=== PATIENT | male | born 1965 | race Caucasian/White ===

== ENCOUNTER 2018-04-28 15:38 | Inpatient (IN) | payer MEDICARE ==
[2018-04-28 16:06] LABS: Basophils % (A) 0 %; Eosinophils # (A) 0.4 k/uL (0-0.7); Eosinophils % (A) 3 %; HCT 43.2 % (39.0-53.0); HGB 13.9 gm/dL (13.0-17.5); Hypochromasia Slight; Lymphocytes # (A) 1.1 k/uL (1.0-4.8); Lymphocytes % (A) 10 %; MCH 25.7 pg (25.0-35.0); MCHC 32.2 g/dL (31.0-37.0); MCV 79.8 fL (80.0-100.0); Monocytes # (A) 0.6 k/uL (0-1.0); Monocytes % (A) 5 %; Neutrophils # (A) 8.8 k/uL (1.3-7.7); Neutrophils % (A) 79 %; Platelet Count 329 k/uL (150-450); RBC 5.42 m/uL (4.30-5.90); RDW 15.4 % (11.5-15.5); WBC 11.1 k/uL (3.8-10.6)
[2018-04-28 16:13] LABS: INR 3.5 (<1.2); Partial Thromboplastin Time 29.3 sec (22.0-30.0); Prothrombin Time 33.7 sec (9.0-12.0)
[2018-04-28 16:17] LABS: Albumin 4.6 g/dL (3.5-5.0); Calcium 9.8 mg/dL (8.4-10.2); Magnesium 2.2 mg/dL (1.6-2.3); Potassium 4.4 mmol/L (3.5-5.1); Total Bilirubin 0.6 mg/dL (0.2-1.3); Total Protein 7.5 g/dL (6.3-8.2)
--- NOTE | 2018-04-28 16:17 | ED ---
Dizziness HPI - General Chief Complaint: Syncope Stated Complaint: Cardiac Issues Time Seen by Provider: 04/28/18 15:43 Source: patient, EMS, RN notes reviewed, old records reviewed Mode of arrival: EMS Limitations: no limitations - History of Present Illness Initial Comments: This is a 52-year-old male the ER for evaluation he presents today for evaluation regarding syncopal event and stooling himself. Patient has history of cardiac arrest and this is how he felt during those times. Patient doesn't patient to family states the pacemaker defibrillator did not fire off at this time. Patient denies current chest pain, does feel mildly weak lightheaded and dizzy MD Complaint: dizziness, lightheadedness -: days(s) Timing: waxing/waning Description: sense of movement History of Same: Yes History of Trauma: No Severity: mild Improves With: nothing Worsens With: nothing Associated Symptoms: denies other symptoms - Related Data Allergies Allergy/AdvReac Type Severity Reaction Status Date / Time acetaminophen [From Percocet] Allergy Rash/Hives Verified 04/28/18 18:04 fexofenadine [From Zara-D] Allergy Swelling Verified 04/28/18 18:04 Iodinated Contrast- Oral and Allergy Rash/Hives Verified 04/28/18 18:04 IV Dye oxycodone [From Percocet] Allergy Rash/Hives Verified 04/28/18 18:04 pseudoephedrine Allergy Swelling Verified 04/28/18 18:04 [From Zara-D] quetiapine [From Seroquel] Allergy Unknown Verified 04/28/18 18:04 Review of Systems ROS Statement: Those systems with pertinent positive or pertinent negative responses have been documented in the HPI. ROS Other: All systems not noted in ROS Statement are negative. Past Medical History Past Medical History: Diabetes Mellitus, Hyperlipidemia, Hypertension, Myocardial Infarction ([place]) Additional Past Medical History / Comment(s): cardiac arrest x5 History of Any Multi-Drug Resistant Organisms: None Reported Past Surgical History: AICD, Heart Catheterization, Orthopedic Surgery Additional Past Surgical History / Comment(s): aortic valve replcement, mitral valve ring. right leg with hardware Past Psychological History: No Psychological Hx Reported Smoking Status: Never smoker Past Alcohol Use History: None Reported Past Drug Use History: None Reported General Exam Limitations: no limitations General appearance: alert, in no apparent distress Head exam: Present: atraumatic, normocephalic, normal inspection Eye exam: Present: normal appearance, PERRL, EOMI. Absent: scleral icterus, conjunctival injection, periorbital swelling ENT exam: Present: normal exam, mucous membranes moist Neck exam: Present: normal inspection. Absent: tenderness, meningismus, lymphadenopathy Respiratory exam: Present: normal lung sounds bilaterally. Absent: respiratory distress, wheezes, rales, rhonchi, stridor Cardiovascular Exam: Present: regular rate, normal rhythm, normal heart sounds. Absent: systolic murmur, diastolic murmur, rubs, gallop, clicks GI/Abdominal exam: Present: soft, normal bowel sounds. Absent: distended, tenderness, guarding, rebound, rigid Extremities exam: Present: normal inspection, full ROM, normal capillary refill. Absent: tenderness, pedal edema, joint swelling, calf tenderness Back exam: Present: normal inspection Neurological exam: Present: alert, oriented X3, CN II-XII intact Psychiatric exam: Present: normal affect, normal mood Skin exam: Present: warm, dry, intact, normal color. Absent: rash Course Vital Signs 04/28/18 15:42 Temperature 98.4 F Pulse Rate 70 Respiratory 20 Rate Blood Pressure 89/54 O2 Sat by Pulse 100 Oximetry - Reevaluation(s) Reevaluation #1: 04/28/18 18:07 Records reviewed Reevaluation #2: 04/28/18 18:07 patient is without recurrent syncope of the patient did stool himself twice here in the emergency room EKG Findings - EKG Comments: EKG Findings:: EKG shows paced rhythm rate of 72, ND 150, QRS 122, QTc 510 Medical Decision Making - Medical Decision Making 50 female the ER for evaluation of syncopal event with history of cardiac arrest. Cardiac arrest rest 4. We didn't. Patient's pacemaker today with no significant findings. Patient be admitted for cardiac evaluation - Lab Data Result diagrams: 04/28/18 15:50 04/28/18 15:50 Lab Results 04/28/18 04/28/18 04/28/18 Range/Units 15:50 15:50 15:50 WBC 11.1 H (3.8-10.6) k/uL RBC 5.42 (4.30-5.90) m/uL Hgb 13.9 (13.0-17.5) gm/dL Hct 43.2 (39.0-53.0) % MCV 79.8 L (80.0-100.0) fL MCH 25.7 (25.0-35.0) pg MCHC 32.2 (31.0-37.0) g/dL RDW 15.4 (11.5-15.5) % Plt Count 329 (150-450) k/uL Neutrophils % 79 % Lymphocytes % 10 % Monocytes % 5 % Eosinophils % 3 % Basophils % 0 % Neutrophils # 8.8 H (1.3-7.7) k/uL Lymphocytes # 1.1 (1.0-4.8) k/uL Monocytes # 0.6 (0-1.0) k/uL Eosinophils # 0.4 (0-0.7) k/uL Basophils # 0.0 (0-0.2) k/uL Hypochromasia Slight PT (9.0-12.0) sec INR (<1.2) APTT (22.0-30.0) sec Sodium 140 (137-145) mmol/L Potassium 4.4 (3.5-5.1) mmol/L Chloride 104 (98-107) mmol/L Carbon Dioxide 24 (22-30) mmol/L Anion Gap 12 mmol/L BUN 24 H (9-20) mg/dL Creatinine 1.41 H (0.66-1.25) mg/dL Est GFR (CKD-EPI)AfAm 66 (>60 ml/min/1.73 sqM) Est GFR (CKD-EPI)NonAf 57 (>60 ml/min/1.73 sqM) Glucose 119 H (74-99) mg/dL Calcium 9.8 (8.4-10.2) mg/dL Magnesium 2.2 (1.6-2.3) mg/dL Total Bilirubin 0.6 (0.2-1.3) mg/dL AST 23 (17-59) U/L ALT 26 (21-72) U/L Alkaline Phosphatase 86 (38-126) U/L Total Creatine Kinase 79 (55-170) U/L CK-MB (CK-2) 0.4 (0.0-2.4) ng/mL CK-MB (CK-2) Rel Index 0.5 Troponin I <0.012 (0.000-0.034) ng/mL NT-Pro-B Natriuret Pep pg/mL Total Protein 7.5 (6.3-8.2) g/dL Albumin 4.6 (3.5-5.0) g/dL Lipase 189 (23-300) U/L 04/28/18 04/28/18 Range/Units 15:50 15:50 WBC (3.8-10.6) k/uL RBC (4.30-5.90) m/uL Hgb (13.0-17.5) gm/dL Hct (39.0-53.0) % MCV (80.0-100.0) fL MCH (25.0-35.0) pg MCHC (31.0-37.0) g/dL RDW (11.5-15.5) % Plt Count (150-450) k/uL Neutrophils % % Lymphocytes % % Monocytes % % Eosinophils % % Basophils % % Neutrophils # (1.3-7.7) k/uL Lymphocytes # (1.0-4.8) k/uL Monocytes # (0-1.0) k/uL Eosinophils # (0-0.7) k/uL Basophils # (0-0.2) k/uL Hypochromasia PT 33.7 H (9.0-12.0) sec INR 3.5 H (<1.2) APTT 29.3 (22.0-30.0) sec Sodium (137-145) mmol/L Potassium (3.5-5.1) mmol/L Chloride (98-107) mmol/L Carbon Dioxide (22-30) mmol/L Anion Gap mmol/L BUN (9-20) mg/dL Creatinine (0.66-1.25) mg/dL Est GFR (CKD-EPI)AfAm (>60 ml/min/1.73 sqM) Est GFR (CKD-EPI)NonAf (>60 ml/min/1.73 sqM) Glucose (74-99) mg/dL Calcium (8.4-10.2) mg/dL Magnesium (1.6-2.3) mg/dL Total Bilirubin (0.2-1.3) mg/dL AST (17-59) U/L ALT (21-72) U/L Alkaline Phosphatase (38-126) U/L Total Creatine Kinase (55-170) U/L CK-MB (CK-2) (0.0-2.4) ng/mL CK-MB (CK-2) Rel Index Troponin I (0.000-0.034) ng/mL NT-Pro-B Natriuret Pep 138 pg/mL Total Protein (6.3-8.2) g/dL Albumin (3.5-5.0) g/dL Lipase (23-300) U/L - Radiology Data Radiology results: report reviewed (Chest x-rays negative for acute disease), image reviewed Disposition Clinical Impression: Carotid sinus syncope, Syncope Disposition: HOME SELF-CARE Condition: Good Is patient prescribed a controlled substance at d/c from ED?: No Referrals: None,Stated [Primary Care Provider] - 1-2 days
[2018-04-28 16:21] LABS: Creatine Kinase 79 U/L (55-170)
[2018-04-28 16:33] LABS: Creatine Kinase MB 0.4 ng/mL (0.0-2.4); Troponin I <0.012 ng/mL (0.000-0.034)
[2018-04-28] MEDS ORDERED: NITROGLYCERIN SL TABS 0.4 MG TAB SUBLINGUAL PRN (18:04)
[2018-04-28] MEDS ORDERED: HEPARIN SODIUM,PORCINE 5,000 UNIT/ML 1 ML VIAL IV ONE (18:04)
[2018-04-28] MEDS ORDERED: HEPARIN SODIUM,PORCINE 5,000 UNIT/ML 1 ML VIAL IV PRN (18:04)
--- NOTE | 2018-04-28 18:13 | XR ---
EXAMINATION TYPE: XR chest 2V DATE OF EXAM: 04/28/2018 COMPARISON: NONE HISTORY: Chest pain TECHNIQUE: Frontal and lateral views of the chest are obtained. FINDINGS: There is no heart failure nor confluent pneumonic infiltrate. There is left axillary pacem jes with the lead tip in the right ventricle. There are sternal wires. There is no pleural effusion. Bony thorax is intact. There is cardiac surgery. IMPRESSION: No active cardiopulmonary disease.
[2018-04-28] MEDS ORDERED: HEPARIN SOD,PORK IN 0.45% NACL 25,000 UNIT in 0.45% NACL 1 250ML.BAG IV SCH (18:15)
[2018-04-28] MEDS ORDERED: SODIUM CHLORIDE 0.9% 1,000 ML IV STA (18:30)
[2018-04-28] MEDS: SODIUM CHLORIDE 0.9% 1,000 ML IV SCH (20:26)
[2018-04-28] MEDS ORDERED: METOPROLOL TARTRATE 25 MG TAB PO SCH (21:00)
[2018-04-28 21:29] LABS: Glucose,Whole Blood 144 mg/dL (75-99)
[2018-04-28] MEDS ORDERED: ARTIFICIAL TEARS-HYPROMELLOSE DROPS 15 ML BTL BOTH EYES PRN (21:58)
[2018-04-28 22:14] LABS: HCT 38.9 % (39.0-53.0); HGB 12.6 gm/dL (13.0-17.5); Hypochromasia Moderate; MCH 26.2 pg (25.0-35.0); MCHC 32.5 g/dL (31.0-37.0); MCV 80.6 fL (80.0-100.0); Mean Platelet Volume 7.1; Platelet Count 274 k/uL (150-450); RBC 4.82 m/uL (4.30-5.90); RDW 15.3 % (11.5-15.5); WBC 13.1 k/uL (3.8-10.6)
[2018-04-28 22:29] LABS: Creatine Kinase 63 U/L (55-170)
[2018-04-28] MEDS ORDERED: WARFARIN 3 MG TAB PO ONE (22:30)
[2018-04-28 22:40] VITALS: BMI 29.9
[2018-04-28 22:43] LABS: Creatine Kinase MB 0.4 ng/mL (0.0-2.4); Troponin I <0.012 ng/mL (0.000-0.034)
[2018-04-28] MEDS: DOFETILIDE 250 MCG CAP PO SCH (23:23)
[2018-04-28] MEDS: CARVEDILOL 12.5 MG TAB PO SCH (23:24)
--- NOTE | 2018-04-28 23:24 | P.HPIM ---
History of Present Illness H&P Date: 04/28/18 Chief Complaint: near syncope 52-year-old male with history of systolic CHF status post ICD, mechanical aortic valve on Coumadin,hhistory of cardiac arrest, and hypertension. Patient was at his baseline status of health, driving back home when he started to feel tired, lightheaded, queasy in the stomach. He was feeling an urge to go to the bathroom for bowel movement and he was holding it on his way home he was few miles away from home however he noticed that he started sweating and vision getting blurry but otherwise denies any headache chest pain or trouble breathing or any palpitations he denies noticing that his ICD is firing. 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 Then he rested his head in the car and dialed 911for help as the symptoms felt like what he experienced in the past when he had his cardiac arrest. Patient reported that the cardiac arrest was associated with his aortic valve replacement surgery back around 2009. Upon arrival of 911 and patient was found clammy sweaty with change in his color he looked chew he was given some aspirin and oxygen and then was given a bedpan as he couldn't hold his bowel movement anymore. Patient denies any loss of consciousness so far. Upon arrival to the ED in the ER his EKG showed paced rhythm. ICD device interrogated no abnormal rhythms or firing was detected. However patient later started having bowel movements that was reported to be bloody. Patient admitted to the ICU for further care. Patient denies any history of GI bleeding he reports that he has been on Coumadin for many years with no complications so far. He takes the Coumadin for his mechanical aortic valve. Patient denies any changes in his medications. Denies taking any NSAIDs. Denies any abdominal pain. His most recent colonoscopy was back in 7 years ago and patient reports that that was normal. Review of Systems Pertinent positives as noted in HPI. All other systems were reviewed and are negative Past Medical History Past Medical History: Diabetes Mellitus, Hyperlipidemia, Hypertension, Myocardial Infarction ([place]) Additional Past Medical History / Comment(s): cardiac arrest x5 History of Any Multi-Drug Resistant Organisms: None Reported Past Surgical History: AICD, Heart Catheterization, Orthopedic Surgery Additional Past Surgical History / Comment(s): aortic valve replcement, mitral valve ring. right leg with hardware Past Psychological History: No Psychological Hx Reported Smoking Status: Never smoker Past Alcohol Use History: None Reported Past Drug Use History: None Reported - Past Family History Mother Family Medical History: Cancer Additional Family Medical History / Comment(s): Colon and breast CA Father Family Medical History: Cancer Additional Family Medical History / Comment(s): CLL Medications and Allergies Home Medications Medication Instructions Recorded Confirmed Type Carvedilol [Coreg] 37.5 mg PO BID 04/28/18 04/28/18 History Dofetilide [Tikosyn] 250 mcg PO BID 04/28/18 04/28/18 History Eplerenone 100 mg PO DAILY 04/28/18 04/28/18 History Warfarin Sodium [Coumadin] 7.5 mg PO HS 04/28/18 04/28/18 History Allergies Allergy/AdvReac Type Severity Reaction Status Date / Time acetaminophen [From Percocet] Allergy Rash/Hives Verified 04/28/18 18:04 fexofenadine [From Zara-D] Allergy Swelling Verified 04/28/18 18:04 Iodinated Contrast- Oral and Allergy Rash/Hives Verified 04/28/18 18:04 IV Dye oxycodone [From Percocet] Allergy Rash/Hives Verified 04/28/18 18:04 pseudoephedrine Allergy Swelling Verified 04/28/18 18:04 [From Zara-D] quetiapine [From Seroquel] Allergy Unknown Verified 04/28/18 18:04 Physical Exam Vitals: Vital Signs Temp Pulse Resp BP Pulse Ox 04/28/18 20:30 73 22 116/71 04/28/18 20:00 77 26 H 125/69 04/28/18 19:30 70 12 112/69 04/28/18 19:00 71 21 111/67 04/28/18 18:37 77 18 111/63 97 04/28/18 18:30 74 22 118/68 04/28/18 18:00 66 9 L 100/63 04/28/18 17:30 66 9 L 82/58 99 04/28/18 17:00 66 15 83/52 98 04/28/18 16:53 76 23 83/52 98 04/28/18 15:42 98.4 F 70 20 89/54 100 Intake and Output 04/28/18 04/28/18 04/28/18 06:59 14:59 22:59 Other: Weight 100.924 kg Constitutional: No acute distress, conversant, pleasant Eyes: Anicteric sclerae, moist conjunctiva, no lid-lag Pupils equal round reactive to light ENMT: NC/AT Oropharynx clear, no erythema, exudates Neck: Supple, FROM, no masses, or JVD No carotid bruits No thyromegaly Lungs: Clear to auscultation Clear to percussion Normal respiratory effort, no accessory muscle use Cardiovascular: Heart regular in rate and rhythm, mechanical click No murmurs, gallops, or rubs No peripheral edema Abdominal: Soft Nontender, no guarding, rebound or rigidity Abdomen moving with respiration Normoactive bowel sounds No hepatomegaly, No splenomegaly No palpable mass No abdominal wall hernia noted Skin: Normal temperature, tone, texture, turgor No induration No subcutaneous nodules No rash, lesions No ulcers Extremities: No digital cyanosis No clubbing Pedal pulses intact and symmetrical Radial pulses intact and symmetrical No calf tenderness Psychiatric: Alert and oriented to person, place and time Appropriate affect fair judgment Neuro Muscles Strength 5/5 in all 4 extremities Sensation to light touch grossly present throughout Cranial nerves II-XII grossly intact No focal sensory deficits Lymphatics: no palpable cervical or supraclavicular , or inguinal lymph nodes Results CBC & Chem 7: 04/28/18 21:42 04/28/18 15:50 Labs: Abnormal Lab Results - Last 24 Hours (Table) 04/28/18 04/28/18 04/28/18 Range/Units 15:50 15:50 15:50 WBC 11.1 H (3.8-10.6) k/uL MCV 79.8 L (80.0-100.0) fL Neutrophils # 8.8 H (1.3-7.7) k/uL PT 33.7 H (9.0-12.0) sec INR 3.5 H (<1.2) BUN 24 H (9-20) mg/dL Creatinine 1.41 H (0.66-1.25) mg/dL Glucose 119 H (74-99) mg/dL Assessment and Plan Assessment: 52-year-old male with history of systolic CHF, mechanical aortic valve, cardiac arrest. Admitted as an inpatient with anticipated length of stay more than 48 hours due to presyncope with GI bleeding, initial workup showed normal hemoglobin which later dropped by 1 g. Patient on Coumadin for mechanical aortic valve INR is within therapeutic range. Patient admitted to the ICU for closee monitoring GI consult Plan: near syncope GI bleeding Asymptomatic anemia 2/2 GI bleed NPO admit to ICU for close monitor H and H q 6 hours PPI IV BID GI consult most recent C scope 7 years ago , reported to be wnl per patient no History of GI bleeding denies any NSAIDs IVF hydration Iron studies patient agreeable to blood transfusion if needed (hgb<7, or symptomatic with significant drop in hgb) Chronic systolic CHF , s/p ICD device currently compensated continue home meds hold ACEI due to JACKIE JACKIE , unknown cr baseline hold ACEI avoid nephrotoxic meds IVF gentle monitor urine output history of mechanical aortic valve, on coumadin INR within theraputic range will not reverse coumadin at this time, due to mechanical aortic valve, and initial hemoglobin was normal will continue to monitor and consider reversal if patient continues to have significant GI bleeding and / or significant drop in his hemoglobin Hypertension continue home meds Prediabetes mellitus insulin sliding scale DVT PPx, currently patient INR is >2, coumadin on hold due to GI bleeding Surrogate decision-maker: patient's Sister. CODE STATUS:full code Discussed with: Patient, ER, RN Anticipated discharge: 48-[address]: home A total of 60 minutes was spent on the care of this complex patient more than 50 % of the time was spent in counseling and care coordination.
[2018-04-29] MEDS: PANTOPRAZOLE 40 MG/10 ML VIAL IV SCH ×3 (01:51→20:58)
[2018-04-29] MEDS: SODIUM CHLORIDE 0.9% 1,000 ML IV SCH ×2 (01:55→17:48)
[2018-04-29 05:38] LABS: Calcium 8.7 mg/dL (8.4-10.2); Magnesium 1.9 mg/dL (1.6-2.3); Phosphorus 3.7 mg/dL (2.5-4.5); Potassium 4.3 mmol/L (3.5-5.1)
[2018-04-29 05:44] LABS: HGB 11.7 gm/dL (13.0-17.5); Hypochromasia Marked; MCH 24.3 pg (25.0-35.0); MCV 81.2 fL (80.0-100.0); Mean Platelet Volume 6.5; Platelet Count 281 k/uL (150-450); RBC 4.81 m/uL (4.30-5.90); RDW 15.3 % (11.5-15.5); WBC 10.8 k/uL (3.8-10.6)
[2018-04-29 05:46] LABS: Creatine Kinase 64 U/L (55-170)
[2018-04-29 05:59] LABS: Creatine Kinase MB 0.4 ng/mL (0.0-2.4); Troponin I <0.012 ng/mL (0.000-0.034)
[2018-04-29] MEDS: MAGNESIUM SULFATE-D5W PMX 1 GM in DEXTROSE/WATER 1 100ML.BAG IVPB SCH ×2 (06:35→08:13)
[2018-04-29] MEDS ORDERED: HEPARIN SODIUM,PORCINE 5,000 UNIT/ML 1 ML VIAL IV ONE (07:29)
[2018-04-29] MEDS ORDERED: HEPARIN SODIUM,PORCINE 5,000 UNIT/ML 1 ML VIAL IV PRN (07:29)
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
[2018-04-29 07:48] LABS: INR 3.3 (<1.2); Partial Thromboplastin Time 39.2 sec (22.0-30.0); Prothrombin Time 31.9 sec (9.0-12.0)
--- NOTE | 2018-04-29 07:51 | XR ---
EXAMINATION TYPE: XR chest 1V portable DATE OF EXAM: 04/29/2018 CLINICAL HISTORY: Difficulty breathing progress study. TECHNIQUE: Single AP portable upright view of the chest is obtained. COMPARISON: Chest x-ray from one day earlier. FINDINGS: Overlying sternal wires and mediastinal clips are redemonstrated. There is persistent card iomegaly with dual lead pacemaker/AICD. Cardiac surgical hardware including suspected closure device upper heart is redemonstrated. Left circumflex coronary stent is noted. Lungs remain clear without pl eural effusion or pneumothorax. Osseous structures are intact. IMPRESSION: Overall stable findings, postsurgical changes and cardiomegaly without acute pulmonary process.
[2018-04-29] MEDS ORDERED: HEPARIN SOD,PORK IN 0.45% NACL 25,000 UNIT in 0.45% NACL 1 250ML.BAG IV SCH (08:00)
[2018-04-29 08:12] LABS: Glucose,Whole Blood 106 mg/dL (75-99)
[2018-04-29] MEDS: ASPIRIN 325 MG TAB PO SCH (08:14)
[2018-04-29] MEDS: INSULIN ASPART 100 UNIT/ML 1 ML 10 ML VIAL SQ SCH ×4 (08:14→20:34)
[2018-04-29] MEDS: ATORVASTATIN 80 MG TAB PO SCH (08:14)
[2018-04-29] MEDS: CARVEDILOL 12.5 MG TAB PO SCH ×2 (08:15→20:59)
[2018-04-29] MEDS: DOFETILIDE 250 MCG CAP PO SCH ×2 (08:16→20:59)
[2018-04-29] MEDS ORDERED: PANTOPRAZOLE 40 MG/10 ML VIAL IV SCH (09:00)
[2018-04-29] MEDS ORDERED: ENOXAPARIN 40 MG/0.4 ML SYRINGE SQ SCH (09:00)
[2018-04-29] MEDS ORDERED: SPIRONOLACTONE 25 MG TAB PO SCH (09:00)
--- NOTE | 2018-04-29 09:57 | CONS ---
CONSULTATION PULMONARY/CRITICAL CARE CONSULTATION: DATE OF SERVICE: 04/29/2018 REASON FOR CONSULTATION: Syncope/near syncope. This is a very pleasant 52-year-old male who really does not have a primary doctor. 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 The patient was admitted to the hospital on 04/28. He came into the emergency room after not really feeling well. He felt like he was going to pass out. He apparently had a number of episodes of diarrhea, even bloody diarrhea and for that reason he was seen and admitted to the hospital. The patient just did not feel quite right, like he was going to pass out and has a previous history of cardiac arrest. That is why he has a previous insertion of a pacemaker/defibrillator. The patient does have a history of myocardial infarction, CABG x4, CHF, hypertension, peripheral artery disease and aortic valve replacement x2, the last one at [facility]. Anyway, the patient was evaluated in the emergency room and admitted to the ICU for further monitoring. He is going to be seen by Gastroenterology today. Currently, he is on room air. He is getting an IV of saline at 100 mL an hour. His hemoglobin today is 11.7. As I mentioned, he has no family doctor. His chest x-ray x2 was normal. His allergy profile includes TYLENOL, CHRISTINA, IVP DYE, OXYCODONE, SUDAFED, and SEROQUEL. HOME MEDICATIONS: Include ramipril, Lasix, warfarin, Eplerenone, Tikosyn, Coreg, and Flovent HFA. SURGICAL HISTORY: Includes bypass x4 and aortic valve replacement x2. SOCIAL HISTORY: Significant that he is a lifelong nonsmoker. He denies any alcohol or illicit drug use. PAST MEDICAL HISTORY: Diabetes mellitus, hyperlipidemia, hypertension, myocardial infarction, CHF, peripheral artery disease, bypass grafting x4, an aortic valve replacement x2. REVIEW OF SYSTEMS: CONSTITUTIONAL: Weakness. NEUROLOGIC: Syncope/presyncope. HEENT: Negative. CARDIOVASCULAR: Negative. PULMONARY: Negative. GI: GI bleed. : Negative. RHEUMATOLOGIC/IMMUNOLOGIC: Negative. ENDOCRINOLOGIC; Negative. DERMATOLOGIC: Negative. Current vital signs is temperature 98.7, heart rate 83, respiratory rate 20, blood pressure 107/68, mean 81, room air saturation 95%. Appears in no acute distress. HEENT: Examination is grossly unremarkable. Mucous membranes are moist. No oral lesions. NECK: Supple. Full range of motion. No adenopathy, thyromegaly or neck vein distention. CARDIOVASCULAR: Examination reveals regular rhythm and rate. S1, S2 normal. No S3, S4, or murmur. LUNGS: Reveal clear breath sounds. No wheezes or rhonchi. ABDOMEN: Soft. Bowel sounds are heard. No masses or tenderness. Extremities are intact. No cyanosis, clubbing, or edema. Skin without rash. Neurologic examination is brief but nonfocal. Again, he is receiving an IV of saline at 100 mL an hour. Chest x-ray is negative x2. White count 10.8, hemoglobin 11.7, hematocrit 39.0, platelet count 381,000. PT 31.9. INR 3.3, PTT is 39.2. Sodium 139, potassium 4.3, chloride is 106, CO2 is 25, anion gap is normal at 8, BUN and creatinine were 22 and 1.12. Troponins were negative x3. Lipase was normal. Medications are reviewed. I decided to hold the heparin. I did discuss with Dr. Griffin. ASSESSMENT: 1. Gastrointestinal bleed, likely lower in nature. 2. Mild anemia. 3. Coronary artery disease with previous myocardial infarction. 4. Status post bypass grafting x4. 5. History of heart failure. 6. Hypertension. 7. Peripheral artery disease. 8. Aortic valve replacement x2. 9. Cardiopulmonary arrest x5. 10.Status post mitral valve ring. PLAN: The patient will be seen by Gastroenterology. Will hold the IV heparin for now. The patient is anticoagulated based on his PT, INR. The patient does not have a family doctor. Additional recommendations and suggestions are forthcoming. The patient should stay in the ICU for at least the day. Continue to monitor very closely. Respiratory status is stable. Hemodynamically stable. Will continue to watch the hemoglobin which has been trending downward. MMODL / IJN: [id number] / [email or web address]
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
[2018-04-29 12:59] LABS: Iron Saturation 6.41 (15.00-50.00)
[2018-04-29 13:36] LABS: Glucose,Whole Blood 100 mg/dL (75-99)
[2018-04-29 14:18] LABS: HGB 11.6 gm/dL (13.0-17.5); Hypochromasia Marked; MCH 24.9 pg (25.0-35.0); MCHC 30.5 g/dL (31.0-37.0); MCV 81.7 fL (80.0-100.0); Mean Platelet Volume 6.6; Platelet Count 258 k/uL (150-450); RBC 4.65 m/uL (4.30-5.90); RDW 15.5 % (11.5-15.5); WBC 9.8 k/uL (3.8-10.6)
[2018-04-29 17:21] LABS: Glucose,Whole Blood 98 mg/dL (75-99)
[2018-04-29 20:09] LABS: Basophils % (A) 0 %; Eosinophils # (A) 0.2 k/uL (0-0.7); Eosinophils % (A) 2 %; HCT 39.6 % (39.0-53.0); HGB 12.2 gm/dL (13.0-17.5); Hypochromasia Marked; Lymphocytes # (A) 1.1 k/uL (1.0-4.8); Lymphocytes % (A) 10 %; MCH 25.3 pg (25.0-35.0); MCHC 30.9 g/dL (31.0-37.0); MCV 81.8 fL (80.0-100.0); Mean Platelet Volume 7.4; Monocytes # (A) 0.8 k/uL (0-1.0); Monocytes % (A) 8 %; Neutrophils # (A) 8.3 k/uL (1.3-7.7); Neutrophils % (A) 77 %; Platelet Count 266 k/uL (150-450); RBC 4.84 m/uL (4.30-5.90); RDW 15.5 % (11.5-15.5); WBC 10.8 k/uL (3.8-10.6)
[2018-04-29 20:33] LABS: Glucose,Whole Blood 71 mg/dL (75-99)
[2018-04-30] MEDS: SODIUM CHLORIDE 0.9% 1,000 ML IV SCH (01:01)
[2018-04-30 04:52] LABS: Basophils % (A) 0 %; Eosinophils # (A) 0.2 k/uL (0-0.7); Eosinophils % (A) 2 %; HCT 35.8 % (39.0-53.0); HGB 11.3 gm/dL (13.0-17.5); Hypochromasia Moderate; Lymphocytes % (A) 10 %; MCH 25.6 pg (25.0-35.0); MCHC 31.7 g/dL (31.0-37.0); Mean Platelet Volume 6.9; Monocytes # (A) 0.7 k/uL (0-1.0); Monocytes % (A) 7 %; Neutrophils # (A) 7.7 k/uL (1.3-7.7); Neutrophils % (A) 78 %; Platelet Count 243 k/uL (150-450); RBC 4.42 m/uL (4.30-5.90); RDW 15.5 % (11.5-15.5); WBC 9.9 k/uL (3.8-10.6)
[2018-04-30 04:57] LABS: INR 2.2 (<1.2); Prothrombin Time 21.7 sec (9.0-12.0)
[2018-04-30 05:00] LABS: Anion Gap 4 mmol/L; Blood Urea Nitrogen 13 mg/dL (9-20); Calcium 8.5 mg/dL (8.4-10.2); Carbon Dioxide 25 mmol/L (22-30); Chloride 108 mmol/L (98-107); Glucose 87 mg/dL (74-99); Magnesium 1.9 mg/dL (1.6-2.3); Phosphorus 2.8 mg/dL (2.5-4.5); Potassium 4.3 mmol/L (3.5-5.1); Sodium 137 mmol/L (137-145)
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
--- NOTE | 2018-04-30 08:10 | P.PN ---
Subjective Progress Note Date: 04/30/18 Principal diagnosis: GI bleeding Past several bloody bowel movement yesterday none since midnight. Abdominal pain improves minimal. Afebrile. INR 2.2. Hemoglobin 11.3. Tolerating clear liquids. Objective - Vital Signs Vital signs: Vital Signs Temp 98.4 F 04/30/18 04:00 Pulse 72 04/30/18 07:00 Resp 20 04/30/18 07:00 BP 106/61 04/30/18 07:00 Pulse Ox 92 L 04/30/18 07:00 Intake & Output 04/29/18 04/30/18 04/30/18 18:59 06:59 18:59 Intake Total 1200 1400 Output Total 800 807 Balance 400 593 Weight 105.8 kg Intake: IV 1200 1300 Sodium Chloride 0.9% 1, 1200 1300 000 ml @ 100 mls/hr IV . Q10H CARMEN Rx#:[id number] Oral 100 Output: Urine 800 800 Stool 7 Other: # Voids 0 # Bowel Movements 1 1 - Exam General appearance: The patient is alert, oriented, in no acute distress. HET: Head is normocephalic and atraumatic. Pupils are equal and reactive. Oropharynx is clear without lesions. Neck: Supple without lymphadenopathy. Trachea midline. Heart: S1 S2. Regular rate and rhythm. Lungs: No crackles or wheezes are heard. Abdomen: Soft, nontender, nondistended with bowel sounds. No peritoneal signs. No palpable organomegaly or masses. Extremities: Normal skin color and turgor. No cyanosis, rash, ulceration, clubbing, or edema. Radial and pedal pulses are 2/4 bilaterally. Neurological: No focal deficits. Strength and sensation are grossly intact. - Labs CBC & Chem 7: 04/30/18 04:27 04/30/18 04:27 Labs: Abnormal Lab Results - Last 24 Hours (Table) 04/29/18 04/29/18 04/29/18 Range/Units 04:14 08:10 13:34 WBC (3.8-10.6) k/uL Hgb (13.0-17.5) gm/dL Hct (39.0-53.0) % MCH (25.0-35.0) pg MCHC (31.0-37.0) g/dL Neutrophils # (1.3-7.7) k/uL PT (9.0-12.0) sec INR (<1.2) Chloride (98-107) mmol/L POC Glucose (mg/dL) 106 H 100 H (75-99) mg/dL Iron 25 L (65-175) ug/dL Iron Saturation 6.41 L (15.00-50.00) Ferritin 12.1 L (22.0-322.0) ng/mL 04/29/18 04/29/18 04/29/18 Range/Units 13:48 19:37 20:32 WBC 10.8 H (3.8-10.6) k/uL Hgb 11.6 L 12.2 L (13.0-17.5) gm/dL Hct 38.0 L (39.0-53.0) % MCH 24.9 L (25.0-35.0) pg MCHC 30.5 L 30.9 L (31.0-37.0) g/dL Neutrophils # 8.3 H (1.3-7.7) k/uL PT (9.0-12.0) sec INR (<1.2) Chloride (98-107) mmol/L POC Glucose (mg/dL) 71 L (75-99) mg/dL Iron (65-175) ug/dL Iron Saturation (15.00-50.00) Ferritin (22.0-322.0) ng/mL 04/30/18 04/30/18 04/30/18 Range/Units 04:27 04:27 04:27 WBC (3.8-10.6) k/uL Hgb 11.3 L (13.0-17.5) gm/dL Hct 35.8 L (39.0-53.0) % MCH (25.0-35.0) pg MCHC (31.0-37.0) g/dL Neutrophils # (1.3-7.7) k/uL PT 21.7 H (9.0-12.0) sec INR 2.2 H (<1.2) Chloride 108 H (98-107) mmol/L POC Glucose (mg/dL) (75-99) mg/dL Iron (65-175) ug/dL Iron Saturation (15.00-50.00) Ferritin (22.0-322.0) ng/mL Assessment and Plan (1) Blood per rectum Current Visit: Yes Status: Acute Code(s): K62.5 - HEMORRHAGE OF ANUS AND RECTUM SNOMED Code(s): 63273230 (2) Anemia due to blood loss Current Visit: Yes Status: Acute Code(s): D50.0 - IRON DEFICIENCY ANEMIA SECONDARY TO BLOOD LOSS (CHRONIC) SNOMED Code(s): 669526085 (3) Coagulopathy Narrative/Plan: Warfarin induced improved presently on hold Current Visit: Yes Status: Acute Code(s): D68.9 - COAGULATION DEFECT, UNSPECIFIED SNOMED Code(s): 65167654 Plan: 1. CBC monitoring. Continue clear liquids if bloody bowel movements improved today may advance to full liquids. We'll continue to follow with you. Assessment and plan a care discussed with Dr. Batres
[2018-04-30] MEDS: ASPIRIN 325 MG TAB PO SCH (08:27)
[2018-04-30] MEDS: CARVEDILOL 12.5 MG TAB PO SCH ×2 (08:27→20:29)
[2018-04-30] MEDS: ATORVASTATIN 80 MG TAB PO SCH (08:27)
[2018-04-30] MEDS: SPIRONOLACTONE 25 MG TAB PO SCH (08:27)
[2018-04-30] MEDS: PANTOPRAZOLE 40 MG/10 ML VIAL IV SCH (08:27)
[2018-04-30] MEDS: DOFETILIDE 250 MCG CAP PO SCH ×2 (08:28→20:29)
--- NOTE | 2018-04-30 10:40 | PN ---
PROGRESS NOTE DATE OF SERVICE: 04/30/2018 This is a 52-year-old male who I saw yesterday in consultation. He apparently does not have a primary doctor. Most of his care is done at the [facility]. His most recent aortic valve replacement was done there he sees a child and family services specialist there. He was admitted to the hospital on April 28. He came into the emergency room after not feeling well. He thought he was going to pass out. He has had multiple episodes of cardiopulmonary arrest. He thought he was going to have another one, but instead started having bloody diarrhea. The patient was admitted to the ICU for the suspected lower GI bleed. The patient does have a history of multiple medical problems including myocardial infarction, bypass grafting x4, CHF, hypertension, peripheral artery disease and aortic valve replacement x2. Again the last aortic valve was done a number of years back at [facility]. This morning he is resting comfortably. He is not. He is receiving an IV of saline at 100 mL an hour that can be turned down or discontinued altogether. He is not receiving any supplemental oxygen. His hemoglobin this morning is stable 1.3. The patient's INR is back in the therapeutic range. He has a mechanical valve for which she is on Coumadin. Apparently, GI does not want to do anything diagnostically at this time. The patient did have a colonoscopy 7 years ago, which was normal. Current vital signs, good temperature 98.4, heart rate 78, respiratory 22, blood pressure 114/60, mean 78, room-air saturation 95-97%. Appears no acute distress. HEENT examination is grossly unremarkable. Mucous membranes are moist. Neck is supple. Full range of motion. No adenopathy or thyromegaly. Neck veins are flat. Cardiovascular examination reveals regular rhythm and rate. No distinct murmurs noted. S1, S2 normal. Heart rate 78. Lungs reveal clear breath sounds. No wheezes or rhonchi. No crackles. Breath sounds are equal bilaterally. Abdomen is soft, bowel sounds are heard. There is no masses or tenderness. Yesterday, he did have some lower abdominal pain. Lower abdominal tenderness. Extremities are intact. No cyanosis, clubbing, or edema. Skin without rash. Neurologic examination is nonfocal. LABORATORY DATA: Includes a white count 9.9, hemoglobin 11.3, hematocrit 35.8, platelet count 343,000. PT 21.7. INR 2.2. Sodium, potassium normal. Chloride is 108, CO2 is 25, anion gap is 4. BUN and creatinine were 13 and 0.88. Microbiologic studies are negative. MEDICATIONS ARE: Reviewed. He is just on a few medications including aspirin, Lipitor, Coreg, Tikosyn, sublingual nitroglycerin, Protonix, Aldactone, and warfarin. ASSESSMENT: 1. Presumed lower gastrointestinal bleed, which apparently has ceased, statistically likely secondary to diverticular disease and/or angiodysplasia. 2. Mild anemia, stable. 3. Coronary artery disease with previous myocardial infarction. 4. Status post bypass grafting x4 vessel. 5. History of heart failure. 6. Hypertension. 7. Valvular heart disease with aortic valve replacement x2. 8. Peripheral artery disease. 9. History of cardiopulmonary arrest x5. 10.Status post mitral valve ring placement. PLAN: I will await and see what Cardiology and Gastroenterology want to do. Apparently according to the nurse, Gastroenterology is not planning to do any procedure at this time. If he does not bleed anymore, the Coumadin can be restarted. That will need to be monitored very carefully. Apparently according to the child and family services specialist, the patient could be possibly discharged today, although that is not being confirmed. Hemodynamically stable. Hemoglobin is stable. I did urge the patient to find a primary care physician. He should have a doctor in this area. He will follow up at the [facility] as well. No additional recommendations are made. Prognosis is guarded. MMODL / IJN: [id number] /
--- NOTE | 2018-04-30 13:48 | US ---
EXAMINATION TYPE: US carotid duplex BILAT DATE OF EXAM: 04/30/2018 COMPARISON: NONE CLINICAL HISTORY: 52-year-old male dizzy. Syncope TECHNIQUE: Carotid duplex ultrasound examination. In direct upper criteria is utilized. FINDINGS: EXAM MEASUREMENTS: RIGHT: Peak Systolic Velocity (PSV) cm/sec ----- Right CCA: 100.7 ----- Right ICA: 77.1 ----- Right ECA: 104.1 ICA/CCA ratio: 0.8 RIGHT: End Diastole cm/sec ----- Right CCA: 33.6 ----- Right ICA: 14.7 ----- Right ECA: 11.4 LEFT: Peak Systolic Velocity (PSV) cm/sec ----- Left CCA: 118.9 ----- Left ICA: 65.6 ----- Left ECA: 79.6 ICA/CCA ratio: 0.6 LEFT: End Diastole cm/sec ----- Left CCA: 30.0 ----- Left ICA: 19.1 ----- Left ECA: 8.6 VERTEBRALS (direction of flow): Right Vertebral: Antegrade Left Vertebral: Antegrade Rhythm: Normal Sonography notes: Mild bilateral intimal thickening, no elevated velocities, no significant stenosis. IMPRESSION: No hemodynamically significant stenosis appreciated in either internal carotid artery. Criteria for Assigning % of Stenosis / Diameter reduction (Estimation based on the indirect measurements of the internal carotid artery velocities (ICA PSV). 1. Normal (no stenosis)=ICA PSV < 125 cm/s: ratio < 2.0: ICA EDV<40 cm/s. 2. Less than 50% stenosis=ICA PSV < 125 cm/s: ratio < 2.0: ICA EDV<40 cm/s. 3. 50 to 69% stenosis=ICA PSV of 125 to 230 cm/s: ration 2.0 ? 4.0: ICA EDV 40-100 cm/s. 4. Greater than 70% stenosis to near occlusion= ICA PSV > 230 cm/s: ratio > 4.0: ICA EDV > 100 cm/s. 5. Near occlusion= ICA PSV velocities may be low or undetectable: variable ratio and ICA EDV. 6. Total occlusion=unable to detect flow.
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
[2018-04-30] MEDS ORDERED: WARFARIN 7.5 MG TAB PO ONE (18:00)
[2018-04-30] MEDS: ACETAMINOPHEN TAB 325 MG TAB PO PRN (20:29)
[2018-04-30] MEDS: PANTOPRAZOLE 40 MG TABLET PO SCH (20:29)
[2018-05-01 04:53] LABS: Basophils % (A) 0 %; Eosinophils # (A) 0.3 k/uL (0-0.7); Eosinophils % (A) 5 %; HCT 36.9 % (39.0-53.0); HGB 11.1 gm/dL (13.0-17.5); Hypochromasia Moderate; Lymphocytes % (A) 16 %; MCH 24.5 pg (25.0-35.0); MCV 81.7 fL (80.0-100.0); Mean Platelet Volume 7.1; Monocytes # (A) 0.6 k/uL (0-1.0); Monocytes % (A) 9 %; Neutrophils # (A) 4.3 k/uL (1.3-7.7); Neutrophils % (A) 67 %; Platelet Count 228 k/uL (150-450); RBC 4.52 m/uL (4.30-5.90); RDW 15.5 % (11.5-15.5); WBC 6.4 k/uL (3.8-10.6)
[2018-05-01 04:57] LABS: INR 1.9 (<1.2); Prothrombin Time 18.6 sec (9.0-12.0)
[2018-05-01 05:21] LABS: Anion Gap 6 mmol/L; Blood Urea Nitrogen 14 mg/dL (9-20); Calcium 8.8 mg/dL (8.4-10.2); Carbon Dioxide 27 mmol/L (22-30); Chloride 106 mmol/L (98-107); Glucose 108 mg/dL (74-99); Magnesium 2.1 mg/dL (1.6-2.3); Phosphorus 3.7 mg/dL (2.5-4.5); Potassium 4.2 mmol/L (3.5-5.1); Sodium 139 mmol/L (137-145)
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
--- NOTE | 2018-05-01 08:26 | PN ---
PROGRESS NOTE DATE OF SERVICE: May 01, 2018 This is a 52-year-old male who was seen in consultation 2 days ago. The patient came in basically with a GI bleed. He has a significant history of aortic valve replacement x2. He was admitted to the hospital on April 28. He was admitted to the ICU because of the GI bleed. He is not having any additional GI bleeding and the patient could probably be discharged sometime today. The patient does have a history of multiple medical problems including myocardial infarction, a 4-vessel bypass, CHF, hypertension, peripheral artery disease, aortic valve replacement x2. The patient gets most of his care at the [facility]. He does not really have a family doctor here in town. The patient is not receiving any supplemental oxygen. The patient is not receiving any IV fluids. The patient states that he is feeling rather well. No major complaints or issues. Gastroenterology saw the patient. Decided not to do anything at this time. He did have colonoscopy some 7 years ago, which was normal. Vital signs are reviewed. Temperature 97.9 heart rate 62, respiratory rate 14, blood pressure 117/74, mean 88 and room air saturation 97%. Appears in no acute distress. HEENT examination is grossly unremarkable. Mucous membranes are moist. NECK: Supple. Full range of motion. No adenopathy, thyromegaly or neck vein distention. Cardiovascular examination reveals regular rhythm and rate. Heart rate 62. S1, S2 normal. No murmur. Lungs reveal clear breath sounds. No wheezes or rhonchi. Abdomen is soft. Bowel sounds are heard. No masses or tenderness. Extremities are intact. No cyanosis, clubbing, or edema. Skin without rash. Neurologic examination is brief but nonfocal. White count 6.4, hemoglobin remained stable 11.1, hematocrit 36.9, platelet count 228,000. PT 18.6, INR 1.9. Sodium, potassium, chloride, CO2, anion gap, BUN, creatinine all normal. Microbiologic data is negative. No recent chest x-ray to review. The carotid Doppler suggests no hemodynamically significant stenosis being appreciated. Medications are reviewed. ASSESSMENT: 1. Lower gastrointestinal bleed, likely secondary to either diverticula and/or angiodysplasia. 2. Normal colonoscopy 7 years ago. 3. Mild anemia, stable. 4. Coronary artery disease with previous myocardial infarction. 5. Status post 4-vessel bypass grafting. 6. History of heart failure. 7. History of hypertension. 8. Valvular heart disease with aortic valve replacement x2. 9. Peripheral artery disease. 10.History of cardiopulmonary arrest x5. 11.Status post mitral valve ring placement. PLAN: The patient may be discharged to the medical floor or step-down unit and/or discharged home. Not sure at this point. Not having any additional GI bleeding. Apparently, Gastroenterology will follow up with him as an outpatient. Apparently, he has been seen by Cardiology as well. No additional recommendations are made. We do encourage him to find a primary care physician. He will also follow up with his [facility] transfer car operator and cardiovascular team. MMSARAHL / EVERN: [id number] /
[2018-05-01] MEDS ORDERED: MENTHOL (NICE) LOZENGE MUCOUS MEM PRN (08:49)
[2018-05-01] MEDS: PANTOPRAZOLE 40 MG TABLET PO SCH ×2 (08:51→21:19)
[2018-05-01] MEDS: DOFETILIDE 250 MCG CAP PO SCH ×2 (08:52→21:20)
[2018-05-01] MEDS: SPIRONOLACTONE 25 MG TAB PO SCH (08:52)
[2018-05-01] MEDS: ASPIRIN 325 MG TAB PO SCH (08:52)
[2018-05-01] MEDS: ATORVASTATIN 80 MG TAB PO SCH (08:52)
[2018-05-01] MEDS: CARVEDILOL 12.5 MG TAB PO SCH ×2 (08:52→21:20)
--- NOTE | 2018-05-01 09:05 | P.PN ---
Subjective Progress Note Date: 05/01/18 Principal diagnosis: GI bleeding No complaints. No bloody BMs. Received. Mild abdominal pain bilateral lower abdomen. Afebrile. INR 1.9. Hemoglobin 11.1. Tolerating cardiac diet. Objective - Vital Signs Vital signs: Vital Signs Temp 98.2 F 05/01/18 08:00 Pulse 67 05/01/18 08:00 Resp 16 05/01/18 08:00 BP 100/65 05/01/18 08:00 Pulse Ox 95 05/01/18 08:00 Intake & Output 04/30/18 05/01/18 05/01/18 18:59 06:59 18:59 Intake Total 2007 200 Output Total 550 Balance 1458 200 Weight 105.9 kg Intake: IV 100 Sodium Chloride 0.9% 1, 100 000 ml @ 100 mls/hr IV . Q10H [facility] Rx#:[id number] Oral 1908 200 Output: Urine 550 Other: # Voids 1 2 - Exam General appearance: The patient is alert, oriented, in no acute distress. HET: Head is normocephalic and atraumatic. Pupils are equal and reactive. Oropharynx is clear without lesions. Neck: Supple without lymphadenopathy. Trachea midline. Heart: S1 S2. Regular rate and rhythm. Lungs: No crackles or wheezes are heard. Abdomen: Soft, mild tender bilateral lower abdomne, nondistended with bowel sounds. No peritoneal signs. No palpable organomegaly or masses. Extremities: Normal skin color and turgor. No cyanosis, rash, ulceration, clubbing, or edema. Radial and pedal pulses are 2/4 bilaterally. Neurological: No focal deficits. Strength and sensation are grossly intact. - Labs CBC & Chem 7: 05/01/18 04:35 05/01/18 04:35 Labs: Abnormal Lab Results - Last 24 Hours (Table) 05/01/18 05/01/18 05/01/18 Range/Units 04:35 04:35 04:35 Hgb 11.1 L (13.0-17.5) gm/dL Hct 36.9 L (39.0-53.0) % MCH 24.5 L (25.0-35.0) pg MCHC 30.0 L (31.0-37.0) g/dL PT 18.6 H (9.0-12.0) sec INR 1.9 H (<1.2) Glucose 108 H (74-99) mg/dL Assessment and Plan (1) Blood per rectum Current Visit: Yes Status: Acute Code(s): K62.5 - HEMORRHAGE OF ANUS AND RECTUM SNOMED Code(s): 00899357 (2) Anemia due to blood loss Current Visit: Yes Status: Acute Code(s): D50.0 - IRON DEFICIENCY ANEMIA SECONDARY TO BLOOD LOSS (CHRONIC) SNOMED Code(s): 922320033 (3) Coagulopathy Current Visit: Yes Status: Acute Code(s): D68.9 - COAGULATION DEFECT, UNSPECIFIED SNOMED Code(s): 22265827 Plan: 1. CBC monitoring. Continue cardiac diet. Continue anticoagulation. We'll continue to follow with you. Assessment and plan a care discussed with Dr. Batres
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
[2018-05-01] MEDS: ENOXAPARIN 100 MG/ML SYRINGE SQ SCH ×2 (12:25→21:19)
[2018-05-01] MEDS: ACETAMINOPHEN TAB 325 MG TAB PO PRN (12:25)
[2018-05-01] MEDS ORDERED: ALBUTEROL NEBULIZED 2.5 MG/3 ML INHALATION PRN (15:20)
[2018-05-01 23:45] VITALS: RESP 16
[2018-05-02] MEDS: ACETAMINOPHEN TAB 325 MG TAB PO PRN (03:47)
[2018-05-02 05:49] LABS: Basophils % (A) 1 %; Eosinophils # (A) 0.4 k/uL (0-0.7); Eosinophils % (A) 8 %; HCT 36.3 % (39.0-53.0); HGB 11.5 gm/dL (13.0-17.5); Hypochromasia Marked; Lymphocytes # (A) 0.9 k/uL (1.0-4.8); Lymphocytes % (A) 17 %; MCH 25.6 pg (25.0-35.0); MCHC 31.6 g/dL (31.0-37.0); MCV 81.1 fL (80.0-100.0); Mean Platelet Volume 6.4; Monocytes # (A) 0.6 k/uL (0-1.0); Monocytes % (A) 11 %; Neutrophils # (A) 3.2 k/uL (1.3-7.7); Neutrophils % (A) 61 %; Platelet Count 241 k/uL (150-450); RBC 4.48 m/uL (4.30-5.90); RDW 15.1 % (11.5-15.5); WBC 5.3 k/uL (3.8-10.6)
[2018-05-02 05:54] LABS: INR 1.6 (<1.2); Prothrombin Time 15.6 sec (9.0-12.0)
[2018-05-02 06:02] LABS: Anion Gap 6 mmol/L; Blood Urea Nitrogen 13 mg/dL (9-20); Calcium 8.9 mg/dL (8.4-10.2); Carbon Dioxide 27 mmol/L (22-30); Chloride 107 mmol/L (98-107); Glucose 104 mg/dL (74-99); Magnesium 1.9 mg/dL (1.6-2.3); Potassium 4.3 mmol/L (3.5-5.1); Sodium 140 mmol/L (137-145)
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
[2018-05-02 08:19] VITALS: BP 106/69; PULSE 84; TEMP 97.8
[2018-05-02] MEDS: ATORVASTATIN 80 MG TAB PO SCH (08:22)
[2018-05-02] MEDS: PANTOPRAZOLE 40 MG TABLET PO SCH (08:22)
[2018-05-02] MEDS: CARVEDILOL 12.5 MG TAB PO SCH (08:22)
[2018-05-02] MEDS: ENOXAPARIN 100 MG/ML SYRINGE SQ SCH (08:22)
[2018-05-02] MEDS: ASPIRIN 325 MG TAB PO SCH (08:22)
[2018-05-02] MEDS: SPIRONOLACTONE 25 MG TAB PO SCH (08:22)
[2018-05-02] MEDS: DOFETILIDE 250 MCG CAP PO SCH (08:22)
--- NOTE | 2018-05-02 09:33 | PN ---
PROGRESS NOTE DATE OF SERVICE: 05/02/2018 A 52-year-old male seen in consultation 3 days ago. Patient came into the hospital basically with a GI bleed. He has a significant history of aortic valve replacement x2. The patient had a normal colonoscopy 7 years ago. He is not having any additional GI bleeding. The patient is not receiving any supplemental oxygen or IVs. The patient's hemoglobin is stable at 11.5. The patient does have a history of multiple medical problems including myocardial infarction, 4-vessel bypass grafting, CHF, hypertension, peripheral artery disease, and aortic valve replacement as mentioned. The patient does not have a primary care physician. He gets most of his care at the [facility] where he sees a metal tank erector and cardiothoracic surgeon. The patient was on Coumadin for his mechanical aortic valve. Currently, the patient did not receive a dose of Coumadin last night. He is on Lovenox as a bridge. He was seen by Gastroenterology, which chose not to do anything in the way of diagnostic evaluations at this time. Hemodynamically, the patient is stable. His respiratory status is also stable. Current vital signs include temperature 97.8, heart rate 68, respiratory rate 16, blood pressure 106/69, mean 81, room air saturation between 96%-99%. Appears in no acute distress. HEENT examination is grossly unremarkable. No supplemental oxygen. Mucous membranes are moist. Neck is supple. Full range of motion. No adenopathy or thyromegaly. Neck veins are flat. Cardiovascular examination reveals regular rhythm rate. S1, S2 normal. Heart rate 84. No murmur. Lungs are clear. Breath sounds are equal. No wheezes, rhonchi, or crackles. Abdomen is soft. Bowel sounds are heard. No masses or tenderness. The lower abdominal tenderness that was present a couple days ago has dissipated. Extremities are intact. No cyanosis, clubbing, or edema. Skin is without rash. Neurologic examination is brief but nonfocal. Hemoglobin 11.5, hematocrit 36.3, white count 5.3, and platelet count 341,000. PT, INR was 15.6 and 1.6. He did not get any Coumadin last night. Sodium 140, potassium 4.3, chloride 107, CO2 is 27. anion gap is 6, BUN and creatinine were 13 and 0.89. Microbiology is negative. His medications are reviewed. No recent x-rays reviewed. His carotid Doppler was evaluated on the . Medications are reviewed. ASSESSMENT: 1. Lower gastrointestinal bleed, resolved, likely secondary to either diverticular disease and/or angiodysplasia. 2. Normal colonoscopy, 7 years ago. 3. Mild anemia, stable. 4. Coronary artery disease with previous myocardial infarction. 5. Status post 4-vessel bypass grafting. 6. History of heart failure. 7. History of benign essential hypertension. 8. Valvular heart disease, status post aortic valve replacement x2. 9. Peripheral artery disease. 10.History of cardiopulmonary arrest x5. 11.Status post mitral valve ring placement. PLAN: The patient is currently not receiving any supplemental oxygen or IV fluids. His hemoglobin is stable. The patient has no complaints. The patient was counseled about the importance of finding a primary care physician. He will also follow up with his metal tank erector from the [facility] and cardiothoracic surgeon from the [facility]. Finally, the patient should be on some sort of blood thinners. He does have a mechanical aortic valve. Lovenox could be used as a bridge at 1 mg/kg twice a day subcu. His normal Coumadin dose of 7.5 mg a day. For some reason, he did not get any Coumadin last night. He will get some tonight. Additional recommendations and suggestions are forthcoming. MMODL / IJN: [id number] /
--- NOTE | 2018-05-02 12:11 | P.PN ---
Subjective Progress Note Date: 05/02/18 Principal diagnosis: GI bleeding No bloody BM. Abdominal pain improves minimal. Afebrile. INR 1.6. Hemoglobin 11.5. Objective - Vital Signs Vital signs: Vital Signs Temp 97.8 F 05/02/18 08:00 Pulse 84 05/02/18 08:00 Resp 16 05/02/18 08:00 BP 106/69 05/02/18 08:00 Pulse Ox 96 05/02/18 08:00 Intake & Output 05/01/18 05/02/18 05/02/18 18:59 06:59 18:59 Weight 105.5 kg Other: Voiding Method Toilet Toilet Toilet # Voids 1 2 - Exam General appearance: The patient is alert, oriented, in no acute distress. HET: Head is normocephalic and atraumatic. Pupils are equal and reactive. Oropharynx is clear without lesions. Neck: Supple without lymphadenopathy. Trachea midline. Heart: S1 S2. Regular rate and rhythm. Lungs: No crackles or wheezes are heard. Abdomen: Soft, nontender, nondistended with bowel sounds. No peritoneal signs. No palpable organomegaly or masses. Extremities: Normal skin color and turgor. No cyanosis, rash, ulceration, clubbing, or edema. Radial and pedal pulses are 2/4 bilaterally. Neurological: No focal deficits. Strength and sensation are grossly intact. - Labs CBC & Chem 7: 05/02/18 05:14 05/02/18 05:14 Labs: Abnormal Lab Results - Last 24 Hours (Table) 05/02/18 05/02/18 05/02/18 Range/Units 05:14 05:14 05:14 Hgb 11.5 L (13.0-17.5) gm/dL Hct 36.3 L (39.0-53.0) % Lymphocytes # 0.9 L (1.0-4.8) k/uL PT 15.6 H (9.0-12.0) sec INR 1.6 H (<1.2) Glucose 104 H (74-99) mg/dL Assessment and Plan (1) Blood per rectum Current Visit: Yes Status: Acute Code(s): K62.5 - HEMORRHAGE OF ANUS AND RECTUM SNOMED Code(s): 30778167 (2) Anemia due to blood loss Current Visit: Yes Status: Acute Code(s): D50.0 - IRON DEFICIENCY ANEMIA SECONDARY TO BLOOD LOSS (CHRONIC) SNOMED Code(s): 422536254 (3) Coagulopathy Current Visit: Yes Status: Acute Code(s): D68.9 - COAGULATION DEFECT, UNSPECIFIED SNOMED Code(s): 47258031 Plan: 1. Patient is discharged rectal bleeding has resolved. Continue anticoagulation. We'll sign off. Follow up in GI office in 2-3 weeks for discussion of outpatient endoscopy. Assessment and plan a care discussed with Dr. Batres
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
== END 2018-05-02 13:00 | disposition home or self-care (01) | DRG 378 ==
LOC: EC 15:38 → 2SICU 18:04
PROVIDERS: ADMIT Family Medicine; ATTEND Family Medicine
DX: K92.2 Gastrointestinal hemorrhage, unspecified (principal); D68.9 Coagulation defect, unspecified; I50.22 Chronic systolic (congestive) heart failure; N17.9 Acute kidney failure, unspecified; D50.0 Iron deficiency anemia secondary to blood loss (chronic); E11.51 Type 2 diabetes mellitus with diabetic peripheral angiopathy without gangrene; E78.5 Hyperlipidemia, unspecified; G90.01 Carotid sinus syncope; I11.0 Hypertensive heart disease with heart failure; I25.10 Atherosclerotic heart disease of native coronary artery without angina pectoris; I25.2 Old myocardial infarction; I25.5 Ischemic cardiomyopathy; Z79.01 Long term (current) use of anticoagulants; Z79.02 Long term (current) use of antithrombotics/antiplatelets; Z80.3 Family history of malignant neoplasm of breast; Z80.6 Family history of leukemia; Z95.1 Presence of aortocoronary bypass graft; Z95.3 Presence of xenogenic heart valve; Z95.810 Presence of automatic (implantable) cardiac defibrillator; Z86.74 Personal history of sudden cardiac arrest; Z88.5 Allergy status to narcotic agent; Z88.8 Allergy status to other drugs, medicaments and biological substances; Z91.041 Radiographic dye allergy status
CPT/HCPCS: 36415; 71045; 71046; 80048; 80053; 80061; 82550; 82553; 82728; 83540; 83550; 83690; 83735; 83880; 84100; 84484; 85025; 85027; 85610; 85730; 93005; 93880; 96360; 99285

== ENCOUNTER 2018-10-31 18:21 | Inpatient (IN) | payer MEDICARE ==
[2018-10-31 19:20] LABS: Anisocytosis Slight; Basophils % (A) 0 %; Eosinophils # (A) 0.2 k/uL (0-0.7); Eosinophils % (A) 3 %; HCT 43.5 % (39.0-53.0); HGB 13.7 gm/dL (13.0-17.5); Hypochromasia Moderate; Lymphocytes # (A) 1.1 k/uL (1.0-4.8); Lymphocytes % (A) 14 %; MCH 24.5 pg (25.0-35.0); MCHC 31.4 g/dL (31.0-37.0); Mean Platelet Volume 7.1; Microcytosis Slight; Monocytes # (A) 0.6 k/uL (0-1.0); Monocytes % (A) 8 %; Neutrophils # (A) 5.4 k/uL (1.3-7.7); Neutrophils % (A) 71 %; Platelet Count 300 k/uL (150-450); RBC 5.58 m/uL (4.30-5.90); RDW 16.7 % (11.5-15.5); WBC 7.5 k/uL (3.8-10.6)
[2018-10-31] MEDS ORDERED: DILTIAZEM 5 MG/ML 5 ML VIAL IVP STA ×2 (19:20→19:48)
[2018-10-31 19:22] LABS: INR 3.3 (<1.2); Partial Thromboplastin Time 42.6 sec (22.0-30.0); Prothrombin Time 31.6 sec (9.0-12.0)
[2018-10-31 19:26] LABS: ALT 13 U/L (21-72); AST 17 U/L (17-59); African American GFR (CKD) >90 (>60 ml/min/1.73 sqM); Albumin 4.1 g/dL (3.5-5.0); Alkaline Phosphatase 63 U/L (38-126); Anion Gap 11 mmol/L; Blood Urea Nitrogen 16 mg/dL (9-20); Carbon Dioxide 24 mmol/L (22-30); Chloride 106 mmol/L (98-107); Glucose 114 mg/dL (74-99); Potassium 3.8 mmol/L (3.5-5.1); Sodium 141 mmol/L (137-145); Total Bilirubin 0.5 mg/dL (0.2-1.3)
--- NOTE | 2018-10-31 19:39 | XR ---
EXAMINATION TYPE: XR chest 2V DATE OF EXAM: 10/31/2018 COMPARISON: 04/29/2018 HISTORY: Lightheadedness and dysrhythmia TECHNIQUE: Frontal and lateral views of the chest are obtained. FINDINGS: The remains enlarged cardiomediastinal silhouette with post CABG changes and multilead lef t-sided cardiac device. No focal consolidation, pleural effusion or pneumothorax is seen. Minimal deg enerative changes of the spine. Slight pulmonary hyperinflation may relate to underlying COPD or degr ee of inspiration. Correlation with pulmonary function test could be considered. IMPRESSION: No acute cardiopulmonary process.
[2018-10-31] MEDS ORDERED: ONDANSETRON 4 MG/2 ML VIAL IVP PRN (20:54)
[2018-10-31] MEDS ORDERED: NALOXONE 0.4 MG/ML 1 ML VIAL IV PRN (20:54)
--- NOTE | 2018-10-31 20:54 | ED ---
Arrhythmia/Palpitations HPI - General Chief Complaint: Arrhythmia/Palpitations Stated Complaint: heart concerns Time Seen by Provider: 10/31/18 18:41 Source: patient Mode of arrival: ambulatory Limitations: no limitations - History of Present Illness Initial Comments: Patient complains of palpitations. He has shortness of breath. Nothing makes his symptoms better or worse. He has taken no medicines for this. He has a history of intermittent ventricular tachycardia. He has an implanted defibrillator. He states that his heart rate is not high enough at this time for the defibrillator to cardiovert. Patient has no back pain. He has no head pain. He has no lightheadedness or dizziness. Nothing makes the palpitations better or worse. - Related Data Home Medications Medication Instructions Recorded Confirmed Atorvastatin [Lipitor] 80 mg PO HS 10/31/18 10/31/18 Cyanocobalamin (Vitamin B-12) 1,000 mcg PO DAILY 10/31/18 10/31/18 [Vitamin B-12] Folic Acid 0.8 mg PO DAILY 10/31/18 10/31/18 Furosemide [Lasix] 40 mg PO DAILY PRN 10/31/18 10/31/18 Omeprazole 20 mg PO DAILY 10/31/18 10/31/18 Pyridoxine HCl (Vitamin B6) 100 mg PO DAILY 10/31/18 10/31/18 [Vitamin B-6] Warfarin [Coumadin] 7.5 mg PO MOTUTH 10/31/18 10/31/18 Warfarin [Coumadin] 10 mg PO SUWEFRSA 10/31/18 10/31/18 Previous Rx's Medication Instructions Recorded Aspirin 325 mg PO DAILY #30 tab 05/02/18 Carvedilol [Coreg] 25 mg PO BID #60 tablet 05/02/18 Dofetilide [Tikosyn] 250 mcg PO BID #60 cap 05/02/18 Eplerenone 100 mg PO DAILY #30 tablet 05/02/18 Ramipril 10 mg PO DAILY #30 capsule 05/02/18 Allergies Allergy/AdvReac Type Severity Reaction Status Date / Time acetaminophen [From Percocet] Allergy Rash/Hives Verified 10/31/18 18:59 fexofenadine [From Zara-D] Allergy Swelling Verified 10/31/18 18:59 Iodinated Contrast- Oral and Allergy Rash/Hives Verified 10/31/18 18:59 IV Dye niacin Allergy Anaphylaxis Verified 10/31/18 18:59 oxycodone [From Percocet] Allergy Rash/Hives Verified 10/31/18 18:59 pseudoephedrine Allergy Swelling Verified 10/31/18 18:59 [From Zara-D] quetiapine [From Seroquel] Allergy Unknown Verified 10/31/18 18:59 Review of Systems ROS Statement: Those systems with pertinent positive or pertinent negative responses have been documented in the HPI. ROS Other: All systems not noted in ROS Statement are negative. Past Medical History Past Medical History: Hyperlipidemia, Hypertension, Myocardial Infarction ([place]) Additional Past Medical History / Comment(s): cardiac arrest x5 Last Myocardial Infarction Date:: 2008 History of Any Multi-Drug Resistant Organisms: None Reported Past Surgical History: AICD, Cardiac Ablation, Heart Catheterization, Orthopedic Surgery Additional Past Surgical History / Comment(s): aortic valve replcement, mitral valve ring. right leg with hardware Type of Cardiac Device: AICD Device Placement Date:: 2018 Past Psychological History: No Psychological Hx Reported Smoking Status: Never smoker Past Alcohol Use History: None Reported Past Drug Use History: None Reported - Past Family History Mother Family Medical History: Cancer Additional Family Medical History / Comment(s): Colon and breast CA Father Family Medical History: Cancer Additional Family Medical History / Comment(s): CLL General Exam Limitations: no limitations General appearance: alert, in no apparent distress Head exam: Present: atraumatic, normocephalic, normal inspection Eye exam: Present: normal appearance, PERRL, EOMI. Absent: scleral icterus, conjunctival injection, periorbital swelling ENT exam: Present: normal exam, mucous membranes moist Neck exam: Present: normal inspection. Absent: tenderness, meningismus, lymphadenopathy Respiratory exam: Present: normal lung sounds bilaterally. Absent: respiratory distress, wheezes, rales, rhonchi, stridor Cardiovascular Exam: Present: tachycardia, irregular rhythm. Absent: systolic murmur, diastolic murmur, rubs, gallop, clicks GI/Abdominal exam: Present: soft, normal bowel sounds. Absent: distended, tenderness, guarding, rebound, rigid Extremities exam: Present: normal inspection, full ROM, normal capillary refill. Absent: tenderness, pedal edema, joint swelling, calf tenderness Back exam: Present: normal inspection Neurological exam: Present: alert, oriented X3, CN II-XII intact Psychiatric exam: Present: normal affect, normal mood Skin exam: Present: warm, dry, intact, normal color. Absent: rash Course Vital Signs 10/31/18 10/31/18 10/31/18 18:23 19:36 20:36 Temperature 98.1 F Pulse Rate 130 H 122 H 75 Respiratory 18 16 16 Rate Blood Pressure 112/74 113/81 108/69 O2 Sat by Pulse 98 98 96 Oximetry EKG Findings - EKG Comments: EKG Findings:: Twelve-lead EKG shows ventricular rate 124 bpm, there are no P waves present, the QRS complexes are slightly wide, there is no ST elevation or depression, interpreted by me as accelerated idioventricular rhythm. Medical Decision Making - Medical Decision Making Patient presents with elevated heart rate. He is given 2 doses of IV Cardizem. His heart rate is controlled, however now he is in atrial flutter. This is a new dysrhythmia for him. He will require cardiology evaluation. I have placed him on a Cardizem drip. He will be admitted to the hospital. - Lab Data Result diagrams: 10/31/18 18:55 10/31/18 18:55 Lab Results 10/31/18 10/31/18 10/31/18 Range/Units 18:55 18:55 18:55 WBC 7.5 (3.8-10.6) k/uL RBC 5.58 (4.30-5.90) m/uL Hgb 13.7 (13.0-17.5) gm/dL Hct 43.5 (39.0-53.0) % MCV 78.0 L (80.0-100.0) fL MCH 24.5 L (25.0-35.0) pg MCHC 31.4 (31.0-37.0) g/dL RDW 16.7 H (11.5-15.5) % Plt Count 300 (150-450) k/uL Neutrophils % 71 % Lymphocytes % 14 % Monocytes % 8 % Eosinophils % 3 % Basophils % 0 % Neutrophils # 5.4 (1.3-7.7) k/uL Lymphocytes # 1.1 (1.0-4.8) k/uL Monocytes # 0.6 (0-1.0) k/uL Eosinophils # 0.2 (0-0.7) k/uL Basophils # 0.0 (0-0.2) k/uL Hypochromasia Moderate Anisocytosis Slight Microcytosis Slight PT 31.6 H (9.0-12.0) sec INR 3.3 H (<1.2) APTT 42.6 H (22.0-30.0) sec Sodium 141 (137-145) mmol/L Potassium 3.8 (3.5-5.1) mmol/L Chloride 106 (98-107) mmol/L Carbon Dioxide 24 (22-30) mmol/L Anion Gap 11 mmol/L BUN 16 (9-20) mg/dL Creatinine 0.80 (0.66-1.25) mg/dL Est GFR (CKD-EPI)AfAm >90 (>60 ml/min/1.73 sqM) Est GFR (CKD-EPI)NonAf >90 (>60 ml/min/1.73 sqM) Glucose 114 H (74-99) mg/dL Calcium 9.0 (8.4-10.2) mg/dL Magnesium 2.0 (1.6-2.3) mg/dL Total Bilirubin 0.5 (0.2-1.3) mg/dL AST 17 (17-59) U/L ALT 13 L (21-72) U/L Alkaline Phosphatase 63 (38-126) U/L Troponin I (0.000-0.034) ng/mL Total Protein 7.0 (6.3-8.2) g/dL Albumin 4.1 (3.5-5.0) g/dL 10/31/18 Range/Units 18:55 WBC (3.8-10.6) k/uL RBC (4.30-5.90) m/uL Hgb (13.0-17.5) gm/dL Hct (39.0-53.0) % MCV (80.0-100.0) fL MCH (25.0-35.0) pg MCHC (31.0-37.0) g/dL RDW (11.5-15.5) % Plt Count (150-450) k/uL Neutrophils % % Lymphocytes % % Monocytes % % Eosinophils % % Basophils % % Neutrophils # (1.3-7.7) k/uL Lymphocytes # (1.0-4.8) k/uL Monocytes # (0-1.0) k/uL Eosinophils # (0-0.7) k/uL Basophils # (0-0.2) k/uL Hypochromasia Anisocytosis Microcytosis PT (9.0-12.0) sec INR (<1.2) APTT (22.0-30.0) sec Sodium (137-145) mmol/L Potassium (3.5-5.1) mmol/L Chloride (98-107) mmol/L Carbon Dioxide (22-30) mmol/L Anion Gap mmol/L BUN (9-20) mg/dL Creatinine (0.66-1.25) mg/dL Est GFR (CKD-EPI)AfAm (>60 ml/min/1.73 sqM) Est GFR (CKD-EPI)NonAf (>60 ml/min/1.73 sqM) Glucose (74-99) mg/dL Calcium (8.4-10.2) mg/dL Magnesium (1.6-2.3) mg/dL Total Bilirubin (0.2-1.3) mg/dL AST (17-59) U/L ALT (21-72) U/L Alkaline Phosphatase (38-126) U/L Troponin I <0.012 (0.000-0.034) ng/mL Total Protein (6.3-8.2) g/dL Albumin (3.5-5.0) g/dL Critical Care Time Critical Care Time: Yes Total Critical Care Time: 35 Disposition Clinical Impression: Atrial flutter Disposition: ADMITTED IP TO THIS HOSP Condition: Fair Referrals: Marce Xiao MD [Primary Care Provider] - 1-2 days
[2018-10-31] MEDS ORDERED: FUROSEMIDE 40 MG TAB PO PRN (20:57)
[2018-10-31] MEDS ORDERED: DILTIAZEM CD 120 MG CAP.ER.24H PO STA (20:59)
[2018-10-31] MEDS ORDERED: DILTIAZEM 125 MG in SODIUM CHLORIDE 0.9% 100 ML IV SCH (21:00)
--- NOTE | 2018-10-31 21:57 | P.HPIM ---
History of Present Illness The patient is a 53 y/o male with a extensive past medical history of aortic valve replacement first time with bioprosthetic valve was performed in 1995 and subsequently another redo valve with mechanical valve in aortic p osition in 2010 and at that point the surgery was performed with Joey artery bypass grafting 4, cardiomyopathy, status post AICD, atrial fibrillation and atrial flutter post recent ablation in June 2018 performed at [facility] was brought to the emergency room because of feelings of palpitations, lighhtehadedness and SOA. Apparently the patient has been having episodes of feeling like his heart was racing over the last week, he reported that his AICD fired at that time. Since then the patient has persistent feeling of palpitations and lightheadedness. He reported that he communicated with [facility] and sent them results from his AICD electronically and they stated that his heart rate was in the 150s or approximately 19 hours yesterday and then urged him to present to the ER here. The patient denies any chest pain or lower extremity swelling or cough he reports his last known ejection fraction is 20% approximately 4 months ago. Patient continues compliance with his regimen including antiarrhythmic Tecasin. On arrival in the ER the patient was noted to be in wide complex tachycardia with a rate of 124 is given doses of Cardizem and subsequently went into a flutter with controlled ventricular rate, chest x-ray showed no acute process. WBC count 7.5 hemoglobin 13.7, PT/INR 31.6 and 3.3 respectively. Sodium 141 potassium 3.8, magnesium 2.0, troponin less than 0.012 Review of Systems Pertinent positives per HPI all other systems was negative Past Medical History Past Medical History: Hyperlipidemia, Hypertension, Myocardial Infarction ([place]) Additional Past Medical History / Comment(s): cardiac arrest x5 Last Myocardial Infarction Date:: 2008 History of Any Multi-Drug Resistant Organisms: None Reported Past Surgical History: AICD, Cardiac Ablation, Heart Catheterization, Orthopedic Surgery Additional Past Surgical History / Comment(s): aortic valve replcement, mitral valve ring. right leg with hardware Type of Cardiac Device: AICD Device Placement Date:: 2018 Past Psychological History: No Psychological Hx Reported Smoking Status: Never smoker Past Alcohol Use History: None Reported Past Drug Use History: None Reported - Past Family History Mother Family Medical History: Cancer Additional Family Medical History / Comment(s): Colon and breast CA Father Family Medical History: Cancer Additional Family Medical History / Comment(s): CLL Medications and Allergies Home Medications Medication Instructions Recorded Confirmed Type Aspirin 325 mg PO DAILY #30 tab 05/02/18 10/31/18 Rx Carvedilol [Coreg] 25 mg PO BID #60 tablet 05/02/18 10/31/18 Rx Dofetilide [Tikosyn] 250 mcg PO BID #60 cap 05/02/18 10/31/18 Rx Eplerenone 100 mg PO DAILY #30 tablet 05/02/18 10/31/18 Rx Ramipril 10 mg PO DAILY #30 capsule 05/02/18 10/31/18 Rx Atorvastatin [Lipitor] 80 mg PO HS 10/31/18 10/31/18 History Cyanocobalamin (Vitamin B-12) 1,000 mcg PO DAILY 10/31/18 10/31/18 History [Vitamin B-12] Folic Acid 0.8 mg PO DAILY 10/31/18 10/31/18 History Furosemide [Lasix] 40 mg PO DAILY PRN 10/31/18 10/31/18 History Omeprazole 20 mg PO DAILY 10/31/18 10/31/18 History Pyridoxine HCl (Vitamin B6) 100 mg PO DAILY 10/31/18 10/31/18 History [Vitamin B-6] Warfarin [Coumadin] 7.5 mg PO MOTUTH 10/31/18 10/31/18 History Warfarin [Coumadin] 10 mg PO SUWEFRSA 10/31/18 10/31/18 History Allergies Allergy/AdvReac Type Severity Reaction Status Date / Time acetaminophen [From Percocet] Allergy Rash/Hives Verified 10/31/18 18:59 fexofenadine [From Zara-D] Allergy Swelling Verified 10/31/18 18:59 Iodinated Contrast- Oral and Allergy Rash/Hives Verified 10/31/18 18:59 IV Dye niacin Allergy Anaphylaxis Verified 10/31/18 18:59 oxycodone [From Percocet] Allergy Rash/Hives Verified 10/31/18 18:59 pseudoephedrine Allergy Swelling Verified 10/31/18 18:59 [From Zara-D] quetiapine [From Seroquel] Allergy Unknown Verified 10/31/18 18:59 Physical Exam Vitals: Vital Signs Temp Pulse Resp BP Pulse Ox 10/31/18 20:36 75 16 108/69 96 10/31/18 19:36 122 H 16 113/81 98 10/31/18 18:23 98.1 F 130 H 18 112/74 98 Intake and Output 10/31/18 10/31/18 10/31/18 06:59 14:59 22:59 Other: Weight 96.615 kg Constitutional: No acute distress, conversant, pleasant Eyes: Anicteric sclerae, moist conjunctiva, no lid-lag, PERRLA ENMT: NC/AT,Oropharynx clear, no erythema, exudates Neck:Supple, FROM, no masses, or JVD, No carotid bruits; No thyromegaly Lungs: Clear to auscultation, Clear to percussion, Normal respiratory effort, no accessory muscle use Cardiovascular: Irregularly irregular with systolic ejection murmur , or rubs no peripheral edema Abdominal: Soft Nontender, nom distended, no guarding, no rebound or rigidity, Normoactive bowel sounds No hepatomegaly, No splenomegaly, No palpable mass No abdominal wall hernia noted Skin: Normal temperature, tone, texture, turgor, No induration No subcutaneous nodules, No rash, lesions, No ulcers Extremities:No digital cyanosis No clubbing, Pedal pulses intact and s ymmetrical Radial pulses intact and symmetrical Normal gait and station, No calf tenderness Psychiatric: Alert and oriented to person, place and time, Appropriate affect Intact judgement Neuro: Muscles Strength 5/5 in all 4 extremities, Sensation to light touch grossly present throughout, Cranial nerves II-XII grossly intact. No focal sensory deficits Results CBC & Chem 7: 10/31/18 18:55 10/31/18 18:55 Labs: Abnormal Lab Results - Last 24 Hours (Table) 10/31/18 10/31/18 10/31/18 Range/Units 18:55 18:55 18:55 MCV 78.0 L (80.0-100.0) fL MCH 24.5 L (25.0-35.0) pg RDW 16.7 H (11.5-15.5) % PT 31.6 H (9.0-12.0) sec INR 3.3 H (<1.2) APTT 42.6 H (22.0-30.0) sec Glucose 114 H (74-99) mg/dL ALT 13 L (21-72) U/L Assessment and Plan (1) Atrial flutter Current Visit: Yes Status: Acute Code(s): I48.92 - UNSPECIFIED ATRIAL FLUTTER SNOMED Code(s): 2021125 (2) H/O mechanical aortic valve replacement Current Visit: Yes Status: Acute Code(s): Z95.2 - PRESENCE OF PROSTHETIC HEART VALVE SNOMED Code(s): 353010174565382 (3) Ischemic cardiomyopathy Current Visit: Yes Status: Acute Code(s): I25.5 - ISCHEMIC CARDIOMYOPATHY SNOMED Code(s): 903062019 (4) Chronic systolic CHF (congestive heart failure) Current Visit: Yes Status: Acute Code(s): I50.22 - CHRONIC SYSTOLIC (CONGESTIVE) HEART FAILURE SNOMED Code(s): 222389927 (5) Coagulopathy Current Visit: No Status: Acute Code(s): D68.9 - COAGULATION DEFECT, UNSPECIFIED SNOMED Code(s): 95519286 Plan: the patient is admitted anticipated greater than 2 midnight stay with a flutter with controlled ventricular rate after presenting with palpitations and lightheadedness and was found to have a wide complex tachycardia which converted to A. a flutter after receiving Cardizem. The patient is currently normotensive, We'll plan to order echocardiogram and consult cardiology with plans for interrogation of his AICD. The patient has known history of cardiomyopathy likely ischemic with last known ejection fraction of 20%, patient also has a history of mechanical aortic valve replacement and is currently on anticoagulation with Coumadin and INRs currently therapeutic at 3.3. CODE STATUS: Full code Discussed plan of care with: Patient and his mom Anticipated discharge: 1-[address]: Home Prophylaxis: Coumadin
[2018-10-31 22:03] VITALS: RESP 18; BMI 27.3
[2018-10-31] MEDS: ATORVASTATIN 80 MG TAB PO SCH (22:09)
[2018-10-31] MEDS: CARVEDILOL 12.5 MG TAB PO SCH (22:09)
[2018-10-31] MEDS: DOFETILIDE 250 MCG CAP PO SCH (22:09)
[2018-10-31] MEDS ORDERED: WARFARIN 10 MG TAB PO STA (22:58)
[2018-11-01] MEDS: CARVEDILOL 12.5 MG TAB PO SCH (06:36)
[2018-11-01] MEDS: PANTOPRAZOLE 40 MG TABLET PO SCH (06:36)
[2018-11-01 07:13] LABS: INR 3.3 (<1.2)
[2018-11-01 07:29] LABS: African American GFR (CKD) >90 (>60 ml/min/1.73 sqM); Anion Gap 5 mmol/L; Blood Urea Nitrogen 14 mg/dL (9-20); Carbon Dioxide 28 mmol/L (22-30); Chloride 106 mmol/L (98-107); Glucose 105 mg/dL (74-99); Magnesium 2.1 mg/dL (1.6-2.3); Potassium 4.2 mmol/L (3.5-5.1); Sodium 139 mmol/L (137-145)
[2018-11-01] MEDS: CYANOCOBALAMIN 500 MCG TAB PO SCH (09:35)
[2018-11-01] MEDS: METOPROLOL SUCCINATE (ER) 100 MG TAB.ER.24H PO SCH (09:35)
[2018-11-01] MEDS: LISINOPRIL 20 MG TAB PO SCH (09:35)
[2018-11-01] MEDS: SPIRONOLACTONE 25 MG TAB PO SCH ×2 (09:35→20:03)
[2018-11-01] MEDS: ASPIRIN 325 MG TAB PO SCH (09:35)
[2018-11-01] MEDS: FOLIC ACID 1 MG TAB PO SCH (09:35)
[2018-11-01] MEDS: PYRIDOXINE 50 MG TAB PO SCH (09:35)
[2018-11-01] MEDS: DOFETILIDE 250 MCG CAP PO SCH ×2 (09:36→20:03)
--- NOTE | 2018-11-01 09:57 | P.CRDCN ---
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 He has a past medical history of aortic valve replacement first time with bioprosthetic valve was performed in 1995 and subsequently another redo valve with mechanical valve in aortic position in 2010 and at that point the surgery was performed with Joey artery bypass grafting 4, the details on that are unavailable and the patient continues to follow with [facility], cardiomyopathy, status post AICD, as well as multiple comorbid conditions. Patient states he was in his normal state of health until 2 days ago when he was walking into [facility] from his car and he started feeling palpitations, lightheadedness and dizziness. He went back to his car and rested for about one hour and then went home. All day yesterday he was feeling tired. He did check his heart rate and he was at 126 at rest. He called [facility] and they checked his device remotely and he was told that 2 days ago he had 19 hours of irregular heart rate. Yesterday it started again at 1:00. He was advised to come in the hospital for evaluation. His initial EKG revealed a in atrial tachycardia that was regular not consistent with atrial flutter. He has had a repeat EKG that is a sinus rhythm. The patient has been taking his medications as directed. At this time, he states he still has the symptoms but they're very vague and lessen significantly from yesterday. Echocardiogram reveals EF of 30-35%, LA moderately dilated 34-39, normally functioning mechanical prosthetic valve, mitral ring annuloplasty in place, mild tricuspid regurgitation Laboratory studies: INR 3.3, hemoglobin 13.7, creatinine 0.80, electrolytes within normal limits, liver function tests within normal limits, troponin negative on 3 draws. Review Of Systems: Constitutional: No fever, no chills, no night sweats. No weight change. No weakness, fatigue or lethargy. EENT: No headache. No blurred vision or double vision, no loss of vision. No dizziness. Lungs: Reports shortness of breath, cough, no sputum production. No wheezing. Cardiovascular: No chest pain, no lower extremity edema. Reports palpitations. No paroxysmal nocturnal dyspnea. No orthopnea. Reports lightheadedness or dizziness. No syncopal episodes. Abdominal: No abdominal pain. No nausea, vomiting. No diarrhea. No constipation. No bloody or tarry stools. No loss of appetite. Genitourinary: No dysuria, increased frequency, urgency. No urinary retention. Musculoskeletal: No myalgias. No muscle weakness, no gait dysfunction, no frequent falls. No back pain. No neck pain. Integumentary: No wounds, no lesions. No rash or pruritus. Neurologic: No aphasia. No facial droop. No change in mentation. No head injury. No headache. Psychiatric: No depression. No anxiety. No mood swings. Endocrine: No abnormal blood sugars. No weight change. No excessive sweating or thirst. No cold intolerance. No weight change. Vital signs: Heart rate 67, blood pressure 112/62, pulse ox 99% on room air, afebrile. Gen: This is a 53-year-old male. He is resting in bed and appears comfortable and in no acute distress. HEENT: Head is atraumatic, normocephalic. Pupils equal, round. Sclerae is anicteric. NECK: Supple. No JVD. No lymphadenopathy. No thyromegaly. LUNGS: Clear to auscultation. No wheezes or rhonchi. No intercostal retractions. HEART: Regular rate and rhythm. Systolic murmur. ABDOMEN: Soft. Bowel sounds are present. No masses. No tenderness. EXTREMITIES: No pedal edema. No calf tenderness. Dorsalis pedis +2 bilaterally. NEUROLOGICAL: Patient is awake, alert and oriented x3. Cranial nerves 2 through 12 are grossly intact. Assessment: Atrial tachycardia Status post aortic valve replacement using mechanical valve on chronic Coumadin Status post coronary artery bypass grafting 4 Ischemic cardiomyopathy status post AICD, Plan: Coreg will be discontinued and patient started on Toprol-XL 100 mg by mouth daily. If patient is tachycardic by this evening, patient may receive an additional dose of 50 mg and start 150 mg Toprol-XL tomorrow. Continue Coumadin at home dose with plan to maintain INR between 2.5 and 3.5. Continue Tikosyn 250 mg twice daily. Continue aspirin 325 mg daily, Lipitor 80 mg daily, Lasix 40 mg daily as needed, lisinopril 40 mg daily. Continue Aldactone as replacement for Eplerenone. If heart rate is controlled in the morning, patient may be discharged home. 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 Further recommendations to follow based upon clinical course. Nurse practitioner note has been reviewed, I agree with documented findings and plan of care. Patient was seen and examined. Past Medical History Past Medical History: Hyperlipidemia, Hypertension, Myocardial Infarction ([place]) Additional Past Medical History / Comment(s): cardiac arrest x5 Last Myocardial Infarction Date:: 2008 History of Any Multi-Drug Resistant Organisms: None Reported Past Surgical History: AICD, Cardiac Ablation, Heart Catheterization, Orthopedic Surgery Additional Past Surgical History / Comment(s): aortic valve replcement, mitral valve ring. right leg with hardware Type of Cardiac Device: AICD Device Placement Date:: 2018 Past Psychological History: No Psychological Hx Reported Smoking Status: Never smoker Past Alcohol Use History: None Reported Past Drug Use History: None Reported - Past Family History Mother Family Medical History: Cancer Additional Family Medical History / Comment(s): Colon and breast CA Father Family Medical History: Cancer Additional Family Medical History / Comment(s): CLL Medications and Allergies Home Medications Medication Instructions Recorded Confirmed Type Aspirin 325 mg PO DAILY #30 tab 05/02/18 10/31/18 Rx Carvedilol [Coreg] 25 mg PO BID #60 tablet 05/02/18 10/31/18 Rx Dofetilide [Tikosyn] 250 mcg PO BID #60 cap 05/02/18 10/31/18 Rx Eplerenone 100 mg PO DAILY #30 tablet 05/02/18 10/31/18 Rx Ramipril 10 mg PO DAILY #30 capsule 05/02/18 10/31/18 Rx Atorvastatin [Lipitor] 80 mg PO HS 10/31/18 10/31/18 History Cyanocobalamin (Vitamin B-12) 1,000 mcg PO DAILY 10/31/18 10/31/18 History [Vitamin B-12] Folic Acid 0.8 mg PO DAILY 10/31/18 10/31/18 History Furosemide [Lasix] 40 mg PO DAILY PRN 10/31/18 10/31/18 History Omeprazole 20 mg PO DAILY 10/31/18 10/31/18 History Pyridoxine HCl (Vitamin B6) 100 mg PO DAILY 10/31/18 10/31/18 History [Vitamin B-6] Warfarin [Coumadin] 7.5 mg PO MOTUTH 10/31/18 10/31/18 History Warfarin [Coumadin] 10 mg PO SUWEFRSA 10/31/18 10/31/18 History Allergies Allergy/AdvReac Type Severity Reaction Status Date / Time acetaminophen [From Percocet] Allergy Rash/Hives Verified 10/31/18 18:59 fexofenadine [From Zara-D] Allergy Swelling Verified 10/31/18 18:59 Iodinated Contrast- Oral and Allergy Rash/Hives Verified 10/31/18 18:59 IV Dye niacin Allergy Anaphylaxis Verified 10/31/18 18:59 oxycodone [From Percocet] Allergy Rash/Hives Verified 10/31/18 18:59 pseudoephedrine Allergy Swelling Verified 10/31/18 18:59 [From Zara-D] quetiapine [From Seroquel] Allergy Unknown Verified 10/31/18 18:59 Physical Exam Vitals: Vital Signs Temp Pulse Pulse Resp BP BP Pulse Ox 11/01/18 04:00 98.0 F 65 18 114/74 99 11/01/18 02:05 76 18 104/70 97 11/01/18 00:00 97.9 F 74 18 106/71 96 10/31/18 21:57 98.0 F 121 H 18 139/85 97 10/31/18 21:42 98.4 F 10/31/18 21:40 98.3 F 10/31/18 21:39 90 16 102/87 99 10/31/18 20:36 75 16 108/69 96 10/31/18 20:30 89 16 105/67 97 10/31/18 19:36 122 H 16 113/81 98 10/31/18 18:23 98.1 F 130 H 18 112/74 98 Intake and Output 10/31/18 11/01/18 11/01/18 22:59 06:59 14:59 Intake Total 300 Balance 300 Intake: Oral 300 Other: Voiding Method Toilet # Voids 1 1 Weight 96.615 kg 97.8 kg Results 10/31/18 18:55 11/01/18 06:35 Cardiac Enzymes 10/31/18 10/31/18 11/01/18 Range/Units 18:55 18:55 01:08 AST 17 (17-59) U/L Troponin I <0.012 <0.012 (0.000-0.034) ng/mL 11/01/18 Range/Units 06:35 AST (17-59) U/L Troponin I <0.012 (0.000-0.034) ng/mL Coagulation 10/31/18 11/01/18 Range/Units 18:55 06:35 PT 31.6 H 32.0 H (9.0-12.0) sec APTT 42.6 H (22.0-30.0) sec CBC 10/31/18 Range/Units 18:55 WBC 7.5 (3.8-10.6) k/uL RBC 5.58 (4.30-5.90) m/uL Hgb 13.7 (13.0-17.5) gm/dL Hct 43.5 (39.0-53.0) % Plt Count 300 (150-450) k/uL Comprehensive Metabolic Panel 10/31/18 11/01/18 Range/Units 18:55 06:35 Sodium 141 139 (137-145) mmol/L Potassium 3.8 4.2 (3.5-5.1) mmol/L Chloride 106 106 (98-107) mmol/L Carbon Dioxide 24 28 (22-30) mmol/L BUN 16 14 (9-20) mg/dL Creatinine 0.80 0.79 (0.66-1.25) mg/dL Glucose 114 H 105 H (74-99) mg/dL Calcium 9.0 9.0 (8.4-10.2) mg/dL AST 17 (17-59) U/L ALT 13 L (21-72) U/L Alkaline Phosphatase 63 (38-126) U/L Total Protein 7.0 (6.3-8.2) g/dL Albumin 4.1 (3.5-5.0) g/dL Current Medications Generic Name Dose Route Start Last Admin Trade Name Freq PRN Reason Stop Dose Admin Aspirin 325 mg 11/01/18 09:00 Aspirin PO DAILY [facility] Atorvastatin Calcium 80 mg 10/31/18 21:00 10/31/18 22:09 Lipitor PO 80 mg HS CARMEN Administration Carvedilol 25 mg 10/31/18 21:00 11/01/18 06:36 Coreg PO 25 mg BID-W/MEALS [facility] Administration Cyanocobalamin 1,000 mcg 11/01/18 09:00 Vitamin B-12 PO DAILY [facility] Dofetilide 250 mcg 10/31/18 21:00 10/31/18 22:09 Tikosyn PO 250 mcg BID [facility] Administration Folic Acid 1 mg 11/01/18 09:00 Folic Acid PO DAILY [facility] Furosemide 40 mg 10/31/18 20:57 Lasix PO DAILY PRN Edema Lisinopril 40 mg 11/01/18 09:00 Zestril PO DAILY [facility] Naloxone HCl 0.2 mg 10/31/18 20:54 Narcan IV Q2M PRN Opioid Reversal Ondansetron HCl 4 mg 10/31/18 20:54 Zofran IVP Q8HR PRN Nausea And Vomiting Pantoprazole Sodium 40 mg 11/01/18 07:30 11/01/18 06:36 Protonix PO 40 mg [id number] [facility] Administration Pyridoxine HCl 100 mg 11/01/18 09:00 Vitamin B-6 PO DAILY [facility] Spironolactone 50 mg 11/01/18 09:00 Aldactone PO BID [facility] Warfarin Sodium 10 mg 11/01/18 18:00 Coumadin PO [id number] [facility] Warfarin Sodium 7.5 mg 11/03/18 18:00 Coumadin PO [id number] [facility] Intake and Output 10/31/18 11/01/18 11/01/18 22:59 06:59 14:59 Intake Total 300 Balance 300 Intake: Oral 300 Other: Voiding Method Toilet # Voids 1 1 Weight 96.615 kg 97.8 kg 10/31/18 18:55 11/01/18 06:35
--- NOTE | 2018-11-01 13:37 | P.PN ---
Subjective Progress Note Date: 11/01/18 Patient is a 53-year-old male with a PMH of aortic valve replacement, initially with bioprosthetic valve in 1995 and subsequent revision and placement of a mechanical valve in 2010 (on Coumadin), CABG , follows with [facility], systolic CHF with EF of 20% status post AICD, atrial fibrillation a flutter status post ablation in 06/2018 presented to the ED with complaints of palpitations with some associated shortness of breath. The patient noted that he has had these symptoms for approximately one week prior to presentation and that his AICD fired once at the initiation of his symptoms. The patient subsequent to contact the [facility] who interrogated the AICD and advised him to come to the ED since his heart rate was in the 150s. The patient underwent an extensive evaluation in the ED with initial EKG showing tachycardia 124 bpm. Chest x-ray revealed no acute cardio pulmonary abnormalities. Laboratory evaluation revealed an INR of 3.3, WBC count 7.5, hemoglobin 13.7, platelets 300, troponin less than 0.012, BUN 14, creatinine 0.79. The patient received multiple doses of Cardizem in the ED after which his rhythm reverted to a flutter with controlled ventricular rate. He was subsequently admitted for further management. The patient was seen and examined at the bedside on the selective unit. He was in good spirits and noted no further episodes of palpitations though did endorse some continuing mild shortness of breath. He otherwise denied chest pain, nausea, vomiting, or diaphoresis. He further denied fever, chills, cough, or diarrhea. Objective - Vital Signs Vital signs: Vital Signs Temp 98.0 F 11/01/18 04:00 Pulse 65 11/01/18 04:00 Resp 18 11/01/18 04:00 BP 114/74 11/01/18 04:00 Pulse Ox 99 11/01/18 04:00 Intake & Output 10/31/18 11/01/18 11/01/18 18:59 06:59 18:59 Intake Total 300 Balance 300 Weight 96.615 kg 97.8 kg Intake: Oral 300 Other: Voiding Method Toilet # Voids 1 - Exam General: Non-toxic, in no acute distress, appears stated age, normal weight HEENT: NC/AT, anicteric sclerae, moist conjunctiva, no lid-lag, PERRLA Cardiovascular: S1/S2 wnl, systolic murmur with click appreciated, rubs, or gallops Lungs: Clear to auscultation, normal respiratory effort, no accessory muscle use Abdominal: Soft, non-tender, non-distended, no guarding, rebound, or rigidity Skin: Warm, dry Extremities: No edema or contractures Psychiatric: Alert and oriented to person, place and time, appropriate affect Neuro: CN II-XII grossly intact, Strength 5/5 in all 4 extremities, Speech intact, Sensation to light touch grossly intact throughout - Labs CBC & Chem 7: 10/31/18 18:55 11/01/18 06:35 Labs: Abnormal Lab Results - Last 24 Hours (Table) 10/31/18 10/31/18 10/31/18 Range/Units 18:55 18:55 18:55 MCV 78.0 L (80.0-100.0) fL MCH 24.5 L (25.0-35.0) pg RDW 16.7 H (11.5-15.5) % PT 31.6 H (9.0-12.0) sec INR 3.3 H (<1.2) APTT 42.6 H (22.0-30.0) sec Glucose 114 H (74-99) mg/dL ALT 13 L (21-72) U/L 11/01/18 11/01/18 Range/Units 06:35 06:35 MCV (80.0-100.0) fL MCH (25.0-35.0) pg RDW (11.5-15.5) % PT 32.0 H (9.0-12.0) sec INR 3.3 H (<1.2) APTT (22.0-30.0) sec Glucose 105 H (74-99) mg/dL ALT (21-72) U/L Assessment and Plan Plan: Atrial flutter and fibrillation with history of wide-complex tachycardia, with AICD -Cardiology consulted, awaiting recommendations -Continue with Cardizem and Toprol -C/w Coumadin Hx of Aortic valve replacement -C/w Coumadin Systolic CHF, not in acute exacerbation -Continue with aspirin, Lipitor, BRIANA, beta ayah, Aldactone DVT prophylaxis -Coumadin Discussed with: Patient Anticipated discharge date: 2-[address]: Home A total of 30 minutes was spent on the care of this complex patient more than 50% of the time was spent in counseling and care coordination.
--- NOTE | 2018-11-01 13:46 | ECHOF ---
Referral Reason:cardiomyopathy MEASUREMENTS -------- HEIGHT: 182.9 cm WEIGHT: 96.6 kg BP: 114/74 IVSd: 1.1 cm (0.6 - 1.1) LVIDd: 6.5 cm (3.9 - 5.3) LVPWd: 1.1 cm (0.6 - 1.1) IVSs: 1.1 cm LVIDs: 5.2 cm LVPWs: 1.4 cm LA Diam: 4.9 cm (2.7 - 3.8) LAESV Index (A-L): 42.04 ml/m Ao Diam: 3.5 cm (2.0 - 3.7) EPSS: 0.6 cm MV E Gautam: 1.01 m/s MV DecT: 240 ms MV A Gautam: 1.04 m/s MV E/A Ratio: 0.97 AV maxP.01 mmHg AV meanP.65 mmHg MV EF SLOPE: 55.65 mm/s (70 - 150) MV EXCURSION: 18.74 mm (> 18.000) FINDINGS -------- Paced rhythm. This was a techncally difficult study with suboptimal views, , Lumason utilized for enhancement of im ages. The left ventricular size is normal. Left ventricular wall thickness is normal. Overall left vent ricular systolic function is moderate-severely impaired with, an EF between 30 - 35 %. Anterseptal Hypokinesis Inferior Hypokinesis Septal Hypokinesis The right ventricle is normal in size. The left atrium is mildly dilated. LA is moderately dilated 34-39 ml/m2 The right atrial size is normal. 5.0mg OF Lumason UTLIZED: 2 OR MORE WALL SEGMENTS NOT VISUALIZED. Peak/mean gradient across the Aortic Valve is 12.01mmHg / 7.65mmHg. Normally functioning mechanical prosthetic valve. The peak and mean MV gradients are 6.02mmHg 1.30mmHg as measured by doppler. Mitral ring annullopla sty is in place. Mild tricuspid regurgitation present. Right ventricular systolic pressure is normal at < 35 mmHg. There is no pulmonic regurgitation present. The aortic root size is normal. There is no pericardial effusion. CONCLUSIONS -------- 1. This was a techncally difficult study with suboptimal views, , Lumason utilized for enhancement of images. 2. The left ventricular size is normal. 3. Left ventricular wall thickness is normal. 4. Overall left ventricular systolic function is moderate-severely impaired with, an EF between 30 - 35 %. 5. Anterseptal Hypokinesis 6. Inferior Hypokinesis 7. Septal Hypokinesis 8. The right ventricle is normal in size. 9. The left atrium is mildly dilated. 10. LA is moderately dilated 34-39 ml/m2 11. The right atrial size is normal. 12. 5.0mg OF Lumason UTLIZED: 2 OR MORE WALL SEGMENTS NOT VISUALIZED. 13. Peak/mean gradient across the Aortic Valve is 12.01mmHg / 7.65mmHg. 14. Normally functioning mechanical prosthetic valve. 15. The peak and mean MV gradients are 6.02mmHg 1.30mmHg as measured by doppler. 16. Mitral ring annulloplasty is in place. 17. Mild tricuspid regurgitation present. 18. Right ventricular systolic pressure is normal at < 35 mmHg. 19. There is no pulmonic regurgitation present. 20. The aortic root size is normal. 21. There is no pericardial effusion. EXPERT MEDICAL WRITER: Hedy Brooks RDCS
[2018-11-01] MEDS ORDERED: WARFARIN 10 MG TAB PO SCH (18:00)
[2018-11-01] MEDS: ATORVASTATIN 80 MG TAB PO SCH (20:03)
[2018-11-02] MEDS: PANTOPRAZOLE 40 MG TABLET PO SCH (06:18)
[2018-11-02 06:34] LABS: Prothrombin Time 38.4 sec (9.0-12.0)
[2018-11-02 08:07] VITALS: BP 126/80; PULSE 66; TEMP 98.2
[2018-11-02] MEDS: LISINOPRIL 20 MG TAB PO SCH (08:09)
[2018-11-02] MEDS: ASPIRIN 325 MG TAB PO SCH (08:09)
[2018-11-02] MEDS: PYRIDOXINE 50 MG TAB PO SCH (08:09)
[2018-11-02] MEDS: FOLIC ACID 1 MG TAB PO SCH (08:10)
[2018-11-02] MEDS: DOFETILIDE 250 MCG CAP PO SCH (08:10)
[2018-11-02] MEDS: CYANOCOBALAMIN 500 MCG TAB PO SCH (08:10)
[2018-11-02] MEDS: METOPROLOL SUCCINATE (ER) 100 MG TAB.ER.24H PO SCH (08:10)
[2018-11-02] MEDS: SPIRONOLACTONE 25 MG TAB PO SCH (08:10)
--- NOTE | 2018-11-02 12:45 | P.DS ---
Providers Date of admission: 10/31/18 20:54 Expected date of discharge: 11/02/18 Attending physician: Jeffrey Kumar MD Consults: 10/31/18 20:56 Consult Physician Routine Consulting Provider: Andre Foster Consult Reason/Comments: atrial flutter Do you want consulting provider notified?: Yes Primary care physician: Marce Xiao MD Hospital Course: Patient is a 53-year-old male with a PMH of aortic valve replacement, initially with bioprosthetic valve in 1995 and subsequent revision and placement of a mechanical valve in 2010 (on Coumadin), CABG , follows with [facility], systolic CHF with EF of 20% status post AICD, atrial fibrillation a flutter status post ablation in 06/2018 presented to the ED with complaints of palpitations with some associated shortness of breath. The patient noted that he has had these symptoms for approximately one week prior to presentation and that his AICD fired once at the initiation of his symptoms. The patient subsequent to contact the [facility] who interrogated the AICD and advised him to come to the ED since his heart rate was in the 150s. The patient underwent an extensive evaluation in the ED with initial EKG showing tachycardia 124 bpm. Chest x-ray revealed no acute cardio pulmonary abnormalities. Laboratory evaluation revealed an INR of 3.3, WBC count 7.5, hemoglobin 13.7, platelets 300, troponin less than 0.012, BUN 14, creatinine 0.79. The patient received multiple doses of Cardizem in the ED. He was subsequently admitted for further management. Cardiology was consulted and noted that the patient's initial EKG had revealed an atrial tachycardia that was not consistent with a flutter that the repeat EKGs showed sinus rhythm. They recommended discontinuation of Coreg and initiated the patient on Toprol. The patient's heart rate remained well-controlled over the following 24 hours. The patient was seen and examined at the bedside on 11/02/2018. He reported that he has had only minimal palpitations, occurring only for a few seconds at a time, significantly improved from admission. The patient was advised by cardiology to follow-up with [facility] with his primary supply officer. Physical Examination General: Non-toxic, in no acute distress, appears stated age, normal weight HEENT: NC/AT, anicteric sclerae, moist conjunctiva, no lid-lag, PERRLA Cardiovascular: S1/S2 wnl, no murmurs, rubs, or gallops Lungs: Clear to auscultation, normal respiratory effort, no accessory muscle use Abdominal: Soft, non-tender, non-distended, no guarding, rebound, or rigidity Skin: Warm, dry Extremities: No edema or contractures Psychiatric: Alert and oriented to person, place and time, appropriate affect Neuro: CN II-XII grossly intact, Strength 5/5 in all 4 extremities, Speech intact, Sensation to light touch grossly intact throughout Discharge diagnosis: Atrial tachycardia; status post aortic valve replacement using a mechanical valve (on Coumadin); Systolic CHF, not in acute exacerbation A total of 45 minutes of time were spent preparing this complex discharge summary. Patient Condition at Discharge: Fair Plan - Discharge Summary Discharge Rx Participant: No New Discharge Prescriptions: New Metoprolol Succinate (ER) [Toprol XL] 100 mg PO DAILY #30 tab.er.24h Continue Aspirin 325 mg PO DAILY #30 tab Dofetilide [Tikosyn] 250 mcg PO BID #60 cap Eplerenone 100 mg PO DAILY #30 tablet Ramipril 10 mg PO DAILY #30 capsule Warfarin [Coumadin] 10 mg PO SUWEFRSA Warfarin [Coumadin] 7.5 mg PO [facility] Pyridoxine HCl (Vitamin B6) [Vitamin B-6] 100 mg PO DAILY Omeprazole 20 mg PO DAILY Folic Acid 0.8 mg PO DAILY Cyanocobalamin (Vitamin B-12) [Vitamin B-12] 1,000 mcg PO DAILY Atorvastatin [Lipitor] 80 mg PO HS Furosemide [Lasix] 40 mg PO DAILY PRN PRN Reason: Edema Discontinued Carvedilol [Coreg] 25 mg PO BID #60 tablet Discharge Medication List Aspirin 325 mg PO DAILY #30 tab 05/02/18 [Rx] Dofetilide [Tikosyn] 250 mcg PO BID #60 cap 05/02/18 [Rx] Eplerenone 100 mg PO DAILY #30 tablet 05/02/18 [Rx] Ramipril 10 mg PO DAILY #30 capsule 05/02/18 [Rx] Atorvastatin [Lipitor] 80 mg PO HS 10/31/18 [History] Cyanocobalamin (Vitamin B-12) [Vitamin B-12] 1,000 mcg PO DAILY 10/31/18 [History] Folic Acid 0.8 mg PO DAILY 10/31/18 [History] Furosemide [Lasix] 40 mg PO DAILY PRN 10/31/18 [History] Omeprazole 20 mg PO DAILY 10/31/18 [History] Pyridoxine HCl (Vitamin B6) [Vitamin B-6] 100 mg PO DAILY 10/31/18 [History] Warfarin [Coumadin] 7.5 mg PO MOTUTH 10/31/18 [History] Warfarin [Coumadin] 10 mg PO SUWEFRSA 10/31/18 [History] Metoprolol Succinate (ER) [Toprol XL] 100 mg PO DAILY #30 tab.er.24h 11/02/18 [Rx] Follow up Appointment(s)/Referral(s): Marce Xiao MD [Primary Care Provider] - 1-2 days Patient Instructions/Handouts: A-fib (Atrial Fibrillation) (DC) Discharge Disposition: HOME SELF-CARE
--- NOTE | 2018-11-02 14:53 | P.PN ---
Subjective Progress Note Date: 11/02/18 This is a pleasant 52-year-old gentleman with an extensive cardiac history who does follow with a manager grant at [facility]. He has a past medical history of aortic valve replacement first time with bioprosthetic valve was performed in 1995 and subsequently another redo valve with mechanical valve in aortic position in 2010 and at that point the surgery was performed with Joey artery bypass grafting 4, the details on that are unavailable and the patient continues to follow with [facility], cardiomyopathy, status post AICD, as well as multiple comorbid conditions. Patient states he was in his normal state of health until 2 days ago when he was walking into [facility] from his car and he started feeling palpitations, lightheadedness and dizziness. He went back to his car and rested for about one hour and then went home. All day yesterday he was feeling tired. He did check his heart rate and he was at 126 at rest. He called [facility] and they checked his device remotely and he was told that 2 days ago he had 19 hours of irregular heart rate. Yesterday it started again at 1:00. He was advised to come in the hospital for evaluation. His initial EKG revealed a in atrial tachycardia that was regular not consistent with atrial flutter. He has had a repeat EKG that is a sinus rhythm. The patient has been taking his medications as directed. At this time, he states he still has the symptoms but they're very vague and lessen significantly from yesterday. Echocardiogram reveals EF of 30-35%, LA moderately dilated 34-39, normally functioning mechanical prosthetic valve, mitral ring annuloplasty in place, mild tricuspid regurgitation Laboratory studies: INR 3.3, hemoglobin 13.7, creatinine 0.80, electrolytes within normal limits, liver function tests within normal limits, troponin negative on 3 draws. 11/02: Heart rate has been running consistently in the 60s, blood pressure 126/80, pulse ox 96% on room air. Patient remains with symptoms improved although not quite back to his baseline. Patient will be continued on the metoprolol at 100 mg long acting and follow-up with his manager grant at [facility]. Patient is clear for discharge home today. Vital signs: Heart rate 67, blood pressure 112/62, pulse ox 99% on room air, afebrile. Gen: This is a 53-year-old male. He is resting in bed and appears comfortable and in no acute distress. HEENT: Head is atraumatic, normocephalic. Pupils equal, round. Sclerae is anicte daniel. NECK: Supple. No JVD. No lymphadenopathy. No thyromegaly. LUNGS: Clear to auscultation. No wheezes or rhonchi. No intercostal retractions. HEART: Regular rate and rhythm. Systolic murmur. ABDOMEN: Soft. Bowel sounds are present. No masses. No tenderness. EXTREMITIES: No pedal edema. No calf tenderness. Dorsalis pedis +2 bilaterally. NEUROLOGICAL: Patient is awake, alert and oriented x3. Cranial nerves 2 through 12 are grossly intact. Assessment: Atrial tachycardia Status post aortic valve replacement using mechanical valve on chronic Coumadin Status post coronary artery bypass grafting 4 Ischemic cardiomyopathy status post AICD, Plan: Continue Toprol-XL 100 mg by mouth daily. A prescription has been sent to his pharmacy. Continue Coumadin at home dose with plan to maintain INR between 2.5 and 3.5. Continue Tikosyn 250 mg twice daily. Continue aspirin 325 mg daily, Lipitor 80 mg daily, Lasix 40 mg daily as needed, lisinopril 40 mg daily. Continue Aldactone/Eplerenone. Patient is cleared for discharge home today. Follow-up with [facility] as his primary manager grant. Nurse practitioner note has been reviewed, I agree with documented findings and plan of care. Patient was seen and examined. Objective - Vital Signs Vital signs: Vital Signs Temp 98.2 F 11/02/18 08:00 Pulse 66 11/02/18 08:00 Resp 18 11/02/18 08:00 BP 126/80 11/02/18 08:00 Pulse Ox 96 11/02/18 08:00 Intake & Output 11/01/18 11/02/18 11/02/18 18:59 06:59 18:59 Intake Total 570 Balance 570 Weight 96.6 kg Intake: Oral 570 Other: Voiding Method Toilet Toilet Toilet # Voids 1 3 - Labs CBC & Chem 7: 10/31/18 18:55 11/01/18 06:35 Labs: Abnormal Lab Results - Last 24 Hours (Table) 11/02/18 Range/Units 05:55 PT 38.4 H (9.0-12.0) sec INR 4.0 H (<1.2)
[2018-11-03] MEDS ORDERED: WARFARIN 7.5 MG TAB PO SCH (18:00)
== END 2018-11-02 11:34 | disposition home or self-care (01) | DRG 309 ==
LOC: EC 18:21 → 3SCARD 20:54
PROVIDERS: ADMIT Family Medicine; ATTEND Family Medicine
DX: I47.1 Supraventricular tachycardia (principal); D68.9 Coagulation defect, unspecified; I50.22 Chronic systolic (congestive) heart failure; E78.5 Hyperlipidemia, unspecified; I11.0 Hypertensive heart disease with heart failure; I25.2 Old myocardial infarction; I25.5 Ischemic cardiomyopathy; I48.91 Unspecified atrial fibrillation; I48.92 Unspecified atrial flutter; Z79.01 Long term (current) use of anticoagulants; Z79.82 Long term (current) use of aspirin; Z79.899 Other long term (current) drug therapy; Z80.3 Family history of malignant neoplasm of breast; Z80.6 Family history of leukemia; Z86.74 Personal history of sudden cardiac arrest; Z95.1 Presence of aortocoronary bypass graft; Z95.2 Presence of prosthetic heart valve; Z95.810 Presence of automatic (implantable) cardiac defibrillator; Z88.5 Allergy status to narcotic agent; Z88.8 Allergy status to other drugs, medicaments and biological substances; Z88.6 Allergy status to analgesic agent; Z91.041 Radiographic dye allergy status; Z80.0 Family history of malignant neoplasm of digestive organs
CPT/HCPCS: 36415; 71046; 80048; 80053; 83735; 84484; 85025; 85610; 85730; 93005; 93306; 96374; 99291

== ENCOUNTER 2019-01-29 06:01 | Inpatient (IN) | payer MEDICARE ==
[2019-01-29] MEDS ORDERED: SODIUM CHLORIDE 0.9% 1,000 ML IV STA ×2 (06:24)
[2019-01-29] MEDS ORDERED: METOCLOPRAMIDE 5 MG/ML 2 ML VIAL IVP STA (06:24)
[2019-01-29] MEDS ORDERED: KETOROLAC 30 MG/ML 1 ML VIAL IVP STA (06:25)
[2019-01-29] MEDS ORDERED: MORPHINE SULFATE 2 MG/ML SYRINGE IVP STA (06:25)
--- NOTE | 2019-01-29 06:35 | ED ---
Nausea/Vomiting/Diarrhea HPI - General Chief complaint: Nausea/Vomiting/Diarrhea Stated complaint: Nausea, Vomiting Time Seen by Provider: 01/29/19 06:07 Source: EMS, RN notes reviewed, old records reviewed Mode of arrival: EMS Limitations: no limitations - History of Present Illness Initial comments: Patient is a 33-year-old male presents pressure today with chief complaint of nausea and vomiting of started 11 PM last night. He believes is related to eating a chicken salad sandwich yesterday at 6 PM. Patient reports that he is having some cramping abdominal pain. He reports the pain seems to be diffuse early abdomen, but somewhat worse in the right upper quadrant. Patient states he felt that he would have some diarrhea and help with the symptoms as well as unsuccessful. He reports that he has a cardiac history including cardiac ablation, catheterization and stenting done at [facility]. He denies any chest pain or shortness of breath at this time. Patient reports the pain does radiate towards his back somewhat. - Related Data Home Medications Medication Instructions Recorded Confirmed Atorvastatin [Lipitor] 80 mg PO HS 10/31/18 01/29/19 Cyanocobalamin (Vitamin B-12) 1,000 mcg PO DAILY 10/31/18 01/29/19 [Vitamin B-12] Folic Acid 0.8 mg PO DAILY 10/31/18 01/29/19 Furosemide [Lasix] 40 mg PO DAILY PRN 10/31/18 01/29/19 Omeprazole 20 mg PO DAILY 10/31/18 01/29/19 Pyridoxine HCl (Vitamin B6) 100 mg PO DAILY 10/31/18 01/29/19 [Vitamin B-6] Warfarin [Coumadin] 7.5 mg PO MOTUTH 10/31/18 01/29/19 Warfarin [Coumadin] 10 mg PO SUWEFRSA 10/31/18 01/29/19 Metoprolol Succinate (ER) [Toprol 50 mg PO DAILY 01/29/19 01/29/19 XL] Previous Rx's Medication Instructions Recorded Aspirin 325 mg PO DAILY #30 tab 05/02/18 Dofetilide [Tikosyn] 250 mcg PO BID #60 cap 05/02/18 Eplerenone 100 mg PO DAILY #30 tablet 05/02/18 Ramipril 10 mg PO DAILY #30 capsule 05/02/18 Allergies Allergy/AdvReac Type Severity Reaction Status Date / Time fexofenadine [From Zara-D] Allergy Swelling Verified 01/29/19 07:27 Iodinated Contrast Media Allergy Rash/Hives Verified 01/29/19 07:27 [Iodinated Contrast- Oral and IV Dye] niacin Allergy Anaphylaxis Verified 01/29/19 07:27 oxycodone [From Percocet] Allergy Rash/Hives Verified 01/29/19 07:27 pseudoephedrine Allergy Swelling Verified 01/29/19 07:27 [From Zara-D] quetiapine [From Seroquel] Allergy Unknown Verified 01/29/19 07:27 Review of Systems ROS Statement: Those systems with pertinent positive or pertinent negative responses have been documented in the HPI. ROS Other: All systems not noted in ROS Statement are negative. Past Medical History Past Medical History: Hyperlipidemia, Hypertension, Myocardial Infarction (NE) Additional Past Medical History / Comment(s): cardiac arrest x5 Last Myocardial Infarction Date:: 2008 History of Any Multi-Drug Resistant Organisms: None Reported Past Surgical History: AICD, Cardiac Ablation, Heart Catheterization, Orthopedic Surgery Additional Past Surgical History / Comment(s): aortic valve replcement, mitral valve ring. right leg with hardware Type of Cardiac Device: AICD Device Placement Date:: 2018 Past Psychological History: No Psychological Hx Reported Smoking Status: Never smoker Past Alcohol Use History: None Reported Past Drug Use History: None Reported - Past Family History Mother Family Medical History: Cancer Additional Family Medical History / Comment(s): Colon and breast CA Father Family Medical History: Cancer Additional Family Medical History / Comment(s): CLL General Exam - General Exam Comments Initial Comments: 53-year-old male. Alert and oriented. No significant distress. Limitations: no limitations General appearance: alert, in no apparent distress Head exam: Present: atraumatic, normocephalic, normal inspection Eye exam: Present: normal appearance, PERRL, EOMI. Absent: scleral icterus, conjunctival injection, periorbital swelling ENT exam: Present: normal exam, normal oropharynx, mucous membranes moist Neck exam: Present: normal inspection. Absent: tenderness, meningismus, lymphad enopathy Respiratory exam: Present: normal lung sounds bilaterally. Absent: respiratory distress, wheezes, rales, rhonchi, stridor Cardiovascular Exam: Present: regular rate, normal rhythm, normal heart sounds. Absent: systolic murmur, diastolic murmur, rubs, gallop, clicks GI/Abdominal exam: Present: soft, tenderness (RUQ tenderness), normal bowel sounds. Absent: distended, guarding, rebound, rigid Extremities exam: Present: normal inspection, full ROM, normal capillary refill. Absent: tenderness, pedal edema, joint swelling, calf tenderness Back exam: Present: normal inspection Neurological exam: Present: alert, oriented X3, CN II-XII intact Psychiatric exam: Present: normal affect, normal mood Skin exam: Present: warm, dry, intact, normal color. Absent: rash Course Vital Signs 01/29/19 01/29/19 01/29/19 06:02 06:41 07:00 Temperature 97.3 F L Pulse Rate 79 80 Respiratory 18 18 Rate Blood Pressure 131/88 129/79 129/79 O2 Sat by Pulse 99 95 97 Oximetry 01/29/19 08:00 Temperature Pulse Rate Respiratory Rate Blood Pressure 126/79 O2 Sat by Pulse 88 L Oximetry Medical Decision Making - Medical Decision Making Is a 53-year-old male presents today with onset of nausea and vomiting or abdominal pain starting at 11:30 PM. He initially thought is related to poisoning from eating a chicken salad sandwich last night. Upon arrival he does have some right upper quadrant tenderness, lab work was obtained. No signs of leukocytosis or elevated liver enzymes. Kidney function is normal. Urinalysis is positive for red blood cells. Patient's underwent CT abdomen and pelvis without contrast to rule out obstructing stones he did state that the patient's pain radiating towards his back. 1 cm, use in the right renal pelvis and Omid atelectasis. Possibility of a recently passed calculus. There is also hydropic gallbladder measuring 4.5 cm. Recommended ultrasound. Ultrasound showed a gallbladder wall thickening or gallbladder hydrops. Sonographic Kamara sign was reported positive. No gallstones noted. This time patient's case was discussed with . zak also examined the Patient. Recommends with the thickening gallbladder in the right upper quadrant tenderness to treat for cholecystitis with Rocephin and Flagyl. Discussed the case with Dr. Ch. - Lab Data Result diagrams: 01/29/19 06:14 01/29/19 06:14 Lab Results 10/31/19 10/31/19 10/31/19 Range/Units 06:14 06:14 06:47 WBC 8.1 (3.8-10.6) k/uL RBC 5.23 (4.30-5.90) m/uL Hgb 12.6 L (13.0-17.5) gm/dL Hct 40.5 (39.0-53.0) % MCV 77.3 L (80.0-100.0) fL MCH 24.0 L (25.0-35.0) pg MCHC 31.1 (31.0-37.0) g/dL RDW 15.8 H (11.5-15.5) % Plt Count 299 (150-450) k/uL Neutrophils % 83 % Lymphocytes % 8 % Monocytes % 5 % Eosinophils % 1 % Basophils % 0 % Neutrophils # 6.7 (1.3-7.7) k/uL Lymphocytes # 0.7 L (1.0-4.8) k/uL Monocytes # 0.4 (0-1.0) k/uL Eosinophils # 0.1 (0-0.7) k/uL Basophils # 0.0 (0-0.2) k/uL Hypochromasia Marked Microcytosis Slight Sodium 138 (137-145) mmol/L Potassium 4.2 (3.5-5.1) mmol/L Chloride 103 (98-107) mmol/L Carbon Dioxide 24 (22-30) mmol/L Anion Gap 11 mmol/L BUN 19 (9-20) mg/dL Creatinine 0.91 (0.66-1.25) mg/dL Est GFR (CKD-EPI)AfAm >90 (>60 ml/min/1.73 sqM) Est GFR (CKD-EPI)NonAf >90 (>60 ml/min/1.73 sqM) Glucose 141 H (74-99) mg/dL Calcium 9.7 (8.4-10.2) mg/dL Total Bilirubin 0.6 (0.2-1.3) mg/dL AST 21 (17-59) U/L ALT 12 L (21-72) U/L Alkaline Phosphatase 77 (38-126) U/L Total Protein 7.4 (6.3-8.2) g/dL Albumin 4.4 (3.5-5.0) g/dL Amylase 43 (30-110) U/L Lipase 175 (23-300) U/L Urine Color Yellow Urine Appearance Clear (Clear) Urine pH 6.0 (5.0-8.0) Ur Specific [place] 1.026 (1.001-1.035) Urine Protein Trace H (Negative) Urine Glucose (UA) Negative (Negative) Urine Ketones Negative (Negative) Urine Blood Large H (Negative) Urine Nitrite Negative (Negative) Urine Bilirubin Negative (Negative) Urine Urobilinogen 2.0 (<2.0) mg/dL Ur Leukocyte Esterase Negative (Negative) Urine RBC >182 H (0-5) /hpf Urine WBC 1 (0-5) /hpf Ur Squamous Epith Cells <1 (0-4) /hpf Urine Mucus Rare H (None) /hpf 01/29/19 06:49 EKG shows sinus rhythm nonspecific intraventricular block. Possible inferior infarct age undetermined. Cannot rule out anterior septal infarct age undetermined. Reticular a 67 bpm. Intervals 188 ms. QS duration is 126 most seconds. QT QTc is 460/490 ms. - Radiology Data Radiology results: report reviewed Computed tomography scan shows a 17 m calculus dependent within the right renal pelvis there is mild right-sided pelvic atelectasis but normal caliber ureter with no suspicious calcifications seen a in the course of the ureter. Findings may reflect recently passed calculus. Correlating for possibility of chronic relative UPJ obstruction. Additional punctate 2-3 mm nonobstructive right renal colliculi. Hydropic gallbladder measuring 4.5 cm relates a fasting state. Right upper quadrant pain or concern for early cholecystitis. An ultrasound and HIDA scan. Mid to distal sigmoid diverticulosis without evidence of diverticulitis. Ultrasound shows gallbladder wall thickening and gallbladder hydrops. Sonographic Kamara sign is reported positive as well. No gallstones are seen. Further clinical correlation recommended for suspicion for acute cholecystitis. Further imaging evaluation stated HIDA scan could be considered. Distended renal pelvis of the right kidney with 1.6 and ear calculus within it. Lack of calyceal dilation does argue against obstructive uropathy. Possible chronic pelvic dilation or extrarenal pelvis. Clinically correlating consider short- term follow-up for urology for referral. This was read by Dr. Baker. Disposition Clinical Impression: Hematuria, Renal stone, Cholecystitis, Nausea & vomiting Disposition: ADMITTED IP TO THIS HOSP Condition: Stable Is patient prescribed a controlled substance at d/c from ED?: No Referrals: Marce Xiao MD [Primary Care Provider] - 1-2 days Time of Disposition: 09:40
[2019-01-29 06:39] LABS: Basophils % (A) 0 %; Eosinophils # (A) 0.1 k/uL (0-0.7); Eosinophils % (A) 1 %; HCT 40.5 % (39.0-53.0); HGB 12.6 gm/dL (13.0-17.5); Hypochromasia Marked; Lymphocytes # (A) 0.7 k/uL (1.0-4.8); Lymphocytes % (A) 8 %; MCHC 31.1 g/dL (31.0-37.0); MCV 77.3 fL (80.0-100.0); Mean Platelet Volume 6.3; Microcytosis Slight; Monocytes # (A) 0.4 k/uL (0-1.0); Monocytes % (A) 5 %; Neutrophils # (A) 6.7 k/uL (1.3-7.7); Neutrophils % (A) 83 %; Platelet Count 299 k/uL (150-450); RBC 5.23 m/uL (4.30-5.90); RDW 15.8 % (11.5-15.5); WBC 8.1 k/uL (3.8-10.6)
[2019-01-29 06:49] LABS: ALT 12 U/L (21-72); AST 21 U/L (17-59); African American GFR (CKD) >90 (>60 ml/min/1.73 sqM); Albumin 4.4 g/dL (3.5-5.0); Alkaline Phosphatase 77 U/L (38-126); Amylase 43 U/L (30-110); Anion Gap 11 mmol/L; Blood Urea Nitrogen 19 mg/dL (9-20); Calcium 9.7 mg/dL (8.4-10.2); Carbon Dioxide 24 mmol/L (22-30); Chloride 103 mmol/L (98-107); Glucose 141 mg/dL (74-99); Potassium 4.2 mmol/L (3.5-5.1); Sodium 138 mmol/L (137-145); Total Bilirubin 0.6 mg/dL (0.2-1.3); Total Protein 7.4 g/dL (6.3-8.2)
[2019-01-29 06:59] LABS: Appearance,Urine Clear (Clear); Bilirubin,Urine Negative (Negative); Blood,Urine Large (Negative); Color,Urine Yellow; Glucose,Urine (UA) Negative (Negative); Ketones,Urine Negative (Negative); Leukocyte Esterase,Urine Negative (Negative); Mucus,Urine Rare /hpf; Nitrite,Urine Negative (Negative); Protein,Urine Trace (Negative); RBC,Urine >182 /hpf (0-5); Specific Gravity,Urine 1.026 (1.001-1.035); Squamous Epithelial Cell,Urine <1 /hpf (0-4); WBC,Urine 1 /hpf (0-5)
--- NOTE | 2019-01-29 07:20 | XR ---
EXAMINATION TYPE: XR KUB DATE OF EXAM: 01/29/2019 CLINICAL DATA: 53-year-old male with right upper quadrant pain and vomiting, PHH COMPARISON: FINDINGS: Lung bases are clear. Right ventricular AICD lead. Surgical clips project over the right hemidiaphrag m. Some scattered borderline distended small bowel loops in the left side of the abdomen. 3.2 cm. Small colonic air-fluid levels in the right lower quadrant. Mild stool burden. Scattered colonic air is present throughout. Pelvic phleboliths. A right iliac vessel stent is present. Calcification measuring 1.1 cm in the right mid abdomen. IMPRESSION: 1. Overall nonobstructive bowel gas pattern though a couple mildly distended small bowel loops are pr esent in the left side of the abdomen. Given some air-fluid levels in the right side of the colon sug gesting liquid stool, correlate for possible enteritis or mild generalized ileus. 2. A 1.1 cm calcification in the right mid abdomen is nonspecific. Possible ingested medication table t or right-sided renal calculus.
--- NOTE | 2019-01-29 08:07 | CT ---
EXAMINATION TYPE: CT abdomen pelvis wo con DATE OF EXAM: 01/29/2019 COMPARISON: None HISTORY: 52-year-old male lower abd pain, microscopic hematuria CT DLP: 834.6 mGycm. Automated exposure control for dose reduction was used. TECHNIQUE: Contiguous axial scanning of the abdomen and pelvis without IV contrast. Coronal and sagit hallie reconstructions performed. FINDINGS: Median sternotomy wires are present. Right atrial and right ventricular AICD leads. Heart upper limit s of normal in size. Strandy atelectasis lower lungs. No pleural effusion. Noncontrast images of the liver demonstrate a subcentimeter hypodensity right liver lobe too small fo r accurate CT characterization, probable cyst. Gallbladder is hydropic measuring 4.5 cm wide. Phrygian cap is demonstrated. Adrenal glands and spleen show no gross abnormality by noncontrast CT. Calcified granulomas within the spleen with a hilar splenule. A few punctate 3 mm and smaller nonobstructive calculi in the right kidney. There is mild pelvocaliec tasis on the right with a dependent 1 cm calculus in the right renal pelvis. No suspicious calcificat ion seen along the course of the right ureter. Diffuse scattered prominent mesenteric lymph nodes measure up to 6 mm in the right side of the abdome n. No dilated small bowel, free fluid, or failure. There are mild to moderate stool. Mid to distal sigmo id diverticulosis. No pericolonic inflammatory change. Patulous inguinal canals. Bladder partially distended. Pelvic phleboliths. Prostate gland measures 4. 5 cm wide. No abnormal fluid collection in the pelvis or pelvic lymphadenopathy. Bones: Mild degenerative spurring at the hips. Degenerative disc disease and facet arthropathy lower lumbar spine. Trace grade 1 retrolisthesis at L3-L4. IMPRESSION: 1. A 1 cm calculus dependent within the right renal pelvis. There is mild right-sided pelvicaliectas is but normal caliber ureter and no suspicious calcifications seen along the course of the ureter. Fi ndings may reflect a recently passed calculus. Correlate for the possibility of a chronic, relative U PJ obstruction. 2. Additional punctate 2 to 3 mm nonobstructive right renal calculi. 3. Hydropic gallbladder measuring 4.5 cm wide and may relate to fasting state. If right upper quadra nt pain or concern for early acute cholecystitis, follow-up ultrasound or HIDA scan. 4. Mid to distal sigmoid diverticulosis without evidence for acute diverticulitis.
--- NOTE | 2019-01-29 09:19 | US ---
EXAMINATION TYPE: US gallbladder DATE OF EXAM: 01/29/2019 COMPARISON: CT same day CLINICAL HISTORY: 53-year-old male with right upper quadrant pain. TECHNIQUE: Multiple sonographic images of the right upper quadrant are obtained. FINDINGS: EXAM MEASUREMENTS: Liver Length: 13.3 cm Gallbladder Wall: 0.5 cm CBD: 0.3 cm Right Kidney: 13.3 x 4.9 x 6.1 cm Pancreas: visualized portions wnl Liver: wnl Gallbladder: distended at 11.5 cm, thickened wall. Evidence for sonographic Kamara's sign: Yes CBD: wnl Right Kidney: distended renal pelvis with stone seen measuring 1.6 cm. On ultrasound, no calyceal d ilatation is seen. IMPRESSION: 1. Gallbladder wall thickening and gallbladder hydrops. Sonographic Kamara sign is reported positive as well. No gallstone is seen. Further clinical correlation recommended as to the suspicion for under lying acute cholecystitis. If further imaging evaluation is needed, HIDA scan can be considered. 2. Distended renal pelvis of the right kidney with a 1.6 cm calculus within. The lack of calyceal dil atation does argue against obstructive uropathy. Possible chronic pelvic dilatation or large extra re nal pelvis. Clinically correlate and consider short interval follow-up or urology referral.
[2019-01-29] MEDS ORDERED: cefTRIAXone IN SWFI 1,000 MG/10 ML SYRINGE IVP STA (09:35)
[2019-01-29] MEDS ORDERED: metroNIDAZOLE-NS PMX 500 MG in SALINE 1 100ML.BAG IVPB STA ×2 (09:36→09:40)
[2019-01-29] MEDS ORDERED: IBUPROFEN 400 MG TAB PO PRN (09:40)
[2019-01-29] MEDS ORDERED: NALOXONE 0.4 MG/ML 1 ML VIAL IV PRN (09:40)
[2019-01-29] MEDS: SODIUM CHLORIDE 0.9% 1,000 ML IV SCH ×2 (11:26→17:06)
[2019-01-29] MEDS: ONDANSETRON 4 MG/2 ML VIAL IVP PRN (11:30)
[2019-01-29] MEDS ORDERED: FUROSEMIDE 40 MG TAB PO PRN (14:27)
[2019-01-29] MEDS: metroNIDAZOLE-NS PMX 500 MG in SALINE 1 100ML.BAG IVPB SCH ×2 (17:05→18:00)
[2019-01-29] MEDS ORDERED: PROCHLORPERAZINE 5 MG TAB PO PRN (17:06)
[2019-01-29] MEDS: PIPERACILLIN-TAZOBACTAM 3.375 GM in SODIUM CHLORIDE 0.9% 100 ML IVPB SCH ×2 (17:47→23:09)
[2019-01-29] MEDS ORDERED: METOCLOPRAMIDE 5 MG/ML 2 ML VIAL IVP SCH (18:00)
[2019-01-29] MEDS ORDERED: LEVOFLOXACIN 500MG-D5W PMX 500 MG in DEXTROSE/WATER 1 100ML.BAG IVPB SCH (18:00)
[2019-01-29] MEDS ORDERED: ENOXAPARIN 80 MG/0.8 ML SYRINGE SQ SCH (20:00)
[2019-01-29] MEDS: DOFETILIDE 250 MCG CAP PO SCH (20:43)
[2019-01-29] MEDS: ENOXAPARIN 60 MG/0.6 ML SYRINGE SQ SCH (20:43)
--- NOTE | 2019-01-29 20:58 | P.GSCN ---
History of Present Illness Consult date: 01/29/19 History of present illness: CHIEF COMPLAINT: Abdominal pain HISTORY OF PRESENT ILLNESS: The patient is a 53 year old male who presents with moderate cardiac history where his cardiologists are from [facility]. He reports past myocardial infarction in his early 20s including multiple cardiac ablations for arrhythmia. Since admission, he presented with atypical chest pain including right upper quadrant abdominal pain. He reports radiation to the right back and bilateral flank. He reports worsening gastroesophageal reflux disease. This pain has been present for more than 2 days. He reports eating a fatty meal prior to start of chest pain and abdominal pain. He denies any prior history of gallbladder disease. He reports his mother has gallbladder disease. He had additional studies demonstrating no gallstones although he complains of moderate to severe right upper quadrant abdominal pain. General surgery is consulted for evaluation of cholecystitis. PAST MEDICAL HISTORY: See list. PAST SURGICAL HISTORY: See list. MEDICATIONS: See list. ALLERGIES: See list. SOCIAL HISTORY: No illicit drug use FAMILY HISTORY: Gallbladder disease. REVIEW OF ORGAN SYSTEMS: CONSTITUTIONAL: No fevers or chills. He has recent weight loss. EYES: Denies any trouble with vision. Wears glasses. HEENT: No difficulties with hearing. No nosebleeds. No difficulty swallowing. RESPIRATORY: Denies pneumonia. Denies any troubles with breathing or dyspnea on exertion. CARDIOVASCULAR: Past chest pain, palpitations, and heart attacks. GASTROINTESTINAL: Has fatty food intolerance. Denies change in bowel habits and gas bloat. Has gastroesophageal reflux disease. GENITOURINARY: Denies any blood in urine or increased urinary frequency. NEUROLOGICAL: Denies any numbness or tingling along the distal extremities. No seizure disorders or headaches. MUSCULOSKELETAL: Has any back pain, stiffness or joint arthritis. SKIN: No current skin cancer. No rash. PSYCHIATRIC: Denies current depression or suicidal thoughts. ENDOCRINE: Denies current thyroid disorders. Denies any blood sugar glucose intolerance. HEME/LYMPHATIC: Denies any lumps and bumps around the neck. No recent deep venous thrombosis. On chronic anticoagulant. ALLERGY/IMMUNOLOGY: No immunoglobulin therapy. No immune deficiencies. BREAST: Denies current breast lumps, pain or nipple discharge. PHYSICAL EXAM: VITALS: Reviewed CONSTITUTIONAL: Well developed and in no acute distress. EYES: Conjuctivae without sclera icterus. Pupils are equally round and reactive to light. Extraocular movements grossly intact. HEAD, EARS, NOSE, THROAT: Moist buccal mucosa. Head is atraumatic, normocephalic. Hears conversational speech. No nasal drainage. NECK: Supple. No JV distention. No thyroidomegaly. RESPIRATORY: Non-labored respirations and equal bilateral excursions. No gross wheezes. CARDIOVASCULAR: Regular rate and rhythm. Extremities without moderate edema. Palpable 2+ radial pulses. ABDOMEN: Tender along right upper quadrant with localized peritonitis. Soft. LYMPH: No neck lymphadenopathy. No axillary lymphadenopathy. MUSCULOSKELETAL: Nail and fingers with good capillary refill. SKIN: Warm and well perfused with good skin turgor. NEUROLOGIC: Cranial nerves I through XII grossly intact. Sensation upper and extremities intact. No focal or lateralizing signs. PSYCH: Appropriate affect. Alert and oriented to person, place and time. Displays appropriate insight. CLINCAL LABS: Reviewed. WBC normal RADIOLOGY: Report reviewed consistent with cholecystitis with thickened gallbladder wall. IMAGING: Independently reviewed. Ultrasound independently reviewed consistent with acute cholecystitis with thickened gallbladder wall over 2 mm with 5 mm thickness ASSESSMENT: 1. Acute cholecystitis 2. Congestive heart failure with diastolic dysfunction 3. Ischemic cardiomyopathy with history of myocardial infarction 4. History of aortic valvular replacement PLAN: 1. Clinical exam is also consistent with acute cholecystitis. 2. HIDA scan has been held by me. 3. Will need cardiac risk assessment and optimization prior to surgery. 4. In the interim, recommend antibiotics to improve clinical course and surgery. 5. Patient deemed high risk for surgical intervention with baseline cardiac history. 6. May clear liquid diet Thank you for this kind consultation. Past Medical History Past Medical History: Atrial Fibrillation, Atrial Flutter, Coronary Artery Disease (CAD), Heart Failure, GERD/Reflux, GI Bleed, Hyperlipidemia, Hypertension, Myocardial Infarction (CO) Additional Past Medical History / Comment(s): Pt states he has had a total of 4 MIs and in 2010 had 5 cardiac arrests, cardiomyopathy, A tach, lower GI bleed. Last Myocardial Infarction Date:: 2008 History of Any Multi-Drug Resistant Organisms: None Reported Past Surgical History: AICD, Cardiac Ablation, Cardiac Valve Replacement, Coronary Bypass/CABG, Heart Catheterization, Heart Catheterization With Stent, Orthopedic Surgery Additional Past Surgical History / Comment(s): 1995 aortic bioprosthetic valve, 2010 changed to mechanical aortic valve with 4 vessel bypass, cardiac ablations x2, AICD, PCI with stents prior to CABG, R leg fracture with hardware, colonoscopy. Past Anesthesia/Blood Transfusion Reactions: No Reported Reaction, Motion Sickness Date of Last Stent Placement:: unkn Type of Cardiac Device: AICD Device Placement Date:: 2018 Smoking Status: Never smoker - Past Family History Mother Family Medical History: Cancer Additional Family Medical History / Comment(s): Colon and breast CA. Mother is still living. Father Family Medical History: Cancer Additional Family Medical History / Comment(s): CLL. Father is still living Medications and Allergies Home Medications Medication Instructions Recorded Confirmed Type Aspirin 325 mg PO DAILY #30 tab 05/02/18 01/29/19 Rx Dofetilide [Tikosyn] 250 mcg PO BID #60 cap 05/02/18 01/29/19 Rx Eplerenone 100 mg PO DAILY #30 tablet 05/02/18 01/29/19 Rx Ramipril 10 mg PO DAILY #30 capsule 05/02/18 01/29/19 Rx Atorvastatin [Lipitor] 80 mg PO HS 10/31/18 01/29/19 History Cyanocobalamin (Vitamin B-12) 1,000 mcg PO DAILY 10/31/18 01/29/19 History [Vitamin B-12] Folic Acid 0.8 mg PO DAILY 10/31/18 01/29/19 History Furosemide [Lasix] 40 mg PO DAILY PRN 10/31/18 01/29/19 History Omeprazole 20 mg PO DAILY 10/31/18 01/29/19 History Pyridoxine HCl (Vitamin B6) 100 mg PO DAILY 10/31/18 01/29/19 History [Vitamin B-6] Warfarin [Coumadin] 7.5 mg PO MOTUTH 10/31/18 01/29/19 History Warfarin [Coumadin] 10 mg PO SUWEFRSA 10/31/18 01/29/19 History Metoprolol Succinate (ER) [Toprol 50 mg PO DAILY 01/29/19 01/29/19 History XL] Acetaminophen Tab [Tylenol Tab] 650 mg PO Q4H PRN #30 tablet 01/30/19 Rx Amoxicillin/Potassium Clav 1 each PO Q12HR #14 tab 02/06/19 Rx [Augmentin 875-125 Tablet] Allergies Allergy/AdvReac Type Severity Reaction Status Date / Time fexofenadine [From Zraa-D] Allergy Swelling Verified 01/29/19 07:27 Iodinated Contrast Media Allergy Rash/Hives Verified 01/29/19 07:27 [Iodinated Contrast- Oral and IV Dye] niacin Allergy Anaphylaxis Verified 01/29/19 07:27 oxycodone [From Percocet] Allergy Rash/Hives Verified 01/29/19 07:27 pseudoephedrine Allergy Swelling Verified 01/29/19 07:27 [From Zara-D] quetiapine [From Seroquel] Allergy Unknown Verified 01/29/19 07:27 Surgical - Exam Vital Signs Temp Pulse Resp BP Pulse Ox 97.3 F L 79 18 131/88 99 01/29/19 06:02 01/29/19 06:02 01/29/19 06:02 01/29/19 06:02 01/29/19 06:02 Results - Labs 02/06/19 07:13 02/06/19 07:13 Abnormal Lab Results - Last 24 Hours (Table) 01/29/19 01/29/19 01/29/19 Range/Units 06:14 06:14 06:47 Hgb 12.6 L (13.0-17.5) gm/dL MCV 77.3 L (80.0-100.0) fL MCH 24.0 L (25.0-35.0) pg RDW 15.8 H (11.5-15.5) % Lymphocytes # 0.7 L (1.0-4.8) k/uL Glucose 141 H (74-99) mg/dL ALT 12 L (21-72) U/L Urine Protein Trace H (Negative) Urine Blood Large H (Negative) Urine RBC >182 H (0-5) /hpf Urine Mucus Rare H (None) /hpf Diabetes panel 01/29/19 Range/Units 06:14 Sodium 138 (137-145) mmol/L Potassium 4.2 (3.5-5.1) mmol/L Chloride 103 (98-107) mmol/L Carbon Dioxide 24 (22-30) mmol/L BUN 19 (9-20) mg/dL Creatinine 0.91 (0.66-1.25) mg/dL Glucose 141 H (74-99) mg/dL Calcium 9.7 (8.4-10.2) mg/dL AST 21 (17-59) U/L ALT 12 L (21-72) U/L Alkaline Phosphatase 77 (38-126) U/L Total Protein 7.4 (6.3-8.2) g/dL Albumin 4.4 (3.5-5.0) g/dL Calcium panel 01/29/19 Range/Units 06:14 Calcium 9.7 (8.4-10.2) mg/dL Albumin 4.4 (3.5-5.0) g/dL Pituitary panel 01/29/19 Range/Units 06:14 Sodium 138 (137-145) mmol/L Potassium 4.2 (3.5-5.1) mmol/L Chloride 103 (98-107) mmol/L Carbon Dioxide 24 (22-30) mmol/L BUN 19 (9-20) mg/dL Creatinine 0.91 (0.66-1.25) mg/dL Glucose 141 H (74-99) mg/dL Calcium 9.7 (8.4-10.2) mg/dL Adrenal panel 01/29/19 Range/Units 06:14 Sodium 138 (137-145) mmol/L Potassium 4.2 (3.5-5.1) mmol/L Chloride 103 (98-107) mmol/L Carbon Dioxide 24 (22-30) mmol/L BUN 19 (9-20) mg/dL Creatinine 0.91 (0.66-1.25) mg/dL Glucose 141 H (74-99) mg/dL Calcium 9.7 (8.4-10.2) mg/dL Total Bilirubin 0.6 (0.2-1.3) mg/dL AST 21 (17-59) U/L ALT 12 L (21-72) U/L Alkaline Phosphatase 77 (38-126) U/L Total Protein 7.4 (6.3-8.2) g/dL Albumin 4.4 (3.5-5.0) g/dL Assessment and Plan (1) Acute hydrops of gallbladder Status: Acute Code(s): K82.1 - HYDROPS OF GALLBLADDER SNOMED Code(s): 95466022 (2) Acute cholecystitis Status: Acute Code(s): K81.0 - ACUTE CHOLECYSTITIS SNOMED Code(s): 31073438 (3) CHF (congestive heart failure) Status: Acute Code(s): I50.9 - HEART FAILURE, UNSPECIFIED SNOMED Code(s): 21120848 (4) Chronic systolic CHF (congestive heart failure) Status: Acute Code(s): I50.22 - CHRONIC SYSTOLIC (CONGESTIVE) HEART FAILURE SNOMED Code(s): 593286758 (5) Coagulopathy Status: Acute Code(s): D68.9 - COAGULATION DEFECT, UNSPECIFIED SNOMED Code(s): 88780158 (6) Diabetes Status: Acute Code(s): E11.9 - TYPE 2 DIABETES MELLITUS WITHOUT COMPLICATIONS SNOMED Code(s): 83839577 (7) H/O mechanical aortic valve replacement Status: Acute Code(s): Z95.2 - PRESENCE OF PROSTHETIC HEART VALVE SNOMED Code(s): 238455759005409 (8) History of myocardial infarction Status: Acute Code(s): I25.2 - OLD MYOCARDIAL INFARCTION SNOMED Code(s): 710585121 (9) Ischemic cardiomyopathy Status: Acute Code(s): I25.5 - ISCHEMIC CARDIOMYOPATHY SNOMED Code(s): 218950415 (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
--- NOTE | 2019-01-29 21:37 | HP ---
HISTORY AND PHYSICAL CHIEF COMPLAINT: Abdominal pain. HISTORY OF PRESENT ILLNESS: Last night this gentleman went to bed and then he started to have upper abdominal pain. It was across the upper abdomen. It became quite intense and he started to have nausea and vomiting. He has had a long-standing history of heart disease and was concerned enough to come to the emergency room, where it was thought that he had cholecystitis. He has an amazing history of cardiac problems going back to when he was 19 years old and had a myocardial infarction. He has had 2 open-heart surgeries, numerous stents, aortic valve replacement, mitral ring, an ICD which has discharged at least 5 times, 4 previous myocardial infarctions, 5 cardiac arrests and atrial fibrillation. He was treated at the [facility], and many years ago they made the determination that the only way he would survive would be to undergo a heart transplant. However, apparently he has numerous antibodies, and it was felt that they would never be able to find a donor heart with which he would be compatible. He then took his care to the [facility], where he has had most of his cardiac surgery. Apparently he was on ECMO for longer than any other patient in the history of [facility]. He has absolutely no family history and he does not smoke. He has siblings who have no trouble and he has 2 children, one whom is a daughter who has a patent ductus. REVIEW OF SYSTEMS: He denies any neurologic problems, headaches, change in the vision or the hearing, CVAs, cough, hemoptysis, orthopnea, PND, hematemesis, melena, hematochezia, jaundice, cirrhosis, hepatitis, diverticulitis, etc. He has had a pyeloplasty in the past on one of the kidneys for stone disease and infection. He has had no dysuria, gross hematuria, nocturia, incontinence, diabetes, etc. Laboratory studies demonstrated a normal CBC with a blood sugar of 141. BUN is 19, creatinine 0.91. Urine demonstrated hematuria with greater than 182 red cells per high- power field. CT of the abdomen and pelvis demonstrated a stone in the right renal pelvis as well as other nonobstructing stones. The gallbladder was hydropic, and it was felt that this could be related to cholecystitis. Echo was suggestive of gallbladder disease as well. MEDICATIONS: Medications that he is on include: 1. Aspirin. 2. Atorvastatin 80 mg at bedtime. 3. Vitamin B12 1000 mcg a day. 4. Folic acid 0.8 once a day. He was told that he has a high homocystine level. 1. 100 mg of B6 is taken once a day. 2. Coumadin 7.5 Saturday, Saturday and and 10 mg Saturday, Saturday, Saturday and Saturday. 3. Dofetilide 250 twice a day. 4. Eplerenone 100 mg once a day. 5. Lasix 40 mg once a day. 6. Metoprolol 50 mg once a day. 7. Omeprazole 20 mg once a day. 8. Ramipril 10 mg once a day. PHYSICAL EXAMINATION: Blood pressure 129/79, pulse 95, respirations of 16. He is afebrile. In general he appeared to be well developed, well nourished, in no acute distress. Skin color was normal. Skin was warm and dry. Lymph nodes were not enlarged. Head, ears, eyes, nose, mouth and throat were normal. Neck veins were not distended. Carotids were normal. The chest was clear. Cardiac exam demonstrated what sounded like sinus rhythm with audible mechanical valve click. The abdomen was soft and slightly tender over the epigastrium. Bowel sounds were present. Extremities were normal. Neurologically he was intact. IMPRESSION: 1. Probable cholecystitis and cholelithiasis. 2. History of multiple cardiac issues related to coronary artery disease, arrhythmias. PLAN: 1. Bed rest. 2. IV fluids. 3. HIDA scan. 4. Consult with General Surgery and Gastroenterology. MMODL / IJN: [id number] /
--- NOTE | 2019-01-29 21:52 | CONS ---
CONSULTATION DATE OF SERVICE: January 29, 2019. REASON FOR CONSULTATION: Severe epigastric and right upper quadrant abdominal pain. HISTORY OF PRESENT ILLNESS: The patient is a 53-year-old pleasant white male admitted to the hospital with acute onset of severe right upper quadrant abdominal pain that started at 11:00 pm last night. The patient was eating some chicken salad. After that, he started having some cramping abdominal pain. He tried to take some Melatonin and fell asleep. He woke up at 2:00 am this morning with severe pain mostly in the epigastric right upper quadrant area radiating to the right lower quadrant area and had a couple of episodes of emesis. The pain continued to progressively get worse and hence he came into the emergency room and subsequently admitted to the hospital for further evaluation. He has history of significant coronary artery disease. He had cardiac arrest x3, had 2 CABGs done in the past and he follows at [facility] on a close basis. He has a AICD and pacemaker implantation in the past. In the emergency room, he had a CT of the abdomen and pelvis done that showed a dilated gallbladder with thickening of the gallbladder suspicious for acute cholecystitis. He also had ultrasound of the right upper quadrant that showed evidence of dilated gallbladder, distended gallbladder and thickened gallbladder but no gallstones noted. In the meantime, the patient is doing much better. Abdominal pain has resolved. No nausea, vomiting. He thinks he had a similar episode about a month ago, but that lasted for 2 hours and subsided. PAST MEDICAL HISTORY: Significant for coronary artery disease status post TN in the past, hypertension, hyperlipidemia, cardiac arrest x 5. PAST SURGICAL HISTORY: CABG x2, AICD implantation 2 years ago. Aortic valve replacement, mitral valve ring. MEDICATIONS: At home include Lipitor, vitamin B12, folic acid, Lasix, omeprazole, Coumadin, vitamin B6, metoprolol. ALLERGIES: ALLERGIES TO CHRISTINA, IV DYE, PERCOCET, AND SEROQUEL. SOCIAL HISTORY: No smoking. No alcohol use. FAMILY HISTORY: Mother had colon cancer and breast cancer. Father had CLL. REVIEW OF SYSTEMS: CARDIOPULMONARY: No chest pain, shortness of breath. Genitourinary: No dysuria OR hematuria. MUSCULOSKELETAL unremarkable. SKIN unremarkable. Endocrine unremarkable. Psychiatric unremarkable. Neurology unremarkable. ENT/vision unremarkable. CONSTITUTIONAL: No recent weight loss. No fever, chills, night sweats. PHYSICAL EXAMINATION: Blood pressure 103/69, pulse is 63, temperature 97.5. HEENT examination unremarkable. Conjunctivae pink. Sclerae anicteric. Oral cavity no lesions. NECK: No JVD or lymph node enlargement. CHEST: Clear to auscultation. HEART: Regular rate and rhythm. ABDOMEN: Soft. There was tenderness in the right upper quadrant area. The rest of the abdomen was benign. Bowel sounds are positive. No organomegaly. EXTREMITIES: No pedal edema. SKIN: No rashes. NEUROLOGIC: Alert and oriented x3. No focal deficits. LABS: WBC 8.1, hemoglobin 12.6, platelets normal. Basic metabolic panel within normal limits. ALT, AST, T-bilirubin and alkaline phosphatase are normal. IMPRESSION: 1. This is a patient who presents to the hospital with severe acute right upper quadrant abdominal pain that started at 11:00 pm last night and continued to progressively get worse associated with nausea, vomiting. His clinical picture is consistent with acute cholecystitis. He did have a CT of the abdomen as well as ultrasound of the gallbladder done, both of which showed distended gallbladder with no stones, but thickening of the gallbladder consistent with acute cholecystitis. Patient presently on empiric antibiotics. He is symptom free currently. 2. Coronary artery disease status post myocardial infarction in the past, status post coronary artery bypass grafting x2 and AICD implantation. 3. History of hypertension. 4. Hyperlipidemia. 5. Atrial fibrillation on Coumadin. 6. History of valve replacement. RECOMMENDATIONS: 1. We will obtain a HIDA scan to evaluate for acute cholecystitis. 2. In the meantime, continue with broad-spectrum antibiotics. The patient is already on metronidazole and we will add Levaquin at this time. 3. Surgical consultation. 4. Keep him n.p.o. until evaluated by surgery. 5. Repeat labs in the morning. Thank you for this consultation. MMODL / IJN: [id number] /
[2019-01-29] MEDS: METOPROLOL SUCCINATE (ER) 50 MG TAB.ER.24H PO SCH (22:36)
[2019-01-29] MEDS: KETOROLAC 30 MG/ML 1 ML VIAL IVP PRN (23:18)
[2019-01-30] MEDS: SODIUM CHLORIDE 0.9% 1,000 ML IV SCH ×2 (03:44→13:46)
[2019-01-30] MEDS: KETOROLAC 30 MG/ML 1 ML VIAL IVP PRN ×2 (05:55→13:46)
[2019-01-30] MEDS ORDERED: PANTOPRAZOLE 40 MG TABLET PO SCH (07:30)
[2019-01-30] MEDS: PIPERACILLIN-TAZOBACTAM 3.375 GM in SODIUM CHLORIDE 0.9% 100 ML IVPB SCH ×2 (08:47→17:15)
[2019-01-30] MEDS: LISINOPRIL 20 MG TAB PO SCH (08:49)
[2019-01-30] MEDS: DOFETILIDE 250 MCG CAP PO SCH ×2 (08:49→20:56)
[2019-01-30] MEDS: PANTOPRAZOLE 40 MG/10 ML VIAL IV SCH (08:58)
[2019-01-30] MEDS: ENOXAPARIN 60 MG/0.6 ML SYRINGE SQ SCH (09:07)
[2019-01-30] MEDS: EPLERENONE 100 MG PO SCH (09:15)
[2019-01-30] MEDS ORDERED: ENOXAPARIN 40 MG/0.4 ML SYRINGE SQ STA (09:24)
[2019-01-30 11:01] LABS: Anisocytosis Slight; HCT 33.8 % (39.0-53.0); HGB 10.5 gm/dL (13.0-17.5); Hypochromasia Moderate; MCH 23.8 pg (25.0-35.0); MCHC 30.9 g/dL (31.0-37.0); Mean Platelet Volume 6.1; Microcytosis Slight; Platelet Count 232 k/uL (150-450); RBC 4.39 m/uL (4.30-5.90); RDW 16.4 % (11.5-15.5); WBC 5.3 k/uL (3.8-10.6)
[2019-01-30 11:12] LABS: ALT 20 U/L (21-72); AST 18 U/L (17-59); African American GFR (CKD) >90 (>60 ml/min/1.73 sqM); Albumin 3.4 g/dL (3.5-5.0); Alkaline Phosphatase 59 U/L (38-126); Anion Gap 6 mmol/L; Blood Urea Nitrogen 15 mg/dL (9-20); Calcium 8.6 mg/dL (8.4-10.2); Carbon Dioxide 27 mmol/L (22-30); Chloride 107 mmol/L (98-107); Glucose 90 mg/dL (74-99); Potassium 4.4 mmol/L (3.5-5.1); Sodium 140 mmol/L (137-145); Total Bilirubin 0.6 mg/dL (0.2-1.3); Total Protein 6.1 g/dL (6.3-8.2)
[2019-01-30 11:48] LABS: INR 3.9 (<1.2); Prothrombin Time 37.8 sec (9.0-12.0)
--- NOTE | 2019-01-30 12:01 | ECHOF ---
Referral Reason:CHF MEASUREMENTS -------- HEIGHT: 188.0 cm WEIGHT: 95.3 kg BP: 114/70 RVIDd: 2.8 cm (< 3.3) IVSd: 1.5 cm (0.6 - 1.1) LVIDd: 5.3 cm (3.9 - 5.3) LVPWd: 1.4 cm (0.6 - 1.1) IVSs: 1.8 cm LVIDs: 3.9 cm LVPWs: 1.6 cm LA Diam: 4.3 cm (2.7 - 3.8) LAESV Index (A-L): 35.04 ml/m Ao Diam: 3.3 cm (2.0 - 3.7) MV EXCURSION: 18.547 mm (> 18.000) MV EF SLOPE: 45 mm/s (70 - 150) EPSS: 1.4 cm MV E Gautam: 1.64 m/s MV DecT: 263 ms MV A Gautam: 1.28 m/s MV E/A Ratio: 1.28 AV maxP.20 mmHg AV meanP.49 mmHg FINDINGS -------- AICD This was a technically adequate study. CABG The left ventricular size is normal. There is moderate concentric left ventricular hypertrophy. O verall left ventricular systolic function is low-normal with, an EF between 50 - 55 %. Septal wall motion is delayed and consistent with prior cardiac surgery. The right ventricle is normal in size. LA is moderately dilated 34-39 ml/m2 The right atrium was not well visualized. 5.0mg of Lumason was utilized for enhancement of images Interatrial and interventricular septum intact. Peak/mean gradient across the Aortic Valve is 17.20mmHg / 9.49mmHg. Normally functioning mechanical prosthetic valve. The peak and mean MV gradients are 13.63mmHg 4.75mmHg as measured by doppler. MV ring The tricuspid valve appears structurally normal. Trace/mild (physiologic) pulmonic regurgitation. The aortic root size is normal. Normal inferior vena cava with normal inspiratory collapse consistent with estimated right atrial pre ssure of 5 mmHg. There is no pericardial effusion. CONCLUSIONS -------- 1. AICD 2. This was a technically adequate study. 3. CABG 4. The left ventricular size is normal. 5. There is moderate concentric left ventricular hypertrophy. 6. Overall left ventricular systolic function is low-normal with, an EF between 50 - 55 %. 7. Septal wall motion is delayed and consistent with prior cardiac surgery. 8. The right ventricle is normal in size. 9. LA is moderately dilated 34-39 ml/m2 10. The right atrium was not well visualized. 11. 5.0mg of Lumason was utilized for enhancement of images 12. Interatrial and interventricular septum intact. 13. Peak/mean gradient across the Aortic Valve is 17.20mmHg / 9.49mmHg. 14. Normally functioning mechanical prosthetic valve. 15. The peak and mean MV gradients are 13.63mmHg 4.75mmHg as measured by doppler. 16. MV ring 17. The tricuspid valve appears structurally normal. 18. Trace/mild (physiologic) pulmonic regurgitation. 19. The aortic root size is normal. 20. Normal inferior vena cava with normal inspiratory collapse consistent with estimated right atrial pressure of 5 mmHg. 21. There is no pericardial effusion. TAX ADVISOR: Kristy Thompson RDCS
--- NOTE | 2019-01-30 13:54 | P.CRDCN ---
History of Present Illness History of present illness: This is a pleasant 53-year-old male past medical history significant for coronary artery disease status post four-vessel bypass grafting, valvular heart disease status post aortic valve replacement in 1995 initially with a tissue valve requiring a redo mechanical valve in 2010, mitral valve ring annuloplasty, ischemic cardiomyopathy status post AICD, paroxysmal atrial fibrillation on assisted anti, chronic systolic heart failure, hypertension and dyslipidemia. He follows closely with a power operator at the [facility]. We have been asked to see him in consultation for pre-operative evaluation. He came to the hospital last evening with symptoms of abdominal pain, nausea and vomiting after eating chicken. Initially he thought he had food poisoning. However his symptoms persisted prompting him to come to the hospital for evaluation. CT abdomen and pelvis reveals hydropic gallbladder measuring 4.5 cm. Ultrasound of the gallbladder reveals gallbladder wall thickening and gallbladder hydrops with a positive Kamara sign. No gallstones noted. His been seen in consultation by GI and recommended HIDA scan. He is seen and examined resting comfortably in bed in no acute distress. He continues to have discomfort in the right upper quadrant of his abdomen however is controlled with pain medication. He denies symptoms of chest pain, shortness of breath, dizziness or palpitations. His last dose of Coumadin was 01/28. He takes 10 mg on Saturday, Saturday, Saturday and Saturday and 7.5 mg on Saturday, Saturday and . He also takes Lasix 40 mg daily as needed, ramipril 10 mg daily, Toprol 50 mg daily, Tikosyn 250 g twice a day, atorvastatin 80 mg daily and aspirin 325 mg daily. He has been started on lovenox per PCP. NO PT/INR drawn on admission. Laboratory data reviewed, WBC 5.3, hemoglobin 10.5, platelets 232, INR requested today 3.9, sodium 140, potassium 4.4, creatinine 0.95. Most recent echocardiogram obtained today reveals preserved LV systolic function with ejection fraction 50-55%, septal wall motion delay consistent with prior cardiac surgery, normally functioning mechanical prosthetic valve with a mean gradient across the valve is 9 mmHg, mitral valve ring annual plasty with a mean gradient across the valve of 4 mmHg. This is an improvement from previous echo obtained in October where his ejection fraction was 30-35%. EKG reveals sinus mechanism, nonspecific intraventricular conduction delay, inferior Q waves and poor R-wave progression. At the time of my exam: CONSTITUTIONAL: Denies fever. Denies chills. EYES: Denies blurred vision. Denies vision changes. Denies eye pain. EARS, NOSE, MOUTH & THROAT: Denies headache. Denies sore throat. Denies ear pain. CARDIOVASCULAR: Denies chest pain. Denies shortness of breath. Denies orthopnea. Denies PND. Denies palpitations. RESPIRATORY: Denies cough. GASTROINTESTINAL: Complains of abdominal pain. Denies diarrhea. Denies constipation. Denies nausea. Denies vomiting. MUSCULOSKELETAL: Denies myalgias. INTEGUMENTARY: Denies pruitis. Denies rash. NEUROLOGIC: Denies numbness. Denies tingling. Denies weakness. PSYCHIATRIC: Denies anxiety. Denies depression. ENDOCRINE: Denies fatigue. Denies weight change. Denies polydipsia. Denies polyurina. GENITOURINARY: Denies burning, hematuria or urgency with micturation. HEMATOLOGIC: Denies history of anemia. Denies bleeding. Blood pressure 117/72 heart rate 73 afebrile maintaining oxygen saturation on murmur GENERAL: This is a 53-year-old male in no apparent distress at the time of my examination. HEENT: Head is atraumatic, normocephalic. Pupils are equal, round. Sclerae anicteric. Conjunctivae are clear. Mucous membranes of the mouth are moist. Neck is supple. There is no jugular venous distention. No carotid bruit is heard. LUNGS: Clear to auscultation no wheezes, rales or rhonchi. No chest wall tenderness is noted on palpation or with deep breathing. HEART: Regular rate and rhythm with mechanical click at the base with faint systolic ejection murmur at the left sternal border, no rubs or gallops. S1 and S2 heard. ABDOMEN: Soft, mildly tender RUQ. Bowel sounds are heard. No organomegaly noted. EXTREMITIES: No evidence of peripheral edema and no calf tenderness noted. VASCULAR: Radial and dorsalis pedis pulses palpated, no evidence of clubbing. NEUROLOGIC: Patient is awake, alert and oriented x3. ASSESSMENT Abdominal pain with gallbladder wall thickening and dilitation Supratherapeutic INR Valvular heart disease s/p mechanical aortc valve replacement maintained on coumadin Mitral valve ring annuloplasty Coronary artery disease s/p 4V bypass grafting, exact details unavailable Ischemic cardiomyopathy, improved LV on recent echo. Previously in October EF was 35% Hypertension Dyslipidemia Chronic systolic heart failure, currently euvolemic s/p AICD placement Paroxysmal atrial fibrillation currently maintaining sinus mechanism PLAN Cardiology recommendation is to hold off on surgery at this point. His INR is supratherapeutic and cannot be reversed. Lovenox bridging should take place for 5 days pre-surgery as follows: 5 days before surgery stop coumadin; 3 days before surgery start lovenox 90 mg BID; on the day of surgery lovenox should be given 8 hours prior to surgery; POD# 1, 2 & 3 resume coumadin and use lovenox 90 mg BID simultaneously; stop lovenox after POD#3 and continue coumadin dosing daily. Agree with recommendation for HIDA scan to guide treatment and possibly outpatient planned surgery if warranted. Close follow up with his primary power operator. Resume coumadin tomorrow at 7.5 mg for optimal/target INR of 2.5-3.5. Thank you kindly for this consultation. Nurse Practitioner note has been reviewed, I agree with a documented findings a nd plan of care. Patient was seen and examined. Past Medical History Past Medical History: Atrial Fibrillation, Atrial Flutter, Coronary Artery Disease (CAD), Heart Failure, GERD/Reflux, GI Bleed, Hyperlipidemia, Hypertension, Myocardial Infarction (HI) Additional Past Medical History / Comment(s): Pt states he has had a total of 4 MIs and in 2010 had 5 cardiac arrests, cardiomyopathy, A tach, lower GI bleed. Last Myocardial Infarction Date:: 2008 History of Any Multi-Drug Resistant Organisms: None Reported Past Surgical History: AICD, Cardiac Ablation, Cardiac Valve Replacement, Coronary Bypass/CABG, Heart Catheterization, Heart Catheterization With Stent, Orthopedic Surgery Additional Past Surgical History / Comment(s): 1995 aortic bioprosthetic valve, 2010 changed to mechanical aortic valve with 4 vessel bypass, cardiac ablations x2, AICD, PCI with stents prior to CABG, R leg fracture with hardware, colonoscopy. Past Anesthesia/Blood Transfusion Reactions: No Reported Reaction, Motion Sick ness Date of Last Stent Placement:: unkn Type of Cardiac Device: AICD Device Placement Date:: 2018 Smoking Status: Never smoker - Past Family History Mother Family Medical History: Cancer Additional Family Medical History / Comment(s): Colon and breast CA. Mother is still living. Father Family Medical History: Cancer Additional Family Medical History / Comment(s): CLL. Father is still living Medications and Allergies Home Medications Medication Instructions Recorded Confirmed Type Aspirin 325 mg PO DAILY #30 tab 05/02/18 01/29/19 Rx Dofetilide [Tikosyn] 250 mcg PO BID #60 cap 05/02/18 01/29/19 Rx Eplerenone 100 mg PO DAILY #30 tablet 05/02/18 01/29/19 Rx Ramipril 10 mg PO DAILY #30 capsule 05/02/18 01/29/19 Rx Atorvastatin [Lipitor] 80 mg PO HS 10/31/18 01/29/19 History Cyanocobalamin (Vitamin B-12) 1,000 mcg PO DAILY 10/31/18 01/29/19 History [Vitamin B-12] Folic Acid 0.8 mg PO DAILY 10/31/18 01/29/19 History Furosemide [Lasix] 40 mg PO DAILY PRN 10/31/18 01/29/19 History Omeprazole 20 mg PO DAILY 10/31/18 01/29/19 History Pyridoxine HCl (Vitamin B6) 100 mg PO DAILY 10/31/18 01/29/19 History [Vitamin B-6] Warfarin [Coumadin] 7.5 mg PO MOTUTH 10/31/18 01/29/19 History Warfarin [Coumadin] 10 mg PO SUWEFRSA 10/31/18 01/29/19 History Metoprolol Succinate (ER) [Toprol 50 mg PO DAILY 01/29/19 01/29/19 History XL] Acetaminophen Tab [Tylenol Tab] 650 mg PO Q4H PRN #30 tablet 01/30/19 Rx Allergies Allergy/AdvReac Type Severity Reaction Status Date / Time fexofenadine [From Zara-D] Allergy Swelling Verified 01/29/19 07:27 Iodinated Contrast Media Allergy Rash/Hives Verified 01/29/19 07:27 [Iodinated Contrast- Oral and IV Dye] niacin Allergy Anaphylaxis Verified 01/29/19 07:27 oxycodone [From Percocet] Allergy Rash/Hives Verified 01/29/19 07:27 pseudoephedrine Allergy Swelling Verified 01/29/19 07:27 [From Zara-D] quetiapine [From Seroquel] Allergy Unknown Verified 01/29/19 07:27 Physical Exam Vitals: Vital Signs Temp Pulse Resp BP Pulse Ox 01/30/19 11:30 97.8 F 73 18 117/72 97 01/30/19 07:10 18 01/30/19 05:00 97.8 F 81 18 114/70 92 L 01/29/19 23:35 67 18 01/29/19 21:27 98 F 71 18 115/72 95 Intake and Output 01/29/19 01/30/19 01/30/19 22:59 06:59 14:59 Intake Total 900 900 350 Balance 900 900 350 Intake: Intake, IV Titration 900 900 100 Amount Piperacillin-Tazobactam 3 100 100 100 .375 gm In Sodium Chloride 0.9% 100 ml @ 25 mls/hr IVPB Q8HR [facility] Rx# :[id number] Sodium Chloride 0.9% 1, 800 800 000 ml @ 100 mls/hr IV . Q10H [facility] Rx#:[id number] Oral 250 Other: Voiding Method Toilet Toilet # Voids 2 2 2 Results 01/30/19 10:30 01/30/19 10:30 Cardiac Enzymes 01/30/19 Range/Units 10:30 AST 18 (17-59) U/L Coagulation 01/30/19 Range/Units 10:30 PT 37.8 H (9.0-12.0) sec CBC 01/30/19 Range/Units 10:30 WBC 5.3 (3.8-10.6) k/uL RBC 4.39 (4.30-5.90) m/uL Hgb 10.5 L (13.0-17.5) gm/dL Hct 33.8 L (39.0-53.0) % Plt Count 232 (150-450) k/uL Comprehensive Metabolic Panel 01/30/19 Range/Units 10:30 Sodium 140 (137-145) mmol/L Potassium 4.4 (3.5-5.1) mmol/L Chloride 107 (98-107) mmol/L Carbon Dioxide 27 (22-30) mmol/L BUN 15 (9-20) mg/dL Creatinine 0.95 (0.66-1.25) mg/dL Glucose 90 (74-99) mg/dL Calcium 8.6 (8.4-10.2) mg/dL AST 18 (17-59) U/L ALT 20 L (21-72) U/L Alkaline Phosphatase 59 (38-126) U/L Total Protein 6.1 L (6.3-8.2) g/dL Albumin 3.4 L (3.5-5.0) g/dL Current Medications Generic Name Dose Route Start Last Admin Trade Name Freq PRN Reason Stop Dose Admin Acetaminophen 650 mg 01/29/19 09:40 Tylenol Tab PO Q6HR PRN Mild Pain or Fever > 100.5 Dofetilide 250 mcg 01/29/19 21:00 01/30/19 08:49 Tikosyn PO 250 mcg BID [facility] Administration Furosemide 40 mg 01/29/19 14:27 Lasix PO DAILY PRN Edema Sodium Chloride 1,000 mls @ 100 mls/hr 01/29/19 09:45 01/30/19 03:44 Saline 0.9% IV Not Given .Q10H [facility] Piperacillin Sod/Tazobactam 100 mls @ 25 mls/hr 01/29/19 17:00 01/30/19 08:47 Sod 3.375 gm/ Sodium Chloride IVPB 25 mls/hr Q8HR [facility] Administration Ibuprofen 400 mg 01/29/19 09:40 01/29/19 20:42 Motrin PO 400 mg Q6HR PRN Administration Mild Pain or Fever > 100.5 Ketorolac Tromethamine 30 mg 01/29/19 09:40 01/30/19 05:55 Toradol IVP 02/03/19 09:41 30 mg Q6HR PRN Administration Moderate Pain Lisinopril 40 mg 01/30/19 09:00 01/30/19 08:49 Zestril PO 40 mg DAILY [facility] Administration Metoclopramide HCl 10 mg 01/29/19 17:46 Reglan IVP Q6HR PRN Nausea Metoprolol Succinate 50 mg 01/29/19 22:15 01/29/19 22:36 Toprol Xl PO 50 mg HS [facility] Administration Morphine Sulfate 4 mg 01/29/19 09:40 Morphine Sulfate (Inj) IV Q4HR PRN Severe Pain Naloxone HCl 0.2 mg 01/29/19 09:40 Narcan IV Q2M PRN Opioid Reversal Patient's Own ( 100 mg 01/30/19 09:00 01/30/19 09:15 Eplerenone [ PO Not Given Eplerenone] 100 Mg) DAILY [facility] Ondansetron HCl 4 mg 01/29/19 09:40 01/29/19 11:30 Zofran IVP 4 mg Q8HR PRN Administration Nausea And Vomiting Pantoprazole Sodium 40 mg 01/30/19 09:00 01/30/19 08:58 Protonix IV 40 mg DAILY [facility] Administration Intake and Output 01/29/19 01/30/19 01/30/19 22:59 06:59 14:59 Intake Total 900 900 350 Balance 900 900 350 Intake: Intake, IV Titration 900 900 100 Amount Piperacillin-Tazobactam 3 100 100 100 .375 gm In Sodium Chloride 0.9% 100 ml @ 25 mls/hr IVPB Q8HR [facility] Rx# :[id number] Sodium Chloride 0.9% 1, 800 800 000 ml @ 100 mls/hr IV . Q10H [facility] Rx#:[id number] Oral 250 Other: Voiding Method Toilet Toilet # Voids 2 2 2 01/30/19 10:30 01/30/19 10:30
[2019-01-30] MEDS: MORPHINE SULFATE 4 MG/ML SYRINGE IV PRN ×2 (17:14→21:51)
--- NOTE | 2019-01-30 17:17 | P.PN ---
Subjective Progress Note Date: 01/30/19 CHIEF COMPLAINT: Acute hydrops cholecystitis HISTORY OF PRESENT ILLNESS: The patient is a 53-year-old male of [facility] with history of hypokinesis, ischemic cardiomyopathy, mechanical valve re placement and supratherapeutic INR who presents with acute cholecystitis. He reports compared to yesterday he has increased right upper quadrant abdominal pain. His mother is at bedside. Earlier he had been seen by cardiology. I personally spoke to Dr. SYLVIA everett regarding his cardiac care. Patient is deemed extremely high risk where surgical intervention was deferred until INR is acceptable levels. Patient reports that he can only take Coumadin with his history of mechanical valve. INR was at least 3.9 this morning. He also reports that his Coumadin levels immediately drops after stopping his medications. He reports no current nausea. He reports some mild abdominal irritation with clear liquid diet. Reports increased gas bloat. No new chest pain. ROS: No reports of vomiting. No bowel movements. No fevers or chills. No new chest pain. No productive sputum PHYSICAL EXAM: VITAL SIGNS: Reviewed CONSTITUTIONAL: Well developed and in no acute distress. EYES: Conjuctivae without sclera icterus. Extraocular movements grossly intact. HEAD, EARS, NOSE, THROAT: Moist buccal mucosa. Head is atraumatic, normocephalic. Hears conversational speech. No nasal drainage. Wears glasses NECK: Supple. No thyroidomegaly. RESPIRATORY: Non-labored respirations and equal bilateral excursions. CARDIOVASCULAR: Palpable 2+ radial pulses. Regular rate. Mechanical rhythm ABDOMEN: Tender at right upper quadrant with mild peritoneal irritation. No diffuse peritonitis. MUSCULOSKELETAL: No gross deformity of the lower extremities noted. No clubbing. No cyanosis. SKIN: Good skin turgor. Well perfused. NEUROLOGIC: Cranial nerves I through XII grossly intact. No focal or late ralizing signs. PSYCH: Appropriate affect. Alert and oriented to person, place and time. CLINCAL LABS: White blood cell count normal. INR 3.9. ASSESSMENT: 1. Acute hydrops cholecystitis 2. Ischemic cardiomyopathy PLAN: 1. Continue with IV antibiotics to address acute hydrops cholecystitis 2. He is high surgical risk for any surgical intervention especially with current INR 3.9. Upon further discussion with cardiology, no administration of vitamin K advised. Patient may be transitioned to Lovenox as outpatient or heparin drip while inpatient. 3. Daily PT/INR 4. Patient deferred for surgical intervention once repeat INR in adequate surgical range 5. Agree with inpatient hospitalization for severity of abdominal pain in acute hydrops cholecystitis 6. Diet adjusted to low-fat when tolerated Objective - Vital Signs Vital signs: Vital Signs Temp 97.8 F 01/30/19 11:30 Pulse 73 01/30/19 11:30 Resp 18 01/30/19 16:00 BP 117/72 01/30/19 11:30 Pulse Ox 97 01/30/19 11:30 Intake & Output 01/29/19 01/30/19 01/30/19 18:59 06:59 18:59 Intake Total 400 1800 350 Balance 400 1800 350 Intake: Intake, IV Titration 400 1800 100 Amount Piperacillin-Tazobactam 3 200 100 .375 gm In Sodium Chloride 0.9% 100 ml @ 25 mls/hr IVPB Q8HR [facility] Rx# :[id number] Sodium Chloride 0.9% 1, 400 1600 000 ml @ 100 mls/hr IV . Q10H [facility] Rx#:[id number] Oral 250 Other: Voiding Method Toilet Toilet # Voids 2 2 - Labs CBC & Chem 7: 01/30/19 10:30 01/30/19 10:30 Labs: Abnormal Lab Results - Last 24 Hours (Table) 01/30/19 01/30/19 01/30/19 Range/Units 10:30 10:30 10:30 Hgb 10.5 L (13.0-17.5) gm/dL Hct 33.8 L (39.0-53.0) % MCV 77.0 L (80.0-100.0) fL MCH 23.8 L (25.0-35.0) pg MCHC 30.9 L (31.0-37.0) g/dL RDW 16.4 H (11.5-15.5) % PT 37.8 H (9.0-12.0) sec INR 3.9 H (<1.2) ALT 20 L (21-72) U/L Total Protein 6.1 L (6.3-8.2) g/dL Albumin 3.4 L (3.5-5.0) g/dL Microbiology - Last 24 Hours (Table) 01/29/19 09:50 Blood Culture - Preliminary Blood No Growth after 24 hours
[2019-01-30] MEDS ORDERED: NALOXONE 0.4 MG/ML 1 ML VIAL IV PRN (17:19)
[2019-01-30] MEDS ORDERED: WARFARIN 0.5 MG TAB PO ONE (18:00)
[2019-01-30] MEDS: ONDANSETRON 4 MG/2 ML VIAL IVP PRN (19:54)
--- NOTE | 2019-01-30 20:05 | PN ---
PROGRESS NOTE CHIEF COMPLAINT: Cholecystitis. HISTORY OF PRESENT ILLNESS: This gentleman is feeling well. He has not had a lot of discomfort. He is scheduled to go this afternoon to the operating room and he is being evaluated by Cardiology. PHYSICAL EXAMINATION: Cardiac exam is unchanged. His chest is clear. Abdomen is soft and not particularly tender over the epigastrium. IMPRESSION: 1. Cholecystitis. 2. Extensive history of heart disease with coronary artery disease, previous infarctions, previous cardiac arrest, previous atrial fibrillation, history of ventricular arrhythmias. PLAN: He will undergo his preoperative cardiac evaluation and go to the operating room this afternoon. He understands the risks involved. MMODL / IJN: [id number] /
[2019-01-30] MEDS: METOPROLOL SUCCINATE (ER) 50 MG TAB.ER.24H PO SCH (20:56)
[2019-01-30] MEDS ORDERED: ENOXAPARIN 100 MG/ML SYRINGE SQ SCH (21:00)
[2019-01-31] MEDS: PIPERACILLIN-TAZOBACTAM 3.375 GM in SODIUM CHLORIDE 0.9% 100 ML IVPB SCH ×4 (00:35→23:41)
[2019-01-31] MEDS: SODIUM CHLORIDE 0.9% 1,000 ML IV SCH ×2 (01:04→13:11)
[2019-01-31] MEDS: MORPHINE SULFATE 4 MG/ML SYRINGE IV PRN ×2 (01:48→06:56)
[2019-01-31 05:47] LABS: ALT 32 U/L (21-72); AST 64 U/L (17-59); African American GFR (CKD) >90 (>60 ml/min/1.73 sqM); Albumin 3.3 g/dL (3.5-5.0); Alkaline Phosphatase 96 U/L (38-126); Blood Urea Nitrogen 11 mg/dL (9-20); Calcium 8.5 mg/dL (8.4-10.2); Carbon Dioxide 28 mmol/L (22-30); Glucose 93 mg/dL (74-99); Total Bilirubin 1.2 mg/dL (0.2-1.3); Total Protein 5.8 g/dL (6.3-8.2)
[2019-01-31 06:29] LABS: Anion Gap 6 mmol/L; Chloride 106 mmol/L (98-107); Potassium 4.4 mmol/L (3.5-5.1); Sodium 140 mmol/L (137-145)
[2019-01-31] MEDS: METOCLOPRAMIDE 5 MG/ML 2 ML VIAL IVP PRN ×3 (06:53→19:10)
[2019-01-31] MEDS: PANTOPRAZOLE 40 MG/10 ML VIAL IV SCH (06:57)
[2019-01-31] MEDS: LISINOPRIL 20 MG TAB PO SCH (06:57)
[2019-01-31] MEDS: DOFETILIDE 250 MCG CAP PO SCH ×2 (06:57→21:17)
[2019-01-31 07:26] LABS: INR 2.9 (<1.2); Prothrombin Time 27.8 sec (9.0-12.0)
[2019-01-31] MEDS: EPLERENONE 100 MG PO SCH (07:58)
[2019-01-31] MEDS ORDERED: ENOXAPARIN 100 MG/ML SYRINGE SQ SCH (09:00)
[2019-01-31] MEDS: fentaNYL PCA 500 MCG/50 ML BAG IV PRN (09:08)
--- NOTE | 2019-01-31 10:03 | P.PN ---
Subjective Progress Note Date: 01/31/19 Principal diagnosis: Acute cholecystitis 53-year-old male with acute cholecystitis. Patient with significant cardiac issues. INR yesterday was 3.9. Today's INR is down to 2.9. Patient's pain persisting. PRIVATE PILOT was started. Objective - Vital Signs Vital signs: Vital Signs Temp 98.0 F 01/31/19 05:00 Pulse 75 01/31/19 05:00 Resp 16 01/31/19 05:00 BP 108/68 01/31/19 05:00 Pulse Ox 89 L 01/31/19 05:00 Intake & Output 01/30/19 01/31/19 01/31/19 18:59 06:59 18:59 Intake Total 350 1490 Balance 350 1490 Intake: Intake, IV Titration 100 900 Amount Piperacillin-Tazobactam 3 100 100 .375 gm In Sodium Chloride 0.9% 100 ml @ 25 mls/hr IVPB Q8HR [facility] Rx# :[id number] Sodium Chloride 0.9% 1, 800 000 ml @ 100 mls/hr IV . Q10H [facility] Rx#:[id number] Oral 250 590 Other: Voiding Method Toilet Toilet # Voids 2 2 - Exam Abdomen: Soft, nondistended, mild to moderate right upper quadrant tenderness - Labs CBC & Chem 7: 01/30/19 10:30 01/31/19 04:56 Labs: Abnormal Lab Results - Last 24 Hours (Table) 01/30/19 01/30/19 01/30/19 Range/Units 10:30 10:30 10:30 Hgb 10.5 L (13.0-17.5) gm/dL Hct 33.8 L (39.0-53.0) % MCV 77.0 L (80.0-100.0) fL MCH 23.8 L (25.0-35.0) pg MCHC 30.9 L (31.0-37.0) g/dL RDW 16.4 H (11.5-15.5) % PT 37.8 H (9.0-12.0) sec INR 3.9 H (<1.2) AST (17-59) U/L ALT 20 L (21-72) U/L Total Protein 6.1 L (6.3-8.2) g/dL Albumin 3.4 L (3.5-5.0) g/dL 01/31/19 01/31/19 Range/Units 04:56 06:59 Hgb (13.0-17.5) gm/dL Hct (39.0-53.0) % MCV (80.0-100.0) fL MCH (25.0-35.0) pg MCHC (31.0-37.0) g/dL RDW (11.5-15.5) % PT 27.8 H (9.0-12.0) sec INR 2.9 H (<1.2) AST 64 H (17-59) U/L ALT (21-72) U/L Total Protein 5.8 L (6.3-8.2) g/dL Albumin 3.3 L (3.5-5.0) g/dL Microbiology - Last 24 Hours (Table) 01/29/19 09:50 Blood Culture - Preliminary Blood No Growth after 24 hours Assessment and Plan (1) Acute cholecystitis Narrative/Plan: Switch to full liquid diet that is low fat nature. Recheck labs tomorrow. Cholecystectomy planned on Saturday. Current Visit: Yes Status: Acute Code(s): K81.0 - ACUTE CHOLECYSTITIS SNOMED Code(s): 29451818
[2019-01-31 11:55] LABS: % Iron Saturation 5.54 (15.00-50.00); Ferritin 16.9 ng/mL (22.0-322.0); Iron 21 ug/dL (65-175); Total Iron Binding Capacity 379 ug/dL (228-460)
--- NOTE | 2019-01-31 14:50 | PN ---
PROGRESS NOTE CHIEF COMPLAINT: Cholecystitis. HISTORY OF PRESENT ILLNESS: This gentleman is still having quite a bit of discomfort. He could not have his surgery yesterday because his INR was still too high. PHYSICAL EXAMINATION: Chest is clear. Cardiac exam is normal other than his usual abnormal heart sounds from his aortic valve. He is burner tender over the epigastrium. IMPRESSION: Cholecystitis. PLAN: Surgery is postponed until Saturday. MMODL / IJN: [id number] /
--- NOTE | 2019-01-31 15:23 | P.GSCN ---
History of Present Illness Consult date: 01/31/19 Reason for Consult: right sided renal calculi Requesting physician: Sharmila Irene History of present illness: Mr. Bates is a 53-year-old male admitted to the hospital with right upper quadrant abdominal pain secondary to acute cholecystitis. Urology is consulted for the finding of a 1 cm right renal calculi. Patient complains of right-sided upper quadrant abdominal pain denies any flank pain. Note he has history of right-sided pyeloplasty done in 2007 in [place]. He denies any previous history of renal stones denies any history of flank pain or denies any complaints of any urinary symptoms. Of note he has a complicated cardiac history and has a history of mechanical valve he is on Coumadin for that. scheduled to undergo a cholecystectomy on Saturday. CT was reviewed which showed right-sided hydronephrosis with a 1 cm nonobstructive renal stones Review of Systems - Constitutional Denies chills, Denies fever - Cardiovascular Denies chest pain, Denies shortness of breath - Gastrointestinal Reports abdominal pain, Reports nausea - Genitourinary Denies flank pain, Denies hematuria, Denies kidney stones - Neurological Denies headaches, Denies weakness - Psychiatric Denies anxiety, Denies confusion Past Medical History Past Medical History: Atrial Fibrillation, Atrial Flutter, Coronary Artery Disease (CAD), Heart Failure, GERD/Reflux, GI Bleed, Hyperlipidemia, Hypert ension, Myocardial Infarction (OR) Additional Past Medical History / Comment(s): Pt states he has had a total of 4 MIs and in 2010 had 5 cardiac arrests, cardiomyopathy, A tach, lower GI bleed. Last Myocardial Infarction Date:: 2008 History of Any Multi-Drug Resistant Organisms: None Reported Past Surgical History: AICD, Cardiac Ablation, Cardiac Valve Replacement, Coronary Bypass/CABG, Heart Catheterization, Heart Catheterization With Stent, Orthopedic Surgery Additional Past Surgical History / Comment(s): 1995 aortic bioprosthetic valve, 2010 changed to mechanical aortic valve with 4 vessel bypass, cardiac ablations x2, AICD, PCI with stents prior to CABG, R leg fracture with hardware, colonoscopy. Past Anesthesia/Blood Transfusion Reactions: No Reported Reaction, Motion Sickness Date of Last Stent Placement:: unkn Type of Cardiac Device: AICD Device Placement Date:: 2018 Smoking Status: Never smoker - Past Family History Mother Family Medical History: Cancer Additional Family Medical History / Comment(s): Colon and breast CA. Mother is still living. Father Family Medical History: Cancer Additional Family Medical History / Comment(s): CLL. Father is still living Medications and Allergies Home Medications Medication Instructions Recorded Confirmed Type Aspirin 325 mg PO DAILY #30 tab 05/02/18 01/29/19 Rx Dofetilide [Tikosyn] 250 mcg PO BID #60 cap 05/02/18 01/29/19 Rx Eplerenone 100 mg PO DAILY #30 tablet 05/02/18 01/29/19 Rx Ramipril 10 mg PO DAILY #30 capsule 05/02/18 01/29/19 Rx Atorvastatin [Lipitor] 80 mg PO HS 10/31/18 01/29/19 History Cyanocobalamin (Vitamin B-12) 1,000 mcg PO DAILY 10/31/18 01/29/19 History [Vitamin B-12] Folic Acid 0.8 mg PO DAILY 10/31/18 01/29/19 History Furosemide [Lasix] 40 mg PO DAILY PRN 10/31/18 01/29/19 History Omeprazole 20 mg PO DAILY 10/31/18 01/29/19 History Pyridoxine HCl (Vitamin B6) 100 mg PO DAILY 10/31/18 01/29/19 History [Vitamin B-6] Warfarin [Coumadin] 7.5 mg PO MOTUTH 10/31/18 01/29/19 History Warfarin [Coumadin] 10 mg PO SUWEFRSA 10/31/18 01/29/19 History Metoprolol Succinate (ER) [Toprol 50 mg PO DAILY 01/29/19 01/29/19 History XL] Acetaminophen Tab [Tylenol Tab] 650 mg PO Q4H PRN #30 tablet 01/30/19 Rx Allergies Allergy/AdvReac Type Severity Reaction Status Date / Time fexofenadine [From Zara-D] Allergy Swelling Verified 01/29/19 07:27 Iodinated Contrast Media Allergy Rash/Hives Verified 01/29/19 07:27 [Iodinated Contrast- Oral and IV Dye] niacin Allergy Anaphylaxis Verified 01/29/19 07:27 oxycodone [From Percocet] Allergy Rash/Hives Verified 01/29/19 07:27 pseudoephedrine Allergy Swelling Verified 01/29/19 07:27 [From Zara-D] quetiapine [From Seroquel] Allergy Unknown Verified 01/29/19 07:27 Surgical - Exam Vital Signs Temp Pulse Resp BP Pulse Ox 97.3 F L 79 18 131/88 99 01/29/19 06:02 01/29/19 06:02 01/29/19 06:02 01/29/19 06:02 01/29/19 06:02 Results - Labs 01/30/19 10:30 01/31/19 04:56 Abnormal Lab Results - Last 24 Hours (Table) 01/31/19 01/31/19 Range/Units 04:56 06:59 PT 27.8 H (9.0-12.0) sec INR 2.9 H (<1.2) Iron 21 L (65-175) ug/dL % Saturation 5.54 L (15.00-50.00) Ferritin 16.9 L (22.0-322.0) ng/mL AST 64 H (17-59) U/L Total Protein 5.8 L (6.3-8.2) g/dL Albumin 3.3 L (3.5-5.0) g/dL Microbiology - Last 24 Hours (Table) 01/29/19 09:50 Blood Culture - Preliminary Blood No Growth after 48 hours Diabetes panel 01/31/19 Range/Units 04:56 Sodium 140 (137-145) mmol/L Potassium 4.4 (3.5-5.1) mmol/L Chloride 106 (98-107) mmol/L Carbon Dioxide 28 (22-30) mmol/L BUN 11 (9-20) mg/dL Creatinine 0.97 (0.66-1.25) mg/dL Glucose 93 (74-99) mg/dL Calcium 8.5 (8.4-10.2) mg/dL AST 64 H (17-59) U/L ALT 32 (21-72) U/L Alkaline Phosphatase 96 (38-126) U/L Total Protein 5.8 L (6.3-8.2) g/dL Albumin 3.3 L (3.5-5.0) g/dL Calcium panel 01/31/19 Range/Units 04:56 Calcium 8.5 (8.4-10.2) mg/dL Albumin 3.3 L (3.5-5.0) g/dL Pituitary panel 01/31/19 Range/Units 04:56 Sodium 140 (137-145) mmol/L Potassium 4.4 (3.5-5.1) mmol/L Chloride 106 (98-107) mmol/L Carbon Dioxide 28 (22-30) mmol/L BUN 11 (9-20) mg/dL Creatinine 0.97 (0.66-1.25) mg/dL Glucose 93 (74-99) mg/dL Calcium 8.5 (8.4-10.2) mg/dL Adrenal panel 01/31/19 Range/Units 04:56 Sodium 140 (137-145) mmol/L Potassium 4.4 (3.5-5.1) mmol/L Chloride 106 (98-107) mmol/L Carbon Dioxide 28 (22-30) mmol/L BUN 11 (9-20) mg/dL Creatinine 0.97 (0.66-1.25) mg/dL Glucose 93 (74-99) mg/dL Calcium 8.5 (8.4-10.2) mg/dL Total Bilirubin 1.2 (0.2-1.3) mg/dL AST 64 H (17-59) U/L ALT 32 (21-72) U/L Alkaline Phosphatase 96 (38-126) U/L Total Protein 5.8 L (6.3-8.2) g/dL Albumin 3.3 L (3.5-5.0) g/dL - Imaging CT scan - abdomen: image reviewed (right sided hydronephrosis and a 1 cm nonobstructing stone) Assessment and Plan Assessment: 53-year-old male admitted to the hospital with acute cholecystitis, he has complicated cardiac history. Urology is consulted for right-sided hydronephrosis and a 1 cm nonobstructing stone. Patient symptoms are not related to his renal stone he denies any flank pain. He has history of right- sided pyeloplasty in 2007. The hydronephrosis could be secondary to residual dilation from his previous pyeloplasty versus recurrence of his obstruction at the [facility]. Plan: -patient is asymptomatic from his stone and his hydro no intervention needed at this time, patient renal stone is non obstructing in nature. -He can follow-up as an outpatient at that time we will perform a MAG3 renogram on him as an outpatient.
[2019-01-31] MEDS ORDERED: WARFARIN 7.5 MG TAB PO ONE (18:00)
[2019-01-31] MEDS: METOPROLOL SUCCINATE (ER) 50 MG TAB.ER.24H PO SCH (21:17)
[2019-02-01] MEDS: SODIUM CHLORIDE 0.9% 1,000 ML IV SCH ×3 (03:58→11:57)
[2019-02-01 07:28] LABS: Basophils % (A) 0 %; Eosinophils # (A) 0.2 k/uL (0-0.7); Eosinophils % (A) 4 %; HCT 33.6 % (39.0-53.0); HGB 10.2 gm/dL (13.0-17.5); Hypochromasia Marked; Lymphocytes # (A) 0.6 k/uL (1.0-4.8); Lymphocytes % (A) 11 %; MCH 23.7 pg (25.0-35.0); MCHC 30.4 g/dL (31.0-37.0); MCV 78.1 fL (80.0-100.0); Mean Platelet Volume 6.4; Monocytes # (A) 0.5 k/uL (0-1.0); Monocytes % (A) 9 %; Neutrophils # (A) 3.8 k/uL (1.3-7.7); Neutrophils % (A) 71 %; Platelet Count 248 k/uL (150-450); RBC 4.31 m/uL (4.30-5.90); RDW 15.6 % (11.5-15.5); WBC 5.3 k/uL (3.8-10.6)
[2019-02-01 07:33] LABS: Prothrombin Time 19.2 sec (9.0-12.0)
[2019-02-01 07:44] LABS: ALT 34 U/L (21-72); AST 32 U/L (17-59); African American GFR (CKD) >90 (>60 ml/min/1.73 sqM); Albumin 3.3 g/dL (3.5-5.0); Alkaline Phosphatase 87 U/L (38-126); Anion Gap 5 mmol/L; Blood Urea Nitrogen 6 mg/dL (9-20); Calcium 8.6 mg/dL (8.4-10.2); Carbon Dioxide 29 mmol/L (22-30); Chloride 105 mmol/L (98-107); Glucose 92 mg/dL (74-99); Potassium 4.2 mmol/L (3.5-5.1); Sodium 139 mmol/L (137-145); Total Bilirubin 0.8 mg/dL (0.2-1.3); Total Protein 5.9 g/dL (6.3-8.2)
[2019-02-01] MEDS ORDERED: ENOXAPARIN 100 MG/ML SYRINGE SQ SCH ×2 (09:00→11:15)
[2019-02-01] MEDS: EPLERENONE 100 MG PO SCH (09:37)
[2019-02-01] MEDS: DOFETILIDE 250 MCG CAP PO SCH ×2 (09:41→20:51)
[2019-02-01] MEDS: LISINOPRIL 20 MG TAB PO SCH (09:41)
[2019-02-01] MEDS: METOCLOPRAMIDE 5 MG/ML 2 ML VIAL IVP PRN ×2 (09:42→19:10)
[2019-02-01] MEDS: PANTOPRAZOLE 40 MG/10 ML VIAL IV SCH (09:42)
[2019-02-01] MEDS: PIPERACILLIN-TAZOBACTAM 3.375 GM in SODIUM CHLORIDE 0.9% 100 ML IVPB SCH ×2 (09:43→15:44)
--- NOTE | 2019-02-01 09:43 | P.PN ---
Subjective Progress Note Date: 02/01/19 Principal diagnosis: Acute cholecystitis Patient doing better today. Pain seems slightly improved. He is now on higher dose of Lovenox. Today's INR 2.0. Liver enzymes remain normal. Today his pulse ox was somewhat low however. Denies shortness of breath. Objective - Vital Signs Vital signs: Vital Signs Temp 98.3 F 02/01/19 04:05 Pulse 76 02/01/19 04:05 Resp 20 02/01/19 04:05 BP 138/73 02/01/19 04:05 Pulse Ox 94 L 02/01/19 08:42 Intake & Output 01/31/19 02/01/19 02/01/19 19:59 06:59 18:59 Intake Total Balance Intake: Intake, IV Titration Amount Piperacillin-Tazobactam 3 .375 gm In Sodium Chloride 0.9% 100 ml @ 25 mls/hr IVPB Q8HR [facility] Rx# :[id number] Sodium Chloride 0.9% 1, 000 ml @ 100 mls/hr IV . Q10H [facility] Rx#:[id number] Oral Other: Voiding Method # Voids - Exam Abdomen: Soft, nondistended, mild right upper quadrant tenderness - Labs CBC & Chem 7: 02/01/19 07:06 02/01/19 07:06 Labs: Abnormal Lab Results - Last 24 Hours (Table) 01/31/19 02/01/19 02/01/19 Range/Units 04:56 07:06 07:06 Hgb 10.2 L (13.0-17.5) gm/dL Hct 33.6 L (39.0-53.0) % MCV 78.1 L (80.0-100.0) fL MCH 23.7 L (25.0-35.0) pg MCHC 30.4 L (31.0-37.0) g/dL RDW 15.6 H (11.5-15.5) % Lymphocytes # 0.6 L (1.0-4.8) k/uL PT 19.2 H (9.0-12.0) sec INR 2.0 H (<1.2) BUN (9-20) mg/dL Iron 21 L (65-175) ug/dL % Saturation 5.54 L (15.00-50.00) Ferritin 16.9 L (22.0-322.0) ng/mL Total Protein (6.3-8.2) g/dL Albumin (3.5-5.0) g/dL 02/01/19 Range/Units 07:06 Hgb (13.0-17.5) gm/dL Hct (39.0-53.0) % MCV (80.0-100.0) fL MCH (25.0-35.0) pg MCHC (31.0-37.0) g/dL RDW (11.5-15.5) % Lymphocytes # (1.0-4.8) k/uL PT (9.0-12.0) sec INR (<1.2) BUN 6 L (9-20) mg/dL Iron (65-175) ug/dL % Saturation (15.00-50.00) Ferritin (22.0-322.0) ng/mL Total Protein 5.9 L (6.3-8.2) g/dL Albumin 3.3 L (3.5-5.0) g/dL Microbiology - Last 24 Hours (Table) 01/29/19 09:50 Blood Culture - Preliminary Blood No Growth after 48 hours Assessment and Plan (1) Acute cholecystitis Narrative/Plan: Continue IV antibiotics. Continue to hold Coumadin. Recheck and a coagulation tomorrow. Consult pulmonary for hypoxemia. Current Visit: Yes Status: Acute Code(s): K81.0 - ACUTE CHOLECYSTITIS SNOMED Code(s): 70733306
--- NOTE | 2019-02-01 11:47 | P.PN ---
Subjective Progress Note Date: 02/01/19 This is a pleasant 53-year-old male past medical history significant for coronary artery disease status post four-vessel bypass grafting, valvular heart disease status post aortic valve replacement in 1995 initially with a tissue valve requiring a redo mechanical valve in 2010, mitral valve ring annuloplasty, ischemic cardiomyopathy status post AICD, paroxysmal atrial fibrillation on fci anti, chronic systolic heart failure, hypertension and dyslipidemia. He follows closely with a repair mechanic at the [facility]. We have been asked to see him in consultation for pre-operative evaluation. He came to the hospital last evening with symptoms of abdominal pain, nausea and vomiting after eating chicken. Initially he thought he had food poisoning. However his symptoms persisted prompting him to come to the hospital for evaluation. CT abdomen and pelvis reveals hydropic gallbladder measuring 4.5 cm. Ultrasound of the gallbladder reveals gallbladder wall thickening and gallbladd er hydrops with a positive Kamara sign. No gallstones noted. His been seen in consultation by GI and recommended HIDA scan. He is seen and examined resting comfortably in bed in no acute distress. He continues to have discomfort in the right upper quadrant of his abdomen however is controlled with pain medication. He denies symptoms of chest pain, shortness of breath, dizziness or palpitation s. His last dose of Coumadin was 01/28. He takes 10 mg on Saturday, Saturday, Saturday and Saturday and 7.5 mg on Saturday, Saturday and . He also takes Lasix 40 mg daily as needed, ramipril 10 mg daily, Toprol 50 mg daily, Tikosyn 250 g twice a day, atorvastatin 80 mg daily and aspirin 325 mg daily. He has been started on lovenox per PCP. NO PT/INR drawn on admission. Laboratory data reviewed, WBC 5.3, hemoglobin 10.5, platelets 232, INR requested today 3.9, sodium 140, potassium 4.4, creatinine 0.95. Most recent echocardiogram obtained today reveals preserved LV systolic function with ejection fraction 50-55%, septal wall motion delay consistent with prior cardiac surgery, normally functioning mechanical prosthetic valve with a mean gradient across the valve is 9 mmHg, mitral valve ring annual plasty with a mean gradient across the valve of 4 mmHg. This is an improvement from previous echo obtained in October where his ejection fraction was 30-35%. EKG reveals sinus mechanism, nonspecific intraventricular conduction delay, inferior Q waves and poor R-wave progression. 02/01: Is currently scheduled for robotic cholecystectomy on February 02. INR today is at 2.0, hemoglobin 10.2, white count 5.3, platelet count 248. Patient received 1 dose of Lovenox 90 mg last evening. We will plan to continue him on Lovenox at 90 mg twice daily and he will receive a dose somewhere between 10 PM and midnight in preparation for his surgery tomorrow. Surgery is currently scheduled for 10 AM tomorrow. Patient denies any new complaints. No chest pain or shortness of breath. Blood p 138/73, heart rate 76, afebrile, pulse ox 94% on 2 L nasal cannula GENERAL: This is a 53-year-old male in no apparent distress at the time of my examination. HEENT: Head is atraumatic, normocephalic. Pupils are equal, round. Sclerae anicteric. Conjunctivae are clear. Mucous membranes of the mouth are moist. Neck is supple. There is no jugular venous distention. No carotid bruit is heard. LUNGS: Clear to auscultation no wheezes, rales or rhonchi. No chest wall tenderness is noted on palpation or with deep breathing. HEART: Regular rate and rhythm with mechanical click at the base with faint systolic ejection murmur at the left sternal border, no rubs or gallops. S1 and S2 heard. ABDOMEN: Soft, mildly tender RUQ. Bowel sounds are heard. No organomegaly noted. EXTREMITIES: No evidence of peripheral edema and no calf tenderness noted. VASCULAR: Radial and dorsalis pedis pulses palpated, no evidence of clubbing. NEUROLOGIC: Patient is awake, alert and oriented x3. ASSESSMENT Abdominal pain with gallbladder wall thickening and dilitation Supratherapeutic INR Valvular heart disease s/p mechanical aortc valve replacement maintained on coumadin Mitral valve ring annuloplasty Coronary artery disease s/p 4V bypass grafting, exact details unavailable Ischemic cardiomyopathy, improved LV on recent echo. Previously in October EF was 35% Hypertension Dyslipidemia Chronic systolic heart failure, currently euvolemic s/p AICD placement Paroxysmal atrial fibrillation currently maintaining sinus mechanism PLAN Lovenox 90 mg twice daily, 1 dose now and one between 10 PM and midnight prior to surgery scheduled for Saturday. POD# 1, 2 & 3 resume coumadin and use lovenox 90 mg BID simultaneously; stop lovenox after POD#3 and continue coumadin dosing daily. Continue Tikosyn 250 g twice daily, lisinopril 20 mg daily, Toprol-XL 50 mg at bedtime. Close follow up with his primary repair mechanic. Further recommendations based on clinical course. Thank you kindly for this consultation. Nurse Practitioner note has been reviewed, I agree with a documented findings and plan of care. Patient was seen and examined. Objective - Vital Signs Vital signs: Vital Signs Temp 98.3 F 02/01/19 04:05 Pulse 76 02/01/19 04:05 Resp 20 02/01/19 04:05 BP 138/73 02/01/19 04:05 Pulse Ox 94 L 02/01/19 08:42 Intake & Output 01/31/19 02/01/19 02/01/19 19:59 06:59 18:59 Intake Total Balance Intake: Intake, IV Titration Amount Piperacillin-Tazobactam 3 .375 gm In Sodium Chloride 0.9% 100 ml @ 25 mls/hr IVPB Q8HR [facility] Rx# :[id number] Sodium Chloride 0.9% 1, 000 ml @ 100 mls/hr IV . Q10H [facility] Rx#:[id number] Oral Other: Voiding Method # Voids - Labs CBC & Chem 7: 02/01/19 07:06 02/01/19 07:06 Labs: Abnormal Lab Results - Last 24 Hours (Table) 02/01/19 02/01/19 02/01/19 Range/Units 07:06 07:06 07:06 Hgb 10.2 L (13.0-17.5) gm/dL Hct 33.6 L (39.0-53.0) % MCV 78.1 L (80.0-100.0) fL MCH 23.7 L (25.0-35.0) pg MCHC 30.4 L (31.0-37.0) g/dL RDW 15.6 H (11.5-15.5) % Lymphocytes # 0.6 L (1.0-4.8) k/uL PT 19.2 H (9.0-12.0) sec INR 2.0 H (<1.2) BUN 6 L (9-20) mg/dL Total Protein 5.9 L (6.3-8.2) g/dL Albumin 3.3 L (3.5-5.0) g/dL Microbiology - Last 24 Hours (Table) 01/29/19 09:50 Blood Culture - Preliminary Blood No Growth after 48 hours
[2019-02-01] MEDS: ACETAMINOPHEN TAB 325 MG TAB PO PRN ×2 (11:58→19:09)
[2019-02-01] MEDS: SODIUM FERRIC GLUCONAT-SUCROSE 125 MG in SODIUM CHLORIDE 0.9% 100 ML IVPB SCH (12:36)
--- NOTE | 2019-02-01 14:16 | PN ---
PROGRESS NOTE CHIEF COMPLAINT: Abdominal pain. HISTORY OF PRESENT ILLNESS: This gentleman is still having abdominal pain. He is waiting for his surgery for tomorrow. His iron has been found to be low and he does not have a history of blood loss. PHYSICAL EXAMINATION: Vital signs are normal. Chest is clear. Cardiac exam is unchanged. Abdomen is soft, nontender except over the right upper quadrant. IMPRESSION: 1. Cholecystitis. 2. Coronary artery disease. 3. Low serum iron. PLAN: 1. Iron has been instituted. 2. He is being bridged with Lovenox for anticoagulation until surgery tomorrow. MMODL / IJN: [id number] /
--- NOTE | 2019-02-01 17:28 | CONS ---
CONSULTATION REASON FOR CONSULTATION: Preop clearance. DATE OF SERVICE: 02/01/2019 HISTORY OF PRESENT ILLNESS: This is a patient who was initially presented to the emergency room on January 29. He came with complaints of nausea and vomiting. He also has abdominal pain and thought maybe he had food poisoning. The abdominal pain was crampy in nature. The patient apparently has been here now for about 4 days and was discovered to have acute cholecystitis. They are planning a laparoscopic cholecystectomy tomorrow. Dr. Irene is the surgeon. Anyway, apparently throughout his hospitalization, he has had episodes where saturations have been low. Today in the room on room air his saturations are 96%. He apparently has no history of any major lung issues. He did apparently have mild asthma in the past but that has not been active recently. He did previously see apparently either asthmatologist or straddle carrier operator, but as I mentioned, asthma has not been an issue recently. He does have a significant cardiac history including aortic valve replacement, 4 vessel bypass surgery, numerous cardiac procedures including catheterization, stenting and cardiac ablation. He has also had a cardiac arrest in the past. The patient currently is comfortable. States his breathing is fine. He is not coughing, wheezing, or producing any phlegm. Does not feel particularly short of breath. HOME MEDICATIONS: Include Lipitor, vitamin B12, folic acid, Lasix, omeprazole, B6, Coumadin, and Toprol. Other medications include aspirin, eplerenone, ramipril, and Tikosyn. ALLERGIES: MULTIPLE INCLUDE CHRISTINA-D, IVP DYE, NIACIN, PERCOCET, AND SEROQUEL. MEDICAL HISTORY: Past medical history includes hypertension, high hyperlipidemia, mild asthma, and myocardial infarction as well as cardiac arrest multiple times. He denies any history of significant lung disease although I did mention earlier that he has mild asthma, not causing him any difficulty at this time. SURGICAL HISTORY: Extensive including cardiac ablation, AICD placement, heart catheterization, aortic valve replacement, mitral valve repair and some surgery on his right leg. SOCIAL HISTORY: Significant that he is a lifelong nonsmoker. Denies alcohol or any drug use. FAMILY HISTORY: Positive for mother with colon and breast cancer and father with chronic lymphocytic leukemia. He lives in [place]. His primary doctor is a Ajith Pate doctor. His heart surgery was all done at [facility]. REVIEW OF SYSTEMS: CONSTITUTIONAL negative. NEUROLOGIC negative. HEENT negative. CARDIOVASCULAR negative. PULMONARY negative. GI nausea and vomiting, abdominal pain, all of which has settled down. negative. RHEUMATOLOGIC negative. IMMUNOLOGIC negative. ENDOCRINOLOGIC negative. DERMATOLOGIC negative as well. PHYSICAL EXAMINATION: VITAL SIGNS: Current vital signs are reviewed. Temperature is 98.5 heart rate 80, respiratory rate 18, blood pressure 113/62, mean 79, 2 L saturation 98%. Room air saturation 96%. GENERAL: He appears in no acute distress. HEENT examination is grossly unremarkable. Mucous membranes are moist. No supplemental oxygen. NECK: Supple. Full range of motion. No adenopathy or thyromegaly. Neck veins are flat. CARDIOVASCULAR examination reveals regular rhythm and rate. S1, S2 normal. No S3 or S4. No distinct murmur noted. LUNGS: Reveal clear breath sounds equal. No wheezes, rhonchi, or crackles. ABDOMEN: Soft. Mild tenderness right upper quadrant. EXTREMITIES are intact. No cyanosis, clubbing, or edema. SKIN: Without rash. NEUROLOGIC: Examination is brief but nonfocal. LABORATORY DATA: White count 5.3, hemoglobin 10.2, hematocrit 33.6, platelet count 248,000. PT/INR were 19.2 and 2.0. Sodium, potassium, chloride, CO2 all normal. Anion gap normal. BUN and creatinine were 6 and 0.82. Albumin is 3.3. Urine shows trace protein, large blood, more than 182 RBCs, rare mucus. An ultrasound gallbladder shows evidence of gallbladder wall thickening and gallbladder hydrops. No gallstones seen. In addition, there was a distended renal pelvis of the right kidney with a 1.6 cm calculus within. Medications are reviewed. Everything seems to be appropriate. He is currently on Zosyn. ASSESSMENT: 1. Acute cholecystitis with gallbladder hydrops and anticipated laparoscopic cholecystectomy in the morning. 2. Stable pulmonary status at this time. 3. History of mild asthma, not currently causing the patient any issues. 4. Extensive cardiac history including 4 vessel bypass grafting, mitral valve repair, aortic valve replacement, AICD placement, and multiple cardiac arrests. 5. History of hyperlipidemia. 6. History of hypertension. 7. History of myocardial infarction. PLAN: From the pulmonary standpoint, the patient is cleared for surgery. I did impress upon him the importance of using the incentive spirometer after surgery every hour while awake. Should he have any difficulty during surgery then he would be a good candidate for observation and closer monitoring in the ICU. I do not anticipate a problem. Additional recommendations and suggestions are forthcoming. His asthma is very mild. He does not take any medication for it at this time. JAIME / GALLO: [id number] /
[2019-02-01] MEDS: fentaNYL PCA 500 MCG/50 ML BAG IV PRN (20:48)
[2019-02-01] MEDS: METOPROLOL SUCCINATE (ER) 50 MG TAB.ER.24H PO SCH (20:51)
[2019-02-01] MEDS ORDERED: ENOXAPARIN 80 MG/0.8 ML SYRINGE SQ SCH (21:00)
[2019-02-01] MEDS ORDERED: ENOXAPARIN 100 MG/ML SYRINGE SQ ONE (21:00)
[2019-02-02] MEDS: PIPERACILLIN-TAZOBACTAM 3.375 GM in SODIUM CHLORIDE 0.9% 100 ML IVPB SCH ×4 (00:26→23:56)
[2019-02-02] MEDS: ACETAMINOPHEN TAB 325 MG TAB PO PRN ×2 (00:33→07:33)
[2019-02-02] MEDS: METOCLOPRAMIDE 5 MG/ML 2 ML VIAL IVP PRN ×2 (00:33→11:29)
[2019-02-02] MEDS: SODIUM CHLORIDE 0.9% 1,000 ML IV SCH ×3 (05:28→23:56)
[2019-02-02 07:28] LABS: INR 1.3 (<1.2); Prothrombin Time 13.2 sec (9.0-12.0)
[2019-02-02] MEDS: PANTOPRAZOLE 40 MG/10 ML VIAL IV SCH (07:32)
[2019-02-02] MEDS: DOFETILIDE 250 MCG CAP PO SCH ×2 (07:32→21:00)
[2019-02-02] MEDS: LISINOPRIL 20 MG TAB PO SCH (07:33)
[2019-02-02] MEDS: EPLERENONE 100 MG PO SCH (07:38)
[2019-02-02 07:40] LABS: ALT 29 U/L (21-72); AST 29 U/L (17-59); African American GFR (CKD) >90 (>60 ml/min/1.73 sqM); Albumin 3.6 g/dL (3.5-5.0); Alkaline Phosphatase 83 U/L (38-126); Anion Gap 10 mmol/L; Blood Urea Nitrogen 4 mg/dL (9-20); Calcium 8.8 mg/dL (8.4-10.2); Carbon Dioxide 24 mmol/L (22-30); Chloride 106 mmol/L (98-107); Glucose 91 mg/dL (74-99); Potassium 4.3 mmol/L (3.5-5.1); Sodium 140 mmol/L (137-145); Total Bilirubin 1.2 mg/dL (0.2-1.3); Total Protein 6.4 g/dL (6.3-8.2)
[2019-02-02] MEDS: SODIUM FERRIC GLUCONAT-SUCROSE 125 MG in SODIUM CHLORIDE 0.9% 100 ML IVPB SCH (08:27)
[2019-02-02] MEDS ORDERED: ACETAMINOPHEN IV (For NPO) 1,000 MG in EMPTY BAG 1 BAG IVPB ONE ×2 (13:16→19:40)
--- NOTE | 2019-02-02 13:52 | XR ---
EXAMINATION TYPE: XR chest 1V portable DATE OF EXAM: 02/02/2019 COMPARISON: NONE HISTORY: Presurgical evaluation. Desaturation. TECHNIQUE: Single frontal view of the chest is obtained. FINDINGS: There are patchy opacities seen throughout the mid lungs. These are present centrally on t he right and more peripherally on the left. Cardiomediastinal silhouette is enlarged with post CABG c hange. Dual lead left-sided cardiac device is seen. No sizable pneumothorax or pleural effusion. Osse ous structures are grossly intact. IMPRESSION: Patchy bilateral midlung airspace disease that could represent early developing pneumoni a, early pulmonary edema or atelectasis.
--- NOTE | 2019-02-02 15:14 | P.PN ---
Subjective Progress Note Date: 02/02/19 Principal diagnosis: Abdominal pain secondary to acute cholecystitis. The patient is seen today 02/02/2019 in follow-up on the regular medical floor. He is currently awake and alert in no acute distress. He is maintaining O2 saturations in the 90s on room air. He denies any worsening shortness of breath, cough or congestion. His nurse states he has occasional drops in his saturations more so when he sits up or stands up. He has no previous history of pulmonary disease. He has significant cardiac disease including valvular heart disease, coronary artery disease, ischemic cardiomyopathy status post AICD placement, atrial fibrillation. He has undergone valve replacement, CABG and ablation. He follows at the [facility]. He is scheduled to undergo cholecystectomy today by Dr. Irene. He is currently on Zosyn. Chest x-ray shows patchy bilateral midlung airspace disease representing possible early pneumonia versus early pulmonary edema/atelectasis. Cultures reveal no growth. INR 1.3. Sodium 140. Potassium 4.3. Creatinine 0.81. Objective - Vital Signs Vital signs: Vital Signs Temp 96.9 F L 02/02/19 14:11 Pulse 79 02/02/19 14:11 Resp 17 02/02/19 14:11 BP 150/84 02/02/19 14:11 Pulse Ox 94 L 02/02/19 14:11 Intake & Output 02/01/19 02/02/19 02/02/19 18:59 06:59 18:59 Intake Total 444 389 0644 Balance 802 916 8687 Intake: Intake, IV Titration 786 885 9526 Amount ACETAMINOPHEN IV (For NPO 100 ) 1,000 mg In Empty Bag 1 bag @ 400 mls/hr IVPB ONCE ONE Rx#:[id number] Piperacillin-Tazobactam 3 100 100 .375 gm In Sodium Chloride 0.9% 100 ml @ 25 mls/hr IVPB Q8HR [facility] Rx# :[id number] Sodium Chloride 0.9% 1, 400 800 000 ml @ 100 mls/hr IV . Q10H [facility] Rx#:[id number] Sodium Ferric Gluconat- 100 100 Sucrose 125 mg In Sodium Chloride 0.9% 100 ml @ 100 mls/hr IVPB DAILY [facility] Rx#:[id number] Oral 650 50 Other: Voiding Method Toilet Toilet Toilet # Voids 3 2 3 - Exam GENERAL EXAM: Alert, pleasant 53-year-old gentleman, on room air, comfortable in no apparent distress. HEAD: Normocephalic. EYES: Normal reaction of pupils, equal size. NOSE: Clear with pink turbinates. THROAT: No erythema or exudates. NECK: No masses, no JVD. CHEST: No chest wall deformity. LUNGS: Equal air entry with crackles in the posterior bases. CVS: S1 and S2 normal with no audible murmur, regular rhythm. ABDOMEN: No hepatosplenomegaly, normal bowel sounds, no guarding or rigidity. SPINE: No scoliosis or deformity SKIN: No rashes CENTRAL NERVOUS SYSTEM: No focal deficits, tone is normal in all 4 extremities. EXTREMITIES: There is no peripheral edema. No clubbing, no cyanosis. Peripheral pulses are intact. - Labs CBC & Chem 7: 02/01/19 07:06 02/02/19 06:24 Labs: Abnormal Lab Results - Last 24 Hours (Table) 02/02/19 02/02/19 Range/Units 06:24 06:24 PT 13.2 H (9.0-12.0) sec INR 1.3 H (<1.2) BUN 4 L (9-20) mg/dL Microbiology - Last 24 Hours (Table) 01/29/19 09:50 Blood Culture - Preliminary Blood No Growth after 96 hours Assessment and Plan Assessment: Impression: #1 Acute cholecystitis with gallbladder hydrops and anticipated laparoscopic cholecystectomy today. #2 Extensive cardiac history including four-vessel bypass grafting, mitral valve repair, aortic valve replacement, AICD placement, previous cardiac arrest. #3 Dyspnea with some decreased O2 saturations secondary to possible early pneumonia versus early fluid volume overload.. Currently on Zosyn. #4 History of hyperlipidemia. #5 History of hypertension. Plan: The patient was seen and evaluated by Dr. Espinosa. Chest x-ray was ordered and reviewed. We will add albuterol just as needed this patient has a history of atrial fibrillation and is on Tikosyn. Continue Zosyn. He is on as needed diuretics. That may need to be scheduled daily. Decrease IV fluids to KVO. Plan is for surgery today. We'll continue to follow and make further recommendations based on his clinical status. I, the cosigning physician, performed a history & physical examination of the patient. Lungs sounds with few crackles in the posterior bases. Maintaining good O2 saturations in the 90s on room air. I discussed the assessment and plan of care with my nurse practitioner, Brenda Cho. I attest to the above note as dictated by her.
[2019-02-02] MEDS ORDERED: IV FLUID CONTINUATION 800 ML IV ONE (15:45)
[2019-02-02] MEDS ORDERED: fentaNYL (PF) 50 MCG/ML 2 ML AMP ONE (16:35)
[2019-02-02] MEDS ORDERED: SUCCINYLCHOLINE CHLORIDE 100 MG/5 ML SYR IV ONE (16:35)
[2019-02-02] MEDS ORDERED: ROCURONIUM BROMIDE 10 MG/ML 10 ML VIAL IV ONE (16:35)
[2019-02-02] MEDS ORDERED: NEOSTIGMINE 1 MG/ML 10 ML VIAL ONE (16:35)
[2019-02-02] MEDS ORDERED: GLYCOPYRROLATE 0.2 MG/ML 2 ML VIAL ONE (16:35)
[2019-02-02] MEDS ORDERED: LIDOCAINE 1% INJ 10MG/ML (20 ML MDV) ONE (16:35)
[2019-02-02] MEDS ORDERED: MIDAZOLAM 2 MG/2 ML VIAL ONE (16:35)
[2019-02-02] MEDS ORDERED: BUPIVACAINE (PF) 0.25% 30 ML VIAL SQ ONE ×2 (16:46→17:06)
[2019-02-02] MEDS ORDERED: LACTATED RINGERS 1,000 ML IV ONE (18:03)
[2019-02-02] MEDS: fentaNYL (PF) 50 MCG/ML 2 ML AMP IVP ONE ×4 (18:29→19:31)
--- NOTE | 2019-02-02 19:33 | PN ---
PROGRESS NOTE CHIEF COMPLAINT: Cholecystitis and coronary artery disease. HISTORY OF PRESENT ILLNESS: This gentleman is doing well except for the abdominal pain. He is going today for his procedure. He is doing well otherwise. He has had no palpitations, chest pain, etc. PHYSICAL EXAMINATION: Chest is clear. Cardiac exam is normal. Abdomen is soft, tender over the epigastrium. IMPRESSION: 1. Cholecystitis. 2. Coronary artery disease. PLAN: Cholecystectomy today. MMODL / IJN: [id number] /
--- NOTE | 2019-02-02 19:44 | P.OP ---
Date of Procedure: 02/02/19 Description of Procedure: SURGEON: SYBIL HUFF MD PREOPERATIVE DIAGNOSES: 1. Acute cholecystitis 2. Congestive heart failure with diastolic dysfunction 3. Ischemic cardiomyopathy with history of myocardial infarction 4. History of aortic valvular replacement 5. Chronic anticoagulant therapy 6. Atrial fibrillation 7. History of atrial flutter 8. Coronary artery disease with multiple stent placement 9. Hyperlipidemia 10. Hypertensive heart disease 11. Coronary artery bypass grafting 12. AICD defibrillator 13. Motion sickness 14. Multiple drug ALLERGIES 15. Iodine ALLERGY POSTOPERATIVE DIAGNOSES: 1. Acute cholecystitis with hydrops cholecystitis 2. Congestive heart failure with diastolic dysfunction 3. Ischemic cardiomyopathy with history of myocardial infarction 4. History of aortic valvular replacement 5. Chronic anticoagulant therapy 6. Atrial fibrillation 7. History of atrial flutter 8. Coronary artery disease with multiple stent placement 9. Hyperlipidemia 10. Hypertensive heart disease 11. Coronary artery bypass grafting 12. AICD defibrillator 13. Motion sickness 14. Multiple drug ALLERGIES 15. Iodine ALLERGY OPERATION: Robotic-assisted da Taty Xi laparoscopic cholecystectomy, multiport Anesthesia: GETA, local Estimated Blood Loss (ml): 5 Pathology: other (Gallbladder) Condition: stable Disposition: floor COMPLICATIONS: None. OPERATIVE FINDINGS: 1. Hydrops cholecystitis with dome down technique performed INDICATIONS: The patient is a 53-year-old male who presents with acute cholelcystitis. Surgical intervention with a laparoscopic cholecystectomy was described at length including injury to the biliary tree, bleeding, infection, need for further surgery. Informed consent was obtained. Robotic assisted laparoscopic approach was described. Benefits and risks of the procedure including but not limited to bleeding, infection, injury to the biliary tree was described. Informed consent was obtained. DESCRIPTION OF PROCEDURE: Patient was brought to the operating room, placed in supine position. After general induction, the abdomen had been prepped and draped in standard sterile fashion. The robotic da Taty XI system was primed. After a timeout protocol was performed, the patient had been prepped and draped in standard sterile fashion. A 5 mm 0 degrees laparoscopic trocar entry was performed along the left upper quadrant. The abdomen insufflated to 15 mmHg pressure which was tolerated well. Diagnostic laparoscopy demonstrated no injury to bowel viscera or mesentery. The liver surface was unremarkable. Next, two 8 mm robotic ports were placed along the right upper abdomen. The camera 8-mm port was maintained along the epigastrium. Another 8 mm port was placed along the left upper abdominal wall after exchanging the 5 mm port. Please note that the ports were placed at least 10 to 15 cm away from the target anatomy of the gallbladder. The robot was docked along the left lateral abdomen. The patient was repositioned in reverse Trendelenburg position. Using a grasper for arm 3, a grasper for arm 4, including hook cautery for arm 1, the robotic system was docked and primed as described. Instruments were interchanged by the certified physical therapist assistant including hook cautery, Bovie cautery and clip appliers. I had sat at the console. A dome down technique was performed secondary to severe distention of the gallbladder with acute cholecystitis and thickened gallbladder wall found. The gallbladder was carefully dissected with moderate edema of the gallbladder wall found. Careful dissection over 45 minutes was performed until the gallbladder was dissected to the infundibulum and cystic structures. The gallbladder fundus was retracted over the dome of the liver. Using a grasper, the cystic duct including the cystic artery was carefully skeletonized. A critical view of safety was obtained. Large PLASTIC clips were used throughout the entire case. Using a clip project controls specialist 2 clips were placed proximally, and 1 clip was placed between the infundibulum and cystic duct and divided using cautery. Next, the cystic artery was similarly clipped and cauterized. Electro-Bovie cautery was used to remove the gallbladder from the hepatic fossa. Hemostasis was checked and found to be adequate. The robot was undocked. I re-scrubbed into the case. Using a 10 mm Endo Catch bag via the left upper quadrant incision, the specimen was removed from the abdominal cavity. All pneumoperitoneum instruments were evacuated from the abdominal cavity. The incisions were reapproximated using 4-0 Monocryl in an interrupted subcuticular fashion. The fascia was widened for extraction of the specimen. Jero Leblanc and 0 Vicryl was used to close the fascial defect. Please note along the trocar sites, local anesthetic was placed as a field block prior to insertion of all instruments. Liquid glue was applied to the skin. At the end of the procedure needle, sponge, and instrument count had been verified correct by the assembler surgical garment. The patient was transferred to postanesthesia care unit in stable condition. Intraoperative films were shared with the patient's family who were very pleased with the level of care.
[2019-02-02] MEDS: METOPROLOL SUCCINATE (ER) 50 MG TAB.ER.24H PO SCH (21:00)
[2019-02-02] MEDS: ALBUTEROL NEBULIZED 2.5 MG/3 ML INHALATION PRN (21:18)
[2019-02-03] MEDS: fentaNYL PCA 500 MCG/50 ML BAG IV PRN (03:09)
[2019-02-03] MEDS: ACETAMINOPHEN TAB 325 MG TAB PO PRN ×2 (06:12→13:20)
[2019-02-03] MEDS: PANTOPRAZOLE 40 MG/10 ML VIAL IV SCH (07:32)
[2019-02-03] MEDS: LISINOPRIL 20 MG TAB PO SCH (07:34)
[2019-02-03] MEDS: DOFETILIDE 250 MCG CAP PO SCH ×2 (07:35→20:34)
[2019-02-03] MEDS: PIPERACILLIN-TAZOBACTAM 3.375 GM in SODIUM CHLORIDE 0.9% 100 ML IVPB SCH ×2 (07:35→17:12)
[2019-02-03] MEDS: EPLERENONE 100 MG PO SCH (07:38)
[2019-02-03 08:17] LABS: INR 1.1 (<1.2); Prothrombin Time 11.4 sec (9.0-12.0)
[2019-02-03 08:19] LABS: ALT 32 U/L (21-72); AST 37 U/L (17-59); African American GFR (CKD) >90 (>60 ml/min/1.73 sqM); Albumin 3.8 g/dL (3.5-5.0); Alkaline Phosphatase 127 U/L (38-126); Anion Gap 11 mmol/L; Blood Urea Nitrogen 6 mg/dL (9-20); Calcium 8.9 mg/dL (8.4-10.2); Carbon Dioxide 24 mmol/L (22-30); Chloride 101 mmol/L (98-107); Glucose 99 mg/dL (74-99); Magnesium 1.7 mg/dL (1.6-2.3); Phosphorus 2.7 mg/dL (2.5-4.5); Sodium 136 mmol/L (137-145); Total Bilirubin 1.3 mg/dL (0.2-1.3); Total Protein 6.5 g/dL (6.3-8.2)
[2019-02-03] MEDS ORDERED: ENOXAPARIN 60 MG/0.6 ML SYRINGE SQ STA (08:27)
[2019-02-03] MEDS ORDERED: WARFARIN 10 MG TAB PO ONE (08:45)
[2019-02-03] MEDS ORDERED: ENOXAPARIN 40 MG/0.4 ML SYRINGE SQ SCH (09:00)
[2019-02-03 09:06] LABS: Anisocytosis Slight; Basophils % (A) 0 %; Eosinophils # (A) 0.1 k/uL (0-0.7); Eosinophils % (A) 1 %; HCT 36.2 % (39.0-53.0); HGB 10.8 gm/dL (13.0-17.5); Hypochromasia Marked; Lymphocytes # (A) 0.2 k/uL (1.0-4.8); Lymphocytes % (A) 2 %; MCH 23.4 pg (25.0-35.0); MCHC 29.9 g/dL (31.0-37.0); MCV 78.4 fL (80.0-100.0); Microcytosis Slight; Monocytes # (A) 0.5 k/uL (0-1.0); Monocytes % (A) 5 %; Neutrophils # (A) 8.7 k/uL (1.3-7.7); Neutrophils % (A) 89 %; Platelet Count 272 k/uL (150-450); RBC 4.62 m/uL (4.30-5.90); RDW 16.3 % (11.5-15.5); WBC 9.7 k/uL (3.8-10.6)
[2019-02-03] MEDS: SODIUM FERRIC GLUCONAT-SUCROSE 125 MG in SODIUM CHLORIDE 0.9% 100 ML IVPB SCH (10:13)
--- NOTE | 2019-02-03 10:26 | P.PN ---
Subjective This is a pleasant 53-year-old male past medical history significant for coronary artery disease status post four-vessel bypass grafting, valvular heart disease status post aortic valve replacement in 1995 initially with a tissue valve requiring a redo mechanical valve in 2010, mitral valve ring annuloplasty, ischemic cardiomyopathy status post AICD, paroxysmal atrial fibrillation on senior living anti, chronic systolic heart failure, hypertension and dyslipidemia. He follows closely with a banding machine operator at the [facility]. He underwent laparoscopic cholecystectomy yesterday evening with Dr. Irene. He is seen and examined sitting up in bed. He complains of abdominal discomfort. He also states he has been coughing for the last couple of days. No significant sputum production. Denies chest pain, shortness of breath, dizziness or palpitations. Blood pressure 130/78 heart rate 110 temperature of 101.6F. Laboratory data reviewed, WBC 9.7, hemoglobin 10.8, platelets 272, INR 1.1, sodium 136, potassium 4.0, creatinine 0.81. Currently maintained on Lovenox 40 mg subcu daily, Tikosyn 250 g twice a day, Lasix 40 mg by mouth when necessary, lisinopril 40 mg daily and Toprol 50 mg at bedtime. Maintaining sinus mechanism on telemetry. GENERAL: This is a 53-year-old male in no apparent distress at the time of my examination. HEENT: Head is atraumatic, normocephalic. Pupils are equal, round. Sclerae anicteric. Conjunctivae are clear. Mucous membranes of the mouth are moist. Neck is supple. There is no jugular venous distention. No carotid bruit is heard. LUNGS: Clear to auscultation no wheezes, rales or rhonchi. No chest wall tenderness is noted on palpation or with deep breathing. HEART: Regular rate and rhythm with mechanical click at the base with faint systolic ejection murmur at the left sternal border, no rubs or gallops. S1 and S2 heard. EXTREMITIES: No evidence of peripheral edema and no calf tenderness noted. ASSESSMENT Abdominal pain with gallbladder wall thickening and dilitation Laparoscopic cholecystectomy, POD #1 Supratherapeutic INR on admission Valvular heart disease s/p mechanical aortc valve replacement maintained on coumadin Mitral valve ring annuloplasty Coronary artery disease s/p 4V bypass grafting, exact details unavailable Ischemic cardiomyopathy, improved LV on recent echo. Previously in October EF was 35% Hypertension Dyslipidemia Chronic systolic heart failure, currently euvolemic s/p AICD placement Paroxysmal atrial fibrillation currently maintaining sinus mechanism PLAN Resume coumadin today with 10 mg. Increase lovenox to 90 mg SQ BID, he received one dose of 40 mg this am we will add a dose of 50 mg now to bring up to therapeutic 90 for this morning. Will continue lovenox until therapeutic INR. Target INR 2.5-3.5. Follow PT/INR daily. We will do coumadin dosing daily. Pharmacy has been notified. Change lasix to 20 mg daily. Recommend routine use of incentive spirometer. We will continue to follow and make recommendations accordingly. Nurse Practitioner note has been reviewed, I agree with a documented findings and plan of care. Patient was seen and examined. Objective - Vital Signs Vital signs: Vital Signs Temp 100.2 F H 02/03/19 07:54 Pulse 110 H 02/03/19 07:04 Resp 18 02/03/19 07:04 BP 130/78 02/03/19 04:32 Pulse Ox 95 02/03/19 04:32 Intake & Output 02/02/19 02/03/19 02/03/19 18:59 06:59 18:59 Intake Total 2300 1940 Output Total 5 Balance 2295 1940 Intake: IV 1150 300 Intake, IV Titration 1100 680 Amount ACETAMINOPHEN IV (For NPO 100 ) 1,000 mg In Empty Bag 1 bag @ 400 mls/hr IVPB ONCE ONE Rx#:[id number] ACETAMINOPHEN IV (For NPO 100 ) 1,000 mg In Empty Bag 1 bag @ 400 mls/hr IVPB ONCE ONE Rx#:[id number] Lactated Ringers 1,000 ml 200 @ 0 mls/hr IV .STK-MED ONE Rx#:[id number] Piperacillin-Tazobactam 3 100 200 .375 gm In Sodium Chloride 0.9% 100 ml @ 25 mls/hr IVPB Q8HR [facility] Rx# :[id number] Sodium Chloride 0.9% 1, 800 180 000 ml @ 20 mls/hr IV . Q24H [facility] Rx#:[id number] Sodium Ferric Gluconat- 100 Sucrose 125 mg In Sodium Chloride 0.9% 100 ml @ 100 mls/hr IVPB DAILY [facility] Rx#:[id number] Oral 50 960 Output: Estimated Blood Loss 5 Other: Voiding Method Toilet Toilet Toilet Urinal Urinal # Voids 3 1 - Labs CBC & Chem 7: 02/03/19 07:36 02/03/19 07:36 Labs: Abnormal Lab Results - Last 24 Hours (Table) 02/03/19 02/03/19 Range/Units 07:36 07:36 Hgb 10.8 L (13.0-17.5) gm/dL Hct 36.2 L (39.0-53.0) % MCV 78.4 L (80.0-100.0) fL MCH 23.4 L (25.0-35.0) pg MCHC 29.9 L (31.0-37.0) g/dL RDW 16.3 H (11.5-15.5) % Neutrophils # 8.7 H (1.3-7.7) k/uL Lymphocytes # 0.2 L (1.0-4.8) k/uL Sodium 136 L (137-145) mmol/L BUN 6 L (9-20) mg/dL Alkaline Phosphatase 127 H (38-126) U/L Microbiology - Last 24 Hours (Table) 01/29/19 09:50 Blood Culture - Preliminary Blood No Growth after 96 hours
--- NOTE | 2019-02-03 11:39 | P.PN ---
Subjective Progress Note Date: 02/03/19 On today's evaluation of 02/03/2019, the patient is on room air oxygen. His pulse ox is 93-94%. No significant respiratory difficulties. Hemodynamically stable. The patient underwent a laparoscopic/robotic cholecystectomy yesterday without any significant complications. He remains hemodynamically stable. He is passing some gas. Surgical wound site over the anterior abdominal wall is dry clean and intact. No other significant issues otherwise for now. The patient intensive some low-grade fever yesterday and currently he is afebrile. No nausea. No vomiting. No emesis. Objective - Vital Signs Vital signs: Vital Signs Temp 100.2 F H 02/03/19 07:54 Pulse 110 H 02/03/19 07:04 Resp 18 02/03/19 07:04 BP 130/78 02/03/19 04:32 Pulse Ox 95 02/03/19 04:32 Intake & Output 02/02/19 02/03/19 02/03/19 18:59 06:59 18:59 Intake Total 2300 1940 Output Total 5 Balance 2295 1940 Intake: IV 1150 300 Intake, IV Titration 1100 680 Amount ACETAMINOPHEN IV (For NPO 100 ) 1,000 mg In Empty Bag 1 bag @ 400 mls/hr IVPB ONCE ONE Rx#:[id number] ACETAMINOPHEN IV (For NPO 100 ) 1,000 mg In Empty Bag 1 bag @ 400 mls/hr IVPB ONCE ONE Rx#:[id number] Lactated Ringers 1,000 ml 200 @ 0 mls/hr IV .STK-MED [facility] Rx#:[id number] Piperacillin-Tazobactam 3 100 200 .375 gm In Sodium Chloride 0.9% 100 ml @ 25 mls/hr IVPB Q8HR [facility] Rx# :[id number] Sodium Chloride 0.9% 1, 800 180 000 ml @ 20 mls/hr IV . Q24H [facility] Rx#:[id number] Sodium Ferric Gluconat- 100 Sucrose 125 mg In Sodium Chloride 0.9% 100 ml @ 100 mls/hr IVPB DAILY [facility] Rx#:[id number] Oral 50 960 Output: Estimated Blood Loss 5 Other: Voiding Method Toilet Toilet Toilet Urinal Urinal # Voids 3 1 - Exam GENERAL EXAM: Alert, pleasant 53-year-old gentleman, on room air, comfortable in no apparent distress. HEAD: Normocephalic. EYES: Normal reaction of pupils, equal size. NOSE: Clear with pink turbinates. THROAT: No erythema or exudates. NECK: No masses, no JVD. CHEST: No chest wall deformity. LUNGS: Equal air entry with crackles in the posterior bases. CVS: S1 and S2 normal with no audible murmur, regular rhythm. ABDOMEN: No hepatosplenomegaly, normal bowel sounds, no guarding or rigidity. She has scars of previous cholecystectomy over the anterior abdominal wall SPINE: No scoliosis or deformity SKIN: No rashes CENTRAL NERVOUS SYSTEM: No focal deficits, tone is normal in all 4 extremities. EXTREMITIES: There is no peripheral edema. No clubbing, no cyanosis. Periph eral pulses are intact. - Labs CBC & Chem 7: 02/03/19 07:36 02/03/19 07:36 Labs: Abnormal Lab Results - Last 24 Hours (Table) 02/03/19 02/03/19 Range/Units 07:36 07:36 Hgb 10.8 L (13.0-17.5) gm/dL Hct 36.2 L (39.0-53.0) % MCV 78.4 L (80.0-100.0) fL MCH 23.4 L (25.0-35.0) pg MCHC 29.9 L (31.0-37.0) g/dL RDW 16.3 H (11.5-15.5) % Neutrophils # 8.7 H (1.3-7.7) k/uL Lymphocytes # 0.2 L (1.0-4.8) k/uL Sodium 136 L (137-145) mmol/L BUN 6 L (9-20) mg/dL Alkaline Phosphatase 127 H (38-126) U/L Microbiology - Last 24 Hours (Table) 01/29/19 09:50 Blood Culture - Preliminary Blood No Growth after 96 hours Assessment and Plan Plan: #1 Acute cholecystitis with gallbladder hydrops , the patient is post robotic- assisted cholecystectomy the patient is postop day #1. Patient is clean and the patient is hemodynamically stable. The patient was having some low-grade fever. Currently is afebrile. #2 Extensive cardiac history including four-vessel bypass grafting, mitral valve repair, aortic valve replacement, AICD placement, previous cardiac arrest. #3 Dyspnea with some decreased O2 saturations secondary to possible early pneumonia versus early fluid volume overload.. Currently on Zosyn. Morning, the patient is postop and the patient has adequate oxygenation and shows no signs of any respiratory distress. the patient is on room air oxygen with a pulse of 93%. Using incentive spirometer. Active pulmonary issues for now. #4 History of hyperlipidemia. #5 History of hypertension. Plan Continue routine postoperative care. Early ambulation. Incentive spirometer. No active pulmonary issues and we'll sign off the case.
--- NOTE | 2019-02-03 13:22 | P.PN ---
<Tereza Escalante Vicky - Last Filed: 02/03/19 13:17> Subjective Progress Note Date: 02/03/19 CHIEF COMPLAINT: Cholecystitis HISTORY OF PRESENT ILLNESS: Patient is status post robotic cholecystectomy with Dr. Irene. Postoperative day #1. Pain is tolerable this morning upon examin ation. He is tolerating diet without nausea or vomiting. Has been ambulating in the hallways. Patient febrile overnight with a temperature of 101.6. Patient using incentive spirometer hourly. PHYSICAL EXAM: VITAL SIGNS: Currently stable. GENERAL: Well-developed in no acute distress. HEENT: No sclera icterus. Extraocular movements grossly intact. Moist buccal mucosa. Head is atraumatic, normocephalic. Hears conversational speech. No nasal drainage. NECK: Supple without lymphadenopathy. CHEST: Non-labored respirations and equal bilateral excursions. CARDIOVASCULAR: Regular rate with regular rhythm. Palpable 2+ radial pulses. ABDOMEN: Soft. Nondistended. Appropriate surgical tenderness. Surgical sites clean dry and intact without drainage. MUSCULOSKELETAL: No clubbing, cyanosis or edema. NEUROLOGIC: No focal or lateralizing signs. Cranial nerves II through XII grossly intact. PSYCH: Appropriate affect. Alert and oriented to person, place and time. SKIN: Well perfused. Good skin turgor. ASSESSMENT: 1. Hydrops acute cholecystitis, status post robotic cholecystectomy PLAN: 1. Continue diet as tolerated 2. Pain control 3. Increase activity as tolerated 4. Incentive spirometer 10 times an hour while awake 5. Continue Lovenox. Coumadin resumed per cardiology. 6. Possible discharge home tomorrow Nurse practitioner note has been reviewed by physician. Signing provider agrees with the documented findings, assessment, and plan of care. Objective - Vital Signs Vital signs: Vital Signs Temp 98.8 F 02/03/19 12:17 Pulse 87 02/03/19 12:17 Resp 17 02/03/19 12:17 BP 106/65 02/03/19 12:17 Pulse Ox 96 02/03/19 12:17 Intake & Output 02/02/19 02/03/19 02/03/19 18:59 06:59 18:59 Intake Total 2300 1940 Output Total 5 Balance 2295 1940 Intake: IV 1150 300 Intake, IV Titration 1100 680 Amount ACETAMINOPHEN IV (For NPO 100 ) 1,000 mg In Empty Bag 1 bag @ 400 mls/hr IVPB ONCE ONE Rx#:[id number] ACETAMINOPHEN IV (For NPO 100 ) 1,000 mg In Empty Bag 1 bag @ 400 mls/hr IVPB ONCE ONE Rx#:[id number] Lactated Ringers 1,000 ml 200 @ 0 mls/hr IV .STK-MED ONE Rx#:[id number] Piperacillin-Tazobactam 3 100 200 .375 gm In Sodium Chloride 0.9% 100 ml @ 25 mls/hr IVPB Q8HR [facility] Rx# :[id number] Sodium Chloride 0.9% 1, 800 180 000 ml @ 20 mls/hr IV . Q24H [facility] Rx#:[id number] Sodium Ferric Gluconat- 100 Sucrose 125 mg In Sodium Chloride 0.9% 100 ml @ 100 mls/hr IVPB DAILY [facility] Rx#:[id number] Oral 50 960 Output: Estimated Blood Loss 5 Other: Voiding Method Toilet Toilet Toilet Urinal Urinal # Voids 3 1 - Labs CBC & Chem 7: 02/03/19 07:36 02/03/19 07:36 Labs: Abnormal Lab Results - Last 24 Hours (Table) 02/03/19 02/03/19 Range/Units 07:36 07:36 Hgb 10.8 L (13.0-17.5) gm/dL Hct 36.2 L (39.0-53.0) % MCV 78.4 L (80.0-100.0) fL MCH 23.4 L (25.0-35.0) pg MCHC 29.9 L (31.0-37.0) g/dL RDW 16.3 H (11.5-15.5) % Neutrophils # 8.7 H (1.3-7.7) k/uL Lymphocytes # 0.2 L (1.0-4.8) k/uL Sodium 136 L (137-145) mmol/L BUN 6 L (9-20) mg/dL Alkaline Phosphatase 127 H (38-126) U/L Microbiology - Last 24 Hours (Table) 01/29/19 09:50 Blood Culture - Preliminary Blood No Growth after 120 hours <Sharmila Irene - Last Filed: 02/04/19 15:56> Subjective Patient seen and evaluated. Expected pyrexia secondary to atelectasis and expected finding within 24 hours of surgery. Patient encouraged to use incentive spirometer. I personally spoke with cardiology team regarding anticoagulant management. Hemoglobin has been stable. May proceed with Lovenox and Coumadin. Objective - Vital Signs Vital signs: Vital Signs Temp 97.5 F L 02/04/19 12:49 Pulse 76 02/04/19 12:49 Resp 17 02/04/19 12:49 BP 115/73 02/04/19 12:49 Pulse Ox 97 02/04/19 12:49 Intake & Output 02/03/19 02/04/19 02/04/19 18:59 06:59 18:59 Intake Total 1080 2850 100 Output Total 800 Balance 280 2850 100 Intake: Intake, IV Titration 100 100 Amount Meropenem 1 gm In Sodium 100 100 Chloride 0.9% 100 ml @ 200 mls/hr IVPB Q8HR [facility] Rx#:[id number] Oral 1080 2750 Output: Urine 800 Other: Voiding Method Toilet Toilet Urinal Urinal # Voids 3 # Bowel Movements 0 - Labs CBC & Chem 7: 02/04/19 07:27 02/03/19 07:36 Labs: Abnormal Lab Results - Last 24 Hours (Table) 02/04/19 02/04/19 Range/Units 07:27 07:27 Hgb 10.5 L (13.0-17.5) gm/dL Hct 34.4 L (39.0-53.0) % MCV 78.2 L (80.0-100.0) fL MCH 23.9 L (25.0-35.0) pg MCHC 30.6 L (31.0-37.0) g/dL RDW 17.4 H (11.5-15.5) % PT 13.0 H (9.0-12.0) sec INR 1.3 H (<1.2) Microbiology - Last 24 Hours (Table) 01/29/19 09:50 Blood Culture - Final Blood No Growth after 144 hours Assessment and Plan (1) Acute hydrops of gallbladder Current Visit: Yes Status: Acute Code(s): K82.1 - HYDROPS OF GALLBLADDER SNOMED Code(s): 17683609 (2) Acute cholecystitis Current Visit: Yes Status: Acute Code(s): K81.0 - ACUTE CHOLECYSTITIS SNOMED Code(s): 00749211 (3) CHF (congestive heart failure) Current Visit: No Status: Acute Code(s): I50.9 - HEART FAILURE, UNSPECIFIED SNOMED Code(s): 66549677 (4) Chronic systolic CHF (congestive heart failure) Current Visit: No Status: Acute Code(s): I50.22 - CHRONIC SYSTOLIC (CONGESTIVE) HEART FAILURE SNOMED Code(s): 360832075 (5) Coagulopathy Current Visit: No Status: Acute Code(s): D68.9 - COAGULATION DEFECT, UNSPECIFIED SNOMED Code(s): 79398251 (6) Diabetes Current Visit: No Status: Acute Code(s): E11.9 - TYPE 2 DIABETES MELLITUS WITHOUT COMPLICATIONS SNOMED Code(s): 98237734 (7) H/O mechanical aortic valve replacement Current Visit: No Status: Acute Code(s): Z95.2 - PRESENCE OF PROSTHETIC HEART VALVE SNOMED Code(s): 400040069888251 (8) History of myocardial infarction Current Visit: No Status: Acute Code(s): I25.2 - OLD MYOCARDIAL INFARCTION SNOMED Code(s): 250212596 (9) Ischemic cardiomyopathy Current Visit: No Status: Acute Code(s): I25.5 - ISCHEMIC CARDIOMYOPATHY SNOMED Code(s): 993871249 (10) group home current use of anticoagulant Current Visit: No Status: Acute Code(s): Z79.01 - HALF-WAY (CURRENT) USE OF ANTICOAGULANTS SNOMED Code(s): 130009610 (11) Peripheral artery disease Current Visit: No Status: Acute Code(s): I73.9 - PERIPHERAL VASCULAR DISEASE, UNSPECIFIED SNOMED Code(s): 172123805 (12) Iron deficiency anemia Current Visit: Yes Status: Acute Code(s): D50.9 - IRON DEFICIENCY ANEMIA, UNSPECIFIED SNOMED Code(s): 39831066 (13) Anemia Current Visit: Yes Status: Acute Code(s): D64.9 - ANEMIA, UNSPECIFIED SNOMED Code(s): 622348543
[2019-02-03] MEDS: METOCLOPRAMIDE 5 MG/ML 2 ML VIAL IVP PRN ×2 (13:49→20:33)
[2019-02-03] MEDS: HYDROcodone/APAP 5-325MG 1 EACH TAB PO PRN ×3 (13:49→21:49)
[2019-02-03] MEDS: MEROPENEM 1 GM in SODIUM CHLORIDE 0.9% 100 ML IVPB SCH (18:03)
[2019-02-03] MEDS: ENOXAPARIN 100 MG/ML SYRINGE SQ SCH (20:34)
[2019-02-03] MEDS: METOPROLOL SUCCINATE (ER) 50 MG TAB.ER.24H PO SCH (20:34)
[2019-02-03] MEDS: SODIUM CHLORIDE 0.9% 1,000 ML IV SCH (21:48)
--- NOTE | 2019-02-03 23:03 | PN ---
PROGRESS NOTE CHIEF COMPLAINT: Status post cholecystectomy. PRESENT ILLNESS: This gentleman is doing well, but he is running fever. He is not short of breath and he has had no cough, sputum production, etc. He has had no nausea or vomiting. PHYSICAL EXAMINATION: Chest is clear. The cardiac exam is normal. The dressings are dry. Bowel sounds are present. Extremities are normal. IMPRESSION: 1. Status post cholecystectomy. 2. Fever, undetermined origin. 3. Coronary disease. PLAN: 1. Blood cultures. 2. Infectious Disease consult. MMODL / IJN: [id number] /
--- NOTE | 2019-02-03 23:20 | P.CONS ---
History of Present Illness - Reason for Consult Consult date: 02/03/19 - Chief Complaint Abdominal pain - History of Present Illness 53-year-old male who presents to Hospital with significant abdominal pain mostly right sided associated with nausea and some emesis generalized malaise and some fever. The patient has an extensive cardiac history. He relates that he was cared for at the [facility] for some time he was on the cardiac transplant list. He had his first myocardial infarction at the age of 29 is had multiple other infarct since. His cardiac status declined and he had worsening aortic valve disease as well as severe calcification of his aorta and eventually at the [facility] underwent aortic valve replacement as well as ascending aorta repair. At that time he also underwent four-vessel coronary artery bypass grafting. He has had AICD placed in his required cardiac ablation procedures on 2 events so far. As of late his cardiac status has improved with all of these interventions. Patient now presents to Hospital feeling poorly with increasing abdominal pain nausea emesis and some fever. Workup was performed and there was evidence of acute cholecystitis and consequently he's been taken in the operating room and a laparoscopic cholecystectomy was performed, hydrops gallbladder was noted. Postoperatively the patient is having some fever and a consult was requested. The patient relates he is feeling slightly better today. Still having bouts of some fever and sweats better today than yesterday. He is not having chest pain, no shortness of breath no cough or sputum production. He is not having any ur inary symptoms such as burning discomfort or flank pain. He does have a known history of nephrolithiasis. Review of Systems HEENT:Denies headache or acute visual change. Denies sinus or mouth discomforts. Denies neck stiffness or pain. Denies significant oral cavity p ain. Denies difficulty on swallowing. Lungs: Denies significant shortness of breath, cough, sputum production, or hemoptysis. Cardiovascular: Denies significant shortness of breath, chest pain, chest wall pain, orthopnea, dyspnea on exertion, syncope Gastrointestinal:as per the HPI had nausea emesis at admission Musculoskeletal: denies significant myalgias or arthralgias. No new joint swell ing. Denies new back pain. Skin: Denies new rash or lesions. No new ulcers or wounds are related.. Neuro: Denies headache or visual change. Denies any new onset weakness or difficulty with ambulation. Denies falls or seizures. Psychiatric:Denies anxiety or depression. Endocrine: Denies significant fatigue, denies significant weight loss or weight gain. Past Medical History Past Medical History: Atrial Fibrillation, Atrial Flutter, Coronary Artery Disease (CAD), Heart Failure, GERD/Reflux, GI Bleed, Hyperlipidemia, Hypertension, Myocardial Infarction (MS) Additional Past Medical History / Comment(s): Pt states he has had a total of 4 MIs and in 2010 had 5 cardiac arrests, cardiomyopathy, A tach, lower GI bleed. Last Myocardial Infarction Date:: 2008 History of Any Multi-Drug Resistant Organisms: None Reported Past Surgical History: AICD, Cardiac Ablation, Cardiac Valve Replacement, Coronary Bypass/CABG, Heart Catheterization, Heart Catheterization With Stent, Orthopedic Surgery Additional Past Surgical History / Comment(s): 1995 aortic bioprosthetic valve, 2010 changed to mechanical aortic valve with 4 vessel bypass, cardiac ablations x2, AICD, PCI with stents prior to CABG, R leg fracture with hardware, colonoscopy. Past Anesthesia/Blood Transfusion Reactions: No Reported Reaction, Motion Sickness Date of Last Stent Placement:: unkn Type of Cardiac Device: AICD Device Placement Date:: 2018 Additional Psychological History / Comment(s): . raised his son and daughter without the help of their mother. 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 no militaryexperience. No international travel. has a pet dog in the home, no one else lives at this time. relates there is not a strong family Of cardiovascular disease Smoking Status: Never smoker - Past Family History Mother Family Medical History: Cancer Additional Family Medical History / Comment(s): Colon and breast CA. Mother is still living. Father Family Medical History: Cancer Additional Family Medical History / Comment(s): CLL. Father is still living Medications and Allergies Home Medications and Allergies Comment(s): Current Medications Acetaminophen (Tylenol Tab) 650 mg PO Q6HR PRN PRN Reason: Mild Pain or Fever > 100.5 Last Admin: 02/03/19 13:20 Dose: 650 mg Documented by: Hydrocodone Bitart/Acetaminophen (Stephen 5-325) 2 each PO Q4HR PRN PRN Reason: MODERATE Pain Last Admin: 02/03/19 21:49 Dose: 2 each Documented by: Albuterol Sulfate (Ventolin Nebulized) 2.5 mg INHALATION RT-QID PRN PRN Reason: Shortness Of Breath Last Admin: 02/02/19 21:18 Dose: 2.5 mg Documented by: Dofetilide (Tikosyn) 250 mcg PO BID [facility] Last Admin: 02/03/19 20:34 Dose: 250 mcg Documented by: Enoxaparin Sodium (Lovenox) 90 mg SQ Q12HR [facility] Last Admin: 02/03/19 20:34 Dose: 90 mg Documented by: Fentanyl Citrate (Fentanyl Board Certified Behavioral Analyst) 500 mcg IV PER PROTOCOL PRN; Protocol PRN Reason: Pain Control Last Admin: 02/03/19 03:09 Dose: 500 mcg Documented by: Furosemide (Lasix) 20 mg PO DAILY [facility] Sodium Chloride (Saline 0.9%) 1,000 mls @ 20 mls/hr IV .Q24H [facility] Last Admin: 02/03/19 21:48 Dose: Not Given Documented by: Meropenem 1 gm/ Sodium (Chloride) 100 mls @ 200 mls/hr IVPB Q8HR [facility]; Protocol Last Admin: 02/03/19 18:03 Dose: 200 mls/hr Documented by: Lisinopril (Zestril) 40 mg PO DAILY [facility] Last Admin: 02/03/19 07:34 Dose: 40 mg Documented by: Metoclopramide HCl (Reglan) 10 mg IVP Q6HR PRN PRN Reason: Nausea Last Admin: 02/03/19 20:33 Dose: 10 mg Documented by: Metoprolol Succinate (Toprol Xl) 50 mg PO HS [facility] Last Admin: 02/03/19 20:34 Dose: 50 mg Documented by: Morphine Sulfate (Morphine Sulfate (Inj)) 4 mg IV Q4HR PRN PRN Reason: Severe Pain Last Admin: 01/31/19 06:56 Dose: 4 mg Documented by: Naloxone HCl (Narcan) 0.2 mg IV Q2M PRN PRN Reason: Opioid Reversal Patient's Own ( Eplerenone [ Eplerenone] 100 Mg) 100 mg PO DAILY [facility] Last Admin: 02/03/19 07:38 Dose: Not Given Documented by: Ondansetron HCl (Zofran) 4 mg IVP Q8HR PRN PRN Reason: Nausea And Vomiting Last Admin: 01/30/19 19:54 Dose: 4 mg Documented by: Pantoprazole Sodium (Protonix) 40 mg IV DAILY [facility] Last Admin: 02/03/19 07:32 Dose: 40 mg Documented by: Home Medications Medication Instructions Recorded Confirmed Type Aspirin 325 mg PO DAILY #30 tab 05/02/18 01/29/19 Rx Dofetilide [Tikosyn] 250 mcg PO BID #60 cap 05/02/18 01/29/19 Rx Eplerenone 100 mg PO DAILY #30 tablet 05/02/18 01/29/19 Rx Ramipril 10 mg PO DAILY #30 capsule 05/02/18 01/29/19 Rx Atorvastatin [Lipitor] 80 mg PO HS 10/31/18 01/29/19 History Cyanocobalamin (Vitamin B-12) 1,000 mcg PO DAILY 10/31/18 01/29/19 History [Vitamin B-12] Folic Acid 0.8 mg PO DAILY 10/31/18 01/29/19 History Furosemide [Lasix] 40 mg PO DAILY PRN 10/31/18 01/29/19 History Omeprazole 20 mg PO DAILY 10/31/18 01/29/19 History Pyridoxine HCl (Vitamin B6) 100 mg PO DAILY 10/31/18 01/29/19 History [Vitamin B-6] Warfarin [Coumadin] 7.5 mg PO MOTUTH 10/31/18 01/29/19 History Warfarin [Coumadin] 10 mg PO SUWEFRSA 10/31/18 01/29/19 History Metoprolol Succinate (ER) [Toprol 50 mg PO DAILY 01/29/19 01/29/19 History XL] Acetaminophen Tab [Tylenol Tab] 650 mg PO Q4H PRN #30 tablet 01/30/19 Rx Allergies Allergy/AdvReac Type Severity Reaction Status Date / Time fexofenadine [From Zara-D] Allergy Swelling Verified 01/29/19 07:27 Iodinated Contrast Media Allergy Rash/Hives Verified 01/29/19 07:27 [Iodinated Contrast- Oral and IV Dye] niacin Allergy Anaphylaxis Verified 01/29/19 07:27 oxycodone [From Percocet] Allergy Rash/Hives Verified 01/29/19 07:27 pseudoephedrine Allergy Swelling Verified 01/29/19 07:27 [From Zara-D] quetiapine [From Seroquel] Allergy Unknown Verified 01/29/19 07:27 Physical Exam Vitals: Vital Signs Temp Pulse Pulse Pulse Resp BP Pulse Ox 02/03/19 20:46 98.2 F 89 18 122/82 97 02/03/19 15:52 18 02/03/19 13:00 96 02/03/19 12:17 98.8 F 87 17 106/65 96 02/03/19 07:54 100.2 F H 02/03/19 07:04 110 H 18 02/03/19 06:48 100.4 F H 02/03/19 06:13 101.6 F H 102 H 20 02/03/19 04:32 99.7 F H 98 16 130/78 95 02/03/19 00:28 98.0 F 88 16 131/80 97 02/02/19 23:00 16 Intake and Output 02/03/19 02/03/19 02/03/19 06:59 14:59 22:59 Intake Total 620 1080 2260 Output Total 800 Balance 068 489 7728 Intake: Intake, IV Titration 260 100 Amount Meropenem 1 gm In Sodium 100 Chloride 0.9% 100 ml @ 200 mls/hr IVPB Q8HR [facility] Rx#:[id number] Piperacillin-Tazobactam 3 100 .375 gm In Sodium Chloride 0.9% 100 ml @ 25 mls/hr IVPB Q8HR [facility] Rx# :[id number] Sodium Chloride 0.9% 1, 160 000 ml @ 20 mls/hr IV . Q24H [facility] Rx#:[id number] Oral 360 1080 2160 Output: Urine 800 Other: Voiding Method Toilet Toilet Toilet Urinal Urinal Urinal # Voids 1 1 very pleasant 53-year-old male who's had some fever and a bit of sweat at times througout the day HEENT: Anicteric conjunctiva are pink and moist nasal mucosa grossly intact without significant lesions, there is no thrush. Neck: The neck is supple without significant lymphadenopathy or thyromegaly. Lungs: Good bilateral air entry witthout significant crackles or wheezing. There is no significant bronchial sounds. There is no egophony or dullness. Heart: irregular, the aortic murmur is soft no S3 Abdomen: Positive bowel sounds soft he has some tenderness related to the surgical but is without palpable masses or organomegaly. There was no guarding or rebound. Extremities: The upper extremities have excellent pulses they are symmetric, no significant petechiae or telangiectasia. No splinter hemorrhages were noted. The lower extremities are free from significant edema. The peripheral pulses were 2+ and symmetric. Neuro: Awake alert oriented to person place and time. There are no acute new gross focal sensory motor deficits. Results CBC & Chem 7: 02/03/19 07:36 02/03/19 07:36 Labs: Abnormal Lab Results - Last 24 Hours (Table) 02/03/19 02/03/19 Range/Units 07:36 07:36 Hgb 10.8 L (13.0-17.5) gm/dL Hct 36.2 L (39.0-53.0) % MCV 78.4 L (80.0-100.0) fL MCH 23.4 L (25.0-35.0) pg MCHC 29.9 L (31.0-37.0) g/dL RDW 16.3 H (11.5-15.5) % Neutrophils # 8.7 H (1.3-7.7) k/uL Lymphocytes # 0.2 L (1.0-4.8) k/uL Sodium 136 L (137-145) mmol/L BUN 6 L (9-20) mg/dL Alkaline Phosphatase 127 H (38-126) U/L Microbiology - Last 24 Hours (Table) 01/29/19 09:50 Blood Culture - Preliminary Blood No Growth after 120 hours Laboratory Results WBC 9.7 k/uL (3.8-10.6) 02/03/19 07:36 RBC 4.62 m/uL (4.30-5.90) 02/03/19 07:36 Hgb 10.8 gm/dL (13.0-17.5) L 02/03/19 07:36 Hct 36.2 % (39.0-53.0) L 02/03/19 07:36 MCV 78.4 fL (80.0-100.0) L 02/03/19 07:36 MCH 23.4 pg (25.0-35.0) L 02/03/19 07:36 MCHC 29.9 g/dL (31.0-37.0) L 02/03/19 07:36 RDW 16.3 % (11.5-15.5) H 02/03/19 07:36 Plt Count 272 k/uL (150-450) 02/03/19 07:36 Neutrophils % 89 % 02/03/19 07:36 Lymphocytes % 2 % 02/03/19 07:36 Monocytes % 5 % 02/03/19 07:36 Eosinophils % 1 % 02/03/19 07:36 Basophils % 0 % 02/03/19 07:36 Neutrophils # 8.7 k/uL (1.3-7.7) H 02/03/19 07:36 Lymphocytes # 0.2 k/uL (1.0-4.8) L 02/03/19 07:36 Monocytes # 0.5 k/uL (0-1.0) 02/03/19 07:36 Eosinophils # 0.1 k/uL (0-0.7) 02/03/19 07:36 Basophils # 0.0 k/uL (0-0.2) 02/03/19 07:36 Hypochromasia Marked 02/03/19 07:36 Anisocytosis Slight 02/03/19 07:36 Microcytosis Slight 02/03/19 07:36 PT 11.4 sec (9.0-12.0) 02/03/19 07:36 INR 1.1 (<1.2) 02/03/19 07:36 Sodium 136 mmol/L (137-145) L 02/03/19 07:36 Potassium 4.0 mmol/L (3.5-5.1) 02/03/19 07:36 Chloride 101 mmol/L (98-107) 02/03/19 07:36 Carbon Dioxide 24 mmol/L (22-30) 02/03/19 07:36 Anion Gap 11 mmol/L 02/03/19 07:36 BUN 6 mg/dL (9-20) L 02/03/19 07:36 Creatinine 0.81 mg/dL (0.66-1.25) 02/03/19 07:36 Est GFR (CKD-EPI)AfAm >90 (>60 ml/min/1.73 sqM) 02/03/19 07:36 Est GFR (CKD-EPI)NonAf >90 (>60 ml/min/1.73 sqM) 02/03/19 07:36 Glucose 99 mg/dL (74-99) 02/03/19 07:36 Calcium 8.9 mg/dL (8.4-10.2) 02/03/19 07:36 Phosphorus 2.7 mg/dL (2.5-4.5) 02/03/19 07:36 Magnesium 1.7 mg/dL (1.6-2.3) 02/03/19 07:36 Iron 21 ug/dL (65-175) L 01/31/19 04:56 TIBC 379 ug/dL (228-460) 01/31/19 04:56 % Saturation 5.54 (15.00-50.00) L 01/31/19 04:56 Ferritin 16.9 ng/mL (22.0-322.0) L 01/31/19 04:56 Total Bilirubin 1.3 mg/dL (0.2-1.3) 02/03/19 07:36 AST 37 U/L (17-59) 02/03/19 07:36 ALT 32 U/L (21-72) 02/03/19 07:36 Alkaline Phosphatase 127 U/L (38-126) H 02/03/19 07:36 Total Protein 6.5 g/dL (6.3-8.2) 02/03/19 07:36 Albumin 3.8 g/dL (3.5-5.0) 02/03/19 07:36 Amylase 43 U/L (30-110) 01/29/19 06:14 Lipase 98 U/L (23-300) 01/31/19 04:56 Urine Color Yellow 01/29/19 06:47 Urine Appearance Clear (Clear) 01/29/19 06:47 Urine pH 6.0 (5.0-8.0) 01/29/19 06:47 Ur Specific [place] 1.026 (1.001-1.035) 01/29/19 06:47 Urine Protein Trace (Negative) H 01/29/19 06:47 Urine Glucose (UA) Negative (Negative) 01/29/19 06:47 Urine Ketones Negative (Negative) 01/29/19 06:47 Urine Blood Large (Negative) H 01/29/19 06:47 Urine Nitrite Negative (Negative) 01/29/19 06:47 Urine Bilirubin Negative (Negative) 01/29/19 06:47 Urine Urobilinogen 2.0 mg/dL (<2.0) 01/29/19 06:47 Ur Leukocyte Esterase Negative (Negative) 01/29/19 06:47 Urine RBC >182 /hpf (0-5) H 01/29/19 06:47 Urine WBC 1 /hpf (0-5) 01/29/19 06:47 Ur Squamous Epith Cells <1 /hpf (0-4) 01/29/19 06:47 Urine Mucus Rare /hpf (None) H 01/29/19 06:47 Blood Type O Positive 01/31/19 04:56 Blood Type Confirm O Positive 01/30/19 10:30 Blood Type Recheck No Previous Record 01/31/19 04:56 Bld Type Recheck Status CABO Indicated 01/31/19 04:56 Antibody Screen NEGATIVE 01/31/19 04:56 Spec Expiration Date 02/03/2019235501/31/19 04:56 Microbiology 01/29/19 09:50 Blood Blood Culture - Preliminary No Growth after [address] scan - abdomen: report reviewed (admission acute cholecystitis nonobstructing right renal stone) Assessment and Plan (1) Acute cholecystitis Current Visit: Yes Status: Acute Code(s): K81.0 - ACUTE CHOLECYSTITIS SNOMED Code(s): 25817195 (2) Nausea & vomiting Current Visit: Yes Status: Acute Code(s): R11.2 - NAUSEA WITH VOMITING, UNSPECIFIED SNOMED Code(s): 80559416 (3) H/O mechanical aortic valve replacement Current Visit: No Status: Acute Code(s): Z95.2 - PRESENCE OF PROSTHETIC HEART VALVE SNOMED Code(s): 225800608426853 (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 His had aortic valve replacement and aorta replacement presents to hospital with significant abdominal pain but evidence of significant acute cholecystitis and has been taking the operating room for removal of the hydrops gallbladder. He is now having some fever postoperatively and is having some sweats also. He generally is feeling somewhat better but still does not feel extremely well. His alkaline phosphatase is minimally increased his AST and ALT have improved. He had a temperature 101.6 currently and 98 8. The patient does relate that he still feels somewhat poorly and consequently will transition antibiotic therapy from piperacillin tazobactam to meropenem. Concern that she could be having toxicity from the antibiotic therapy, the Merrem will help if it is toxicity and also has enhanced biliary tract absorption. The patient has been seen by urology and not thought to have any urological acute need. The patient is not having urological symptoms at this time. We'll monitor his progress with antibiotic change. Current Visit: Yes Status: Acute Code(s): R50.9 - FEVER, UNSPECIFIED SNOMED Code(s): 450264236
[2019-02-04] MEDS: MEROPENEM 1 GM in SODIUM CHLORIDE 0.9% 100 ML IVPB SCH ×3 (00:03→17:05)
[2019-02-04] MEDS: METOCLOPRAMIDE 5 MG/ML 2 ML VIAL IVP PRN ×2 (02:46→09:01)
[2019-02-04] MEDS: HYDROcodone/APAP 5-325MG 1 EACH TAB PO PRN ×5 (02:46→21:04)
[2019-02-04] MEDS: ALBUTEROL NEBULIZED 2.5 MG/3 ML INHALATION PRN (03:07)
[2019-02-04] MEDS: PANTOPRAZOLE 40 MG/10 ML VIAL IV SCH (08:03)
[2019-02-04] MEDS: ENOXAPARIN 100 MG/ML SYRINGE SQ SCH ×2 (08:03→21:07)
[2019-02-04] MEDS: DOFETILIDE 250 MCG CAP PO SCH ×2 (08:03→21:04)
[2019-02-04] MEDS: EPLERENONE 100 MG PO SCH (08:04)
[2019-02-04] MEDS: FUROSEMIDE 20 MG TAB PO SCH (08:04)
[2019-02-04] MEDS: LISINOPRIL 20 MG TAB PO SCH (08:04)
[2019-02-04 08:22] LABS: Anisocytosis Slight; HCT 34.4 % (39.0-53.0); HGB 10.5 gm/dL (13.0-17.5); Hypochromasia Marked; MCH 23.9 pg (25.0-35.0); MCHC 30.6 g/dL (31.0-37.0); MCV 78.2 fL (80.0-100.0); Mean Platelet Volume 6.6; Microcytosis Slight; Platelet Count 280 k/uL (150-450); RDW 17.4 % (11.5-15.5); WBC 7.4 k/uL (3.8-10.6)
[2019-02-04 08:38] LABS: INR 1.3 (<1.2)
[2019-02-04] MEDS ORDERED: WARFARIN 7.5 MG TAB PO ONE ×2 (12:18→18:00)
--- NOTE | 2019-02-04 12:40 | P.PN ---
Subjective This is a pleasant 53-year-old male past medical history significant for coronary artery disease status post four-vessel bypass grafting, valvular heart disease status post aortic valve replacement in 1995 initially with a tissue valve requiring a redo mechanical valve in 2010, mitral valve ring annuloplasty, ischemic cardiomyopathy status post AICD, paroxysmal atrial fibrillation on long-term anti, chronic systolic heart failure, hypertension and dyslipidemia. He follows closely with a pallet repairer at the [facility]. He underwent laparoscopic cholecystectomy. He is currently on lovenox bridging for therapeutic INR of 2.5-3.5. He is seen and examined up walking around his room in no acute distress. He denies chest pain, shortness of breath, dizziness or palpitations. He continues to feel some discomfort in his abdomen but overall is slowly improving. He also states his cough has improved. Blood pressure 103/64 heart rate 83 afebrile and maintaining oxygen saturation on room air. Laboratory data reviewed, WBC 7.4, hgb 10.5, plt 280, INR 1.3. GENERAL: This is a 53-year-old male in no apparent distress at the time of my examination. HEENT: Head is atraumatic, normocephalic. Pupils are equal, round. Sclerae anicteric. Conjunctivae are clear. Mucous membranes of the mouth are moist. Neck is supple. There is no jugular venous distention. No carotid bruit is heard. LUNGS: Clear to auscultation no wheezes, rales or rhonchi. No chest wall tenderness is noted on palpation or with deep breathing. HEART: Regular rate and rhythm with mechanical click at the base with faint systolic ejection murmur at the left sternal border, no rubs or gallops. S1 and S2 heard. EXTREMITIES: No evidence of peripheral edema and no calf tenderness noted. ASSESSMENT Abdominal pain with gallbladder wall thickening and dilitation Laparoscopic cholecystectomy, POD #2 Supratherapeutic INR on admission Valvular heart disease s/p mechanical aortc valve replacement maintained on coumadin Mitral valve ring annuloplasty Coronary artery disease s/p 4V bypass grafting, exact details unavailable Ischemic cardiomyopathy, improved LV on recent echo. Previously in October EF was 35% Hypertension Dyslipidemia Chronic systolic heart failure, currently euvolemic s/p AICD placement Paroxysmal atrial fibrillation currently maintaining sinus mechanism PLAN Coumadin 7.5 mg to be given now. Continue lovenox 90 mg BID. He could be discharged home on SQ lovenox as he has done this before in the past. However, he would like to stay and have this complete in the hospital. Repeat PT/INR in the morning and coumadin will be dose accordingly. Nurse Practitioner note has been reviewed, I agree with a documented findings and plan of care. Patient was seen and examined. Objective - Vital Signs Vital signs: Vital Signs Temp 98.0 F 02/04/19 05:00 Pulse 83 02/04/19 05:00 Resp 16 02/04/19 05:00 BP 103/64 02/04/19 05:00 Pulse Ox 95 02/04/19 05:00 Intake & Output 02/03/19 02/04/19 02/04/19 18:59 06:59 18:59 Intake Total 1080 2850 Output Total 800 Balance 280 2850 Intake: Intake, IV Titration 100 Amount Meropenem 1 gm In Sodium 100 Chloride 0.9% 100 ml @ 200 mls/hr IVPB Q8HR [facility] Rx#:[id number] Oral 1080 2750 Output: Urine 800 Other: Voiding Method Toilet Toilet Urinal Urinal # Voids 3 - Labs CBC & Chem 7: 02/04/19 07:27 02/03/19 07:36 Labs: Abnormal Lab Results - Last 24 Hours (Table) 02/04/19 02/04/19 Range/Units 07:27 07:27 Hgb 10.5 L (13.0-17.5) gm/dL Hct 34.4 L (39.0-53.0) % MCV 78.2 L (80.0-100.0) fL MCH 23.9 L (25.0-35.0) pg MCHC 30.6 L (31.0-37.0) g/dL RDW 17.4 H (11.5-15.5) % PT 13.0 H (9.0-12.0) sec INR 1.3 H (<1.2) Microbiology - Last 24 Hours (Table) 01/29/19 09:50 Blood Culture - Final Blood No Growth after 144 hours
--- NOTE | 2019-02-04 13:07 | P.PN ---
<Tereza Escalante Vicky - Last Filed: 02/04/19 13:01> Subjective Progress Note Date: 02/04/19 CHIEF COMPLAINT: Cholecystitis HISTORY OF PRESENT ILLNESS: Patient is status post robotic cholecystectomy with Dr. Irene. Postoperative day #2. Pain is tolerable this morning upon examin ation. He is tolerating diet without nausea or vomiting. Has been ambulating in the hallways. Vital signs stable. He is afebrile today. INR 1.3. Hemoglobin 10.5. PHYSICAL EXAM: VITAL SIGNS: Currently stable. GENERAL: Well-developed in no acute distress. HEENT: No sclera icterus. Extraocular movements grossly intact. Moist buccal mucosa. Head is atraumatic, normocephalic. Hears conversational speech. No nasal drainage. NECK: Supple without lymphadenopathy. CHEST: Non-labored respirations and equal bilateral excursions. CARDIOVASCULAR: Regular rate with regular rhythm. Palpable 2+ radial pulses. ABDOMEN: Soft. Nondistended. Appropriate surgical tenderness. Surgical sites clean dry and intact without drainage. MUSCULOSKELETAL: No clubbing, cyanosis or edema. NEUROLOGIC: No focal or lateralizing signs. Cranial nerves II through XII grossly intact. PSYCH: Appropriate affect. Alert and oriented to person, place and time. SKIN: Well perfused. Good skin turgor. ASSESSMENT: 1. Hydrops acute cholecystitis, status post robotic cholecystectomy PLAN: 1. Continue diet as tolerated 2. Pain control 3. Increase activity as tolerated 4. Incentive spirometer 10 times an hour while awake 5. Continue Lovenox and Coumadin per cardiology. 6. Milk of Magnesia daily 7. Stable for discharge from a surgical standpoint. Will defer to medicine. Nurse practitioner note has been reviewed by physician. Signing provider agrees with the documented findings, assessment, and plan of care. Objective - Vital Signs Vital signs: Vital Signs Temp 97.5 F L 02/04/19 12:49 Pulse 76 02/04/19 12:49 Resp 17 02/04/19 12:49 BP 115/73 02/04/19 12:49 Pulse Ox 97 02/04/19 12:49 Intake & Output 02/03/19 02/04/19 02/04/19 18:59 06:59 18:59 Intake Total 1080 2850 Output Total 800 Balance 280 2850 Intake: Intake, IV Titration 100 Amount Meropenem 1 gm In Sodium 100 Chloride 0.9% 100 ml @ 200 mls/hr IVPB Q8HR [facility] Rx#:[id number] Oral 1080 2750 Output: Urine 800 Other: Voiding Method Toilet Toilet Urinal Urinal # Voids 3 - Labs CBC & Chem 7: 02/04/19 07:27 02/03/19 07:36 Labs: Abnormal Lab Results - Last 24 Hours (Table) 02/04/19 02/04/19 Range/Units 07:27 07:27 Hgb 10.5 L (13.0-17.5) gm/dL Hct 34.4 L (39.0-53.0) % MCV 78.2 L (80.0-100.0) fL MCH 23.9 L (25.0-35.0) pg MCHC 30.6 L (31.0-37.0) g/dL RDW 17.4 H (11.5-15.5) % PT 13.0 H (9.0-12.0) sec INR 1.3 H (<1.2) Microbiology - Last 24 Hours (Table) 01/29/19 09:50 Blood Culture - Final Blood No Growth after 144 hours <Sharmila Irene N - Last Filed: 02/04/19 15:57> Subjective Patient clinically stable without any signs of bleeding. Patient stable from a surgical standpoint once medically and cardiology cleared. Objective - Vital Signs Vital signs: Vital Signs Temp 97.5 F L 02/04/19 12:49 Pulse 76 02/04/19 12:49 Resp 17 02/04/19 12:49 BP 115/73 02/04/19 12:49 Pulse Ox 97 02/04/19 12:49 Intake & Output 02/03/19 02/04/19 02/04/19 18:59 06:59 18:59 Intake Total 1080 2850 100 Output Total 800 Balance 280 2850 100 Intake: Intake, IV Titration 100 100 Amount Meropenem 1 gm In Sodium 100 100 Chloride 0.9% 100 ml @ 200 mls/hr IVPB Q8HR [facility] Rx#:[id number] Oral 1080 2750 Output: Urine 800 Other: Voiding Method Toilet Toilet Urinal Urinal # Voids 3 # Bowel Movements 0 - Labs CBC & Chem 7: 02/04/19 07:27 02/03/19 07:36 Labs: Abnormal Lab Results - Last 24 Hours (Table) 02/04/19 02/04/19 Range/Units 07:27 07:27 Hgb 10.5 L (13.0-17.5) gm/dL Hct 34.4 L (39.0-53.0) % MCV 78.2 L (80.0-100.0) fL MCH 23.9 L (25.0-35.0) pg MCHC 30.6 L (31.0-37.0) g/dL RDW 17.4 H (11.5-15.5) % PT 13.0 H (9.0-12.0) sec INR 1.3 H (<1.2) Microbiology - Last 24 Hours (Table) 01/29/19 09:50 Blood Culture - Final Blood No Growth after 144 hours Assessment and Plan (1) Acute hydrops of gallbladder Current Visit: Yes Status: Acute Code(s): K82.1 - HYDROPS OF GALLBLADDER SNOMED Code(s): 50508081 (2) Acute cholecystitis Current Visit: Yes Status: Acute Code(s): K81.0 - ACUTE CHOLECYSTITIS SNOMED Code(s): 43355830 (3) CHF (congestive heart failure) Current Visit: No Status: Acute Code(s): I50.9 - HEART FAILURE, UNSPECIFIED SNOMED Code(s): 17238408 (4) Chronic systolic CHF (congestive heart failure) Current Visit: No Status: Acute Code(s): I50.22 - CHRONIC SYSTOLIC (CONGESTIVE) HEART FAILURE SNOMED Code(s): 709699398 (5) Coagulopathy Current Visit: No Status: Acute Code(s): D68.9 - COAGULATION DEFECT, UNSPECIFIED SNOMED Code(s): 37814499 (6) Diabetes Current Visit: No Status: Acute Code(s): E11.9 - TYPE 2 DIABETES MELLITUS WITHOUT COMPLICATIONS SNOMED Code(s): 36225224 (7) H/O mechanical aortic valve replacement Current Visit: No Status: Acute Code(s): Z95.2 - PRESENCE OF PROSTHETIC HEART VALVE SNOMED Code(s): 576468665459879 (8) History of myocardial infarction Current Visit: No Status: Acute Code(s): I25.2 - OLD MYOCARDIAL INFARCTION SNOMED Code(s): 107344943 (9) Ischemic cardiomyopathy Current Visit: No Status: Acute Code(s): I25.5 - ISCHEMIC CARDIOMYOPATHY SNOMED Code(s): 235622088 (10) [facility] current use of anticoagulant Current Visit: No Status: Acute Code(s): Z79.01 - [facility] (CURRENT) USE OF ANTICOAGULANTS SNOMED Code(s): 830184884 (11) Peripheral artery disease Current Visit: No Status: Acute Code(s): I73.9 - PERIPHERAL VASCULAR DISEASE, UNSPECIFIED SNOMED Code(s): 782320254 (12) Iron deficiency anemia Current Visit: Yes Status: Acute Code(s): D50.9 - IRON DEFICIENCY ANEMIA, UNSPECIFIED SNOMED Code(s): 41469126 (13) Anemia Current Visit: Yes Status: Acute Code(s): D64.9 - ANEMIA, UNSPECIFIED SNOMED Code(s): 142841336
[2019-02-04] MEDS: MAGNESIUM HYDROXIDE 2,400 MG/10 ML CUP PO SCH (13:34)
--- NOTE | 2019-02-04 20:49 | PN ---
PROGRESS NOTE CHIEF COMPLAINT: Status post cholecystectomy. HISTORY OF PRESENT ILLNESS: This gentleman is still having some discomfort and slight nausea and malaise. Temperature was down last night. PHYSICAL EXAMINATION: Color is good. Chest is clear. Cardiac exam is unchanged and the bowel sounds are crisp. Dressings are dry. IMPRESSION: 1. Status post cholecystectomy. 2. Coronary artery disease. PLAN: Progress activity and diet. He can probably go home once his INR is therapeutic. MMODL / IJN: [id number] /
[2019-02-04] MEDS: METOPROLOL SUCCINATE (ER) 50 MG TAB.ER.24H PO SCH (21:04)
--- NOTE | 2019-02-04 21:50 | P.PN ---
Subjective Progress Note Date: 02/04/19 53-year-old male who presents to Hospital with significant abdominal pain mostly right sided associated with nausea and some emesis generalized malaise and some fever. The patient has an extensive cardiac history. He relates that he was cared for at the [facility] for some time he was on the cardiac transplant list. He had his first myocardial infarction at the age of 29 is had multiple other infarct since. His cardiac status declined and he had worsening aortic valve disease as well as severe calcification of his aorta and eventually at the [facility] underwent aortic valve replacement as well as ascending aorta repair. At that time he also underwent four-vessel c oronary artery bypass grafting. He has had AICD placed in his required cardiac ablation procedures on 2 events so far. As of late his cardiac status has improved with all of these interventions. Patient now presents to Hospital feeling poorly with increasing abdominal pain nausea emesis and some fever. Workup was performed and there was evidence of acute cholecystitis and consequently he's been taken in the operating room and a laparoscopic cholecystectomy was performed, hydrops gallbladder was noted. Postoperatively the patient is having some fever and a consult was requested. The patient relates he is feeling slightly better today. Still having bouts of some fever and sweats better today than yesterday. He is not having chest pain, no shortness of breath no cough or sputum production. He is not having any urinary symptoms such as burning discomfort or flank pain. He does have a known history of nephrolithiasis. 02/04/2019 patient continues to feel somewhat poorly with bouts of chills that are continuing to occur. His abdominal pain has waxed and waned and maybe slightly better today. He's had a few bouts of sweats also. He over does relate that since antibiotic change he does seem to feel slightly better. He is having no chest pain. Objective - Vital Signs Vital signs: Vital Signs Temp 97.9 F 02/04/19 20:33 Pulse 85 02/04/19 20:33 Resp 16 02/04/19 20:33 BP 104/68 02/04/19 20:33 Pulse Ox 95 02/04/19 20:33 Intake & Output 02/04/19 02/04/19 02/05/19 06:59 18:59 06:59 Intake Total 2850 100 Balance 2850 100 Intake: Intake, IV Titration 100 100 Amount Meropenem 1 gm In Sodium 100 100 Chloride 0.9% 100 ml @ 200 mls/hr IVPB Q8HR [facility] Rx#:[id number] Oral 2750 Other: Voiding Method Toilet Urinal # Voids 3 # Bowel Movements 0 - Exam very pleasant 53-year-old male who's had some fever and a bit of sweat at times througout the day HEENT: Anicteric conjunctiva are pink and moist nasal mucosa grossly intact without significant lesions, there is no thrush. Neck: The neck is supple without significant lymphadenopathy or thyromegaly. Lungs: Good bilateral air entry witthout significant crackles or wheezing. There is no significant bronchial sounds. There is no egophony or dullness. Heart: irregular, the aortic murmur is soft no S3 Abdomen: Positive bowel sounds soft he has some tenderness related to the surgical but is without palpable masses or organomegaly. There was no guarding or rebound. Extremities: The upper extremities have excellent pulses they are symmetric, no significant petechiae or telangiectasia. No splinter hemorrhages were noted. The lower extremities are free from significant edema. The peripheral pulses were 2+ and symmetric. Neuro: Awake alert oriented to person place and time. There are no acute new gross focal sensory motor deficits. - Labs CBC & Chem 7: 02/04/19 07:27 02/03/19 07:36 Labs: Abnormal Lab Results - Last 24 Hours (Table) 02/04/19 02/04/19 Range/Units 07:27 07:27 Hgb 10.5 L (13.0-17.5) gm/dL Hct 34.4 L (39.0-53.0) % MCV 78.2 L (80.0-100.0) fL MCH 23.9 L (25.0-35.0) pg MCHC 30.6 L (31.0-37.0) g/dL RDW 17.4 H (11.5-15.5) % PT 13.0 H (9.0-12.0) sec INR 1.3 H (<1.2) Microbiology - Last 24 Hours (Table) 01/29/19 09:50 Blood Culture - Final Blood No Growth after 144 hours Laboratory Results WBC 7.4 k/uL (3.8-10.6) 02/04/19 07:27 RBC 4.40 m/uL (4.30-5.90) 02/04/19 07:27 Hgb 10.5 gm/dL (13.0-17.5) L 02/04/19 07:27 Hct 34.4 % (39.0-53.0) L 02/04/19 07:27 MCV 78.2 fL (80.0-100.0) L 02/04/19 07:27 MCH 23.9 pg (25.0-35.0) L 02/04/19 07:27 MCHC 30.6 g/dL (31.0-37.0) L 02/04/19 07:27 RDW 17.4 % (11.5-15.5) H 02/04/19 07:27 Plt Count 280 k/uL (150-450) 02/04/19 07:27 Neutrophils % 89 % 02/03/19 07:36 Lymphocytes % 2 % 02/03/19 07:36 Monocytes % 5 % 02/03/19 07:36 Eosinophils % 1 % 02/03/19 07:36 Basophils % 0 % 02/03/19 07:36 Neutrophils # 8.7 k/uL (1.3-7.7) H 02/03/19 07:36 Lymphocytes # 0.2 k/uL (1.0-4.8) L 02/03/19 07:36 Monocytes # 0.5 k/uL (0-1.0) 02/03/19 07:36 Eosinophils # 0.1 k/uL (0-0.7) 02/03/19 07:36 Basophils # 0.0 k/uL (0-0.2) 02/03/19 07:36 Hypochromasia Marked 02/04/19 07:27 Anisocytosis Slight 02/04/19 07:27 Microcytosis Slight 02/04/19 07:27 PT 13.0 sec (9.0-12.0) H 02/04/19 07:27 INR 1.3 (<1.2) H 02/04/19 07:27 Sodium 136 mmol/L (137-145) L 02/03/19 07:36 Potassium 4.0 mmol/L (3.5-5.1) 02/03/19 07:36 Chloride 101 mmol/L (98-107) 02/03/19 07:36 Carbon Dioxide 24 mmol/L (22-30) 02/03/19 07:36 Anion Gap 11 mmol/L 02/03/19 07:36 BUN 6 mg/dL (9-20) L 02/03/19 07:36 Creatinine 0.81 mg/dL (0.66-1.25) 02/03/19 07:36 Est GFR (CKD-EPI)AfAm >90 (>60 ml/min/1.73 sqM) 02/03/19 07:36 Est GFR (CKD-EPI)NonAf >90 (>60 ml/min/1.73 sqM) 02/03/19 07:36 Glucose 99 mg/dL (74-99) 02/03/19 07:36 Calcium 8.9 mg/dL (8.4-10.2) 02/03/19 07:36 Phosphorus 2.7 mg/dL (2.5-4.5) 02/03/19 07:36 Magnesium 1.7 mg/dL (1.6-2.3) 02/03/19 07:36 Iron 21 ug/dL (65-175) L 01/31/19 04:56 TIBC 379 ug/dL (228-460) 01/31/19 04:56 % Saturation 5.54 (15.00-50.00) L 01/31/19 04:56 Ferritin 16.9 ng/mL (22.0-322.0) L 01/31/19 04:56 Total Bilirubin 1.3 mg/dL (0.2-1.3) 02/03/19 07:36 AST 37 U/L (17-59) 02/03/19 07:36 ALT 32 U/L (21-72) 02/03/19 07:36 Alkaline Phosphatase 127 U/L (38-126) H 02/03/19 07:36 Total Protein 6.5 g/dL (6.3-8.2) 02/03/19 07:36 Albumin 3.8 g/dL (3.5-5.0) 02/03/19 07:36 Amylase 43 U/L (30-110) 01/29/19 06:14 Lipase 98 U/L (23-300) 01/31/19 04:56 Urine Color Yellow 01/29/19 06:47 Urine Appearance Clear (Clear) 01/29/19 06:47 Urine pH 6.0 (5.0-8.0) 01/29/19 06:47 Ur Specific [place] 1.026 (1.001-1.035) 01/29/19 06:47 Urine Protein Trace (Negative) H 01/29/19 06:47 Urine Glucose (UA) Negative (Negative) 01/29/19 06:47 Urine Ketones Negative (Negative) 01/29/19 06:47 Urine Blood Large (Negative) H 01/29/19 06:47 Urine Nitrite Negative (Negative) 01/29/19 06:47 Urine Bilirubin Negative (Negative) 01/29/19 06:47 Urine Urobilinogen 2.0 mg/dL (<2.0) 01/29/19 06:47 Ur Leukocyte Esterase Negative (Negative) 01/29/19 06:47 Urine RBC >182 /hpf (0-5) H 01/29/19 06:47 Urine WBC 1 /hpf (0-5) 01/29/19 06:47 Ur Squamous Epith Cells <1 /hpf (0-4) 01/29/19 06:47 Urine Mucus Rare /hpf (None) H 01/29/19 06:47 Blood Type O Positive 01/31/19 04:56 Blood Type Confirm O Positive 01/30/19 10:30 Blood Type Recheck No Previous Record 01/31/19 04:56 Bld Type Recheck Status CABO Indicated 01/31/19 04:56 Antibody Screen NEGATIVE 01/31/19 04:56 Spec Expiration Date 02/03/2019 99201/31/19 04:56 Microbiology 01/29/19 09:50 Blood Blood Culture - Final No Growth after 144 hours Assessment and Plan (1) Acute cholecystitis Current Visit: Yes Status: Acute Code(s): K81.0 - ACUTE CHOLECYSTITIS SNOMED Code(s): 13866172 (2) Nausea & vomiting Current Visit: Yes Status: Acute Code(s): R11.2 - NAUSEA WITH VOMITING, UNSPECIFIED SNOMED Code(s): 67785857 (3) H/O mechanical aortic valve replacement Current Visit: No Status: Acute Code(s): Z95.2 - PRESENCE OF PROSTHETIC HEART VALVE SNOMED Code(s): 678258053403359 (4) jail current use of anticoagulant Current Visit: No Status: Acute Code(s): Z79.01 - [employer] (CURRENT) USE OF ANTICOAGULANTS SNOMED Code(s): 086858957 (5) Fever Narrative/Plan: 53 -year-old male who has a history of significant cardiovascular disease. His had aortic valve replacement and aorta replacement presents to hospital with significant abdominal pain but evidence of significant acute cholecystitis and has been taking the operating room for removal of the hydrops gallbladder. He is now having some fever postoperatively and is having some sweats also. He generally is feeling somewhat better but still does not feel extremely well. His alkaline phosphatase is minimally increased his AST and ALT have improved. He had a temperature 101.6 currently and 98 8. The patient does relate that he still feels somewhat poorly and consequently will transition antibiotic therapy from piperacillin tazobactam to meropenem. Concern that she could be having toxicity from the antibiotic therapy, the Merrem will help if it is toxicity and also has enhanced biliary tract absorption. The patient has been seen by urology and not thought to have any urological acute need. The patient is not having urological symptoms at this time. We'll monitor his progress with antibiotic change. 02/04/2019 patient continues to feel somewhat poorly with some bouts of chills and sweats but the fever has improved today. He does relate that he feels better than yesterday since antibiotic change. He is still having some abdominal discomforts. Appetite is poor but no emesis did receive a dose of Reglan today which did seem to help. There are no positive cultures at this time. If the patient continues to have symptoms of chills and sweats despite antibiotic change would consider further imaging of the abdomen to further evaluate the gallbladder bed post cholecystectomy. Blood work is quite benign. Urinalysis is negative. Current Visit: Yes Status: Acute Code(s): R50.9 - FEVER, UNSPECIFIED SNOMED Code(s): 931343597
[2019-02-05] MEDS: SODIUM CHLORIDE 0.9% 1,000 ML IV SCH (00:17)
[2019-02-05] MEDS: MEROPENEM 1 GM in SODIUM CHLORIDE 0.9% 100 ML IVPB SCH ×4 (00:18→23:54)
[2019-02-05] MEDS: HYDROcodone/APAP 5-325MG 1 EACH TAB PO PRN ×4 (02:21→23:55)
[2019-02-05] MEDS: METOCLOPRAMIDE 5 MG/ML 2 ML VIAL IVP PRN ×2 (07:42→22:15)
[2019-02-05] MEDS: MAGNESIUM HYDROXIDE 2,400 MG/10 ML CUP PO SCH (07:42)
[2019-02-05] MEDS: FUROSEMIDE 20 MG TAB PO SCH (07:43)
[2019-02-05] MEDS: LISINOPRIL 20 MG TAB PO SCH (07:43)
[2019-02-05] MEDS: PANTOPRAZOLE 40 MG/10 ML VIAL IV SCH (07:43)
[2019-02-05] MEDS: EPLERENONE 100 MG PO SCH (07:43)
[2019-02-05] MEDS: ENOXAPARIN 100 MG/ML SYRINGE SQ SCH ×2 (07:44→20:55)
[2019-02-05] MEDS: DOFETILIDE 250 MCG CAP PO SCH ×2 (07:44→20:56)
[2019-02-05 08:03] LABS: INR 1.4 (<1.2); Prothrombin Time 14.3 sec (9.0-12.0)
[2019-02-05] MEDS: WARFARIN 7.5 MG TAB PO ONE ×2 (08:30→08:44)
[2019-02-05] MEDS ORDERED: WARFARIN 10 MG TAB PO ONE (08:45)
[2019-02-05 11:29] VITALS: BMI 26.9
[2019-02-05] MEDS ORDERED: BISACODYL 10 MG SUPP RECTAL PRN (12:11)
--- NOTE | 2019-02-05 12:12 | P.PN ---
Subjective Progress Note Date: 02/05/19 CHIEF COMPLAINT: Cholecystitis HISTORY OF PRESENT ILLNESS: Patient is status post robotic cholecystectomy with Dr. Irene. Postoperative day #3. Patient continues to complain of abdominal pain, worse on the left. He is requiring [place] every 4 hours. Reports nausea but is tolerating all of his meals with emesis. Passing flatus. Denies BM. He does not feel constipated. He has been ambulating in the hallway multiple times today. INR 1.4. He is afebrile. PHYSICAL EXAM: VITAL SIGNS: Currently stable. GENERAL: Well-developed in no acute distress. HEENT: No sclera icterus. Extraocular movements grossly intact. Moist buccal mucosa. Head is atraumatic, normocephalic. Hears conversational speech. No nasal drainage. NECK: Supple without lymphadenopathy. CHEST: Non-labored respirations and equal bilateral excursions. CARDIOVASCULAR: Regular rate with regular rhythm. Palpable 2+ radial pulses. ABDOMEN: Soft. Nondistended. Appropriate surgical tenderness. Surgical sites clean dry and intact without drainage. MUSCULOSKELETAL: No clubbing, cyanosis or edema. NEUROLOGIC: No focal or lateralizing signs. Cranial nerves II through XII grossly intact. PSYCH: Appropriate affect. Alert and oriented to person, place and time. SKIN: Well perfused. Good skin turgor. ASSESSMENT: 1. Hydrops acute cholecystitis, status post robotic cholecystectomy PLAN: 1. Continue diet as tolerated 2. Pain control 3. Increase activity as tolerated 4. Incentive spirometer 10 times an hour while awake 5. Continue Lovenox and Coumadin per cardiology. 6. Milk of Magnesia daily. Add colace BID. Dulcolax suppository daily when necessary 7. Stable for discharge from a surgical standpoint. Will defer to medicine. Nurse practitioner note has been reviewed by physician. Signing provider agrees with the documented findings, assessment, and plan of care. Objective - Vital Signs Vital signs: Vital Signs Temp 97.5 F L 02/05/19 04:33 Pulse 70 02/05/19 04:33 Resp 17 02/05/19 04:33 BP 136/82 02/05/19 04:33 Pulse Ox 94 L 02/05/19 04:33 Intake & Output 02/04/19 02/05/19 02/05/19 18:59 06:59 18:59 Intake Total 100 1800 Balance 100 1800 Weight 95.254 kg Intake: Intake, IV Titration 100 100 Amount Meropenem 1 gm In Sodium 100 100 Chloride 0.9% 100 ml @ 200 mls/hr IVPB Q8HR [facility] Rx#:[id number] Oral 1700 Other: Voiding Method Toilet Urinal # Voids 4 # Bowel Movements 0 - Labs CBC & Chem 7: 02/04/19 07:27 02/03/19 07:36 Labs: Abnormal Lab Results - Last 24 Hours (Table) 02/05/19 Range/Units 07:30 PT 14.3 H (9.0-12.0) sec INR 1.4 H (<1.2) Microbiology - Last 24 Hours (Table) 01/29/19 09:50 Blood Culture - Final Blood No Growth after 144 hours
--- NOTE | 2019-02-05 12:38 | P.PN ---
Subjective This is a pleasant 53-year-old male past medical history significant for coronary artery disease status post four-vessel bypass grafting, valvular heart disease status post aortic valve replacement in 1995 initially with a tissue valve requiring a redo mechanical valve in 2010, mitral valve ring annuloplasty, ischemic cardiomyopathy status post AICD, paroxysmal atrial fibrillation on nursing home anti, chronic systolic heart failure, hypertension and dyslipidemia. He is currently being bridged with lovenox for therapeutic INR of 2.5-3.5. INR today is 1.4. Blood pressure 136/82 heart rate 70 afebrile maintaining oxygen saturation on room air. He is seen and examined sitting up in the chair. He continues to feel mild abdominal discomfort. He has been seen by infectious disease and they are planning for possible imaging of his abdomen for ongoing pain, chills and sweats. No documented fevers, however he is receiving norco ATC GENERAL: This is a 53-year-old male in no apparent distress at the time of my examination. HEENT: Head is atraumatic, normocephalic. Pupils are equal, round. Sclerae anicteric. Conjunctivae are clear. Mucous membranes of the mouth are moist. Neck is supple. There is no jugular venous distention. No carotid bruit is heard. LUNGS: Clear to auscultation no wheezes, rales or rhonchi. No chest wall tenderness is noted on palpation or with deep breathing. HEART: Regular rate and rhythm with mechanical click at the base with faint systolic ejection murmur at the left sternal border, no rubs or gallops. S1 and S2 heard. EXTREMITIES: No evidence of peripheral edema and no calf tenderness noted. ASSESSMENT Abdominal pain with gallbladder wall thickening and dilitation Laparoscopic cholecystectomy, POD #3 Post-operative fever Supratherapeutic INR on admission Valvular heart disease s/p mechanical aortc valve replacement maintained on coumadin Mitral valve ring annuloplasty Coronary artery disease s/p 4V bypass grafting, exact details unavailable Ischemic cardiomyopathy, improved LV on recent echo. Previously in October EF was 35% Hypertension Dyslipidemia Chronic systolic heart failure, currently euvolemic s/p AICD placement Paroxysmal atrial fibrillation currently maintaining sinus mechanism PLAN Coumadin 10 mg to be given now. Continue lovenox 90 mg BID. He could be discharged home on SQ lovenox as he has done this before in the past. However, he would like to stay and have this complete in the hospital. Repeat PT/INR in the morning and coumadin will be dose accordingly. Nurse Practitioner note has been reviewed, I agree with a documented findings and plan of care. Patient was seen and examined. Objective - Vital Signs Vital signs: Vital Signs Temp 97.5 F L 02/05/19 04:33 Pulse 70 02/05/19 04:33 Resp 17 02/05/19 04:33 BP 136/82 02/05/19 04:33 Pulse Ox 94 L 02/05/19 04:33 Intake & Output 02/04/19 02/05/19 02/05/19 18:59 06:59 18:59 Intake Total 100 1800 Balance 100 1800 Weight 95.254 kg Intake: Intake, IV Titration 100 100 Amount Meropenem 1 gm In Sodium 100 100 Chloride 0.9% 100 ml @ 200 mls/hr IVPB Q8HR [facility] Rx#:[id number] Oral 1700 Other: Voiding Method Toilet Urinal # Voids 4 # Bowel Movements 0 - Labs CBC & Chem 7: 02/04/19 07:27 02/03/19 07:36 Labs: Abnormal Lab Results - Last 24 Hours (Table) 02/05/19 Range/Units 07:30 PT 14.3 H (9.0-12.0) sec INR 1.4 H (<1.2) Microbiology - Last 24 Hours (Table) 01/29/19 09:50 Blood Culture - Final Blood No Growth after 144 hours
--- NOTE | 2019-02-05 19:32 | PN ---
PROGRESS NOTE CHIEF COMPLAINT: Status post cholecystectomy. HISTORY OF PRESENT ILLNESS: This gentleman is still feeling somewhat out of sorts. Temperature has been down. His his INR is still not therapeutic. PHYSICAL EXAMINATION: Chest is clear. HEART: Sounds are the same. Bowel sounds are heard in the abdomen. Extremities are normal. IMPRESSION: 1. Status post cholecystectomy. 2. Coronary artery disease. PLAN: Continue raising Coumadin to bring him in the therapeutic range before he can go home. He is still being followed by Infectious Disease as well. MMODL / IJN: [id number] /
[2019-02-05] MEDS: DOCUSATE 100 MG CAP PO SCH (20:55)
[2019-02-05] MEDS: METOPROLOL SUCCINATE (ER) 50 MG TAB.ER.24H PO SCH (20:56)
[2019-02-06] MEDS: ALBUTEROL NEBULIZED 2.5 MG/3 ML INHALATION PRN (00:37)
[2019-02-06] MEDS: SODIUM CHLORIDE 0.9% 1,000 ML IV SCH (01:51)
[2019-02-06 07:26] LABS: Anisocytosis Slight; Basophils % (A) 1 %; Eosinophils # (A) 0.5 k/uL (0-0.7); Eosinophils % (A) 10 %; HCT 37.2 % (39.0-53.0); HGB 11.1 gm/dL (13.0-17.5); Hypochromasia Marked; Lymphocytes # (A) 0.7 k/uL (1.0-4.8); Lymphocytes % (A) 15 %; MCH 23.9 pg (25.0-35.0); MCHC 29.9 g/dL (31.0-37.0); Mean Platelet Volume 6.1; Monocytes # (A) 0.4 k/uL (0-1.0); Monocytes % (A) 8 %; Neutrophils % (A) 64 %; Platelet Count 361 k/uL (150-450); RBC 4.65 m/uL (4.30-5.90); RDW 17.3 % (11.5-15.5); WBC 4.8 k/uL (3.8-10.6)
[2019-02-06 07:33] LABS: INR 1.9 (<1.2); Prothrombin Time 18.7 sec (9.0-12.0)
[2019-02-06] MEDS ORDERED: WARFARIN 10 MG TAB PO ONE (07:45)
[2019-02-06 07:49] LABS: ALT 57 U/L (21-72); AST 134 U/L (17-59); African American GFR (CKD) >90 (>60 ml/min/1.73 sqM); Albumin 3.9 g/dL (3.5-5.0); Alkaline Phosphatase 273 U/L (38-126); Anion Gap 6 mmol/L; Blood Urea Nitrogen 10 mg/dL (9-20); Calcium 9.1 mg/dL (8.4-10.2); Carbon Dioxide 32 mmol/L (22-30); Chloride 102 mmol/L (98-107); Glucose 108 mg/dL (74-99); Potassium 4.1 mmol/L (3.5-5.1); Sodium 140 mmol/L (137-145); Total Bilirubin 0.6 mg/dL (0.2-1.3); Total Protein 6.8 g/dL (6.3-8.2)
[2019-02-06] MEDS: HYDROcodone/APAP 5-325MG 1 EACH TAB PO PRN ×2 (08:32→13:55)
[2019-02-06] MEDS: METOCLOPRAMIDE 5 MG/ML 2 ML VIAL IVP PRN (08:34)
[2019-02-06] MEDS: MEROPENEM 1 GM in SODIUM CHLORIDE 0.9% 100 ML IVPB SCH (08:37)
[2019-02-06] MEDS ORDERED: PANTOPRAZOLE 40 MG TABLET PO SCH (09:00)
[2019-02-06] MEDS ORDERED: POLYETHYLENE GLYCOL 3350 17 GM POWD.PACK PO SCH (09:00)
[2019-02-06] MEDS: DOFETILIDE 250 MCG CAP PO SCH (09:53)
[2019-02-06] MEDS: DOCUSATE 100 MG CAP PO SCH (09:53)
[2019-02-06] MEDS: EPLERENONE 100 MG PO SCH (09:54)
[2019-02-06] MEDS: FUROSEMIDE 20 MG TAB PO SCH (09:54)
[2019-02-06] MEDS: LISINOPRIL 20 MG TAB PO SCH (09:54)
[2019-02-06] MEDS: MAGNESIUM HYDROXIDE 2,400 MG/10 ML CUP PO SCH (09:54)
--- NOTE | 2019-02-06 11:25 | NM ---
Nuclear medicine hepatobiliary scan. HISTORY: Pain. DOSAGE: The patient received 4.6 mCi of Technetium 99m Choletec. FINDINGS: There is normal hepatic extraction. The gallbladder is not seen by 60 minutes. There is b iliary to bowel clearance by 25 minutes. IMPRESSION: 1. Nonvisualization of the gallbladder at 60 minutes correlate for cholecystitis.
[2019-02-06 13:27] VITALS: BP 123/77; PULSE 82; RESP 17; TEMP 97.9
--- NOTE | 2019-02-06 14:02 | P.PN ---
Subjective This is a pleasant 53-year-old male past medical history significant for coronary artery disease status post four-vessel bypass grafting, valvular heart disease status post aortic valve replacement in 1995 initially with a tissue valve requiring a redo mechanical valve in 2010, mitral valve ring annuloplasty, ischemic cardiomyopathy status post AICD, paroxysmal atrial fibrillation on halfway anti, chronic systolic heart failure, hypertension and dyslipidemia. He is currently being bridged with lovenox to therapeutic INR. INR today is 1.9. Blood pressure 123/77 heart rate 82 afebrile and maintaining oxygen saturation on room air. GENERAL: This is a 53-year-old male in no apparent distress at the time of my examination. HEENT: Head is atraumatic, normocephalic. Pupils are equal, round. Sclerae anicteric. Conjunctivae are clear. Mucous membranes of the mouth are moist. Neck is supple. There is no jugular venous distention. No carotid bruit is heard. LUNGS: Clear to auscultation no wheezes, rales or rhonchi. No chest wall tenderness is noted on palpation or with deep breathing. HEART: Regular rate and rhythm with mechanical click at the base with faint systolic ejection murmur at the left sternal border, no rubs or gallops. S1 and S2 heard. EXTREMITIES: No evidence of peripheral edema and no calf tenderness noted. ASSESSMENT Abdominal pain with gallbladder wall thickening and dilitation Laparoscopic cholecystectomy, POD #4 Post-operative fever Supratherapeutic INR on admission Valvular heart disease s/p mechanical aortc valve replacement maintained on coumadin Mitral valve ring annuloplasty Coronary artery disease s/p 4V bypass grafting, exact details unavailable Ischemic cardiomyopathy, improved LV on recent echo. Previously in October EF was 35% Hypertension Dyslipidemia Chronic systolic heart failure, currently euvolemic s/p AICD placement Paroxysmal atrial fibrillation currently maintaining sinus mechanism PLAN Given coumadin 10 mg today. Discontinue lovenox injections and continue home dosing of coumadin. Follow up for PT/INR in 3 days as previously established. Nurse Practitioner note has been reviewed, I agree with a documented findings and plan of care. Patient was seen and examined. Objective - Vital Signs Vital signs: Vital Signs Temp 97.9 F 02/06/19 13:26 Pulse 82 02/06/19 13:26 Resp 17 02/06/19 13:26 BP 123/77 02/06/19 13:26 Pulse Ox 97 11/08/19 09:00 Intake & Output 02/05/19 02/06/19 02/06/19 18:59 06:59 18:59 Intake Total 100 1400 Balance 100 1400 Weight 95.254 kg Intake: Intake, IV Titration 100 100 Amount Meropenem 1 gm In Sodium 100 100 Chloride 0.9% 100 ml @ 200 mls/hr IVPB Q8HR [facility] Rx#:[id number] Oral 1300 Other: Voiding Method Toilet Urinal # Voids 3 - Labs CBC & Chem 7: 02/06/19 07:13 02/06/19 07:13 Labs: Abnormal Lab Results - Last 24 Hours (Table) 02/06/19 02/06/19 02/06/19 Range/Units 07:13 07:13 07:13 Hgb 11.1 L (13.0-17.5) gm/dL Hct 37.2 L (39.0-53.0) % MCH 23.9 L (25.0-35.0) pg MCHC 29.9 L (31.0-37.0) g/dL RDW 17.3 H (11.5-15.5) % Lymphocytes # 0.7 L (1.0-4.8) k/uL PT 18.7 H (9.0-12.0) sec INR 1.9 H (<1.2) Carbon Dioxide 32 H (22-30) mmol/L Glucose 108 H (74-99) mg/dL AST 134 H (17-59) U/L Alkaline Phosphatase 273 H (38-126) U/L
--- NOTE | 2019-02-06 23:16 | DS ---
DISCHARGE SUMMARY CHIEF COMPLAINT: Abdominal pain. HISTORY OF PRESENT ILLNESS AND PHYSICAL EXAM: Details of this man's history and physical can be found in the initial workup. LABORATORY STUDIES: While he was in the hospital, he had laboratory studies, details of which can be found in the laboratory section of his chart. COURSE IN HOSPITAL: After admission, he was placed on bedrest and started on workup in preparation for his surgery. He was seen by Cardiology and eventually he was been able to be taken to the operating room where he went underwent a laparoscopic cholecystectomy. He did well except for developing a slight low-grade temperature the night afterwards. He continued to have some abdominal pain postoperatively and there was a concern that there may be an underlying complication. He had no chills or fever after the initial night postoperatively. He was doing well. It was planned that he could go home on the and he will go home on usual activity, diet medication. He will follow up with surgery, cardiology and with me in the office. FINAL DIAGNOSES: 1. Cholecystitis. 2. Coronary artery disease. 3. History of cardiac arrhythmia. OPERATIONS: Laparoscopic cholecystectomy. CONSULTATIONS: General surgery, cardiology. He is improved. MMODL / IJN: [id number] /
== END 2019-02-06 16:20 | disposition home or self-care (01) | DRG 418 ==
LOC: EC 06:01 → 3NMEDONC 09:35
PROVIDERS: ADMIT Family Medicine; ATTEND Family Medicine
PROC: 8E0W4CZ Robotic Assisted Procedure of Trunk Region, Percutaneous Endoscopic Approach (ICD-10-PCS; 2019-02-02)
PROC: 0FT44ZZ Resection of Gallbladder, Percutaneous Endoscopic Approach (ICD-10-PCS; principal; 2019-02-02 10:15)
DX: K81.0 Acute cholecystitis (principal); K82.1 Hydrops of gallbladder; I50.22 Chronic systolic (congestive) heart failure; J98.11 Atelectasis; E87.70 Fluid overload, unspecified; N13.30 Unspecified hydronephrosis; E11.51 Type 2 diabetes mellitus with diabetic peripheral angiopathy without gangrene; I48.92 Unspecified atrial flutter; I11.0 Hypertensive heart disease with heart failure; I48.0 Paroxysmal atrial fibrillation; D50.9 Iron deficiency anemia, unspecified; E78.5 Hyperlipidemia, unspecified; I25.2 Old myocardial infarction; I25.5 Ischemic cardiomyopathy; R50.9 Fever, unspecified; J45.909 Unspecified asthma, uncomplicated; R09.02 Hypoxemia; K21.9 Gastro-esophageal reflux disease without esophagitis; K57.30 Diverticulosis of large intestine without perforation or abscess without bleeding; I25.10 Atherosclerotic heart disease of native coronary artery without angina pectoris; R79.1 Abnormal coagulation profile; N20.0 Calculus of kidney; R31.9 Hematuria, unspecified; Z79.01 Long term (current) use of anticoagulants; Z79.82 Long term (current) use of aspirin; Z79.899 Other long term (current) drug therapy; Z88.5 Allergy status to narcotic agent; Z88.8 Allergy status to other drugs, medicaments and biological substances; Z91.041 Radiographic dye allergy status; Z86.74 Personal history of sudden cardiac arrest; Z87.442 Personal history of urinary calculi; Z95.1 Presence of aortocoronary bypass graft; Z95.5 Presence of coronary angioplasty implant and graft; Z95.810 Presence of automatic (implantable) cardiac defibrillator; Z95.2 Presence of prosthetic heart valve; Z80.0 Family history of malignant neoplasm of digestive organs; Z80.3 Family history of malignant neoplasm of breast; Z80.6 Family history of leukemia
CPT/HCPCS: 36415; 71045; 74018; 74176; 76705; 78226; 80053; 81001; 82150; 82728; 83540; 83550; 83690; 83735; 84100; 85025; 85027; 85610; 86850; 86900; 86901; 87040; 88304; 93005; 93306; 94640; 94760; 94762; 96361; 96365; 96375; 99285

== ENCOUNTER 2019-02-26 19:49 | Observation (INO) | payer MEDICARE ==
[2019-02-26] MEDS ORDERED: SODIUM CHLORIDE 0.9% 1,000 ML IV STA (20:11)
[2019-02-26 20:13] VITALS: RESP 18
--- NOTE | 2019-02-26 20:20 | ED ---
General Adult HPI - General Chief complaint: Nausea/Vomiting/Diarrhea Stated complaint: Nausea, Diarrhea Time Seen by Provider: 02/26/19 19:57 Source: patient, EMS Mode of arrival: EMS Limitations: no limitations - History of Present Illness Initial comments: Patient presents to the ED by ambulance for evaluation. Patient states that about an hour and a half ago, he had the urge to have a bowel movement, and while sitting on the toilet, attempting to have a bowel movement, he became lightheaded and near syncopal. Patient states that he was also diaphoretic and nauseated. Patient states that he had a bout of emesis and about of diarrhea on arrival to the ED. Patient denies feeling nauseated or lightheaded/dizzy currently. Patient denies having any pain, fever or chills, headache, focal neuro deficit, chest pain or pressure, neck/arm/jaw pain, dyspnea, palpitations, syncope/LOC, abdominal pain, bloody or melanotic stool, hematemesis, dysuria or urinary symptoms, leg or calf swelling or pain, or any other symptoms or complaints. Patient was given Zofran 4 mg by EMS. - Related Data Home Medications Medication Instructions Recorded Confirmed Atorvastatin [Lipitor] 80 mg PO HS 10/31/18 01/29/19 Cyanocobalamin (Vitamin B-12) 1,000 mcg PO DAILY 10/31/18 01/29/19 [Vitamin B-12] Folic Acid 0.8 mg PO DAILY 10/31/18 01/29/19 Furosemide [Lasix] 40 mg PO DAILY PRN 10/31/18 01/29/19 Omeprazole 20 mg PO DAILY 10/31/18 01/29/19 Pyridoxine HCl (Vitamin B6) 100 mg PO DAILY 10/31/18 01/29/19 [Vitamin B-6] Warfarin [Coumadin] 7.5 mg PO MOTUTH 10/31/18 01/29/19 Warfarin [Coumadin] 10 mg PO SUWEFRSA 10/31/18 01/29/19 Metoprolol Succinate (ER) [Toprol 50 mg PO DAILY 01/29/19 01/29/19 XL] Previous Rx's Medication Instructions Recorded Aspirin 325 mg PO DAILY #30 tab 05/02/18 Dofetilide [Tikosyn] 250 mcg PO BID #60 cap 02/01/19 Eplerenone 100 mg PO DAILY #30 tablet 05/02/18 Ramipril 10 mg PO DAILY #30 capsule 05/02/18 Acetaminophen Tab [Tylenol Tab] 650 mg PO Q4H PRN #30 tablet 01/30/19 Amoxicillin/Potassium Clav 1 each PO Q12HR #14 tab 02/06/19 [Augmentin 875-125 Tablet] Allergies Allergy/AdvReac Type Severity Reaction Status Date / Time fexofenadine [From Zara-D] Allergy Swelling Verified 02/26/19 20:13 Iodinated Contrast Media Allergy Rash/Hives Verified 02/26/19 20:13 [Iodinated Contrast- Oral and IV Dye] niacin Allergy Anaphylaxis Verified 02/26/19 20:13 oxycodone [From Percocet] Allergy Rash/Hives Verified 02/26/19 20:13 pseudoephedrine Allergy Swelling Verified 02/26/19 20:13 [From Zara-D] quetiapine [From Seroquel] Allergy Unknown Verified 02/26/19 20:13 Review of Systems ROS Statement: Those systems with pertinent positive or pertinent negative responses have been documented in the HPI. ROS Other: All systems not noted in ROS Statement are negative. 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 Last Myocardial Infarction Date:: 2008 History of Any Multi-Drug Resistant Organisms: C-DIFF Past Surgical History: AICD, Cardiac Ablation, Cardiac Valve Replacement, Cholecystectomy, Coronary Bypass/CABG, Heart Catheterization, Heart Catheterization With Stent, Orthopedic Surgery Additional Past Surgical History / Comment(s): 1995 aortic bioprosthetic valve, 2010 changed to mechanical aortic valve with 4 vessel bypass, cardiac ablations x2, AICD, PCI with stents prior to CABG, R leg fracture with hardware, colonoscopy. Past Anesthesia/Blood Transfusion Reactions: No Reported Reaction, Motion Sickness Date of Last Stent Placement:: unkn Type of Cardiac Device: AICD Device Placement Date:: 2018 Past Psychological History: No Psychological Hx Reported Smoking Status: Never smoker Past Alcohol Use History: None Reported Past Drug Use History: None Reported - Past Family History Mother Family Medical History: Cancer Additional Family Medical History / Comment(s): Colon and breast CA. Mother is still living. Father Family Medical History: Cancer Additional Family Medical History / Comment(s): CLL. Father is still living General Exam Limitations: no limitations General appearance: alert, in no apparent distress Head exam: Present: atraumatic, normocephalic Eye exam: Present: normal appearance, PERRL, EOMI ENT exam: Present: mucous membranes moist Neck exam: Present: other (Trachea is in midline) Respiratory exam: Present: normal lung sounds bilaterally. Absent: respiratory distress, wheezes, rales, rhonchi Cardiovascular Exam: Present: regular rate, normal rhythm, normal heart sounds, other (Normal radial pulses bilaterally) GI/Abdominal exam: Present: soft. Absent: distended, tenderness, guarding Extremities exam: Absent: tenderness, pedal edema, calf tenderness Neurological exam: Present: alert, oriented X3, CN II-XII intact. Absent: motor sensory deficit Psychiatric exam: Present: normal affect, normal mood Skin exam: Present: warm, dry, intact, normal color Course Vital Signs 02/26/19 19:50 Temperature 97.9 F Pulse Rate 87 Respiratory 18 Rate Blood Pressure 126/79 O2 Sat by Pulse 98 Oximetry - Reevaluation(s) Reevaluation #1: 02/26/19 21:24 Patient states that he continues to feel nauseated, and he states that he has vomited again while in the ED. Patient states "I still don't feel well". Patient and family member are aware of the patient's test results, and patient agrees with hospital admission at this time. 02/26/19 21:32 Case, H&P, test results and ED management were discussed with Dr. Geronimo (hospitalist). He accepts hospital floor admission. He recommends cardiology consultation. He has no further rectal condition at this time. EKG Findings - EKG Comments: EKG Findings:: Normal sinus rhythm, single PVC, nonspecific intraventricular conduction delay, ventricular rate of 77 bpm, normal MT interval, QRS interval of 132 ms, normal QT interval, normal axis, no acute ST or T-wave abnormality, no significant change when compared to 01/29/2019 EKG Medical Decision Making - Medical Decision Making Given that the patient remains symptomatic, and given his extensive cardiac history, will admit the patient to the hospital for observation and further evaluation. Patient's vital signs are reassuring. Patient's abdomen is soft and nontender on exam. Dr. Geronimo has accepted hospital admission. - Lab Data Result diagrams: 02/26/19 19:56 02/26/19 19:56 Lab Results 02/26/19 02/26/19 02/26/19 Range/Units 19:56 19:56 19:56 WBC 13.6 H (3.8-10.6) k/uL RBC 5.49 (4.30-5.90) m/uL Hgb 13.7 (13.0-17.5) gm/dL Hct 43.9 (39.0-53.0) % MCV 79.9 L (80.0-100.0) fL MCH 24.9 L (25.0-35.0) pg MCHC 31.1 (31.0-37.0) g/dL RDW 16.9 H (11.5-15.5) % Plt Count 305 (150-450) k/uL Neutrophils % 83 % Lymphocytes % 7 % Monocytes % 7 % Eosinophils % 2 % Basophils % 0 % Neutrophils # 11.3 H (1.3-7.7) k/uL Lymphocytes # 0.9 L (1.0-4.8) k/uL Monocytes # 0.9 (0-1.0) k/uL Eosinophils # 0.2 (0-0.7) k/uL Basophils # 0.0 (0-0.2) k/uL Hypochromasia Marked Anisocytosis Slight PT (9.0-12.0) sec INR (<1.2) APTT (22.0-30.0) sec Sodium 138 (137-145) mmol/L Potassium 4.0 (3.5-5.1) mmol/L Chloride 104 (98-107) mmol/L Carbon Dioxide 23 (22-30) mmol/L Anion Gap 11 mmol/L BUN 15 (9-20) mg/dL Creatinine 0.86 (0.66-1.25) mg/dL Est GFR (CKD-EPI)AfAm >90 (>60 ml/min/1.73 sqM) Est GFR (CKD-EPI)NonAf >90 (>60 ml/min/1.73 sqM) Glucose 116 H (74-99) mg/dL Calcium 9.3 (8.4-10.2) mg/dL Magnesium 2.2 (1.6-2.3) mg/dL Total Bilirubin 0.8 (0.2-1.3) mg/dL AST 31 (17-59) U/L ALT 9 L (21-72) U/L Alkaline Phosphatase 81 (38-126) U/L Troponin I (0.000-0.034) ng/mL NT-Pro-B Natriuret Pep 104 pg/mL Total Protein 7.9 (6.3-8.2) g/dL Albumin 4.6 (3.5-5.0) g/dL Lipase 169 (23-300) U/L 02/26/19 02/26/19 Range/Units 19:56 19:56 WBC (3.8-10.6) k/uL RBC (4.30-5.90) m/uL Hgb (13.0-17.5) gm/dL Hct (39.0-53.0) % MCV (80.0-100.0) fL MCH (25.0-35.0) pg MCHC (31.0-37.0) g/dL RDW (11.5-15.5) % Plt Count (150-450) k/uL Neutrophils % % Lymphocytes % % Monocytes % % Eosinophils % % Basophils % % Neutrophils # (1.3-7.7) k/uL Lymphocytes # (1.0-4.8) k/uL Monocytes # (0-1.0) k/uL Eosinophils # (0-0.7) k/uL Basophils # (0-0.2) k/uL Hypochromasia Anisocytosis PT 43.7 H (9.0-12.0) sec INR 4.5 H (<1.2) APTT 39.1 H (22.0-30.0) sec Sodium (137-145) mmol/L Potassium (3.5-5.1) mmol/L Chloride (98-107) mmol/L Carbon Dioxide (22-30) mmol/L Anion Gap mmol/L BUN (9-20) mg/dL Creatinine (0.66-1.25) mg/dL Est GFR (CKD-EPI)AfAm (>60 ml/min/1.73 sqM) Est GFR (CKD-EPI)NonAf (>60 ml/min/1.73 sqM) Glucose (74-99) mg/dL Calcium (8.4-10.2) mg/dL Magnesium (1.6-2.3) mg/dL Total Bilirubin (0.2-1.3) mg/dL AST (17-59) U/L ALT (21-72) U/L Alkaline Phosphatase (38-126) U/L Troponin I <0.012 (0.000-0.034) ng/mL NT-Pro-B Natriuret Pep pg/mL Total Protein (6.3-8.2) g/dL Albumin (3.5-5.0) g/dL Lipase (23-300) U/L - Radiology Data Radiology results: image reviewed (Chest x-ray is negative) Disposition Clinical Impression: Near syncope, Nausea and vomiting Disposition: [facility] Condition: Stable Is patient prescribed a controlled substance at d/c from ED?: No Referrals: Marce Xiao MD [Primary Care Provider] - 1-2 days Time of Disposition: 21:32
[2019-02-26 20:28] LABS: Anisocytosis Slight; Basophils % (A) 0 %; Eosinophils # (A) 0.2 k/uL (0-0.7); Eosinophils % (A) 2 %; HCT 43.9 % (39.0-53.0); HGB 13.7 gm/dL (13.0-17.5); Hypochromasia Marked; Lymphocytes # (A) 0.9 k/uL (1.0-4.8); Lymphocytes % (A) 7 %; MCH 24.9 pg (25.0-35.0); MCHC 31.1 g/dL (31.0-37.0); MCV 79.9 fL (80.0-100.0); Mean Platelet Volume 6.2; Monocytes # (A) 0.9 k/uL (0-1.0); Monocytes % (A) 7 %; Neutrophils # (A) 11.3 k/uL (1.3-7.7); Neutrophils % (A) 83 %; Platelet Count 305 k/uL (150-450); RBC 5.49 m/uL (4.30-5.90); RDW 16.9 % (11.5-15.5); WBC 13.6 k/uL (3.8-10.6)
--- NOTE | 2019-02-26 20:35 | XR ---
EXAMINATION TYPE: XR chest 2V DATE OF EXAM: 02/26/2019 COMPARISON: NONE HISTORY: Syncope TECHNIQUE: Frontal and lateral views of the chest are obtained. FINDINGS: Heart and mediastinum are within normal limits. Lungs are clear of infiltrate. There is no heart failure. There is a left axillary pacemaker. There are sternal wires. There is no sign of pleu ral effusion. IMPRESSION: No active cardiopulmonary disease. There is clearing of the right side pulmonary infiltr ate compared to last exam.
[2019-02-26 20:42] LABS: INR 4.5 (<1.2); Partial Thromboplastin Time 39.1 sec (22.0-30.0); Prothrombin Time 43.7 sec (9.0-12.0)
[2019-02-26 20:44] LABS: ALT 9 U/L (21-72); AST 31 U/L (17-59); African American GFR (CKD) >90 (>60 ml/min/1.73 sqM); Albumin 4.6 g/dL (3.5-5.0); Alkaline Phosphatase 81 U/L (38-126); Anion Gap 11 mmol/L; Blood Urea Nitrogen 15 mg/dL (9-20); Calcium 9.3 mg/dL (8.4-10.2); Carbon Dioxide 23 mmol/L (22-30); Chloride 104 mmol/L (98-107); Glucose 116 mg/dL (74-99); Magnesium 2.2 mg/dL (1.6-2.3); Non-African American GFR(CKD) >90 (>60 ml/min/1.73 sqM); Sodium 138 mmol/L (137-145); Total Bilirubin 0.8 mg/dL (0.2-1.3); Total Protein 7.9 g/dL (6.3-8.2)
[2019-02-26] MEDS ORDERED: ONDANSETRON 4 MG/2 ML VIAL IVP STA (21:24)
[2019-02-26] MEDS ORDERED: ONDANSETRON 4 MG/2 ML VIAL IVP PRN (21:39)
[2019-02-27] MEDS ORDERED: TEMAZEPAM 15 MG CAP PO SCH (00:45)
[2019-02-27] MEDS: SODIUM CHLORIDE 0.9% 1,000 ML IV SCH ×2 (00:47→10:16)
[2019-02-27] MEDS: ONDANSETRON 4 MG/2 ML VIAL IVP PRN ×2 (00:49→08:32)
[2019-02-27] MEDS ORDERED: ATORVASTATIN 80 MG TAB PO SCH ×2 (01:24→21:00)
[2019-02-27] MEDS: METOPROLOL SUCCINATE (ER) 50 MG TAB.ER.24H PO SCH ×2 (01:43→10:19)
[2019-02-27] MEDS: DOFETILIDE 250 MCG CAP PO SCH ×2 (01:43→10:15)
[2019-02-27 07:24] VITALS: BP 127/82; PULSE 76; TEMP 97.9
[2019-02-27 08:19] LABS: Anisocytosis Slight; Basophils % (A) 0 %; Eosinophils # (A) 0.1 k/uL (0-0.7); Eosinophils % (A) 1 %; HCT 39.9 % (39.0-53.0); HGB 12.4 gm/dL (13.0-17.5); Hypochromasia Marked; Lymphocytes % (A) 13 %; MCH 24.8 pg (25.0-35.0); MCV 80.1 fL (80.0-100.0); Mean Platelet Volume 6.2; Monocytes # (A) 0.5 k/uL (0-1.0); Monocytes % (A) 6 %; Neutrophils # (A) 5.9 k/uL (1.3-7.7); Neutrophils % (A) 77 %; Platelet Count 256 k/uL (150-450); RBC 4.99 m/uL (4.30-5.90); WBC 7.7 k/uL (3.8-10.6)
[2019-02-27 08:26] LABS: INR 3.3 (<1.2); Prothrombin Time 31.6 sec (9.0-12.0)
[2019-02-27 08:52] LABS: ALT 16 U/L (21-72); AST 19 U/L (17-59); African American GFR (CKD) >90 (>60 ml/min/1.73 sqM); Albumin 3.8 g/dL (3.5-5.0); Alkaline Phosphatase 74 U/L (38-126); Anion Gap 9 mmol/L; Blood Urea Nitrogen 12 mg/dL (9-20); Calcium 9.2 mg/dL (8.4-10.2); Carbon Dioxide 27 mmol/L (22-30); Chloride 105 mmol/L (98-107); Glucose 108 mg/dL (74-99); Non-African American GFR(CKD) >90 (>60 ml/min/1.73 sqM); Potassium 4.6 mmol/L (3.5-5.1); Sodium 141 mmol/L (137-145); Total Bilirubin 0.7 mg/dL (0.2-1.3); Total Protein 6.4 g/dL (6.3-8.2)
[2019-02-27] MEDS ORDERED: PANTOPRAZOLE 40 MG TABLET PO SCH (09:00)
[2019-02-27] MEDS ORDERED: FUROSEMIDE 40 MG TAB PO PRN (09:00)
[2019-02-27] MEDS ORDERED: DOFETILIDE 250 MCG CAP PO SCH (09:00)
[2019-02-27] MEDS ORDERED: METOPROLOL SUCCINATE (ER) 50 MG TAB.ER.24H PO SCH (09:00)
[2019-02-27] MEDS ORDERED: EPLERENONE 100 MG PO SCH (09:00)
[2019-02-27] MEDS ORDERED: LISINOPRIL 20 MG TAB PO SCH (09:00)
[2019-02-27] MEDS ORDERED: ALBUTEROL NEBULIZED 2.5 MG/3 ML INHALATION PRN (10:25)
--- NOTE | 2019-02-27 11:45 | P.CRDCN ---
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 The patient was in his usual state of health until yesterday when he was at home and suddenly felt the urge to have a bowel movement and diarrhea. Suddenly he felt dizzy and sweaty without losing his consciousness. He did not have any symptoms of chest pain or chest discom fort, shortness of breath, or any feeling of heart racing or fluttering or any witnessed syncope. He stated that lately his blood pressure has been on the low side. The patient underwent recently a gallbladder surgery. Now he is feeling better and he is asymptomatic at this point. He underwent a cardiac workup. The EKG showed sinus rhythm. 3 sets of cardiac enzymes came in to be unremarkable. The chest x-ray did not show any acute abnormalities. The blood pressure and heart rate seems to be within normal limits. The patient maintaining anticoagulation was, then because of the mechanical aortic valve as well as because of the atrial fibrillation. The patient stated clearly that he is feeling better after he was admitted to the hospital and receive IV fluid Past Medical History Past Medical History: Atrial Fibrillation, Atrial Flutter, Coronary Artery Disease (CAD), Heart Failure, GERD/Reflux, GI Bleed, Hyperlipidemia, Hypertension, Myocardial Infarction ([place]) Additional Past Medical History / Comment(s): Pt states he has had a total of 4 MIs and in 2010 had 5 cardiac arrests, cardiomyopathy, A tach, lower GI bleed. Last Myocardial Infarction Date:: 2008 History of Any Multi-Drug Resistant Organisms: C-DIFF Date of last positivie culture/infection: ? MDRO Source:: ? Past Surgical History: AICD, Cardiac Ablation, Cardiac Valve Replacement, Cholecystectomy, Coronary Bypass/CABG, Heart Catheterization, Heart Catheterization With Stent, Orthopedic Surgery Additional Past Surgical History / Comment(s): 1995 aortic bioprosthetic valve, 2010 changed to mechanical aortic valve with 4 vessel bypass, cardiac ablations x2, AICD, PCI with stents prior to CABG, R leg fracture with hardware, colonoscopy. Past Anesthesia/Blood Transfusion Reactions: No Reported Reaction, Motion Sickness Date of Last Stent Placement:: unkn Type of Cardiac Device: AICD Device Placement Date:: 2018 Smoking Status: Never smoker - Past Family History Mother Family Medical History: Cancer Additional Family Medical History / Comment(s): Colon and breast CA. Mother is still living. Father Family Medical History: Cancer Additional Family Medical History / Comment(s): CLL. Father is still living Medications and Allergies Home Medications Medication Instructions Recorded Confirmed Type Dofetilide [Tikosyn] 250 mcg PO BID #60 cap 05/02/18 02/26/19 Rx Eplerenone 100 mg PO DAILY #30 tablet 05/02/18 02/26/19 Rx Ramipril 10 mg PO DAILY #30 capsule 05/02/18 02/26/19 Rx Cyanocobalamin (Vitamin B-12) 1,000 mcg PO DAILY 10/31/18 02/26/19 History [Vitamin B-12] Folic Acid 0.8 mg PO DAILY 10/31/18 02/26/19 History Furosemide [Lasix] 40 mg PO DAILY PRN 10/31/18 02/26/19 History Omeprazole 20 mg PO DAILY 10/31/18 02/26/19 History Pyridoxine HCl (Vitamin B6) 100 mg PO DAILY 10/31/18 02/26/19 History [Vitamin B-6] Metoprolol Succinate (ER) [Toprol 50 mg PO HS 01/29/19 02/26/19 History XL] Albuterol Sulfate [Proair Hfa] 2 puff INHALATION RT-QID PRN 02/26/19 02/26/19 History Aspirin EC [Ecotrin] 325 mg PO DAILY 02/26/19 02/26/19 History Fluticasone/Salmeterol [Advair 1 puff INHALATION RT-BID 02/26/19 02/26/19 History 250-50 Diskus] Multivitamins, Thera [Multivitamin 1 tab PO DAILY 02/26/19 02/26/19 History (formulary)] Simvastatin [Zocor] 10 mg PO HS 02/26/19 02/26/19 History Warfarin [Coumadin] 7.5 mg PO DAILY #0 02/27/19 02/26/19 Rx Allergies Allergy/AdvReac Type Severity Reaction Status Date / Time fexofenadine [From Zara-D] Allergy Swelling Verified 02/26/19 23:52 Iodinated Contrast Media Allergy Rash/Hives Verified 02/26/19 23:52 [Iodinated Contrast- Oral and IV Dye] niacin Allergy Anaphylaxis Verified 02/26/19 23:52 oxycodone [From Percocet] Allergy Rash/Hives Verified 02/26/19 23:52 pseudoephedrine Allergy Swelling Verified 02/26/19 23:52 [From Zara-D] quetiapine [From Seroquel] AdvReac Confusion Verified 02/26/19 23:52 Physical Exam Vitals: Vital Signs Temp Pulse Pulse Resp BP BP BP 02/27/19 07:05 97.9 F 76 18 127/82 02/27/19 04:00 98.0 F 81 18 131/78 02/26/19 23:15 97.8 F 77 18 146/88 02/26/19 22:45 77 18 111/69 02/26/19 21:44 98.4 F 76 18 118/68 02/26/19 19:50 97.9 F 87 18 126/79 Pulse Ox 02/27/19 07:05 96 02/27/19 04:00 94 L 02/26/19 23:15 99 02/26/19 22:45 90 L 02/26/19 21:44 98 02/26/19 19:50 98 Intake and Output 02/26/19 02/27/19 02/27/19 22:59 06:59 14:59 Other: Voiding Method Toilet Toilet # Voids 1 Weight 92.986 kg - Constitutional General appearance: no acute distress - Respiratory Respiratory: bilateral: diminished - Cardiovascular Rhythm: regular Results 02/27/19 07:44 02/27/19 07:44 Cardiac Enzymes 02/26/19 02/26/19 02/27/19 Range/Units 19:56 19:56 01:40 AST 31 (17-59) U/L Troponin I <0.012 <0.012 (0.000-0.034) ng/mL 02/27/19 02/27/19 Range/Units 07:44 07:44 AST 19 (17-59) U/L Troponin I <0.012 (0.000-0.034) ng/mL Coagulation 02/26/19 02/27/19 Range/Units 19:56 07:44 PT 43.7 H 31.6 H (9.0-12.0) sec APTT 39.1 H (22.0-30.0) sec CBC 02/26/19 02/27/19 Range/Units 19:56 07:44 WBC 13.6 H 7.7 (3.8-10.6) k/uL RBC 5.49 4.99 (4.30-5.90) m/uL Hgb 13.7 12.4 L (13.0-17.5) gm/dL Hct 43.9 39.9 (39.0-53.0) % Plt Count 305 256 (150-450) k/uL Comprehensive Metabolic Panel 02/26/19 02/27/19 Range/Units 19:56 07:44 Sodium 138 141 (137-145) mmol/L Potassium 4.0 4.6 (3.5-5.1) mmol/L Chloride 104 105 (98-107) mmol/L Carbon Dioxide 23 27 (22-30) mmol/L BUN 15 12 (9-20) mg/dL Creatinine 0.86 0.90 (0.66-1.25) mg/dL Glucose 116 H 108 H (74-99) mg/dL Calcium 9.3 9.2 (8.4-10.2) mg/dL AST 31 19 (17-59) U/L ALT 9 L 16 L (21-72) U/L Alkaline Phosphatase 81 74 (38-126) U/L Total Protein 7.9 6.4 (6.3-8.2) g/dL Albumin 4.6 3.8 (3.5-5.0) g/dL Current Medications Generic Name Dose Route Start Last Admin Trade Name Freq PRN Reason Stop Dose Admin Albuterol Sulfate 2.5 mg 02/27/19 10:25 Ventolin Nebulized INHALATION RT-QID PRN Shortness Of Breath Atorvastatin Calcium 10 mg 02/27/19 21:00 Lipitor PO HS CAMREN Budesonide/Formoterol Fumarate 2 puff 02/27/19 20:00 Symbicort 80-4.5 Mcg Inhaler INHALATION RT-BID CARMEN Dofetilide 250 mcg 02/27/19 01:30 02/27/19 10:15 Tikosyn PO 250 mcg BID CARMEN Administration Folic Acid 1 mg 02/28/19 09:00 Folic Acid PO DAILY CARMEN Furosemide 40 mg 02/27/19 09:00 Lasix PO DAILY PRN Edema Sodium Chloride 1,000 mls @ 100 mls/hr 02/26/19 21:45 02/27/19 10:16 Saline 0.9% IV 100 mls/hr .Q10H CARMEN Administration Lisinopril 40 mg 02/27/19 09:00 02/27/19 10:15 Zestril PO 40 mg DAILY CARMEN Administration Metoprolol Succinate 50 mg 02/27/19 01:25 02/27/19 10:19 Toprol Xl PO 50 mg DAILY CARMEN Administration Non-Formulary Medication 100 mg 02/27/19 09:00 02/27/19 10:21 Eplerenone [Eplerenone] PO Not Given DAILY CARMEN Ondansetron HCl 4 mg 02/27/19 00:43 02/27/19 08:32 Zofran IVP 4 mg Q6HR PRN Administration Nausea And Vomiting Pantoprazole Sodium 40 mg 02/27/19 09:00 02/27/19 10:15 Protonix PO 40 mg DAILY CARMEN Administration Pyridoxine HCl 100 mg 02/28/19 09:00 Vitamin B-6 PO DAILY CARMEN Temazepam 15 mg 02/27/19 00:45 02/27/19 01:32 Restoril PO 15 mg HS CARMEN Administration Intake and Output 02/26/19 02/27/19 02/27/19 22:59 06:59 14:59 Other: Voiding Method Toilet Toilet # Voids 1 Weight 92.986 kg 02/27/19 07:44 02/27/19 07:44 Assessment and Plan Assessment: Assessment #1 presyncope #2 status post gallbladder surgery #3 coronary artery disease #4 ischemic cardiomyopathy #5 status post AICD #6 valvular heart disease Plan #1 acute coronary event was ruled out #2 the patient is asymptomatic at this point #3 he is hemodynamically stable as well #4 the episode of dizziness could be related to previous episode of low blood pressure/dehydration. Please note that the patient just underwent gallbladder surgery #5 from the cardiac standpoint overview, the patient possibly can be discharged home after he is able to get up and around and remains asymptomatic.
--- NOTE | 2019-02-27 12:12 | P.HPIM ---
History of Present Illness Patient is a pleasant 53-year-old male with known history of restart failure chronic systolic dysfunction ejection fraction of around 20% came in here because of lightheadedness. Patient was having nausea vomiting about 3 episodes yesterday along with the some minimal lower abdominal discomfort and diarrhea about 5 episodes. All of these resolved at this time. Patient is concerned of about hypotension which he had in the past because of his very low EF in the heart failure medications. Patient was started on IV fluids which will be discontinued at this time patient nausea vomiting and diarrhea resolved and will start him on diet if the patient is tolerating diet well patient will be discharged today patient is presently euvolemic. Patient has an AICD and had a coronary artery bypass grafting in the past and does have valvular heart disease as well. Review of Systems REVIEW OF SYSTEMS: CONSTITUTIONAL: No fever, no malaise, no fatigue. HEENT: No recent visual problems or hearing problems. Denied any sore throat. CARDIOVASCULAR: No chest pain, orthopnea, PND, no palpitations, no syncope. PULMONARY: No shortness of breath, no cough, no hemoptysis. GASTROINTESTINAL: As mentioned in HPI NEUROLOGICAL: No headaches, no weakness, no numbness. HEMATOLOGICAL: Denies any bleeding or petechiae. GENITOURINARY: Denies any burning micturition, frequency, or urgency. MUSCULOSKELETAL/RHEUMATOLOGICAL: Denies any joint pain, swelling, or any muscle pain. ENDOCRINE: Denies any polyuria or polydipsia. The rest of the 14-point review of systems is negative. Past Medical History Past Medical History: Atrial Fibrillation, Atrial Flutter, Coronary Artery Disease (CAD), Heart Failure, GERD/Reflux, GI Bleed, Hyperlipidemia, Hypertension, Myocardial Infarction ([place]) Additional Past Medical History / Comment(s): Pt states he has had a total of 4 MIs and in 2010 had 5 cardiac arrests, cardiomyopathy, A tach, lower GI bleed. Last Myocardial Infarction Date:: 2008 History of Any Multi-Drug Resistant Organisms: C-DIFF Date of last positivie culture/infection: ? MDRO Source:: ? Past Surgical History: AICD, Cardiac Ablation, Cardiac Valve Replacement, Cholecystectomy, Coronary Bypass/CABG, Heart Catheterization, Heart Catheterization With Stent, Orthopedic Surgery Additional Past Surgical History / Comment(s): 1995 aortic bioprosthetic valve, 2010 changed to mechanical aortic valve with 4 vessel bypass, cardiac ablations x2, AICD, PCI with stents prior to CABG, R leg fracture with hardware, colonoscopy. Past Anesthesia/Blood Transfusion Reactions: No Reported Reaction, Motion Sickness Date of Last Stent Placement:: unkn Type of Cardiac Device: AICD Device Placement Date:: 2018 Smoking Status: Never smoker - Past Family History Mother Family Medical History: Cancer Additional Family Medical History / Comment(s): Colon and breast CA. Mother is still living. Father Family Medical History: Cancer Additional Family Medical History / Comment(s): CLL. Father is still living Medications and Allergies Home Medications Medication Instructions Recorded Confirmed Type Dofetilide [Tikosyn] 250 mcg PO BID #60 cap 05/02/18 02/26/19 Rx Eplerenone 100 mg PO DAILY #30 tablet 05/02/18 02/26/19 Rx Ramipril 10 mg PO DAILY #30 capsule 05/02/18 02/26/19 Rx Cyanocobalamin (Vitamin B-12) 1,000 mcg PO DAILY 10/31/18 02/26/19 History [Vitamin B-12] Folic Acid 0.8 mg PO DAILY 10/31/18 02/26/19 History Furosemide [Lasix] 40 mg PO DAILY PRN 10/31/18 02/26/19 History Omeprazole 20 mg PO DAILY 10/31/18 02/26/19 History Pyridoxine HCl (Vitamin B6) 100 mg PO DAILY 10/31/18 02/26/19 History [Vitamin B-6] Metoprolol Succinate (ER) [Toprol 50 mg PO HS 01/29/19 02/26/19 History XL] Albuterol Sulfate [Proair Hfa] 2 puff INHALATION RT-QID PRN 02/26/19 02/26/19 History Aspirin EC [Ecotrin] 325 mg PO DAILY 02/26/19 02/26/19 History Fluticasone/Salmeterol [Advair 1 puff INHALATION RT-BID 02/26/19 02/26/19 History 250-50 Diskus] Multivitamins, Thera [Multivitamin 1 tab PO DAILY 02/26/19 02/26/19 History (formulary)] Simvastatin [Zocor] 10 mg PO HS 02/26/19 02/26/19 History Warfarin [Coumadin] 7.5 mg PO DAILY #0 02/27/19 02/26/19 Rx Allergies Allergy/AdvReac Type Severity Reaction Status Date / Time fexofenadine [From Zara-D] Allergy Swelling Verified 02/26/19 23:52 Iodinated Contrast Media Allergy Rash/Hives Verified 02/26/19 23:52 [Iodinated Contrast- Oral and IV Dye] niacin Allergy Anaphylaxis Verified 02/26/19 23:52 oxycodone [From Percocet] Allergy Rash/Hives Verified 02/26/19 23:52 pseudoephedrine Allergy Swelling Verified 02/26/19 23:52 [From Zara-D] quetiapine [From Seroquel] AdvReac Confusion Verified 02/26/19 23:52 Physical Exam Vitals: Vital Signs Temp Pulse Pulse Resp BP BP BP 02/27/19 07:05 97.9 F 76 18 127/82 02/27/19 04:00 98.0 F 81 18 131/78 02/26/19 23:15 97.8 F 77 18 146/88 02/26/19 22:45 77 18 111/69 02/26/19 21:44 98.4 F 76 18 118/68 02/26/19 19:50 97.9 F 87 18 126/79 Pulse Ox 02/27/19 07:05 96 02/27/19 04:00 94 L 02/26/19 23:15 99 02/26/19 22:45 90 L 02/26/19 21:44 98 02/26/19 19:50 98 Intake and Output 02/26/19 02/27/19 02/27/19 22:59 06:59 14:59 Other: Voiding Method Toilet Toilet # Voids 1 Weight 92.986 kg PHYSICAL EXAMINATION: GENERAL: The patient is alert and oriented x3, not in any acute distress. Well developed, well nourished. HEENT: Pupils are round and equally reacting to light. EOMI. No scleral icterus. No conjunctival pallor. Normocephalic, atraumatic. No pharyngeal erythema. No thyromegaly. CARDIOVASCULAR: S1 and S2 present. No murmurs, rubs, or gallops. PULMONARY: Chest is clear to auscultation, no wheezing or crackles. ABDOMEN: Soft, nontender, nondistended, normoactive bowel sounds. No palpable organomegaly. MUSCULOSKELETAL: No joint swelling or deformity. EXTREMITIES: No cyanosis, clubbing, or pedal edema. NEUROLOGICAL: Gross neurological examination did not reveal any focal deficits. SKIN: No rashes. Results CBC & Chem 7: 02/27/19 07:44 02/27/19 07:44 Labs: Abnormal Lab Results - Last 24 Hours (Table) 02/26/19 02/26/19 02/26/19 Range/Units 19:56 19:56 19:56 WBC 13.6 H (3.8-10.6) k/uL Hgb (13.0-17.5) gm/dL MCV 79.9 L (80.0-100.0) fL MCH 24.9 L (25.0-35.0) pg RDW 16.9 H (11.5-15.5) % Neutrophils # 11.3 H (1.3-7.7) k/uL Lymphocytes # 0.9 L (1.0-4.8) k/uL PT 43.7 H (9.0-12.0) sec INR 4.5 H (<1.2) APTT 39.1 H (22.0-30.0) sec Glucose 116 H (74-99) mg/dL ALT 9 L (21-72) U/L 02/27/19 02/27/19 02/27/19 Range/Units 07:44 07:44 07:44 WBC (3.8-10.6) k/uL Hgb 12.4 L (13.0-17.5) gm/dL MCV (80.0-100.0) fL MCH 24.8 L (25.0-35.0) pg RDW 17.0 H (11.5-15.5) % Neutrophils # (1.3-7.7) k/uL Lymphocytes # (1.0-4.8) k/uL PT 31.6 H (9.0-12.0) sec INR 3.3 H (<1.2) APTT (22.0-30.0) sec Glucose 108 H (74-99) mg/dL ALT 16 L (21-72) U/L Thrombosis Risk Factor Assmnt - Choose All That Apply Any of the Below Risk Factors Present?: Yes Each Factor Represents 1 point: Age 41-60 years, Obesity (BMI >25) Other Risk Factors: No Other congenital or acquired thrombophilia - If yes, enter type in comment: No Thrombosis Risk Factor Assessment Total Risk Factor Score: 2 Thrombosis Risk Factor Assessment Level: Low Risk Assessment and Plan Plan: -Possible gastroenteritis: Resolved at this time patient will be started on diet advance diet and if he is able to tolerate it patient will be discharged today discussing his heart failure IV fluids were discontinued. Patient kidney function is good -Presyncope or dizziness secondary to nausea vomiting intravascular volume depletion -Ischemic cardiomyopathy status post AICD chronic systolic dysfunction without any acute exacerbation -Coronary artery disease -Valvular heart disease -Chronic atrial fibrillation patient is on Coumadin INR is 4.4 patient's Coumadin will be cut down to 7.5 mg daily and I will recheck. On Saturday present INR is 3.3 because of which patient will resume his Coumadin at 7.5 mg -Gastric esophageal reflux disease on Prilosec she'll continue -Hypertension -Hyperlipidemia
--- NOTE | 2019-02-27 12:13 | P.DS ---
Providers Date of admission: 02/26/19 21:34 Attending physician: María Elena Geronimo Consults: 02/26/19 21:35 Consult Physician Urgent Consulting Provider: Alessandra Spence Consult Reason/Comments: near syncope Do you want consulting provider notified?: Yes Primary care physician: Marce Xiao MD Hospital Course: Please refer to HPI for further details Patient Condition at Discharge: Stable Plan - Discharge Summary New Discharge Prescriptions: Continue Dofetilide [Tikosyn] 250 mcg PO BID #60 cap Eplerenone 100 mg PO DAILY #30 tablet Ramipril 10 mg PO DAILY #30 capsule Pyridoxine HCl (Vitamin B6) [Vitamin B-6] 100 mg PO DAILY Omeprazole 20 mg PO DAILY Folic Acid 0.8 mg PO DAILY Cyanocobalamin (Vitamin B-12) [Vitamin B-12] 1,000 mcg PO DAILY Furosemide [Lasix] 40 mg PO DAILY PRN PRN Reason: Edema Metoprolol Succinate (ER) [Toprol XL] 50 mg PO HS Fluticasone/Salmeterol [Advair 250-50 Diskus] 1 puff INHALATION RT-BID Albuterol Sulfate [Proair Hfa] 2 puff INHALATION RT-QID PRN PRN Reason: Shortness Of Breath Multivitamins, Thera [Multivitamin (formulary)] 1 tab PO DAILY Aspirin EC [Ecotrin] 325 mg PO DAILY Simvastatin [Zocor] 10 mg PO HS Changed Warfarin [Coumadin] 7.5 mg PO DAILY #0 Discontinued Warfarin [Coumadin] 10 mg PO SUWEFRSA Discharge Medication List Dofetilide [Tikosyn] 250 mcg PO BID #60 cap 05/02/18 [Rx] Eplerenone 100 mg PO DAILY #30 tablet 05/02/18 [Rx] Ramipril 10 mg PO DAILY #30 capsule 05/02/18 [Rx] Cyanocobalamin (Vitamin B-12) [Vitamin B-12] 1,000 mcg PO DAILY 10/31/18 [History] Folic Acid 0.8 mg PO DAILY 10/31/18 [History] Furosemide [Lasix] 40 mg PO DAILY PRN 10/31/18 [History] Omeprazole 20 mg PO DAILY 10/31/18 [History] Pyridoxine HCl (Vitamin B6) [Vitamin B-6] 100 mg PO DAILY 10/31/18 [History] Metoprolol Succinate (ER) [Toprol XL] 50 mg PO HS 01/29/19 [History] Albuterol Sulfate [Proair Hfa] 2 puff INHALATION RT-QID PRN 02/26/19 [History] Aspirin EC [Ecotrin] 325 mg PO DAILY 02/26/19 [History] Fluticasone/Salmeterol [Advair 250-50 Diskus] 1 puff INHALATION RT-BID 02/26/19 [History] Multivitamins, Thera [Multivitamin (formulary)] 1 tab PO DAILY 02/26/19 [History] Simvastatin [Zocor] 10 mg PO HS 02/26/19 [History] Warfarin [Coumadin] 7.5 mg PO DAILY #0 02/27/19 [Rx] Follow up Appointment(s)/Referral(s): Marce Xiao MD [Primary Care Provider] - 1-2 days Patient Instructions/Handouts: Chest Pain (DC), Acute Diarrhea (GEN) Discharge Disposition: HOME SELF-CARE
[2019-02-27 13:21] VITALS: BMI 26.3
[2019-02-27] MEDS ORDERED: SYMBICORT 80-4.5 MCG INHALER INHALATION SCH (20:00)
[2019-02-27] MEDS ORDERED: ATORVASTATIN 10 MG TAB PO SCH (21:00)
[2019-02-28] MEDS ORDERED: FOLIC ACID 1 MG TAB PO SCH (09:00)
[2019-02-28] MEDS ORDERED: PYRIDOXINE 50 MG TAB PO SCH (09:00)
== END 2019-02-27 13:33 | disposition home or self-care (01) ==
LOC: EC 19:49 → 1SOBS 21:34
PROVIDERS: ADMIT Hospitalist; ATTEND Hospitalist
DX: R11.2 Nausea with vomiting, unspecified (principal); R55 Syncope and collapse; I25.5 Ischemic cardiomyopathy; I25.10 Atherosclerotic heart disease of native coronary artery without angina pectoris; I38 Endocarditis, valve unspecified; I48.0 Paroxysmal atrial fibrillation; K21.9 Gastro-esophageal reflux disease without esophagitis; I11.0 Hypertensive heart disease with heart failure; E78.5 Hyperlipidemia, unspecified; I48.92 Unspecified atrial flutter; I50.9 Heart failure, unspecified; I25.2 Old myocardial infarction; I49.3 Ventricular premature depolarization; I45.89 Other specified conduction disorders; E66.9 Obesity, unspecified; Z68.26 Body mass index [BMI] 26.0-26.9, adult; Z79.899 Other long term (current) drug therapy; Z79.01 Long term (current) use of anticoagulants; Z79.82 Long term (current) use of aspirin; Z88.8 Allergy status to other drugs, medicaments and biological substances; Z91.041 Radiographic dye allergy status; Z91.048 Other nonmedicinal substance allergy status; Z88.5 Allergy status to narcotic agent; Z87.19 Personal history of other diseases of the digestive system; Z86.19 Personal history of other infectious and parasitic diseases; Z95.810 Presence of automatic (implantable) cardiac defibrillator; Z98.890 Other specified postprocedural states; Z95.4 Presence of other heart-valve replacement; Z90.49 Acquired absence of other specified parts of digestive tract; Z95.1 Presence of aortocoronary bypass graft; Z95.5 Presence of coronary angioplasty implant and graft; Z87.81 Personal history of (healed) traumatic fracture; Z87.898 Personal history of other specified conditions; Z80.0 Family history of malignant neoplasm of digestive organs; Z80.6 Family history of leukemia; Z80.3 Family history of malignant neoplasm of breast
CPT/HCPCS: 93005 ×2; 96376; 96361; 96374; 99285; 36415; 83880; 80053 ×2; 83690; 83735; 84484 ×2; 85025 ×2; 85610 ×2; 85730; 87502; 71046; G0378 ×2; J2405 ×2

== ENCOUNTER 2019-10-21 18:37 | Emergency (ER) | payer MEDICARE ==
[2019-10-21 18:51] VITALS: RESP 18
[2019-10-21 19:16] LABS: Basophils % (A) 1 %; Eosinophils # (A) 0.2 k/uL (0-0.7); Eosinophils % (A) 2 %; HCT 47.3 % (39.0-53.0); HGB 15.1 gm/dL (13.0-17.5); Lymphocytes % (A) 11 %; MCH 28.7 pg (25.0-35.0); MCHC 31.9 g/dL (31.0-37.0); MCV 90.1 fL (80.0-100.0); Mean Platelet Volume 7.4; Monocytes # (A) 0.8 k/uL (0-1.0); Monocytes % (A) 9 %; Neutrophils # (A) 6.5 k/uL (1.3-7.7); Neutrophils % (A) 75 %; Platelet Count 248 k/uL (150-450); RBC 5.25 m/uL (4.30-5.90); RDW 15.3 % (11.5-15.5); WBC 8.7 k/uL (3.8-10.6)
--- NOTE | 2019-10-21 20:17 | ED ---
General Adult HPI - General Chief complaint: Abdominal Pain Stated complaint: post surg complications Time Seen by Provider: 10/21/19 18:40 Source: patient, EMS, RN notes reviewed, old records reviewed Mode of arrival: EMS Limitations: no limitations - History of Present Illness Initial comments: This is a 54-year-old male who presents emergency Department with a significant cardiac history. Patient states he's also had bilateral claudication and just had an angioplasty done on his left leg recently and ever since then he's been having some symptoms of claudication earlier and longer lasting in his right leg. Patient states after he rests a while the symptoms resolved completely. Patient comes in today because he noticed a hematoma on the left side of his abdomen and there was some ecchymosis associated with it so he was concerned that it might continue to grossly came to the emergency department. Since he came in and it has not gotten any bigger. Patient states the pain is superficial others no internal abdominal pain. Patient denies any trauma that he can remember the area. Patient is on Lovenox Plavix and aspirin. - Related Data Home Medications Medication Instructions Recorded Confirmed Cyanocobalamin (Vitamin B-12) 1,000 mcg PO DAILY 10/31/18 02/26/19 [Vitamin B-12] Folic Acid 0.8 mg PO DAILY 10/31/18 02/26/19 Furosemide [Lasix] 40 mg PO DAILY PRN 10/31/18 02/26/19 Omeprazole 20 mg PO DAILY 10/31/18 02/26/19 Pyridoxine HCl (Vitamin B6) 100 mg PO DAILY 10/31/18 02/26/19 [Vitamin B-6] Metoprolol Succinate (ER) [Toprol 50 mg PO HS 01/29/19 02/26/19 XL] Albuterol Sulfate [Proair Hfa] 2 puff INHALATION RT-QID PRN 02/26/19 02/26/19 Aspirin EC [Ecotrin] 325 mg PO DAILY 02/26/19 02/26/19 Fluticasone/Salmeterol [Advair 1 puff INHALATION RT-BID 02/26/19 02/26/19 250-50 Diskus] Multivitamins, Thera [Multivitamin 1 tab PO DAILY 02/26/19 02/26/19 (formulary)] Simvastatin [Zocor] 10 mg PO HS 02/26/19 02/26/19 Previous Rx's Medication Instructions Recorded Dofetilide [Tikosyn] 250 mcg PO BID #60 cap 05/02/18 Eplerenone 100 mg PO DAILY #30 tablet 05/02/18 Ramipril 10 mg PO DAILY #30 capsule 05/02/18 Warfarin [Coumadin] 7.5 mg PO DAILY #0 02/27/19 Allergies Allergy/AdvReac Type Severity Reaction Status Date / Time fexofenadine [From Zara-D] Allergy Swelling Verified 10/21/19 18:40 Iodinated Contrast Media Allergy Rash/Hives Verified 10/21/19 18:40 [Iodinated Contrast- Oral and IV Dye] niacin Allergy Anaphylaxis Verified 10/21/19 18:40 oxycodone [From Percocet] Allergy Rash/Hives Verified 10/21/19 18:40 pseudoephedrine Allergy Swelling Verified 10/21/19 18:40 [From Zara-D] quetiapine [From Seroquel] AdvReac Confusion Verified 10/21/19 18:40 Review of Systems ROS Statement: Those systems with pertinent positive or pertinent negative responses have been documented in the HPI. ROS Other: All systems not noted in ROS Statement are negative. Past Medical History Past Medical History: Atrial Fibrillation, Atrial Flutter, Coronary Artery Disease (CAD), Heart Failure, GERD/Reflux, GI Bleed, Hyperlipidemia, Hyper tension, Myocardial Infarction ([place]) Additional Past Medical History / Comment(s): Pt states he has had a total of 4 MIs and in 2010 had 5 cardiac arrests, cardiomyopathy, A tach, lower GI bleed. Last Myocardial Infarction Date:: 2008 History of Any Multi-Drug Resistant Organisms: None Reported Date of last positivie culture/infection: ? MDRO Source:: ? Past Surgical History: AICD, Cardiac Ablation, Cardiac Valve Replacement, Cholecystectomy, Coronary Bypass/CABG, Heart Catheterization, Heart Catheterization With Stent, Orthopedic Surgery Additional Past Surgical History / Comment(s): 1995 aortic bioprosthetic valve, 2010 changed to mechanical aortic valve with 4 vessel bypass, cardiac ablations x2, AICD, PCI with stents prior to CABG, R leg fracture with hardware, colonoscopy. Past Anesthesia/Blood Transfusion Reactions: No Reported Reaction, Motion Sickness Date of Last Stent Placement:: unkn Type of Cardiac Device: AICD Device Placement Date:: 2018 Past Psychological History: No Psychological Hx Reported Smoking Status: Never smoker Past Alcohol Use History: None Reported Past Drug Use History: None Reported - Past Family History Mother Family Medical History: Cancer Additional Family Medical History / Comment(s): Colon and breast CA. Mother is still living. Father Family Medical History: Cancer Additional Family Medical History / Comment(s): CLL. Father is still living General Exam - General Exam Comments Initial Comments: GENERAL: Patient is well-developed and well-nourished. Patient is nontoxic and well- hydrated and is in no acute distress. ENT: Neck is soft and supple. No significant lymphadenopathy is noted. Oropharynx is clear. Moist mucous membranes. Neck has full range of motion without eliciting any pain. EYES: The sclera were anicteric and conjunctiva were pink and moist. Extraocular movements were intact and pupils were equal round and reactive to light. Eyelids were unremarkable. PULMONARY: Unlabored respirations. Good breath sounds bilaterally. No audible rales rhonchi or wheezing was noted. CARDIOVASCULAR: There is a regular rate and rhythm without any murmurs gallops or rubs. ABDOMEN: Patient has a ecchymotic area to the left mid abdomen which is slightly tender to touch superficially but no deep tenderness. The ecchymotic area measures about 2 cm x 5 cm. SKIN: Ecchymotic area left abdomen NEUROLOGIC: Patient is alert and oriented x3. Cranial nerves II through XII are grossly intact. Motor and sensory are also intact. Normal speech, volume and content. Symmetrical smile. MUSCULOSKELETAL: Normal extremities with adequate strength and full range of motion. She has capillary refill on the right toes. Patient has DP pulses are faint LYMPHATICS: No significant lymphadenopathy is noted PSYCHIATRIC: Normal psychiatric evaluation. Limitations: no limitations Course Vital Signs 10/21/19 18:40 Pulse Rate 79 Respiratory 18 Rate Blood Pressure 139/84 O2 Sat by Pulse 97 Oximetry Medical Decision Making - Lab Data Result diagrams: 10/21/19 19:10 Lab Results 10/21/19 Range/Units 19:10 WBC 8.7 (3.8-10.6) k/uL RBC 5.25 (4.30-5.90) m/uL Hgb 15.1 (13.0-17.5) gm/dL Hct 47.3 (39.0-53.0) % MCV 90.1 (80.0-100.0) fL MCH 28.7 (25.0-35.0) pg MCHC 31.9 (31.0-37.0) g/dL RDW 15.3 (11.5-15.5) % Plt Count 248 (150-450) k/uL Neutrophils % 75 % Lymphocytes % 11 % Monocytes % 9 % Eosinophils % 2 % Basophils % 1 % Neutrophils # 6.5 (1.3-7.7) k/uL Lymphocytes # 1.0 (1.0-4.8) k/uL Monocytes # 0.8 (0-1.0) k/uL Eosinophils # 0.2 (0-0.7) k/uL Basophils # 0.0 (0-0.2) k/uL Disposition Clinical Impression: Abdominal hematoma, Claudication Disposition: HOME SELF-CARE Condition: Good Is patient prescribed a controlled substance at d/c from ED?: No Referrals: Marce Xiao MD [Primary Care Provider] - 1-2 days Time of Disposition: 20:17
[2019-10-21 20:25] VITALS: BP 129/82; PULSE 73; TEMP 98.6
== END 2019-10-21 20:40 | disposition home or self-care (01) ==
LOC: EC 18:37
DX: S30.1XXA Contusion of abdominal wall, initial encounter (principal); I73.9 Peripheral vascular disease, unspecified; I11.0 Hypertensive heart disease with heart failure; I50.9 Heart failure, unspecified; I48.91 Unspecified atrial fibrillation; I48.92 Unspecified atrial flutter; I25.10 Atherosclerotic heart disease of native coronary artery without angina pectoris; I25.2 Old myocardial infarction; E78.5 Hyperlipidemia, unspecified; K21.9 Gastro-esophageal reflux disease without esophagitis; Z79.82 Long term (current) use of aspirin; Z79.01 Long term (current) use of anticoagulants; Z79.02 Long term (current) use of antithrombotics/antiplatelets; Z79.899 Other long term (current) drug therapy; Z79.51 Long term (current) use of inhaled steroids; Z88.8 Allergy status to other drugs, medicaments and biological substances; Z91.041 Radiographic dye allergy status; Z88.5 Allergy status to narcotic agent; Z95.810 Presence of automatic (implantable) cardiac defibrillator; Z95.5 Presence of coronary angioplasty implant and graft; Z95.1 Presence of aortocoronary bypass graft; Z95.2 Presence of prosthetic heart valve; X58.XXXA Exposure to other specified factors, initial encounter
CPT/HCPCS: 36415; 85025; 99284

== ENCOUNTER 2019-11-03 12:24 | Observation (INO) | payer MEDICARE ==
--- NOTE | 2019-11-03 12:47 | ED ---
General Adult HPI - General Chief complaint: Neuro Symptoms/Deficit Stated complaint: Poss TIA Time Seen by Provider: 11/03/19 12:35 Source: patient, RN notes reviewed, old records reviewed Mode of arrival: EMS Limitations: no limitations - History of Present Illness Initial comments: This is a 54-year-old male with past medical history significant for coronary artery disease a valve replacement as well as peripheral vascular disease. Patient has had multiple stents in his heart as well as in his legs to open up the arteries in his legs. Patient comes in today because he had no episode of amnesia lasted about an hour and then it slowly is coming back to normal where he now remembers everything except for that hour of the day. Patient denies any headache patient denies any blurred vision patient denies any slurred speech patient denies any numbness weakness. Patient denies any headache. Patient denies chest pain palpitations difficulty breathing shortness of breath. - Related Data Home Medications Medication Instructions Recorded Confirmed Cyanocobalamin (Vitamin B-12) 1,000 mcg PO DAILY 10/31/18 02/26/19 [Vitamin B-12] Folic Acid 0.8 mg PO DAILY 10/31/18 02/26/19 Furosemide [Lasix] 40 mg PO DAILY PRN 10/31/18 02/26/19 Omeprazole 20 mg PO DAILY 10/31/18 02/26/19 Pyridoxine HCl (Vitamin B6) 100 mg PO DAILY 10/31/18 02/26/19 [Vitamin B-6] Metoprolol Succinate (ER) [Toprol 50 mg PO HS 01/29/19 02/26/19 XL] Albuterol Sulfate [Proair Hfa] 2 puff INHALATION RT-QID PRN 02/26/19 02/26/19 Aspirin EC [Ecotrin] 325 mg PO DAILY 02/26/19 02/26/19 Fluticasone/Salmeterol [Advair 1 puff INHALATION RT-BID 02/26/19 02/26/19 250-50 Diskus] Multivitamins, Thera [Multivitamin 1 tab PO DAILY 02/26/19 02/26/19 (formulary)] Simvastatin [Zocor] 10 mg PO HS 02/26/19 02/26/19 Previous Rx's Medication Instructions Recorded Dofetilide [Tikosyn] 250 mcg PO BID #60 cap 05/02/18 Eplerenone 100 mg PO DAILY #30 tablet 05/02/18 Ramipril 10 mg PO DAILY #30 capsule 05/02/18 Warfarin [Coumadin] 7.5 mg PO DAILY #0 02/27/19 Allergies Allergy/AdvReac Type Severity Reaction Status Date / Time fexofenadine [From Zara-D] Allergy Swelling Verified 10/21/19 18:40 Iodinated Contrast Media Allergy Rash/Hives Verified 10/21/19 18:40 [Iodinated Contrast- Oral and IV Dye] niacin Allergy Anaphylaxis Verified 10/21/19 18:40 oxycodone [From Percocet] Allergy Rash/Hives Verified 10/21/19 18:40 pseudoephedrine Allergy Swelling Verified 10/21/19 18:40 [From Zara-D] quetiapine [From Seroquel] AdvReac Confusion Verified 10/21/19 18:40 Review of Systems ROS Statement: Those systems with pertinent positive or pertinent negative responses have been documented in the HPI. ROS Other: All systems not noted in ROS Statement are negative. Past Medical History Past Medical History: Atrial Fibrillation, Atrial Flutter, Coronary Artery Disease (CAD), Heart Failure, GERD/Reflux, GI Bleed, Hyperlipidemia, Hypertension, Myocardial Infarction ([place]) Additional Past Medical History / Comment(s): Pt states he has had a total of 4 MIs and in 2010 had 5 cardiac arrests, cardiomyopathy, A tach, lower GI bleed. Last Myocardial Infarction Date:: 2008 History of Any Multi-Drug Resistant Organisms: None Reported Date of last positivie culture/infection: ? MDRO Source:: ? Past Surgical History: AICD, Cardiac Ablation, Cardiac Valve Replacement, Cholecystectomy, Coronary Bypass/CABG, Heart Catheterization, Heart Catheteriz ation With Stent, Orthopedic Surgery Additional Past Surgical History / Comment(s): 1995 aortic bioprosthetic valve, 2010 changed to mechanical aortic valve with 4 vessel bypass, cardiac ablations x2, AICD, PCI with stents prior to CABG, R leg fracture with hardware, colonos copy. Past Anesthesia/Blood Transfusion Reactions: No Reported Reaction, Motion Sickness Date of Last Stent Placement:: unkn Type of Cardiac Device: AICD Device Placement Date:: 2018 Past Psychological History: No Psychological Hx Reported Smoking Status: Never smoker Past Alcohol Use History: None Reported Past Drug Use History: None Reported - Past Family History Mother Family Medical History: Cancer Additional Family Medical History / Comment(s): Colon and breast CA. Mother is still living. Father Family Medical History: Cancer Additional Family Medical History / Comment(s): CLL. Father is still living General Exam - General Exam Comments Initial Comments: GENERAL: Patient is well-developed and well-nourished. Patient is nontoxic and well- hydrated and is in mild distress. ENT: Neck is soft and supple. No significant lymphadenopathy is noted. Oropharynx is clear. Moist mucous membranes. Neck has full range of motion without eliciting any pain. EYES: The sclera were anicteric and conjunctiva were pink and moist. Extraocular movements were intact and pupils were equal round and reactive to light. Eyelids were unremarkable. PULMONARY: Unlabored respirations. Good breath sounds bilaterally. No audible rales rhonchi or wheezing was noted. CARDIOVASCULAR: There is a regular rate and rhythm without any murmurs gallops or rubs. ABDOMEN: Soft and nontender with normal bowel sounds. SKIN: Skin is clear with no lesions or rashes and otherwise unremarkable. NEUROLOGIC: Patient is alert and oriented x3. Cranial nerves II through XII are grossly intact. Motor and sensory are also intact. Normal speech, volume and content. Symmetrical smile. MUSCULOSKELETAL: Normal extremities with adequate strength and full range of motion. LYMPHATICS: No significant lymphadenopathy is noted PSYCHIATRIC: Normal psychiatric evaluation. Limitations: no limitations Course Vital Signs 11/03/19 12:34 Temperature 100.0 F H Pulse Rate 69 Respiratory 18 Rate Blood Pressure 137/89 O2 Sat by Pulse 97 Oximetry Medical Decision Making - Medical Decision Making EKG shows normal sinus rhythm at 75 bpm UT interval is 170 QRS is 132 QT interval 4:30 QTC is 480. Patient's EKG shows no ST segment elevation or depression. Patient has Q waves in leads II, III, and F aVF as well as precordial leads V4 V5 and V6. These are seen on previous EKG. Chest x-ray shows no acute abnormality. CT shows no acute abnormalities. Patient had a low-grade fever for 100.0 but no source for the fever was found on the patient was asymptomatic for any infection. Patient is back to his neurologic baseline he still does not remember about an hour of his stay. I spoke with that, he agreed to admit the patient admitted the patient wrote admitting orders. - Lab Data Result diagrams: 11/03/19 12:47 11/03/19 12:47 Lab Results 11/03/19 11/03/19 11/03/19 Range/Units 12:47 12:47 12:47 WBC 9.0 (3.8-10.6) k/uL RBC 5.42 (4.30-5.90) m/uL Hgb 15.3 (13.0-17.5) gm/dL Hct 47.6 (39.0-53.0) % MCV 87.8 (80.0-100.0) fL MCH 28.2 (25.0-35.0) pg MCHC 32.1 (31.0-37.0) g/dL RDW 15.5 (11.5-15.5) % Plt Count 281 (150-450) k/uL Neutrophils % 81 % Lymphocytes % 8 % Monocytes % 6 % Eosinophils % 2 % Basophils % 0 % Neutrophils # 7.3 (1.3-7.7) k/uL Lymphocytes # 0.7 L (1.0-4.8) k/uL Monocytes # 0.6 (0-1.0) k/uL Eosinophils # 0.2 (0-0.7) k/uL Basophils # 0.0 (0-0.2) k/uL PT 19.4 H (9.0-12.0) sec INR 2.0 H (<1.2) APTT 28.1 (22.0-30.0) sec Sodium 139 (137-145) mmol/L Potassium 4.1 (3.5-5.1) mmol/L Chloride 106 (98-107) mmol/L Carbon Dioxide 25 (22-30) mmol/L Anion Gap 8 mmol/L BUN 15 (9-20) mg/dL Creatinine 0.69 (0.66-1.25) mg/dL Est GFR (CKD-EPI)AfAm >90 (>60 ml/min/1.73 sqM) Est GFR (CKD-EPI)NonAf >90 (>60 ml/min/1.73 sqM) Glucose 146 H (74-99) mg/dL Calcium 9.4 (8.4-10.2) mg/dL Total Bilirubin 0.8 (0.2-1.3) mg/dL AST 27 (17-59) U/L ALT 15 (4-49) U/L Alkaline Phosphatase 64 (38-126) U/L Troponin I (0.000-0.034) ng/mL Total Protein 6.6 (6.3-8.2) g/dL Albumin 4.2 (3.5-5.0) g/dL Urine Color Urine Appearance (Clear) Urine pH (5.0-8.0) Ur Specific [place] (1.001-1.035) Urine Protein (Negative) Urine Glucose (UA) (Negative) Urine Ketones (Negative) Urine Blood (Negative) Urine Nitrite (Negative) Urine Bilirubin (Negative) Urine Urobilinogen (<2.0) mg/dL Ur Leukocyte Esterase (Negative) Urine RBC (0-5) /hpf Urine WBC (0-5) /hpf Ur Squamous Epith Cells (0-4) /hpf Hyaline Casts (0-2) /lpf Urine Mucus (None) /hpf 11/03/19 11/03/19 Range/Units 12:47 12:47 WBC (3.8-10.6) k/uL RBC (4.30-5.90) m/uL Hgb (13.0-17.5) gm/dL Hct (39.0-53.0) % MCV (80.0-100.0) fL MCH (25.0-35.0) pg MCHC (31.0-37.0) g/dL RDW (11.5-15.5) % Plt Count (150-450) k/uL Neutrophils % % Lymphocytes % % Monocytes % % Eosinophils % % Basophils % % Neutrophils # (1.3-7.7) k/uL Lymphocytes # (1.0-4.8) k/uL Monocytes # (0-1.0) k/uL Eosinophils # (0-0.7) k/uL Basophils # (0-0.2) k/uL PT (9.0-12.0) sec INR (<1.2) APTT (22.0-30.0) sec Sodium (137-145) mmol/L Potassium (3.5-5.1) mmol/L Chloride (98-107) mmol/L Carbon Dioxide (22-30) mmol/L Anion Gap mmol/L BUN (9-20) mg/dL Creatinine (0.66-1.25) mg/dL Est GFR (CKD-EPI)AfAm (>60 ml/min/1.73 sqM) Est GFR (CKD-EPI)NonAf (>60 ml/min/1.73 sqM) Glucose (74-99) mg/dL Calcium (8.4-10.2) mg/dL Total Bilirubin (0.2-1.3) mg/dL AST (17-59) U/L ALT (4-49) U/L Alkaline Phosphatase (38-126) U/L Troponin I <0.012 (0.000-0.034) ng/mL Total Protein (6.3-8.2) g/dL Albumin (3.5-5.0) g/dL Urine Color Yellow Urine Appearance Cloudy (Clear) Urine pH 6.0 (5.0-8.0) Ur Specific [place] 1.024 (1.001-1.035) Urine Protein Trace H (Negative) Urine Glucose (UA) Negative (Negative) Urine Ketones Negative (Negative) Urine Blood Large H (Negative) Urine Nitrite Negative (Negative) Urine Bilirubin Negative (Negative) Urine Urobilinogen <2.0 (<2.0) mg/dL Ur Leukocyte Esterase Negative (Negative) Urine RBC >182 H (0-5) /hpf Urine WBC 2 (0-5) /hpf Ur Squamous Epith Cells <1 (0-4) /hpf Hyaline Casts 6 H (0-2) /lpf Urine Mucus Occasional H (None) /hpf Disposition Clinical Impression: Transient cerebral ischemia Disposition: ADMITTED IP TO THIS HOSP Referrals: None,Stated [Primary Care Provider] - 1-2 days Time of Disposition: 14:46
[2019-11-03 13:01] LABS: Basophils % (A) 0 %; Eosinophils # (A) 0.2 k/uL (0-0.7); Eosinophils % (A) 2 %; HCT 47.6 % (39.0-53.0); HGB 15.3 gm/dL (13.0-17.5); Lymphocytes # (A) 0.7 k/uL (1.0-4.8); Lymphocytes % (A) 8 %; MCH 28.2 pg (25.0-35.0); MCHC 32.1 g/dL (31.0-37.0); MCV 87.8 fL (80.0-100.0); Mean Platelet Volume 7.1; Monocytes # (A) 0.6 k/uL (0-1.0); Monocytes % (A) 6 %; Neutrophils # (A) 7.3 k/uL (1.3-7.7); Neutrophils % (A) 81 %; Platelet Count 281 k/uL (150-450); RBC 5.42 m/uL (4.30-5.90); RDW 15.5 % (11.5-15.5)
--- NOTE | 2019-11-03 13:07 | XR ---
EXAMINATION TYPE: XR chest 2V DATE OF EXAM: 11/03/2019 COMPARISON: 02/26/2019 HISTORY: Shortness of breath TECHNIQUE: Frontal and lateral views of the chest are obtained. FINDINGS: Scattered senescent parenchymal changes noted. Hyperinflation compatible with COPD. No evidence for infiltrate. No evidence for atelectasis. Heart size is stable. Mediastinal structures are stable and grossly unremarkable. No evidence for hilar prominence. Degenerative changes dorsal spine. IMPRESSION: 1. No evidence for acute pulmonary disease.
[2019-11-03 13:11] LABS: ALT 15 U/L (4-49); AST 27 U/L (17-59); African American GFR (CKD) >90 (>60 ml/min/1.73 sqM); Albumin 4.2 g/dL (3.5-5.0); Alkaline Phosphatase 64 U/L (38-126); Anion Gap 8 mmol/L; Blood Urea Nitrogen 15 mg/dL (9-20); Calcium 9.4 mg/dL (8.4-10.2); Carbon Dioxide 25 mmol/L (22-30); Chloride 106 mmol/L (98-107); Glucose 146 mg/dL (74-99); Non-African American GFR(CKD) >90 (>60 ml/min/1.73 sqM); Potassium 4.1 mmol/L (3.5-5.1); Sodium 139 mmol/L (137-145); Total Bilirubin 0.8 mg/dL (0.2-1.3); Total Protein 6.6 g/dL (6.3-8.2)
--- NOTE | 2019-11-03 13:12 | CT ---
EXAMINATION TYPE: CT brain wo con for TPA DATE OF EXAM: 11/03/2019 COMPARISON: None INDICATION: Confusion. DLP: 1190.4 mGycm, Automated exposure control for dose reduction was used. CONTRAST: None CT of the brain is performed utilizing 3 mm thick sections through the posterior fossa and 3 mm thick sections through the remaining calvarium. Study is performed within 24 hours of arrival to the hosp [facility]. No abnormal hyperdensity is present to suggest an acute intracranial hemorrhage. No mass lesion is evident. Some calcification is along the anterior falx. No acute infarcts are evident. Ventricles and sulci are appropriate for the patient age. Paranasal sinuses and mastoid air cells within the [id number] are clear. Very minimal mucosal thic kening may be noted within the anterior medial left ethmoid air cell. IMPRESSIONS: 1. No acute intracranial process.
[2019-11-03 13:16] LABS: Partial Thromboplastin Time 28.1 sec (22.0-30.0); Prothrombin Time 19.4 sec (9.0-12.0)
[2019-11-03 14:16] LABS: Appearance,Urine Cloudy (Clear); Bilirubin,Urine Negative (Negative); Blood,Urine Large (Negative); Color,Urine Yellow; Glucose,Urine (UA) Negative (Negative); Hyaline Casts,Urine 6 /lpf (0-2); Ketones,Urine Negative (Negative); Leukocyte Esterase,Urine Negative (Negative); Mucus,Urine Occasional /hpf; Nitrite,Urine Negative (Negative); Protein,Urine Trace (Negative); RBC,Urine >182 /hpf (0-5); Specific Gravity,Urine 1.024 (1.001-1.035); Squamous Epithelial Cell,Urine <1 /hpf (0-4); Urobilinogen,Urine <2.0 mg/dL (<2.0); WBC,Urine 2 /hpf (0-5)
[2019-11-03] MEDS ORDERED: HYOSCYAMINE ORAL DROPS 1.875 MG/15 ML BOTTLE SUBLINGUAL PRN (17:38)
--- NOTE | 2019-11-03 17:48 | P.HPIM ---
History of Present Illness Patient is a pleasant 54-year-old the male in with complaints of memory difficulties lasted for about the an hour to 2 hours. Patient never had any similar problems in the past patient denied any weakness denied any headache denied any nausea vomiting abdominal pain dysuria. Patient has multiple medical problems including the history of coronary artery disease and an aortic valve replacement with a mechanical valve. Patient is on Coumadin for that patient is also taking aspirin and Plavix because of his been faster disease. Patient had recent the angioplasty of his the left leg because of which patient was put on Lovenox subcutaneous for bridging which led to a hematoma on the left lower abdomen. Patient was also recently hospitalized for hematuria secondary to aspirin, Plavix and Coumadin he was on along with a kidney stone. Patient still has RBC in the urine although denied any obvious hematuria. Patient does have low-grade fever of 100 without any complaints of cough or dysuria R any other signs or symptoms of sepsis urease not significant for urinary tract infection does have RBC in the urine. Chest x-ray did not show any significant abnormality. Patient is being admitted for neurological evaluation CT of the head did not show any significant abnormality. In the past when patient had a microinfarction patient had a coronary pulmonary arrest leading to some M anoxic brain injury, this event was in 2010. Review of Systems REVIEW OF SYSTEMS: CONSTITUTIONAL: No fever, no malaise, no fatigue. HEENT: No recent visual problems or hearing problems. Denied any sore throat. CARDIOVASCULAR: No chest pain, orthopnea, PND, no palpitations, no syncope. PULMONARY: No shortness of breath, no cough, no hemoptysis. GASTROINTESTINAL: No diarrhea, no nausea, no vomiting, no abdominal pain. NEUROLOGICAL: As mentioned in HPI HEMATOLOGICAL: Denies any bleeding or petechiae. GENITOURINARY: Denies any burning micturition, frequency, or urgency. MUSCULOSKELETAL/RHEUMATOLOGICAL: Denies any joint pain, swelling, or any muscle pain. ENDOCRINE: Denies any polyuria or polydipsia. The rest of the 14-point review of systems is negative. Past Medical History Past Medical History: Atrial Fibrillation, Atrial Flutter, Coronary Artery Disease (CAD), Heart Failure, GERD/Reflux, GI Bleed, Hyperlipidemia, Hypertension, Myocardial Infarction (VT) Additional Past Medical History / Comment(s): Pt states he has had a total of 4 MIs and in 2010 had 5 cardiac arrests, cardiomyopathy, A tach, lower GI bleed. Last Myocardial Infarction Date:: 2008 History of Any Multi-Drug Resistant Organisms: None Reported Date of last positivie culture/infection: ? MDRO Source:: ? Past Surgical History: AICD, Cardiac Ablation, Cardiac Valve Replacement, Cholecystectomy, Coronary Bypass/CABG, Heart Catheterization, Heart Catheterization With Stent, Orthopedic Surgery Additional Past Surgical History / Comment(s): 1995 aortic bioprosthetic valve, 2010 changed to mechanical aortic valve with 4 vessel bypass, cardiac ablations x2, AICD, PCI with stents prior to CABG, R leg fracture with hardware, colonoscopy. Past Anesthesia/Blood Transfusion Reactions: No Reported Reaction, Motion Sickness Date of Last Stent Placement:: unkn Type of Cardiac Device: AICD Device Placement Date:: 2018 Past Psychological History: No Psychological Hx Reported Smoking Status: Never smoker Past Alcohol Use History: None Reported Past Drug Use History: None Reported - Past Family History Mother Family Medical History: Cancer Additional Family Medical History / Comment(s): Colon and breast CA. Mother is still living. Father Family Medical History: Cancer Additional Family Medical History / Comment(s): CLL. Father is still living Medications and Allergies Home Medications Medication Instructions Recorded Confirmed Type Dofetilide [Tikosyn] 250 mcg PO BID #60 cap 05/02/18 11/03/19 Rx Eplerenone 100 mg PO DAILY #30 tablet 05/02/18 11/03/19 Rx Ramipril 10 mg PO DAILY #30 capsule 05/02/18 11/03/19 Rx Cyanocobalamin (Vitamin B-12) 1,000 mcg PO DAILY 10/31/18 11/03/19 History [Vitamin B-12] Folic Acid 0.8 mg PO DAILY 10/31/18 11/03/19 History Omeprazole 20 mg PO BID 10/31/18 11/03/19 History Pyridoxine HCl (Vitamin B6) 100 mg PO DAILY 10/31/18 11/03/19 History [Vitamin B-6] Fluticasone/Salmeterol [Advair 1 puff INHALATION RT-BID 02/26/19 11/03/19 History 250-50 Diskus] Aspirin EC [Ecotrin Low Dose] 81 mg PO DAILY 11/03/19 11/03/19 History Atorvastatin [Lipitor] 40 mg PO HS 11/03/19 11/03/19 History Clopidogrel Bisulfate [Plavix] 75 mg PO DAILY 11/03/19 11/03/19 History Hyoscyamine Sulfate [Hyoscyamine 0.125 mg SL Q6H PRN 11/03/19 11/03/19 History Sulfate SL] Metoprolol Succinate (ER) [Toprol 75 mg PO HS 11/03/19 11/03/19 History Xl] Vitamin C(Unknown Dose) 1 tab PO DAILY 11/03/19 11/03/19 History Vitamin D3(Unknown Dose) 1 tab PO DAILY 11/03/19 11/03/19 History Warfarin [Coumadin] 7.5 mg PO SUTUTHSA@209911/03/19 11/03/19 History Warfarin [Coumadin] 10 mg PO MOWEFR@209911/03/19 11/03/19 History Allergies Allergy/AdvReac Type Severity Reaction Status Date / Time fexofenadine [From Zara-D] Allergy Anaphylaxis Verified 11/03/19 15:38 Iodinated Contrast Media Allergy Rash/Hives Verified 11/03/19 15:38 [Iodinated Contrast- Oral and IV Dye] niacin Allergy Anaphylaxis Verified 11/03/19 15:38 oxycodone [From Percocet] Allergy Rash/Hives Verified 11/03/19 15:38 quetiapine [From Seroquel] AdvReac Confusion Verified 11/03/19 15:38 Physical Exam Vitals: Vital Signs Temp Pulse Resp BP Pulse Ox 11/03/19 15:00 73 16 114/88 98 11/03/19 14:30 70 19 119/84 96 11/03/19 14:00 71 17 121/85 97 11/03/19 13:30 75 18 130/90 98 11/03/19 13:00 74 16 137/89 96 11/03/19 12:43 78 18 137/89 97 11/03/19 12:34 100.0 F H 69 18 137/89 97 Intake and Output 11/03/19 11/03/19 11/03/19 06:59 14:59 22:59 Other: Weight 91.626 kg PHYSICAL EXAMINATION: GENERAL: The patient is alert and oriented x3, not in any acute distress. Well developed, well nourished. HEENT: Pupils are round and equally reacting to light. EOMI. No scleral icterus. No conjunctival pallor. Normocephalic, atraumatic. No pharyngeal erythema. No thyromegaly. CARDIOVASCULAR: S1 and S2 present. No murmurs, rubs, or gallops. PULMONARY: Chest is clear to auscultation, no wheezing or crackles. ABDOMEN: Soft, nontender, nondistended, normoactive bowel sounds. No palpable organomegaly. MUSCULOSKELETAL: No joint swelling or deformity. EXTREMITIES: No cyanosis, clubbing, or pedal edema. NEUROLOGICAL: Gross neurological examination did not reveal any focal deficits. SKIN: No rashes. Results CBC & Chem 7: 11/03/19 12:47 11/03/19 12:47 Labs: Abnormal Lab Results - Last 24 Hours (Table) 11/03/19 11/03/19 11/03/19 Range/Units 12:47 12:47 12:47 Lymphocytes # 0.7 L (1.0-4.8) k/uL PT 19.4 H (9.0-12.0) sec INR 2.0 H (<1.2) Glucose 146 H (74-99) mg/dL Urine Protein (Negative) Urine Blood (Negative) Urine RBC (0-5) /hpf Hyaline Casts (0-2) /lpf Urine Mucus (None) /hpf 11/03/19 Range/Units 12:47 Lymphocytes # (1.0-4.8) k/uL PT (9.0-12.0) sec INR (<1.2) Glucose (74-99) mg/dL Urine Protein Trace H (Negative) Urine Blood Large H (Negative) Urine RBC >182 H (0-5) /hpf Hyaline Casts 6 H (0-2) /lpf Urine Mucus Occasional H (None) /hpf Assessment and Plan Plan: -Possible transient global amnesia: Patient will be workup for TIA neurology will evaluate the patient LDL will be obtained carotid Doppler will obtain CT of the head as mentioned above is within normal limits. -RBC in the urine probably secondary to antiplatelets and anticoagulants along with recent kidney stone patient doesn't have any obvious which revealed just monitor for now. -Mild low-grade fever secondary to left abdominal wall hematoma patient will be monitored without any antibiotics -Mechanical heart valve, and equally L. Patient is subtherapeutic because of which I'm increasing the dose of Coumadin to 10 mg daily patient's target INR is around 2.5-3.5. -Coronary artery disease with history of cardio pulmonary arrest in the past -Atrial fibrillation paroxysmal: Vision resumed on home regimen patient will be continued and thick is 7 -Hyperlipidemia -Hypertension -Gastroesophageal reflux disease
[2019-11-03] MEDS: SYMBICORT 80-4.5 MCG INHALER INHALATION SCH (18:36)
[2019-11-03] MEDS ORDERED: ACETAMINOPHEN TAB 325 MG TAB PO PRN (18:41)
[2019-11-03] MEDS: WARFARIN 10 MG TAB PO SCH (18:42)
[2019-11-03] MEDS: DOFETILIDE 250 MCG CAP PO SCH (20:59)
[2019-11-03] MEDS ORDERED: ATORVASTATIN 40 MG TAB PO SCH (21:00)
[2019-11-03] MEDS ORDERED: METOPROLOL SUCCINATE (ER) 25 MG TAB.ER.24H PO SCH (21:00)
--- NOTE | 2019-11-03 22:59 | US ---
EXAMINATION TYPE: US carotid duplex BILAT DATE OF EXAM: 11/03/2019 COMPARISON: US CLINICAL HISTORY: tia. TIA. HTN. EXAM MEASUREMENTS: RIGHT: Peak Systolic Velocity (PSV) cm/sec ----- Right CCA: 93.9 ----- Right ICA: 101.1 ----- Right ECA: 180.6 ICA/CCA ratio: 1.1 RIGHT: End Diastole cm/sec ----- Right CCA: 24.1 ----- Right ICA: 21.2 ----- Right ECA: 17.0 LEFT: Peak Systolic Velocity (PSV) cm/sec ----- Left CCA: 104.3 ----- Left ICA: 64.2 ----- Left ECA: 87.1 ICA/CCA ratio: 0.6 LEFT: End Diastole cm/sec ----- Left CCA: 25.6 ----- Left ICA: 19.7 ----- Left ECA: 17.2 VERTEBRALS (direction of flow): Right Vertebral: Antegrade Left Vertebral: Antegrade Rhythm: Normal Intimal thickening seen bilateral carotid arteries. Minimal plaque seen right carotid bifurcation. El evated velocity right ECA. FLow appears to be turbulent within right carotid bifurcation. No signific ant stenosis seen at this time. Hypoechoic area with hyperechoic component seen within left neck measurin.5 x 0.5 x 0.5 cm. IMPRESSION: Mild plaque formation. Images and measurements suggest less than 15% stenosis in both in ternal carotid arteries. There is antegrade flow in the vertebral arteries. There is a elevated velocity measured in the right external carotid arteries suggestive of 50-70% lisa nosis. Criteria for Assigning % of Stenosis / Diameter reduction (Estimation based on the indirect measurements of the internal carotid artery velocities (ICA PSV). 1. Normal (no stenosis)=ICA PSV < 125 cm/s: ratio < 2.0: ICA EDV<40 cm/s. 2. Less than 50% stenosis=ICA PSV < 125 cm/s: ratio < 2.0: ICA EDV<40 cm/s. 3. 50 to 69% stenosis=ICA PSV of 125 to 230 cm/s: ration 2.0 ? 4.0: ICA EDV 40-100 cm/s. 4. Greater than 70% stenosis to near occlusion= ICA PSV > 230 cm/s: ratio > 4.0: ICA EDV > 100 cm/s. 5. Near occlusion= ICA PSV velocities may be low or undetectable: variable ratio and ICA EDV. 6. Total occlusion=unable to detect flow.
[2019-11-04 05:20] LABS: HCT 47.6 % (39.0-53.0); HGB 14.9 gm/dL (13.0-17.5); Hypochromasia Slight; MCH 28.1 pg (25.0-35.0); MCHC 31.4 g/dL (31.0-37.0); MCV 89.7 fL (80.0-100.0); Mean Platelet Volume 7.3; Platelet Count 267 k/uL (150-450); RBC 5.31 m/uL (4.30-5.90); RDW 15.2 % (11.5-15.5); WBC 7.4 k/uL (3.8-10.6)
[2019-11-04 05:29] LABS: INR 2.4 (<1.2); Prothrombin Time 23.5 sec (9.0-12.0)
[2019-11-04] MEDS ORDERED: PANTOPRAZOLE 40 MG TABLET PO SCH (07:30)
[2019-11-04] MEDS: SYMBICORT 80-4.5 MCG INHALER INHALATION SCH (08:01)
[2019-11-04] MEDS: DOFETILIDE 250 MCG CAP PO SCH (08:52)
[2019-11-04] MEDS ORDERED: FOLIC ACID 1 MG TAB PO SCH (09:00)
[2019-11-04] MEDS ORDERED: ASPIRIN 81 MG PO SCH (09:00)
[2019-11-04] MEDS ORDERED: lisinopriL 20 MG TAB PO SCH (09:00)
[2019-11-04] MEDS ORDERED: SPIRONOLACTONE 25 MG TAB PO SCH (09:00)
[2019-11-04] MEDS ORDERED: PYRIDOXINE 50 MG TAB PO SCH (09:00)
[2019-11-04] MEDS ORDERED: CLOPIDOGREL 75 MG TAB PO SCH (09:00)
--- NOTE | 2019-11-04 14:06 | P.CNNES ---
History of Present Illness Consult date: 11/04/19 Requesting physician: Kvng Cox Reason for Consult: TIA History of Present Illness: This is a 54-year-old gentleman with medical history of coronary artery disease status post stent, valve replacement, peripheral vascular disease status post stent and multiple cardiac arrest in 2010 leading to some anoxic brain injury that presented to the emergency department on 11/03/2019 for an episode of memory difficulty lasting about 2 hours. patient stated that on 11/03/2019 he woke up around 6:30 morning and he was doing well around 10:00 in the morning he acting unusual lasting for about 2 hours. He wanted to call his daughter to call his daughter but then he did not know why he was calling her or was happening. He was also thinking about his son who doesn't live with them currently about inferior game and he felt like he would was a strange feeling that he could not describe. Again as stated above it took him 2 hours until his he was back to baseline and he was thinking more clearly. He denied any asso ciated numbness tingling weakness visual disturbance difficulty swallowing difficulty getting his words out. He denies any similar episodes in the past. Denies history of stroke. He did call his daughter who is a executive director of nursing and the ice and he said he stated that she was with him over the video telephone and she was assessing the for for stroke signs and and no focal deficits was noted. He called EMS and upon their arrival the asked him his medication and he could not remember his medication he only remembered one. Currently he feels like he is back to baseline. He denies any new neurological symptoms. Denies any further episodes similar yesterday episode. Also of note he did have any urinary or bowel incontinence no history of seizures. Of note in the past the patient had that cardiopulmonary arrest leading to some anoxic brain injury, this event was in 2010. Of note patient was recently hospitalized outside facility for hematuria secondary to aspirin Plavix and Coumadin, along with the with kidney stones. he stated that he was discharged this past Saturday and initially he was told that he had an infection that led to the hematuria but cultures came back negative. he is on aspirin the Plavix and Coumadin for his peripheral artery disease and cardiac/vascular problems. No history of atrial fibrillation. Regarding his multiple cardiac arrest in 2010 he stated it happened out 5 times in 2010 and was all related to an had he had significant cardiac issues and he was hospitalized at [facility] as well as [place]. In the ED the patient's workup was: CT of the head which the was reported as no acute intracranial process. I personally reviewed the CT of the head and it felt like there is some mild atrophy in bilateral frontal area. Carotid duplex was reported as mild plaque formation. Images and measurements suggest less than 15% stenosis in both internal carotid artery. There is antegrade flow in the vertebral arteries. There is elevated velocity management in the right external carotid artery suggestive of 50-70% stenosis. Lipid profile was done and shows triglycerides 63, cholesterol 101, LDL 66, HDL 22. Chest x-ray was reported as no evidence of for acute pulmonary disease. EKG was completed and that was documented as normal sinus rhythm. Ventricular rate was 75. Possible inferior infarct, age undetermined. Nonspecific intraventricular block. Review of Systems Review of system: The 12 point system was reviewed and apparent positive and negative per HPI. Past Medical History Past Medical History: Atrial Fibrillation, Atrial Flutter, Coronary Artery Disease (CAD), Heart Failure, GERD/Reflux, GI Bleed, Hyperlipidemia, Hypertension, Myocardial Infarction (MT) Additional Past Medical History / Comment(s): Pt states he has had a total of 4 MIs and in 2010 had 5 cardiac arrests, cardiomyopathy, A tach, lower GI bleed. Last Myocardial Infarction Date:: 2008 History of Any Multi-Drug Resistant Organisms: C-DIFF Date of last positivie culture/infection: 2010 MDRO Source:: stool Past Surgical History: AICD, Cardiac Ablation, Cardiac Valve Replacement, Cholecystectomy, Coronary Bypass/CABG, Heart Catheterization, Heart Catheterization With Stent, Orthopedic Surgery Additional Past Surgical History / Comment(s): 1995 aortic bioprosthetic valve, 2010 changed to mechanical aortic valve with 4 vessel bypass, cardiac ablations x2, AICD, PCI with stents prior to CABG, R leg fracture with hardware, colonoscopy. stent in right leg placed 2017. angiogram with balloon opening to the left leg on october 19, 2019. pyeloplasty done on right kidney. hernia sx, large kidney stone in right kidney. Past Anesthesia/Blood Transfusion Reactions: No Reported Reaction, Motion Sickness Date of Last Stent Placement:: unkn Type of Cardiac Device: AICD Device Placement Date:: 2018 Past Psychological History: No Psychological Hx Reported Additional Psychological History / Comment(s): . raised his son and daughter without the help of their mother. 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 no militaryexperience. No international travel. has a pet dog in the home, no one else lives at this time. relates there is not a strong family Of cardiovascular disease Smoking Status: Never smoker Past Alcohol Use History: None Reported Past Drug Use History: None Reported - Past Family History Mother Family Medical History: Cancer Additional Family Medical History / Comment(s): Colon and breast CA. Mother is still living. Father Family Medical History: Cancer Additional Family Medical History / Comment(s): CLL. Father is still living Medications and Allergies Home Medications Medication Instructions Recorded Confirmed Type Dofetilide [Tikosyn] 250 mcg PO BID #60 cap 05/02/18 11/03/19 Rx Eplerenone 100 mg PO DAILY #30 tablet 05/02/18 11/03/19 Rx Ramipril 10 mg PO DAILY #30 capsule 05/02/18 11/03/19 Rx Cyanocobalamin (Vitamin B-12) 1,000 mcg PO DAILY 10/31/18 11/03/19 History [Vitamin B-12] Folic Acid 0.8 mg PO DAILY 10/31/18 11/03/19 History Omeprazole 20 mg PO BID 10/31/18 11/03/19 History Pyridoxine HCl (Vitamin B6) 100 mg PO DAILY 10/31/18 11/03/19 History [Vitamin B-6] Fluticasone/Salmeterol [Advair 1 puff INHALATION RT-BID 02/26/19 11/03/19 History 250-50 Diskus] Aspirin EC [Ecotrin Low Dose] 81 mg PO DAILY 11/03/19 11/03/19 History Atorvastatin [Lipitor] 40 mg PO HS 11/03/19 11/03/19 History Clopidogrel Bisulfate [Plavix] 75 mg PO DAILY 11/03/19 11/03/19 History Hyoscyamine Sulfate [Hyoscyamine 0.125 mg SL Q6H PRN 11/03/19 11/03/19 History Sulfate SL] Metoprolol Succinate (ER) [Toprol 75 mg PO HS 11/03/19 11/03/19 History XL] Vitamin C(Unknown Dose) 1 tab PO DAILY 11/03/19 11/03/19 History Vitamin D3(Unknown Dose) 1 tab PO DAILY 11/03/19 11/03/19 History Warfarin [Coumadin] 10 mg PO HS #0 11/04/19 11/03/19 Rx Allergies Allergy/AdvReac Type Severity Reaction Status Date / Time fexofenadine [From Zara-D] Allergy Anaphylaxis Verified 11/03/19 15:38 Iodinated Contrast Media Allergy Rash/Hives Verified 11/03/19 15:38 [Iodinated Contrast- Oral and IV Dye] Melon Allergy Rash/Hives Verified 11/04/19 10:09 niacin Allergy Anaphylaxis Verified 11/03/19 15:38 oxycodone [From Percocet] Allergy Rash/Hives Verified 11/03/19 15:38 quetiapine [From Seroquel] AdvReac Confusion Verified 11/03/19 15:38 Physical Examination - Vital Signs Vital Signs: Vital Signs Temp Pulse Pulse Resp BP BP Pulse Ox 11/04/19 09:00 20 11/04/19 07:55 97.6 F 74 20 146/84 98 11/04/19 05:40 98.0 F 69 18 129/79 98 11/04/19 03:50 97.7 F 69 18 125/77 98 11/04/19 03:00 97.7 F 69 18 125/77 98 11/04/19 01:50 98.2 F 67 18 135/84 97 11/03/19 23:50 98.0 F 69 18 130/79 96 11/03/19 21:50 98.2 F 80 18 132/82 11/03/19 21:00 98.0 F 82 18 131/84 96 11/03/19 19:50 98.0 F 82 18 131/84 96 11/03/19 18:50 76 16 11/03/19 18:16 98.1 F 76 16 131/84 96 11/03/19 17:56 98.9 F 75 18 125/88 98 11/03/19 15:00 73 16 114/88 98 11/03/19 14:30 70 19 119/84 96 11/03/19 14:00 71 17 121/85 97 11/03/19 13:30 75 18 130/90 98 11/03/19 13:00 74 16 137/89 96 11/03/19 12:43 78 18 137/89 97 11/03/19 12:34 100.0 F H 69 18 137/89 97 Intake and Output 11/03/19 11/04/19 11/04/19 22:59 06:59 14:59 Intake Total 240 Balance 240 Intake: Oral 240 Other: Voiding Method Toilet Toilet Toilet # Voids 2 1 # Bowel Movements 0 0 Weight 91.626 kg GENERAL: The patient is lying in bed and is not in acute distress. CHEST: The heart rate is regular rate rhythm. No carotid bruit bilaterally. LUNG: Clear to auscultation bilaterally no wheezing noted throughout. Not labored breathing. ABDOMEN/GI: Bowel sounds present in all 4 quadrants. No tenderness to palpation throughout. NEUROLOGICAL: Higher mental function: The patient is awake, alert, oriented to self, place and time. Patient is following commands. No aphasia and no neglect. Cranial nerves: The pupils are round, equal and reactive to light and accommodation. Visual mendoza are full to confrontation throughout. Extraocular movement is intact no nystagmus is noted. Facial sensation is normal to touch throughout. The facial strength is normal throughout. Hearing is normal bilaterally to hand rub. Tongue is midline and moved [id number] without any difficulty. No dysarthria is noted. Shoulder shrug is normal bilaterally. Motor: The strength is 5 over 5 throughout. Normal tone and bulk. Cerebellum: Normal finger to nose heel to bates bilaterally. Sensation: Sensation is normal to touch throughout. Reflexes (right/left): 2+ throughout. Plantars are downgoing bilaterally. Results Patient initial of coagulation that PT is 19.4 INR is 2.0 PTT is 28.1. - Laboratory Findings CBC and BMP: 11/04/19 04:54 11/03/19 12:47 Abnormal Lab Findings: Abnormal Labs 11/03/19 11/03/19 11/03/19 12:47 12:47 12:47 Lymphocytes # 0.7 L PT 19.4 H INR 2.0 H Glucose 146 H HDL Cholesterol Urine Protein Urine Blood Urine RBC Hyaline Casts Urine Mucus 11/03/19 11/04/19 11/04/19 12:47 04:54 04:54 Lymphocytes # PT 23.5 H INR 2.4 H Glucose HDL Cholesterol 22 L Urine Protein Trace H Urine Blood Large H Urine RBC >182 H Hyaline Casts 6 H Urine Mucus Occasional H Assessment and Plan Assessment: This is a 54-year-old gentleman with medical history of coronary artery disease status post stent, valve replacement and peripheral vascular disease status post stent that presented to the emergency department on 11/03/2019 for an episode of memory difficulty lasting about 2 hours. Patient had similar problems in the past and denies any weakness numbness nausea vomiting associated with this. She also denies any visual disturbance history with this. She had cardiopulmonary arrest leading to some anoxic brain injury, this event was in 2010 Transient Global Amnesia lasting for 2 hour. Etiology unknow: some of possibilities possible TIA vs seizure History of an cardiopulmonary arrest leading to some anoxic brain injury in 2011. Coronary artery disease status post stent Peripheral artery disease status post stent. Plan: TIA work-up include: CT of the head which the was reported as no acute intracranial process. I personally reviewed the CT of the head and it felt like there is some mild atrophy in bilateral frontal area. Carotid duplex was reported as mild plaque formation. Images and measurements suggest less than 15% stenosis in both internal carotid artery. There is antegrade flow in the vertebral arteries. There is elevated velocity management in the right external carotid artery suggestive of 50-70% stenosis. Transthoracic echocardiogram: ordered and pending result Lipid profile was done and shows triglycerides 63, cholesterol 101, LDL 66, HDL 22. EKG was completed and that was documented as normal sinus rhythm. Ventricular rate was 75. Possible inferior infarct, age undetermined. Nonspecific intraventricular block. TSH; hemoglobin A1c; ordered. cardiac monitoring. Patient is on warfarin, aspirin 81 mg, Plavix 75 mg and currently on Lipitor 40 mg. I will not increase or modify his antiepileptic or anticoagulation since the patient has history of recent hematuria. I'll defer it to the Primary team or his cardiology team. Ordered EEG to rule out any seizure or epileptiform discharges. if EEG does not show any seizure or ictal discharges we will not start the patient on seizure medication. Patient was notified that he needs to follow up in outpatient neurology clinic regarding his transient global amnesia episode. Thanks for the consult. Soren Treviño MD Neuro-Hospitalist Time with Patient: Greater than 30
[2019-11-04 14:48] VITALS: BP 101/64; PULSE 63; RESP 16; TEMP 98
--- NOTE | 2019-11-04 15:07 | P.DS ---
Providers Date of admission: 11/03/19 15:19 Attending physician: María Elena Geronimo Consults: 11/03/19 14:49 Consult Physician Routine Consulting Provider: Soren Treviño Consult Reason/Comments: TIA Do you want consulting provider notified?: Yes Primary care physician: Stated None Hospital Course: Patient was admitted for the possible transient global amnesia lasting for 2 hours. Patient is undergoing workup for TIA and stroke. Patient had a carotid Doppler which showed right external Rotated the stenosis of 50-70% left 1 did not show any significant abnormality. Patient is undergoing echocardiogram and an EEG if those results are within normal limits patient will be discharged patient is already on warfarin and aspirin and Plavix. Patient's repeat INR is 2.4. Patient's INR is subtherapeutic for mechanical wall less today increasing the dose of Coumadin to 10 mg daily and patient will need INR checked in 2-3 days. Patient had a normal TSH PHYSICAL EXAMINATION: GENERAL: The patient is alert and oriented x3, not in any acute distress. Well developed, well nourished. HEENT: Pupils are round and equally reacting to light. EOMI. No scleral icterus. No conjunctival pallor. Normocephalic, atraumatic. No pharyngeal erythema. No thyromegaly. CARDIOVASCULAR: S1 and S2 present. No murmurs, rubs, or gallops. PULMONARY: Chest is clear to auscultation, no wheezing or crackles. ABDOMEN: Soft, nontender, nondistended, normoactive bowel sounds. No palpable organomegaly. MUSCULOSKELETAL: No joint swelling or deformity. EXTREMITIES: No cyanosis, clubbing, or pedal edema. NEUROLOGICAL: Gross neurological examination did not reveal any focal deficits. SKIN: No rashes. For rest of the medical problems hospital physician course please refer to my HPI from yesterday Plan - Discharge Summary Discharge Rx Participant: No New Discharge Prescriptions: Continue Dofetilide [Tikosyn] 250 mcg PO BID #60 cap Eplerenone 100 mg PO DAILY #30 tablet Ramipril 10 mg PO DAILY #30 capsule Pyridoxine HCl (Vitamin B6) [Vitamin B-6] 100 mg PO DAILY Omeprazole 20 mg PO BID Folic Acid 0.8 mg PO DAILY Cyanocobalamin (Vitamin B-12) [Vitamin B-12] 1,000 mcg PO DAILY Fluticasone/Salmeterol [Advair 250-50 Diskus] 1 puff INHALATION RT-BID Vitamin C(Unknown Dose) 1 tab PO DAILY Vitamin D3(Unknown Dose) 1 tab PO DAILY Aspirin EC [Ecotrin Low Dose] 81 mg PO DAILY Atorvastatin [Lipitor] 40 mg PO HS Clopidogrel Bisulfate [Plavix] 75 mg PO DAILY Hyoscyamine Sulfate [Hyoscyamine Sulfate SL] 0.125 mg SL Q6H PRN PRN Reason: Gi Upset Metoprolol Succinate (ER) [Toprol XL] 75 mg PO HS Warfarin [Coumadin] 10 mg PO [id number]@2099 Warfarin [Coumadin] 7.5 mg PO SUTUTHSA@2099 Discharge Medication List Dofetilide [Tikosyn] 250 mcg PO BID #60 cap 05/02/18 [Rx] Eplerenone 100 mg PO DAILY #30 tablet 05/02/18 [Rx] Ramipril 10 mg PO DAILY #30 capsule 05/02/18 [Rx] Cyanocobalamin (Vitamin B-12) [Vitamin B-12] 1,000 mcg PO DAILY 10/31/18 [History] Folic Acid 0.8 mg PO DAILY 10/31/18 [History] Omeprazole 20 mg PO BID 10/31/18 [History] Pyridoxine HCl (Vitamin B6) [Vitamin B-6] 100 mg PO DAILY 10/31/18 [History] Fluticasone/Salmeterol [Advair 250-50 Diskus] 1 puff INHALATION RT-BID 02/26/19 [History] Aspirin EC [Ecotrin Low Dose] 81 mg PO DAILY 11/03/19 [History] Atorvastatin [Lipitor] 40 mg PO HS 11/03/19 [History] Clopidogrel Bisulfate [Plavix] 75 mg PO DAILY 11/03/19 [History] Hyoscyamine Sulfate [Hyoscyamine Sulfate SL] 0.125 mg SL Q6H PRN 11/03/19 [Hist ory] Metoprolol Succinate (ER) [Toprol XL] 75 mg PO HS 11/03/19 [History] Vitamin C(Unknown Dose) 1 tab PO DAILY 11/03/19 [History] Vitamin D3(Unknown Dose) 1 tab PO DAILY 11/03/19 [History] Warfarin [Coumadin] 7.5 mg PO SUTUTHSA@209911/03/19 [History] Warfarin [Coumadin] 10 mg PO MOWEFR@2100 11/03/19 [History] Follow up Appointment(s)/Referral(s): Kayla Jung MD [REFERRING] - 1 Week (Office will call with appointment time) None,Stated [Primary Care Provider] - 1-2 days Patient Instructions/Handouts: Transient Global Amnesia (GEN) Discharge Disposition: HOME SELF-CARE
[2019-11-04] MEDS: WARFARIN 10 MG TAB PO SCH (17:15)
--- NOTE | 2019-11-04 17:48 | EEG ---
ELECTROENCEPHALOGRAM REPORT DATE OF SERVICE: 11/04/2019. CLINICAL HISTORY: This is a 54-year-old gentleman with history of cardiac arrest in 2010, peripheral artery disease and significant cardiac that was admitted to the hospital on 11/03/2019 for episode of memory loss lasting 2 hours. This EEG was obtained to evaluate for seizure and epileptiform activity. EEG TYPE: A routine 21 channel EEG was performed with video using the 10-20 electrode placement system. DESCRIPTION: Wakefulness, drowsiness, and stage 2 sleep are obtained. During wakefulness, there is a posterior driving rhythm of low to moderate voltage, reactive, well modulate of 9 to 9.5 Hz activity. During drowsiness, there is slowing in attenuation of the [place] activity. During stage 2 sleep there are sleep spindle and K complexes. There are occasional moderate to high 1.5 Hz generalized rhythmic delta activity with frontal predominance (GRDA). Intraictal and ictal - none. Photic stimulation - did not evolve a posterior driving response. Hyperventilation - was not performed because of patient clinical history. EEG - This is an abnormal EEG due to generalized rhythmic delta activity with frontal predominance and occasional generalized rhythmic delta activity with frontal predominance. CLINICAL INTERPRETATION - This is an abnormal routine awake, drowsy, and sleep EEG due to the finding of generalized rhythmic delta activity with frontal predominance indicative of mild encephalopathy of unspecified etiology. There is no focal slowing noted during the study. There is no intraictal or ictal activity seen during the study. Clinical correlation is indicated. BONGL / EVERN: [id number] / MTDD
[2019-11-04 20:59] LABS: Hemoglobin A1C 5.7 % (4.0-6.0)
--- NOTE | 2019-11-05 19:28 | ECHOF ---
Referral Reason:transient ischemic attack MEASUREMENTS -------- HEIGHT: 182.9 cm WEIGHT: 91.6 kg BP: 146/84 IVSd: 1.3 cm (0.6 - 1.1) LVIDd: 5.3 cm (3.9 - 5.3) LVPWd: 1.6 cm (0.6 - 1.1) IVSs: 1.5 cm LVIDs: 4.1 cm LVPWs: 1.8 cm LA Diam: 5.0 cm (2.7 - 3.8) Ao Diam: 3.1 cm (2.0 - 3.7) LA Diam: 4.9 cm (2.7 - 3.8) AV Cusp: 1.5 cm (1.5 - 2.6) MV E Gautam: 1.25 m/s MV DecT: 228 ms MV A Gautam: 1.28 m/s MV E/A Ratio: 0.97 AV maxP.98 mmHg AV meanP.97 mmHg RAP: 5.00 mmHg RVSP: 14.56 mmHg FINDINGS -------- Sinus rhythm. This was a techncally difficult study with suboptimal views, , Definity utilized for enhancement of i mages. The left ventricular size is normal. There is mild concentric left ventricular hypertrophy. Overa ll left ventricular systolic function is moderate-severely impaired with, an EF between 30 - 35 %. Apical septum LV wall motion is hypokinetic. Anterseptal Hypokinesis Inferior Hypokinesis [place] Hypokinesis. The right ventricle is normal in size. The left atrium is moderately dilated. The right atrial size is normal. 1.5MG OF DEFINITY UTLIZED: 2 OR MORE WALL SEGMENTS NOT VISUALIZED. Peak/mean gradient across the Aortic Valve is 15.98mmHg / 8.97mmHg. Normally functioning mechanical prosthetic valve. Mild mitral annular calcification present. Mild mitral regurgitation is present. Mild tricuspid regurgitation present. Right ventricular systolic pressure is normal at < 35 mmHg. There is no pulmonic regurgitation present. The aortic root size is normal. There is no pericardial effusion. CONCLUSIONS -------- 1. This was a techncally difficult study with suboptimal views, , Definity utilized for enhancement o f images. 2. The left ventricular size is normal. 3. There is mild concentric left ventricular hypertrophy. 4. Overall left ventricular systolic function is moderate-severely impaired with, an EF between 30 - 35 %. 5. Apical septum LV wall motion is hypokinetic. 6. Anterseptal Hypokinesis 7. Inferior Hypokinesis 8. [place] Hypokinesis. 9. The right ventricle is normal in size. 10. The left atrium is moderately dilated. 11. The right atrial size is normal. 12. Peak/mean gradient across the Aortic Valve is 15.98mmHg / 8.97mmHg. 13. Normally functioning mechanical prosthetic valve. 14. Mild mitral annular calcification present. 15. Mild mitral regurgitation is present. 16. Mild tricuspid regurgitation present. 17. Right ventricular systolic pressure is normal at < 35 mmHg. ARCHITECTURAL ENGINEERING TEACHER: Hedy Brooks RDCS
== END 2019-11-04 18:03 | disposition home or self-care (01) ==
LOC: EC 12:24 → 3NCARDOBS 15:19
PROVIDERS: ADMIT Hospitalist; ATTEND Hospitalist
DX: R41.3 Other amnesia (principal); L76.32 Postprocedural hematoma of skin and subcutaneous tissue following other procedure; R31.9 Hematuria, unspecified; I48.0 Paroxysmal atrial fibrillation; I48.92 Unspecified atrial flutter; I11.0 Hypertensive heart disease with heart failure; I50.9 Heart failure, unspecified; K21.9 Gastro-esophageal reflux disease without esophagitis; E78.5 Hyperlipidemia, unspecified; I25.2 Old myocardial infarction; I25.10 Atherosclerotic heart disease of native coronary artery without angina pectoris; I42.9 Cardiomyopathy, unspecified; I45.4 Nonspecific intraventricular block; I73.9 Peripheral vascular disease, unspecified; Z95.4 Presence of other heart-valve replacement; Z90.49 Acquired absence of other specified parts of digestive tract; Z79.82 Long term (current) use of aspirin; Z79.01 Long term (current) use of anticoagulants; Z95.2 Presence of prosthetic heart valve; Z95.820 Peripheral vascular angioplasty status with implants and grafts; Z87.442 Personal history of urinary calculi; Z87.19 Personal history of other diseases of the digestive system; Z86.74 Personal history of sudden cardiac arrest; Z87.820 Personal history of traumatic brain injury; Z16.24 Resistance to multiple antibiotics; Z79.899 Other long term (current) drug therapy; Z79.02 Long term (current) use of antithrombotics/antiplatelets; Z88.5 Allergy status to narcotic agent; Z88.8 Allergy status to other drugs, medicaments and biological substances; Z91.041 Radiographic dye allergy status; Z20.828 Contact with and (suspected) exposure to other viral communicable diseases; Z95.1 Presence of aortocoronary bypass graft; Z95.5 Presence of coronary angioplasty implant and graft; Z95.810 Presence of automatic (implantable) cardiac defibrillator; Z80.0 Family history of malignant neoplasm of digestive organs; Z80.3 Family history of malignant neoplasm of breast; Z80.6 Family history of leukemia
CPT/HCPCS: 99285; 36415; 94640 ×2; 95819; 93005; 97161; 97165; 92610; 80061; 80053; 84443; 83735; 84484; 85025; 85027; 85610 ×2; 85730; 81001; 87040; 83036; 71046; 93880; 70450; G0378 ×2; C8929; U0003; Q9950; 93306

== ENCOUNTER 2020-03-08 20:13 | Emergency (ER) | payer MEDICARE ==
[2020-03-08] MEDS ORDERED: SODIUM CHLORIDE 0.9% 1,000 ML IV STA (20:24)
[2020-03-08] MEDS ORDERED: ONDANSETRON 4 MG/2 ML VIAL IVP STA (20:24)
[2020-03-08] MEDS ORDERED: HYDROmorphone 1 MG/ML 1 ML SYRINGE IVP STA ×2 (20:25→22:55)
--- NOTE | 2020-03-08 20:33 | ED ---
General Adult HPI - General Chief complaint: Abdominal Pain Stated complaint: flank pain Time Seen by Provider: 03/08/20 20:17 Source: patient, EMS, RN notes reviewed Mode of arrival: EMS Limitations: no limitations - History of Present Illness Initial comments: Patient is a pleasant 54-year-old male presenting to the emergency Department with complaints of right flank pain. Patient did have lithotripsy done 1 week ago. Patient had stent removed today. Patient has been having severe right flank pain throughout the day. Stent was removed this morning and discomfort started around an hour or so after that. Patient has had some nausea. No fever . Patient has urgency to urinate. Patient did have a small amount of blood with urination. - Related Data Home Medications Medication Instructions Recorded Confirmed Cyanocobalamin (Vitamin B-12) 1,000 mcg PO DAILY 10/31/18 11/03/19 [Vitamin B-12] Folic Acid 0.8 mg PO DAILY 10/31/18 11/03/19 Omeprazole 20 mg PO BID 10/31/18 11/03/19 Pyridoxine HCl (Vitamin B6) 100 mg PO DAILY 10/31/18 11/03/19 [Vitamin B-6] Fluticasone/Salmeterol [Advair 1 puff INHALATION RT-BID 02/26/19 11/03/19 250-50 Diskus] Aspirin EC [Ecotrin Low Dose] 81 mg PO DAILY 11/03/19 11/03/19 Atorvastatin [Lipitor] 40 mg PO HS 11/03/19 11/03/19 Clopidogrel Bisulfate [Plavix] 75 mg PO DAILY 11/03/19 11/03/19 Hyoscyamine Sulfate [Hyoscyamine 0.125 mg SL Q6H PRN 11/03/19 11/03/19 Sulfate SL] Metoprolol Succinate (ER) [Toprol 75 mg PO HS 11/03/19 11/03/19 XL] Vitamin C(Unknown Dose) 1 tab PO DAILY 11/03/19 11/03/19 Vitamin D3(Unknown Dose) 1 tab PO DAILY 11/03/19 11/03/19 Previous Rx's Medication Instructions Recorded Dofetilide [Tikosyn] 250 mcg PO BID #60 cap 05/02/18 Eplerenone 100 mg PO DAILY #30 tablet 05/02/18 Ramipril 10 mg PO DAILY #30 capsule 05/02/18 Warfarin [Coumadin] 10 mg PO HS #0 11/04/19 Allergies Allergy/AdvReac Type Severity Reaction Status Date / Time fexofenadine [From Zara-D] Allergy Anaphylaxis Verified 03/08/20 22:52 Iodinated Contrast Media Allergy Rash/Hives Verified 03/08/20 22:52 [Iodinated Contrast- Oral and IV Dye] Melon Allergy Rash/Hives Verified 03/08/20 22:52 niacin Allergy Anaphylaxis Verified 03/08/20 22:52 oxycodone [From Percocet] Allergy Rash/Hives Verified 03/08/20 22:52 quetiapine [From Seroquel] AdvReac Confusion Verified 03/08/20 22:52 Review of Systems ROS Statement: Those systems with pertinent positive or pertinent negative responses have been documented in the HPI. ROS Other: All systems not noted in ROS Statement are negative. Constitutional: Denies: fever, chills Eyes: Denies: eye pain ENT: Denies: ear pain Respiratory: Denies: cough Cardiovascular: Denies: chest pain Endocrine: Denies: fatigue Gastrointestinal: Reports: as per HPI, nausea Genitourinary: Denies: dysuria Musculoskeletal: Reports: as per HPI Skin: Denies: rash Neurological: Denies: weakness Past Medical History Past Medical History: Atrial Fibrillation, Atrial Flutter, Coronary Artery Disease (CAD), Heart Failure, GERD/Reflux, GI Bleed, Hyperlipidemia, Hypertension, Myocardial Infarction ([place]) Additional Past Medical History / Comment(s): Pt states he has had a total of 4 MIs and in 2010 had 5 cardiac arrests, cardiomyopathy, A tach, lower GI bleed. Last Myocardial Infarction Date:: 2008 History of Any Multi-Drug Resistant Organisms: C-DIFF Date of last positivie culture/infection: 2010 MDRO Source:: stool Past Surgical History: AICD, Cardiac Ablation, Cardiac Valve Replacement, Cholecystectomy, Coronary Bypass/CABG, Heart Catheterization, Heart Catheteriz ation With Stent, Orthopedic Surgery Additional Past Surgical History / Comment(s): 1995 aortic bioprosthetic valve, 2010 changed to mechanical aortic valve with 4 vessel bypass, cardiac ablations x2, AICD, PCI with stents prior to CABG, R leg fracture with hardware, colonos copy. stent in right leg placed 2017. angiogram with balloon opening to the left leg on october 19, 2019. pyeloplasty done on right kidney. hernia sx, large kidney stone in right kidney. Past Anesthesia/Blood Transfusion Reactions: No Reported Reaction, Motion Sickness Date of Last Stent Placement:: unkn Type of Cardiac Device: AICD Device Placement Date:: 2018 Past Psychological History: No Psychological Hx Reported Smoking Status: Never smoker Past Alcohol Use History: None Reported Past Drug Use History: None Reported - Past Family History Mother Family Medical History: Cancer Additional Family Medical History / Comment(s): Colon and breast CA. Mother is still living. Father Family Medical History: Cancer Additional Family Medical History / Comment(s): CLL. Father is still living General Exam Limitations: no limitations General appearance: alert, in no apparent distress Head exam: Present: normocephalic Eye exam: Present: normal appearance Neck exam: Present: normal inspection Respiratory exam: Present: normal lung sounds bilaterally Cardiovascular Exam: Present: regular rate, normal rhythm Expanded Peripheral pulses: 2+: Dorsalis Pedis (R), Dorsalis Pedis (L) GI/Abdominal exam: Present: soft. Absent: distended, tenderness, guarding, rebound, rigid Extremities exam: Present: normal inspection Back exam: Present: normal inspection. Absent: CVA tenderness (R) Neurological exam: Present: alert Psychiatric exam: Present: normal affect, normal mood Skin exam: Present: normal color Course Vital Signs 03/08/20 20:18 Temperature 97.1 F L Pulse Rate 78 Respiratory 18 Rate Blood Pressure 154/86 O2 Sat by Pulse 99 Oximetry Medical Decision Making - Medical Decision Making Patient reevaluated and symptoms have improved, discomfort is 6/10. Patient is receptive to further pain medication at this time. Patient updated on results. Case discussed with Dr. Clay who is comfortable with discharge of this patient and agrees with patient following up with his doctor tomorrow. Patient updated regarding this. - Lab Data Result diagrams: 03/08/20 20:38 03/08/20 20:36 Lab Results 03/08/20 03/08/20 03/08/20 Range/Units 20:36 20:36 20:36 WBC (3.8-10.6) k/uL RBC (4.30-5.90) m/uL Hgb (13.0-17.5) gm/dL Hct (39.0-53.0) % MCV (80.0-100.0) fL MCH (25.0-35.0) pg MCHC (31.0-37.0) g/dL RDW (11.5-15.5) % Plt Count (150-450) k/uL MPV Neutrophils % % Lymphocytes % % Monocytes % % Eosinophils % % Basophils % % Neutrophils # (1.3-7.7) k/uL Lymphocytes # (1.0-4.8) k/uL Monocytes # (0-1.0) k/uL Eosinophils # (0-0.7) k/uL Basophils # (0-0.2) k/uL Hypochromasia PT 34.5 H (9.0-12.0) sec INR 3.5 H (<1.2) APTT 37.3 H (22.0-30.0) sec Sodium 136 L (137-145) mmol/L Potassium 4.1 (3.5-5.1) mmol/L Chloride 103 (98-107) mmol/L Carbon Dioxide 26 (22-30) mmol/L Anion Gap 7 mmol/L BUN 15 (9-20) mg/dL Creatinine 1.10 (0.66-1.25) mg/dL Est GFR (CKD-EPI)AfAm 88 (>60 ml/min/1.73 sqM) Est GFR (CKD-EPI)NonAf 76 (>60 ml/min/1.73 sqM) Glucose 112 H (74-99) mg/dL Calcium 8.8 (8.4-10.2) mg/dL Total Bilirubin 0.7 (0.2-1.3) mg/dL AST 39 (17-59) U/L ALT 23 (4-49) U/L Alkaline Phosphatase 93 (38-126) U/L Total Protein 6.8 (6.3-8.2) g/dL Albumin 4.0 (3.5-5.0) g/dL Amylase 46 (30-110) U/L Lipase 145 (23-300) U/L Urine Color Dark Brown Urine Appearance Clear (Clear) Urine pH 6.5 (5.0-8.0) Ur Specific [place] 1.024 (1.001-1.035) Urine Protein Trace H (Negative) Urine Glucose (UA) Negative (Negative) Urine Ketones Negative (Negative) Urine Blood Large H (Negative) Urine Nitrite Positive (Negative) Urine Bilirubin 2+ H (Negative) Urine Urobilinogen 12.0 (<2.0) mg/dL Ur Leukocyte Esterase Negative (Negative) Urine RBC >182 H (0-5) /hpf Urine WBC 5 (0-5) /hpf Urine Bacteria Rare H (None) /hpf Urine Mucus Few H (None) /hpf 03/08/20 Range/Units 20:38 WBC 10.7 H (3.8-10.6) k/uL RBC 4.51 (4.30-5.90) m/uL Hgb 11.7 L (13.0-17.5) gm/dL Hct 36.0 L (39.0-53.0) % MCV 79.9 L (80.0-100.0) fL MCH 25.9 (25.0-35.0) pg MCHC 32.5 (31.0-37.0) g/dL RDW 15.0 (11.5-15.5) % Plt Count 317 (150-450) k/uL MPV 7.9 Neutrophils % 85 % Lymphocytes % 5 % Monocytes % 7 % Eosinophils % 2 % Basophils % 0 % Neutrophils # 9.0 H (1.3-7.7) k/uL Lymphocytes # 0.5 L (1.0-4.8) k/uL Monocytes # 0.7 (0-1.0) k/uL Eosinophils # 0.2 (0-0.7) k/uL Basophils # 0.1 (0-0.2) k/uL Hypochromasia Slight PT (9.0-12.0) sec INR (<1.2) APTT (22.0-30.0) sec Sodium (137-145) mmol/L Potassium (3.5-5.1) mmol/L Chloride (98-107) mmol/L Carbon Dioxide (22-30) mmol/L Anion Gap mmol/L BUN (9-20) mg/dL Creatinine (0.66-1.25) mg/dL Est GFR (CKD-EPI)AfAm (>60 ml/min/1.73 sqM) Est GFR (CKD-EPI)NonAf (>60 ml/min/1.73 sqM) Glucose (74-99) mg/dL Calcium (8.4-10.2) mg/dL Total Bilirubin (0.2-1.3) mg/dL AST (17-59) U/L ALT (4-49) U/L Alkaline Phosphatase (38-126) U/L Total Protein (6.3-8.2) g/dL Albumin (3.5-5.0) g/dL Amylase (30-110) U/L Lipase (23-300) U/L Urine Color Urine Appearance (Clear) Urine pH (5.0-8.0) Ur Specific [place] (1.001-1.035) Urine Protein (Negative) Urine Glucose (UA) (Negative) Urine Ketones (Negative) Urine Blood (Negative) Urine Nitrite (Negative) Urine Bilirubin (Negative) Urine Urobilinogen (<2.0) mg/dL Ur Leukocyte Esterase (Negative) Urine RBC (0-5) /hpf Urine WBC (0-5) /hpf Urine Bacteria (None) /hpf Urine Mucus (None) /hpf - Radiology Data Radiology results: image reviewed (KUB shows no acute process) Disposition Clinical Impression: Flank pain Disposition: HOME SELF-CARE Condition: Stable Instructions (If sedation given, give patient instructions): Flank Pain (ED), Kidney Stones (ED) Additional Instructions: Please call your urologist in the morning. Return for uncontrolled bleeding, fevers, uncontrolled pain, worsening or changing symptoms or other concerns. Is patient prescribed a controlled substance at d/c from ED?: No Referrals: Gerber Mcwilliams [STAFF PHYSICIAN] - 1-2 days Time of Disposition: 22:57
[2020-03-08 21:04] LABS: Basophils # (A) 0.1 k/uL (0-0.2); Basophils % (A) 0 %; Eosinophils # (A) 0.2 k/uL (0-0.7); Eosinophils % (A) 2 %; HGB 11.7 gm/dL (13.0-17.5); Hypochromasia Slight; Lymphocytes # (A) 0.5 k/uL (1.0-4.8); Lymphocytes % (A) 5 %; MCH 25.9 pg (25.0-35.0); MCHC 32.5 g/dL (31.0-37.0); MCV 79.9 fL (80.0-100.0); Mean Platelet Volume 7.9; Monocytes # (A) 0.7 k/uL (0-1.0); Monocytes % (A) 7 %; Neutrophils % (A) 85 %; Platelet Count 317 k/uL (150-450); RBC 4.51 m/uL (4.30-5.90); WBC 10.7 k/uL (3.8-10.6)
[2020-03-08 21:16] LABS: Calcium 8.8 mg/dL (8.4-10.2); Total Bilirubin 0.7 mg/dL (0.2-1.3); Total Protein 6.8 g/dL (6.3-8.2)
--- NOTE | 2020-03-08 21:19 | XR ---
EXAMINATION TYPE: XR KUB DATE OF EXAM: 03/08/2020 COMPARISON: 01/29/2019 HISTORY: Pain TECHNIQUE: 2 views upright FINDINGS: There is no sign of intestinal obstruction or pneumoperitoneum. Fecal pattern is normal. Th ere is no evidence of a mass. There are no pathologic calcifications over the kidneys. IMPRESSION: Nonacute abdomen. There is clearing of a calcification of the right kidney compared to ol d exam.
[2020-03-08 21:20] LABS: Potassium 4.1 mmol/L (3.5-5.1)
[2020-03-08 21:28] LABS: INR 3.5 (<1.2); Partial Thromboplastin Time 37.3 sec (22.0-30.0); Prothrombin Time 34.5 sec (9.0-12.0)
[2020-03-08 21:35] LABS: Appearance,Urine Clear (Clear); Bacteria,Urine Rare /hpf; Bilirubin,Urine 2+ (Negative); Blood,Urine Large (Negative); Color,Urine Dark Brown; Glucose,Urine (UA) Negative (Negative); Ketones,Urine Negative (Negative); Leukocyte Esterase,Urine Negative (Negative); Mucus,Urine Few /hpf; Nitrite,Urine Positive (Negative); PH, Urine 6.5 (5.0-8.0); Protein,Urine Trace (Negative); RBC,Urine >182 /hpf (0-5); Specific Gravity,Urine 1.024 (1.001-1.035); WBC,Urine 5 /hpf (0-5)
--- NOTE | 2020-03-08 22:46 | US ---
EXAMINATION TYPE: US kidneys/renal and bladder DATE OF EXAM: 03/08/2020 COMPARISON: XR, CT CLINICAL HISTORY: pain. Pain x 10.5 hours. Hx kidney stones and recent lithotripsy. EXAM MEASUREMENTS: Right Kidney: 14.6 x 6.6 x 7.3 cm Left Kidney: 12.0 x 4.8 x 5.9 cm Cortex appears thin bilaterally. Right Kidney: Appears enlarged. Anechoic connecting areas seen throughout kidney and extends medially resembling hydronephrosis. Hyperechoic focus seen upper pole: 0.8 x 0.6 x 0.6 cm. Hyperechoic focus seen mid pole: 1.1 x 1.4 x 0.9 cm. Left Kidney: Measures upper limits of normal. Hyperechoic focus seen laterally: 0.6 x 0.6 x 0.5 cm. Bladder: Not distended. Limited evaluation. Prostate appears to measure approximately 4.1 x 4.0 x 3.3 cm. Bilateral Jets seen: No Incidental finding: Spleen measures 14.81 cm in length and appears to have tiny hyperechoic foci thro ughout. IMPRESSION: There are right-sided renal calculi. There is right-sided hydronephrosis probably not changed compare d to CT scan of 01/29/2019. No evidence of solid renal mass. Nonobstructing left renal calculus. Urinary bladder is intact.
[2020-03-08] MEDS ORDERED: traMADol 50 MG STARTER PACK 3 TAB BTL PO STA (22:56)
[2020-03-08 23:56] VITALS: RESP 16
[2020-03-08 23:57] VITALS: BP 128/76; PULSE 70; TEMP 98.7
== END 2020-03-08 23:58 | disposition home or self-care (01) ==
LOC: EC 20:13
DX: R10.9 Unspecified abdominal pain (principal); I11.0 Hypertensive heart disease with heart failure; I50.9 Heart failure, unspecified; I25.10 Atherosclerotic heart disease of native coronary artery without angina pectoris; K21.9 Gastro-esophageal reflux disease without esophagitis; E78.5 Hyperlipidemia, unspecified; I48.91 Unspecified atrial fibrillation; I25.2 Old myocardial infarction; Z79.899 Other long term (current) drug therapy; Z79.51 Long term (current) use of inhaled steroids; Z79.82 Long term (current) use of aspirin; Z79.02 Long term (current) use of antithrombotics/antiplatelets; Z91.041 Radiographic dye allergy status; Z88.8 Allergy status to other drugs, medicaments and biological substances; Z91.018 Allergy to other foods; Z88.5 Allergy status to narcotic agent; Z91.09 Other allergy status, other than to drugs and biological substances; Z87.442 Personal history of urinary calculi; Z90.49 Acquired absence of other specified parts of digestive tract
CPT/HCPCS: 36415; 80053; 82150; 83690; 85025; 85610; 85730; 81001; 74018; 76770; 99284; 96374; 96375; 96376; 96361 ×3; J2405; J1170

== ENCOUNTER 2020-10-05 | Emergency (ER) | payer MEDICARE | END 2020-10-05 03:43 | disposition home or self-care (01) | CPT/HCPCS: 99283 ==

== ENCOUNTER 2021-03-20 22:39 | Emergency (ER) | payer MEDICARE ==
[2021-03-20 22:48] VITALS: RESP 18
--- NOTE | 2021-03-20 23:45 | ED ---
Headache HPI - General Chief Complaint: Headache Stated Complaint: Headache Time Seen by Provider: 03/20/21 23:11 Mode of arrival: EMS Limitations: no limitations - History of Present Illness Initial Comments: William is a 55-year-old woman who presents to the ER today via ambulance for evaluation of headache. Patient reports around 6 PM he developed a pressure- like headache, around 8 PM he had about 5 minutes of sharp pain but he took Tylenol and it resolved completely. Patient reports he still has persistent pressure in his head no vision change, no facial droop, no trouble speaking or swallowing, no weakness in the extremities no difficulty walking. The patient does report that last week she was suffering from a upper respiratory infection. 2 COVID tests which were negative. He does suffer from chronic congestion secondary to seasonal ALLERGIES as well and does feel congested today. - Related Data Home Medications Medication Instructions Recorded Confirmed Cyanocobalamin (Vitamin B-12) 1,000 mcg PO DAILY 10/31/18 03/08/20 [Vitamin B-12] Folic Acid 0.8 mg PO DAILY 10/31/18 03/08/20 Pyridoxine HCl (Vitamin B6) 100 mg PO DAILY 10/31/18 03/08/20 [Vitamin B-6] Atorvastatin [Lipitor] 40 mg PO HS 11/03/19 03/08/20 Clopidogrel Bisulfate [Plavix] 75 mg PO DAILY 11/03/19 03/08/20 Amoxicillin/Potassium Clav 1 tab PO Q12HR 03/08/20 03/08/20 [Augmentin 875-125 Tablet] Ascorbic Acid [Vitamin C] 1,000 mg PO DAILY 03/08/20 03/08/20 Cholecalciferol [Vitamin D3 (25 1,000 unit PO DAILY 03/08/20 03/08/20 Mcg = 1000 Iu)] Metoprolol Succinate (ER) [Toprol 100 mg PO HS 03/08/20 03/08/20 Xl] Tamsulosin HCl [Flomax] 0.4 mg PO HS 03/08/20 03/08/20 Warfarin Sodium 7.5 mg PO SUTUTHSA 03/08/20 03/08/20 Warfarin [Coumadin] 10 mg PO MOWEFR 03/08/20 03/08/20 Previous Rx's Medication Instructions Recorded Dofetilide [Tikosyn] 250 mcg PO BID #60 cap 05/02/18 Eplerenone 100 mg PO DAILY #30 tablet 05/02/18 Ramipril 10 mg PO DAILY #30 capsule 05/02/18 Allergies Allergy/AdvReac Type Severity Reaction Status Date / Time fexofenadine [From Zara-D] Allergy Anaphylaxis Verified 03/20/21 22:48 Iodinated Contrast Media Allergy Rash/Hives Verified 03/20/21 22:48 [Iodinated Contrast- Oral and IV Dye] Melon Allergy Rash/Hives Verified 03/20/21 22:48 niacin Allergy Anaphylaxis Verified 03/20/21 22:48 oxycodone [From Percocet] Allergy Rash/Hives Verified 03/20/21 22:48 quetiapine [From Seroquel] AdvReac Confusion Verified 03/20/21 22:48 Review of Systems ROS Statement: Those systems with pertinent positive or pertinent negative responses have been documented in the HPI. ROS Other: All systems not noted in ROS Statement are negative. 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 Last Myocardial Infarction Date:: 2008 History of Any Multi-Drug Resistant Organisms: C-DIFF Date of last positivie culture/infection: 2010 MDRO Source:: stool Past Surgical History: AICD, Cardiac Ablation, Cardiac Valve Replacement, C holecystectomy, Coronary Bypass/CABG, Heart Catheterization, Heart Catheterization With Stent, Orthopedic Surgery Additional Past Surgical History / Comment(s): 1995 aortic bioprosthetic valve, 2010 changed to mechanical aortic valve with 4 vessel bypass, cardiac ablations x2, AICD, PCI with stents prior to CABG, R leg fracture with hardware, colonoscopy. stent in right leg placed 2017. angiogram with balloon opening to the left leg on october 19, 2019. pyeloplasty done on right kidney. hernia sx, large kidney stone in right kidney. Past Anesthesia/Blood Transfusion Reactions: No Reported Reaction, Motion Sickness Date of Last Stent Placement:: unkn Type of Cardiac Device: AICD Device Placement Date:: 2018 Past Psychological History: No Psychological Hx Reported Smoking Status: Never smoker Past Alcohol Use History: None Reported Past Drug Use History: None Reported - Past Family History Mother Family Medical History: Cancer Additional Family Medical History / Comment(s): Colon and breast CA. Mother is still living. Father Family Medical History: Cancer Additional Family Medical History / Comment(s): CLL. Father is still living General Exam - General Exam Comments Initial Comments: Physical Exam GENERAL: Patient is well-developed and well-nourished. Patient is nontoxic and well- hydrated and is in no distress. HENT: Normocephalic, Atraumatic. No rhinorrhea, nasal turbinates are somewhat enlarged EYES: PERRL, EOMI PULMONARY: Unlabored respirations. No audible rales rhonchi or wheezing was noted. CARDIOVASCULAR: There is a regular rate and rhythm without any murmurs gallops or rubs. No murmurs ABDOMEN: Soft and nontender with normal bowel sounds. SKIN: Skin is clear with no lesions or rashes and otherwise unremarkable. : Deferred NEUROLOGIC: Patient is alert and oriented x3. Moving all extremities spontaneously Cranial nerves II through XII grossly intact NIH 0 MUSCULOSKELETAL: Normal extremities with adequate strength and full range of motion. No lower extremity swelling or edema. No calf tenderness. PSYCHIATRIC: Normal psychiatric evaluation. Limitations: no limitations Course Vital Signs 03/20/21 03/20/21 22:40 23:52 Temperature 98.0 F Pulse Rate 64 75 Respiratory 18 18 Rate Blood Pressure 137/66 121/73 O2 Sat by Pulse 98 97 Oximetry Medical Decision Making - Medical Decision Making The patient was seen and evaluated, history is obtained from patient. Patient mild headache for a few hours 5 minutes of more sharp headache that improved wit h Tylenol. Patient's minimally symptomatically ER but was told he should be checked out. Patient recent URI but negative for cocaine 2. In addition the patient states that he takes Coumadin but because of having the URI symptoms was unable to the lab to have his blood tested towards his INR checked as well. Labs were reviewedno significant abnormalities aside from mildly elevated INR but patient's goal is INR 2-3 since 3.4 is not significantly elevated. Patient will continue to trend this. Head CT is negative for acute pathology At this time the patient is asymptomatic, no meningeal signs or hypertension or evidence of an acute brain bleed, patient is comfortable with the plan for d ischarge home - Lab Data Result diagrams: 03/20/21 23:39 03/20/21 23:39 Lab Results 03/20/21 03/20/21 03/20/21 Range/Units 23:39 23:39 23:39 WBC 7.4 (3.8-10.6) k/uL RBC 4.96 (4.30-5.90) m/uL Hgb 13.5 (13.0-17.5) gm/dL Hct 42.4 (39.0-53.0) % MCV 85.5 (80.0-100.0) fL MCH 27.2 (25.0-35.0) pg MCHC 31.8 (31.0-37.0) g/dL RDW 14.5 (11.5-15.5) % Plt Count 320 (150-450) k/uL MPV 7.5 Neutrophils % 65 % Lymphocytes % 17 % Monocytes % 10 % Eosinophils % 4 % Basophils % 0 % Neutrophils # 4.8 (1.3-7.7) k/uL Lymphocytes # 1.2 (1.0-4.8) k/uL Monocytes # 0.7 (0-1.0) k/uL Eosinophils # 0.3 (0-0.7) k/uL Basophils # 0.0 (0-0.2) k/uL Hypochromasia Moderate Poikilocytosis Slight PT 32.6 H (9.0-12.0) sec INR 3.4 H (<1.2) Sodium 134 L (137-145) mmol/L Potassium 4.3 (3.5-5.1) mmol/L Chloride 103 (98-107) mmol/L Carbon Dioxide 24 (22-30) mmol/L Anion Gap 7 mmol/L BUN 17 (9-20) mg/dL Creatinine 0.82 (0.66-1.25) mg/dL Est GFR (CKD-EPI)AfAm >90 (>60 ml/min/1.73 sqM) Est GFR (CKD-EPI)NonAf >90 (>60 ml/min/1.73 sqM) Glucose 116 H (74-99) mg/dL Calcium 9.0 (8.4-10.2) mg/dL Total Bilirubin 0.3 (0.2-1.3) mg/dL AST 29 (17-59) U/L ALT 13 (4-49) U/L Alkaline Phosphatase 73 (38-126) U/L Total Protein 6.8 (6.3-8.2) g/dL Albumin 4.1 (3.5-5.0) g/dL Coronavirus (PCR) (Not Detectd) 03/20/21 Range/Units 23:39 WBC (3.8-10.6) k/uL RBC (4.30-5.90) m/uL Hgb (13.0-17.5) gm/dL Hct (39.0-53.0) % MCV (80.0-100.0) fL MCH (25.0-35.0) pg MCHC (31.0-37.0) g/dL RDW (11.5-15.5) % Plt Count (150-450) k/uL MPV Neutrophils % % Lymphocytes % % Monocytes % % Eosinophils % % Basophils % % Neutrophils # (1.3-7.7) k/uL Lymphocytes # (1.0-4.8) k/uL Monocytes # (0-1.0) k/uL Eosinophils # (0-0.7) k/uL Basophils # (0-0.2) k/uL Hypochromasia Poikilocytosis PT (9.0-12.0) sec INR (<1.2) Sodium (137-145) mmol/L Potassium (3.5-5.1) mmol/L Chloride (98-107) mmol/L Carbon Dioxide (22-30) mmol/L Anion Gap mmol/L BUN (9-20) mg/dL Creatinine (0.66-1.25) mg/dL Est GFR (CKD-EPI)AfAm (>60 ml/min/1.73 sqM) Est GFR (CKD-EPI)NonAf (>60 ml/min/1.73 sqM) Glucose (74-99) mg/dL Calcium (8.4-10.2) mg/dL Total Bilirubin (0.2-1.3) mg/dL AST (17-59) U/L ALT (4-49) U/L Alkaline Phosphatase (38-126) U/L Total Protein (6.3-8.2) g/dL Albumin (3.5-5.0) g/dL Coronavirus (PCR) Not Detected (Not Detectd) Disposition Clinical Impression: Headache Disposition: HOME SELF-CARE Condition: Stable Additional Instructions: Return to the ER for any worsening of your headache development of any new or concerning symptoms including fever, vision changes weakness or any other new or concerning symptoms Is patient prescribed a controlled substance at d/c from ED?: No Referrals: Jermain Upton MD [Primary Care Provider] - 1-2 days
[2021-03-20 23:59] LABS: Basophils % (A) 0 %; Eosinophils # (A) 0.3 k/uL (0-0.7); Eosinophils % (A) 4 %; HCT 42.4 % (39.0-53.0); HGB 13.5 gm/dL (13.0-17.5); Hypochromasia Moderate; Lymphocytes # (A) 1.2 k/uL (1.0-4.8); Lymphocytes % (A) 17 %; MCH 27.2 pg (25.0-35.0); MCHC 31.8 g/dL (31.0-37.0); MCV 85.5 fL (80.0-100.0); Mean Platelet Volume 7.5; Monocytes # (A) 0.7 k/uL (0-1.0); Monocytes % (A) 10 %; Neutrophils # (A) 4.8 k/uL (1.3-7.7); Neutrophils % (A) 65 %; Platelet Count 320 k/uL (150-450); Poikilocytosis Slight; RBC 4.96 m/uL (4.30-5.90); RDW 14.5 % (11.5-15.5); WBC 7.4 k/uL (3.8-10.6)
[2021-03-21 00:12] LABS: ALT 13 U/L (4-49); AST 29 U/L (17-59); African American GFR (CKD) >90 (>60 ml/min/1.73 sqM); Albumin 4.1 g/dL (3.5-5.0); Alkaline Phosphatase 73 U/L (38-126); Anion Gap 7 mmol/L; Blood Urea Nitrogen 17 mg/dL (9-20); Carbon Dioxide 24 mmol/L (22-30); Chloride 103 mmol/L (98-107); Glucose 116 mg/dL (74-99); Non-African American GFR(CKD) >90 (>60 ml/min/1.73 sqM); Potassium 4.3 mmol/L (3.5-5.1); Sodium 134 mmol/L (137-145); Total Bilirubin 0.3 mg/dL (0.2-1.3); Total Protein 6.8 g/dL (6.3-8.2)
--- NOTE | 2021-03-21 00:13 | CT ---
EXAMINATION TYPE: CT brain wo con DATE OF EXAM: 03/21/2021 COMPARISON: 11/03/2019 HISTORY: headache CT DLP: 1202.4 mGycm Automated exposure control for dose reduction was used. Ventricles have normal size. There is no mass effect nor midline shift. There is no sign of intracran ial hemorrhage. Calvarium is intact. There is normal aeration of the mastoid sinuses. Skull base is i ntact. IMPRESSION: Normal unenhanced head CT scan. No change.
[2021-03-21 00:24] LABS: INR 3.4 (<1.2); Prothrombin Time 32.6 sec (9.0-12.0)
[2021-03-21 01:53] VITALS: BP 106/63; PULSE 71; TEMP 97.9
== END 2021-03-21 01:54 | disposition home or self-care (01) ==
LOC: EC 22:39
DX: R51.9 Headache, unspecified (principal); Z20.822 Contact with and (suspected) exposure to COVID-19; I11.0 Hypertensive heart disease with heart failure; I50.9 Heart failure, unspecified; I25.2 Old myocardial infarction; I25.10 Atherosclerotic heart disease of native coronary artery without angina pectoris; I48.91 Unspecified atrial fibrillation; I48.92 Unspecified atrial flutter; E78.5 Hyperlipidemia, unspecified; K21.9 Gastro-esophageal reflux disease without esophagitis; Z95.5 Presence of coronary angioplasty implant and graft; Z79.01 Long term (current) use of anticoagulants; Z79.899 Other long term (current) drug therapy
CPT/HCPCS: 36415; 70450; 80053; 85025; 85610; 87635; 99284

== ENCOUNTER 2022-10-17 13:18 | Emergency (ER) | payer MEDICARE ==
[2022-10-17 13:25] VITALS: RESP 18
--- NOTE | 2022-10-17 13:41 | ED ---
General Adult HPI - General Chief complaint: Recheck/Abnormal Lab/Rx Stated complaint: Hypotension Time Seen by Provider: 10/17/22 13:33 Source: EMS Mode of arrival: EMS Limitations: no limitations - History of Present Illness Initial comments: This patient is 57-year-old man with history of previous CAD with CABG as well as aortic valve replacement, who states that this morning he had gotten up to use the bathroom and become very lightheaded. He went and sat in his recliner for a period of time then had to go urinate again and was so lightheaded that he had to sit down in the bathroom. When he got back to recliner he checked his blood pressure and it was in the 60s over 30s. He states that he had taken torsemide a couple of hours previously, and believes that the symptoms are related to that. He was not having any chest pain, dyspnea, and vomiting. He states that he does appear much always have nausea after taking his torsemide so he did have that which he felt was baseline. The patient's states he was given IV fluid by EMS and that he feels pretty much back at his baseline now. Onset/Timin -: hour(s) Severity scale (1-10): 0 Consistency: now resolved Improves with: none Worsens with: none Associated Symptoms: syncope (Near syncope) Treatments Prior to Arrival: other (IV fluid) - Related Data Home Medications Medication Instructions Recorded Confirmed Cyanocobalamin (Vitamin B-12) 1,000 mcg PO DAILY 10/31/18 10/17/22 [Vitamin B-12] Folic Acid 0.8 mg PO DAILY 10/31/18 10/17/22 Pyridoxine HCl (Vitamin B6) 100 mg PO DAILY 10/31/18 10/17/22 [Vitamin B-6] Ascorbic Acid [Vitamin C] 1,000 mg PO DAILY 03/08/20 10/17/22 Warfarin Sodium 5 mg PO SA 03/08/20 10/17/22 Warfarin [Coumadin] 10 mg PO SUMOTUWETHFR 03/08/20 10/17/22 Aspirin EC [Ecotrin Low Dose] 81 mg PO DAILY 10/17/22 10/17/22 Atorvastatin Calcium [Lipitor] 80 mg PO HS 10/17/22 10/17/22 Cholecalciferol (Vitamin D3) 75 mcg PO DAILY 10/17/22 10/17/22 [Vitamin D3 (3000 Iu)] Dapagliflozin Propanediol [Farxiga] 10 mg PO DAILY 10/17/22 10/17/22 Eplerenone [Inspra] 25 mg PO BID 10/17/22 10/17/22 Isosorbide Mononitrate ER [Imdur] 30 mg PO DAILY 10/17/22 10/17/22 Metoprolol Succinate [Toprol XL] 50 mg PO DAILY 10/17/22 10/17/22 Nitroglycerin Sl Tabs [Nitrostat] 0.4 mg SUBLINGUAL Q5M PRN 10/17/22 10/17/22 Ranolazine [Ranexa] 500 mg PO BID 10/17/22 10/17/22 Sacubitril/Valsartan [Entresto 24 1 tab PO BID 10/17/22 10/17/22 mg-26 mg Tablet] Torsemide [Demadex] 100 mg PO DAILY 10/17/22 10/17/22 Zinc Gluconate [Zinc] 50 mg PO DAILY 10/17/22 10/17/22 buPROPion XL [Wellbutrin XL] 150 mg PO DAILY 10/17/22 10/17/22 Allergies Allergy/AdvReac Type Severity Reaction Status Date / Time fexofenadine [From Zara-D] Allergy Anaphylaxis Verified 10/17/22 15:23 Iodinated Contrast Media Allergy Rash/Hives Verified 10/17/22 15:23 [Iodinated Contrast- Oral and IV Dye] Melon Allergy Rash/Hives Verified 10/17/22 15:23 niacin Allergy Anaphylaxis Verified 10/17/22 15:23 oxycodone [From Percocet] Allergy Rash/Hives Verified 10/17/22 15:23 quetiapine [From Seroquel] AdvReac Confusion Verified 10/17/22 15:23 Review of Systems ROS Statement: Those systems with pertinent positive or pertinent negative responses have been documented in the HPI. ROS Other: All systems not noted in ROS Statement are negative. Constitutional: Denies: fever, chills, weakness Eyes: Denies: vision change Respiratory: Denies: cough, dyspnea Cardiovascular: Reports: syncope (Or syncope). Denies: chest pain, palpitations, dyspnea on exertion, orthopnea Gastrointestinal: Reports: nausea. 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 Last Myocardial Infarction Date:: 2008 History of Any Multi-Drug Resistant Organisms: C-DIFF Date of last positivie culture/infection: 2010 MDRO Source:: stool Past Surgical History: AICD, Cardiac Ablation, Cardiac Valve Replacement, Cholecystectomy, Coronary Bypass/CABG, Heart Catheterization, Heart Catheterization With Stent, Orthopedic Surgery Additional Past Surgical History / Comment(s): 1995 aortic bioprosthetic valve, 2010 changed to mechanical aortic valve with 4 vessel bypass, cardiac ablations x2, AICD, PCI with stents prior to CABG, R leg fracture with hardware, colonoscopy. stent in right leg placed 2017. angiogram with balloon opening to the left leg on october 19, 2019. pyeloplasty done on right kidney. hernia sx, large kidney stone in right kidney. Past Anesthesia/Blood Transfusion Reactions: No Reported Reaction, Motion Sickness Date of Last Stent Placement:: unkn Type of Cardiac Device: AICD Device Placement Date:: 2018 Past Psychological History: No Psychological Hx Reported Smoking Status: Never smoker Past Alcohol Use History: None Reported Past Drug Use History: None Reported - Past Family History Mother Family Medical History: Cancer Additional Family Medical History / Comment(s): Colon and breast CA. Mother is still living. Father Family Medical History: Cancer Additional Family Medical History / Comment(s): CLL. Father is still living General Exam Limitations: no limitations General appearance: alert, in no apparent distress Head exam: Present: atraumatic, normocephalic Eye exam: Present: normal appearance. Absent: scleral icterus, conjunctival injection ENT exam: Present: normal exam Neck exam: Present: normal inspection Respiratory exam: Present: normal lung sounds bilaterally. Absent: respiratory distress, wheezes, rales, rhonchi, stridor Cardiovascular Exam: Present: regular rate, normal rhythm, clicks. Absent: systolic murmur, diastolic murmur, rubs, gallop GI/Abdominal exam: Present: soft. Absent: distended, tenderness, guarding, rebound, rigid, mass Extremities exam: Present: normal inspection, normal capillary refill. Absent: pedal edema, calf tenderness Back exam: Present: normal inspection. Absent: CVA tenderness (R), CVA tenderness (L) Neurological exam: Present: alert Skin exam: Present: warm, dry, intact, normal color. Absent: rash Course Vital Signs 10/17/22 10/17/22 10/17/22 13:19 14:13 16:25 Temperature 98.1 F 97.7 F Pulse Rate 84 82 76 Respiratory 18 18 18 Rate Blood Pressure 108/68 103/72 94/76 O2 Sat by Pulse 100 97 96 Oximetry EKG Findings - EKG Results: EKG: interpreted by ABDIAZIZ, sinus rhythm (Rate 80 bpm), normal axis, normal QRS (Old anteroseptal infarct, present on previous comparison ECG.), normal ST/T Medical Decision Making - Medical Decision Making The patient had chest x-ray which I interpreted as being negative for acute infi ltrate, pneumothorax, congestive heart failure This patient's 57-year-old man who presents with symptoms consistent with near syncopal episode and physical exam suggesting some hypovolemia. The patient feeling better following IV fluids. I discussed admission to have telemetry monitoring and further evaluation, with the patient's declines stating that he feels well now. He does agree to return should any symptoms develop or if he is not feeling well in anyway. Was pt. sent in by a medical professional or institution (, PA, DATA ENTRY MANAGER, urgent care, hospital, or senior living...) When possible be specific @ -[No] Did you speak to anyone other than the patient for history (EMS, parent, family, police, friend...)? What history was obtained from this source @ -[No] Did you review nursing and triage notes (agree or disagree)? Why? @ -[I reviewed and agree with nursing and triage notes] Were old charts reviewed (outside hosp., previous admission, EMS record, old EKG, old radiological studies, urgent care reports/EKG's, senior living records)? Report findings @ -[No old charts were reviewed] Differential Diagnosis (chest pain, altered mental status, abdominal pain women, abdominal pain men, vaginal bleeding, weakness, fever, dyspnea, syncope, headache, dizziness, GI bleed, back pain, seizure, CVA, palpatations, mental health, musculoskeletal)? @ -[Differential Weakness: Hypoglycemia, shock, sepsis, hyponatremia, anemia, infection, [place], ETOH, adverse medicine reaction, overdose, stroke, this is not meant to be an all-inclusive list. EKG interpreted by me (3pts min.). @ -[As above] X-rays interpreted by me (1pt min.). @ -[As above CT interpreted by me (1pt min.). @ -[None done] U/S interpreted by me (1pt. min.). @ -[None done] What testing was considered but not performed or refused? (CT, X-rays, U/S, labs)? Why? @ -[None] What meds were considered but not given or refused? Why? @ -[None] Did you discuss the management of the patient with other professionals (professionals i.e. , PA, DATA ENTRY MANAGER, lab, RT, psych nurse, social psychologist, business planning director, t eacher, disability insurance hearing officer, case worker)? Give summary @ -[No] Was smoking cessation discussed for >3mins.? @ -[No] Was critical care preformed (if so, how long)? @ -[No] Were there social determinants of health that impacted care today? How? (Homelessness, low income, unemployed, alcoholism, drug addiction, transportation, low edu. Level, literacy, decrease access to med. care, correction, r ehab)? @ -[No] Was there de-escalation of care discussed even if they declined (Discuss DNR or withdrawal of care, Hospice)? DNR status @ -[No] What co-morbidities impacted this encounter? (DM, HTN, Smoking, COPD, CAD, Cance r, CVA, ARF, Chemo, Hep., AIDS, mental health diagnosis, sleep apnea, morbid obesity)? @ -[None] Was patient admitted / discharged? Hospital course, mention meds given and route, prescriptions, significant lab abnormalities, going to OR and other pertinent info. @ -[As above Undiagnosed new problem with uncertain prognosis? @ -[No] Drug Therapy requiring intensive monitoring for toxicity (Heparin, Nitro, Insulin, Cardizem)? @ -[No] Were any procedures done? @ -[No] Diagnosis/symptom? @ -[Acute orthostasis Acute dehydration Acute, or Chronic, or Acute on Chronic? @ -[default] Uncomplicated (without systemic symptoms) or Complicated (systemic symptoms)? @ -[Uncomplicated Side effects of treatment? @ -[No] Exacerbation, Progression, or Severe Exacerbation? @ -[No] Poses a threat to life or bodily function? How? (Chest pain, [place], [place], pneumonia, PE, COPD, DKA, ARF, appy, cholecystitis, CVA, Diverticulitis, Homicidal, Suicidal, threat to staff... and all critical care pts) @ -[No] - Lab Data Result diagrams: 10/17/22 14:16 10/17/22 14:16 Lab Results 10/17/22 10/17/22 10/17/22 Range/Units 14:16 14:16 14:16 WBC 10.0 (3.8-10.6) k/uL RBC 6.44 H (4.30-5.90) m/uL Hgb 15.5 (13.0-17.5) gm/dL Hct 49.1 (39.0-53.0) % MCV 76.2 L (80.0-100.0) fL MCH 24.0 L (25.0-35.0) pg MCHC 31.5 (31.0-37.0) g/dL RDW 20.0 H (11.5-15.5) % Plt Count 320 (150-450) k/uL MPV 7.7 Neutrophils % 81 % Lymphocytes % 8 % Monocytes % 7 % Eosinophils % 2 % Basophils % 0 % Neutrophils # 8.1 H (1.3-7.7) k/uL Lymphocytes # 0.8 L (1.0-4.8) k/uL Monocytes # 0.7 (0-1.0) k/uL Eosinophils # 0.2 (0-0.7) k/uL Basophils # 0.0 (0-0.2) k/uL Hypochromasia Slight Anisocytosis Slight Microcytosis Moderate PT 23.8 H (9.0-12.0) sec INR 2.4 H (<1.2) APTT 30.6 H (22.0-30.0) sec Sodium 137 (137-145) mmol/L Potassium 4.1 (3.5-5.1) mmol/L Chloride 101 (98-107) mmol/L Carbon Dioxide 21 L (22-30) mmol/L Anion Gap 15 mmol/L BUN 15 (9-20) mg/dL Creatinine 1.01 (0.66-1.25) mg/dL Est GFR (CKD-EPI)AfAm >90 (>60 ml/min/1.73 sqM) Est GFR (CKD-EPI)NonAf 82 (>60 ml/min/1.73 sqM) Glucose 167 H (74-99) mg/dL Calcium 8.9 (8.4-10.2) mg/dL Magnesium 1.9 (1.6-2.3) mg/dL Total Bilirubin 0.8 (0.2-1.3) mg/dL AST 33 (17-59) U/L ALT 22 (4-49) U/L Alkaline Phosphatase 122 (38-126) U/L Troponin I (0.000-0.034) ng/mL NT-Pro-B Natriuret Pep pg/mL Total Protein 7.6 (6.3-8.2) g/dL Albumin 4.5 (3.5-5.0) g/dL 10/17/22 10/17/22 Range/Units 14:16 14:16 WBC (3.8-10.6) k/uL RBC (4.30-5.90) m/uL Hgb (13.0-17.5) gm/dL Hct (39.0-53.0) % MCV (80.0-100.0) fL MCH (25.0-35.0) pg MCHC (31.0-37.0) g/dL RDW (11.5-15.5) % Plt Count (150-450) k/uL MPV Neutrophils % % Lymphocytes % % Monocytes % % Eosinophils % % Basophils % % Neutrophils # (1.3-7.7) k/uL Lymphocytes # (1.0-4.8) k/uL Monocytes # (0-1.0) k/uL Eosinophils # (0-0.7) k/uL Basophils # (0-0.2) k/uL Hypochromasia Anisocytosis Microcytosis PT (9.0-12.0) sec INR (<1.2) APTT (22.0-30.0) sec Sodium (137-145) mmol/L Potassium (3.5-5.1) mmol/L Chloride (98-107) mmol/L Carbon Dioxide (22-30) mmol/L Anion Gap mmol/L BUN (9-20) mg/dL Creatinine (0.66-1.25) mg/dL Est GFR (CKD-EPI)AfAm (>60 ml/min/1.73 sqM) Est GFR (CKD-EPI)NonAf (>60 ml/min/1.73 sqM) Glucose (74-99) mg/dL Calcium (8.4-10.2) mg/dL Magnesium (1.6-2.3) mg/dL Total Bilirubin (0.2-1.3) mg/dL AST (17-59) U/L ALT (4-49) U/L Alkaline Phosphatase (38-126) U/L Troponin I <0.012 (0.000-0.034) ng/mL NT-Pro-B Natriuret Pep 161 pg/mL Total Protein (6.3-8.2) g/dL Albumin (3.5-5.0) g/dL Disposition Clinical Impression: Orthostasis Disposition: HOME SELF-CARE Condition: Good Instructions (If sedation given, give patient instructions): Dehydration (ED) Is patient prescribed a controlled substance at d/c from ED?: No Referrals: Jermain Upton MD [Primary Care Provider] - 1-2 days
--- NOTE | 2022-10-17 14:18 | XR ---
EXAMINATION TYPE: XR chest 2V DATE OF EXAM: 10/17/2022 COMPARISON: 11/03/2019 INDICATION: Chest pain TECHNIQUE: Frontal and lateral views of the chest are obtained. FINDINGS: The heart size is normal. The pulmonary vasculature is normal. The lungs are clear. Pacemaker overlies left chest IMPRESSION: 1. No acute pulmonary process.
[2022-10-17 14:52] LABS: Anisocytosis Slight; Basophils % (A) 0 %; Eosinophils # (A) 0.2 k/uL (0-0.7); Eosinophils % (A) 2 %; HCT 49.1 % (39.0-53.0); HGB 15.5 gm/dL (13.0-17.5); Hypochromasia Slight; Lymphocytes # (A) 0.8 k/uL (1.0-4.8); Lymphocytes % (A) 8 %; MCHC 31.5 g/dL (31.0-37.0); MCV 76.2 fL (80.0-100.0); Mean Platelet Volume 7.7; Microcytosis Moderate; Monocytes # (A) 0.7 k/uL (0-1.0); Monocytes % (A) 7 %; Neutrophils # (A) 8.1 k/uL (1.3-7.7); Neutrophils % (A) 81 %; Platelet Count 320 k/uL (150-450); RBC 6.44 m/uL (4.30-5.90)
[2022-10-17 15:01] LABS: INR 2.4 (<1.2); Partial Thromboplastin Time 30.6 sec (22.0-30.0); Prothrombin Time 23.8 sec (9.0-12.0)
[2022-10-17 15:29] LABS: ALT 22 U/L (4-49); AST 33 U/L (17-59); African American GFR (CKD) >90 (>60 ml/min/1.73 sqM); Albumin 4.5 g/dL (3.5-5.0); Alkaline Phosphatase 122 U/L (38-126); Anion Gap 15 mmol/L; Blood Urea Nitrogen 15 mg/dL (9-20); Calcium 8.9 mg/dL (8.4-10.2); Carbon Dioxide 21 mmol/L (22-30); Chloride 101 mmol/L (98-107); Glucose 167 mg/dL (74-99); Magnesium 1.9 mg/dL (1.6-2.3); Non-African American GFR(CKD) 82 (>60 ml/min/1.73 sqM); Potassium 4.1 mmol/L (3.5-5.1); Sodium 137 mmol/L (137-145); Total Bilirubin 0.8 mg/dL (0.2-1.3); Total Protein 7.6 g/dL (6.3-8.2)
[2022-10-17 16:26] VITALS: BP 94/76; PULSE 76; TEMP 97.7
== END 2022-10-17 16:26 | disposition home or self-care (01) ==
LOC: EC 13:18
DX: I95.1 Orthostatic hypotension (principal); I11.0 Hypertensive heart disease with heart failure; E78.5 Hyperlipidemia, unspecified; I25.10 Atherosclerotic heart disease of native coronary artery without angina pectoris; I25.2 Old myocardial infarction; I48.91 Unspecified atrial fibrillation; I50.9 Heart failure, unspecified; Z79.82 Long term (current) use of aspirin; Z79.84 Long term (current) use of oral hypoglycemic drugs; Z79.899 Other long term (current) drug therapy; Z88.5 Allergy status to narcotic agent; Z88.8 Allergy status to other drugs, medicaments and biological substances; Z90.49 Acquired absence of other specified parts of digestive tract
CPT/HCPCS: 36415; 71046; 80053; 83735; 83880; 84484; 85025; 85610; 85730; 93005; 99284